=== PATIENT | male | born 1960 | race Caucasian/White ===

== ENCOUNTER 2017-01-22 22:00 | Inpatient (IN) ==
[2017-01-22] MEDS ORDERED: Piperacillin/Tazobactam 3.375 GM in D5% in Water (Mini-Bag+) 100 ML IVPB ONE (22:18)
[2017-01-22] MEDS ORDERED: Vancomycin 1,500 MG in D5% in Water 250 ML IVPB ONE (22:18)
[2017-01-22] MEDS ORDERED: Levofloxacin 750 MG/150 ML 750 MG/150 ML BAG IVPB ONE (22:18)
[2017-01-22] MEDS ORDERED: 0.9 % Sodium Chloride 1,000 ML IVC ONE (22:18)
[2017-01-22] MEDS ORDERED: methylPREDNISolone 125 MG/2 ML VIAL IVP ONE (22:21)
[2017-01-22] MEDS ORDERED: Ipratropium/Albuterol Neb 3 ML IH ONE (22:21)
[2017-01-22 22:45] LABS: Bilirubin,Urine Negative (Negative); Blood,Urine Negative (Negative); Clarity,Urine Clear (Clear); Color,Urine Yellow (Yellow); Glucose,Urine (UA) Normal (Normal); Ketones,Urine Negative (Negative); Leukocyte Esterase,Urine Negative (Negative); Nitrite,Urine Negative (Negative); PH,Urine 8.5 pH Units (5.0-8.0); Protein,Urine 30 mg/dL (Neg-Trace); Specific Gravity,Urine 1.016 (1.010-1.025); Urobilinogen,Urine Normal (Normal)
[2017-01-22 22:48] LABS: Bacteria,Urine None Seen per hpf (None-Few); Hyaline Casts,Urine None Seen per lpf (None-Few); RBC,Urine 0-3 per hpf (0-3); Squamous Epithelial Cell,Urine Few per lpf (None-Few); WBC,Urine 0-3 per hpf (0-3)
[2017-01-22 23:11] LABS: Basophils % 0.2 %; Eosinophils # 0.1 K/mcL (0.0-0.6); Eosinophils % 0.5 %; Hematocrit 37.7 % (37.5-50.1); Hemoglobin 11.4 g/dL (12.9-16.9); Immature Granulocytes % 0.6 % (0-4); Lymphocytes % 13.6 %; Mean Corpuscular HGB Conc 30.2 g/dL (31.6-35.5); Mean Corpuscular Hemoglobin 28.4 pg (28.0-33.3); Mean Corpuscular Volume 93.8 fL (83.0-100.0); Mean Platelet Volume 8.7 fL (9.4-12.4); Monocytes # 0.8 K/mcL (0.0-1.3); Monocytes % 5.7 %; Neutrophils # 11.5 K/mcL (1.6-8.9); Platelet Count 483 K/mcL (140-400); Red Blood Count 4.02 M/mcL (4.19-5.50); Red Cell Distribution Width 13.3 % (11.5-14.5); Segmented Neutrophils % 79.4 %
[2017-01-22 23:15] LABS: INR 1.1; Prothrombin Time 11.4 Seconds (9.4-12.1)
[2017-01-22 23:18] LABS: Activated Partial Thrombo Time 35.1 Seconds (26.0-36.0)
[2017-01-22 23:26] LABS: Alanine Aminotransferase 14 Units/L (0-55); Albumin 3.6 g/dL (3.5-5.0); Alkaline Phosphatase 48 Units/L (38-126); Aspartate Amino Transferase 12 Units/L (5-34); BUN/Creatinine Ratio 13 (6-26); Bilirubin,Direct 0.2 mg/dL (0.0-0.5); Bilirubin,Indirect 0.2 mg/dL (0.0-1.2); Bilirubin,Total 0.4 mg/dL (0.2-1.2); Blood Urea Nitrogen 11 mg/dL (8-26); Calcium 10.2 mg/dL (8.6-10.8); Chloride 93 mEq/L (98-109); Globulin 3.6 g/dL (2.4-3.5); Glucose 139 mg/dL (70-99); Magnesium 1.3 mg/dL (1.6-2.6); Osmolality,Calculated 296 (280-300); Phosphorous 1.8 mg/dL (2.3-4.7); Sodium 142 mEq/L (136-145); Total Protein 7.2 g/dL (6.0-8.3); eGFR For African Americans > 60 (> 60); eGFR For Non-African Americans > 60 (> 60)
[2017-01-22 23:28] LABS: Carbon Dioxide 41 mEq/L (19-29)
--- NOTE | 2017-01-22 23:29 | Emergency Department Note ---
Disposition Clinical Impression: COPD exacerbation, Community acquired pneumonia, Hypoxia Sepsis Qualifiers: Sepsis type: sepsis due to unspecified organism Qualified Code(s): A41.9 - Sepsis, unspecified organism Disposition: Admitted As Inpatient Condition: Fair Referrals: Unassigned,Provider [Primary Care Provider] - Forms: ED Satisfaction Letter Time of Disposition: 00:37 SOB HPI - General Chief Complaint: ED Shortness of Breath/Dyspnea Stated Complaint: KIAH Time Seen by Provider: 01/22/17 22:07 Source: EMS Mode of arrival: ambulatory Limitations: other Nursing Notes Reviewed: Yes Vital Signs Reviewed: Yes - History of Present Illness Patient presents emergency room by EMS for complaint of shortness of breath and cough. Patient is also felt ill. Patient has a tracheostomy tube in place. Denies any trauma or injuries. Has not traveled out of the country. Patient has had productive cough sputum and fever home. No recent antibiotics or change in medications at this time. Denies chest pain headache vision changes nausea vomiting or diarrhea. No chills at this time. Pt Subjective Complaint: shortness of breath, cough Onset (ago): day(s) Context: recent illness Severity: moderate Consistency/Duration: constant Improves with: upright position Worsens with: lying flat, exertion, movement, coughing Known history of: COPD, recurrent pneumonia Associated symptoms: Reports: fever, cough, wheezing, sputum production, orthopnea Treatment prior to arrival: oxygen, bronchodilator Cough Description: Voluntary, Hacking Sputum production: Yes Sputum Amount: Small Sputum Color: Cream - Related Data Home oxygen amount: 2 liters Home Medications Medication Instructions Recorded Confirmed Furosemide [Lasix] 20 mg PO BID 09/24/15 08/19/16 Omeprazole [PriLOSEC] 20 mg PO DAILY 09/24/15 10/22/16 OxyCODONE/APAP [Percocet 1 tab PO Q6HR PRN 09/24/15 10/22/16 10] Fenofibrate [Tricor] 145 mg PO DAILY 08/19/16 10/22/16 Insulin DETEMIR [Levemir] 15 unit SQ HS 08/19/16 08/19/16 Diazepam [Valium] 5 mg PO TID 10/22/16 10/22/16 Sitagliptin Phos/Metformin HCl 1 tab PO BID 10/22/16 10/22/16 [Janumet 50-1,000 mg Tablet] Previous Rx's Medication Instructions Recorded Albuterol Neb [Proventil Neb] 2.5 mg IH [id number] PRN #0 inhsol 07/21/15 Aspirin Enteric Coated [Aspirin EC] 81 mg PO DAILY tablet. 07/21/15 Atorvastatin [Lipitor] 40 mg PO HS tablet 07/21/15 Clopidogrel [Plavix] 75 mg PO DAILY tablet 07/21/15 Gabapentin [Neurontin] 300 mg PO TID capsule 07/21/15 Hydrochlorothiazide 12.5 mg PO DAILY tablet 07/21/15 Ipratropium/Albuterol Neb [Duoneb] 3 ml IH [id number] inhsol 07/21/15 Meloxicam [Mobic] 15 mg PO DAILY tablet 07/21/15 Metformin [Glucophage] 1,000 mg PO BIDWM tablet 07/21/15 Metoprolol [Lopressor] 25 mg PO BID tablet 07/21/15 Montelukast [Singulair] 10 mg PO HS tablet 07/21/15 SitaGLIPtin [Januvia] 50 mg PO BID tablet 07/21/15 Ondansetron ODT [Zofran ODT] 4 mg PO Q6HR PRN #7 tab 11/04/15 Levofloxacin [Levaquin] 500 mg PO DAILY #10 tablet 10/26/16 PredniSONE 60 mg PO DAILY 12 Days 10/26/16 Allergies Allergy/AdvReac Type Severity Reaction Status Date / Time No Known Allergies Allergy Verified 01/22/17 22:03 All systems ED: reviewed and negative except as stated. Constitutional: Reports: fever, chills Cardiovascular: Reports: dyspnea on exertion, orthopnea. Denies: palpitations Respiratory: Reports: dyspnea, wheezes, sputum production. Denies: stridor Gastrointestinal: Denies: nausea, vomiting, diarrhea Genitourinary: Denies: dysuria, frequency Musculoskeletal: Denies: back pain, neck pain Past Medical History - Past Medical History Attestation: Yes The following information was validated with the patient. Source: patient Medical history: Reports: COPD, CVA, diabetes, myocardial infarction Surgical history: Reports: tracheostomy Psychiatric history: Reports: no psych history - Social History Smoking Status: Current every day smoker Smokeless Tobacco Status: No Alcohol use: Reports: occasionally Drug use: Reports: none Physical Exam - General Limitations: other General appearance: alert - Neck Neck exam: Present: normal inspection, full ROM, trachea midline (Patient has tracheostomy tube in place with no acute signs of skin breakdown or bleeding) - Chest Chest inspection: Present: normal inspection, symmetric chest wall rise. Absent : tenderness - Respiratory Respiratory exam: Present: respiratory distress, wheezes, accessory muscle use. Absent: stridor - Cardiovascular Cardiovascular exam: Present: normal rhythm, tachycardia, normal heart sounds - Abdominal Exam Abdominal exam: Present: soft, Non-Tender. Absent: tenderness, distention, guarding, rebound, rigidity, Zhu's sign - Extremities Exam Extremities exam: Present: normal inspection, full ROM. Absent: tenderness, pedal edema - Back Exam Back exam: Present: normal inspection - Neurological Exam Neurological exam: Present: alert, oriented X3, CN II-XII intact, normal gait - Skin Skin exam: Present: warm, dry, intact, normal color Course Course Narrative: Patient presents emergency room for evaluation of increased work of breathing productive sputum and fever. He has felt ill over the last several days. Vital signs reviewed on presentation. See history of present illness. Patient is febrile and tachycardic on presentation. Tracheostomy tube immediately suctioned point of dark-colored sputum. Pulse ox was normal. Patient started on sepsis protocol initially as he presents emergency room. Fluid to be given in 1 L aliquots concerning for congestive heart failure we will not do the 30 mg /kg bolus of fluid at this time. Patient to get broad-spectrum antibiotics secondary to the tracheostomy site. Lungs are coarse with wheezing bilaterally. Solu-Medrol as well as breathing treatments ordered on presentation. Patient to have labs EKG chest x-ray urinalysis and antibiotic and fluid regimen started this time. Lactic acid also ordered for completion of course of care. Patient will most likely need admission to hospital. Otherwise mentating appropriately and feeling ill. Tylenol ordered for his fever. Continue to monitor as admission process will be completed once labs and imaging are resulted. - Reevaluation(s) Reevaluation #1: Patient found to have bilateral infiltrate on chest x-ray. Vital signs are stabilized with the fluids. Tylenol given. Breathing is less labored at this point after the steroids and breathing treatments. Patient will be brought in for what appears to be clean acquired pneumonia with possibility of healthcare acquired pneumonia secondary to the multiple evaluations for tracheostomy site. Hospitalist paged at this time for admission process. Discussed the presentation symptoms and medical intervention with Dr. Mckeon. We reviewed the patient's presentation and symptoms of this time. No other recommendations at this time. Patient will be admitted for further evaluation and management of what appears to be bilateral pneumonia with fever meeting sepsis criteria. Patient is stable fluid being provided in incremental aliquots for symptom control. Otherwise patient is in no acute distress at this time. Admission process to be completed. Patient will be observed in the emergency room until he was transitioned to the floor. Time: 00:35 Vital Signs Temperature 101.8 F H 01/22/17 22:05 Pulse Rate 149 01/22/17 22:05 Respiratory Rate 24 01/22/17 22:05 Blood Pressure 147/94 01/22/17 22:05 O2 Sat by Pulse Oximetry 90 L 01/22/17 22:05 Temperature 101.8 F H 01/22/17 22:05 Pulse Rate 137 01/22/17 23:10 Respiratory Rate 26 01/22/17 23:10 Blood Pressure 149/75 01/22/17 23:10 O2 Sat by Pulse Oximetry 98 01/22/17 22:30 Oxygen Delivery Oxygen Delivery Trach Mask Shortness of Breath/Dyspnea - MDM Narrative Medical decision making narrative: Bilateral pneumonia, fever, sepsis - Medical Records Medical records reviewed: Yes I reviewed the patient's medical records. - Lab Data Lab results reviewed: Yes I reviewed the patient's lab results. Result diagrams: 01/22/17 23:01 Lab Results 01/22/17 01/22/17 01/22/17 Range/Units 22:33 22:56 23:01 WBC 14.5 H (4.3-11.1) K/mcL RBC 4.02 L (4.19-5.50) M/mcL Hgb 11.4 L (12.9-16.9) g/dL Hct 37.7 (37.5-50.1) % MCV 93.8 (83.0-100.0) fL MCH 28.4 (28.0-33.3) pg MCHC 30.2 L (31.6-35.5) g/dL RDW 13.3 (11.5-14.5) % Plt Count 483 H (140-400) K/mcL MPV 8.7 L (9.4-12.4) fL Immature Gran % 0.6 (0-4) % Seg Neutrophils % 79.4 % Lymphocytes % 13.6 % Monocytes % 5.7 % Eosinophils % 0.5 % Basophils % 0.2 % Neutrophils # 11.5 H (1.6-8.9) K/mcL Lymphocytes # 2.0 (0.6-4.6) K/mcL Monocytes # 0.8 (0.0-1.3) K/mcL Eosinophils # 0.1 (0.0-0.6) K/mcL Basophils # 0.0 (0.0-0.2) K/mcL PT (9.4-12.1) Seconds INR APTT (26.0-36.0) Seconds POC Glucose 132 H (58-89) Lactic Acid (0.5-2.2) mmol/L Urine Color Yellow (Yellow) Urine Clarity Clear (Clear) Urine pH 8.5 H (5.0-8.0) pH Units Ur Specific [place] 1.016 (1.010-1.025) Urine Protein 30 H (Neg-Trace) mg/dL Urine Glucose (UA) Normal (Normal) mg/dL Urine Ketones Negative (Negative) mg/dL Urine Blood Negative (Negative) Urine Nitrite Negative (Negative) Urine Bilirubin Negative (Negative) Urine Urobilinogen Normal (Normal) mg/dL Ur Leukocyte Esterase Negative (Negative) Urine Microscopic RBC 0-3 (0-3) per hpf Urine Microscopic WBC 0-3 (0-3) per hpf Ur Squamous Epith Cells Few (None-Few) per lpf Urine Bacteria None Seen (None-Few) per hpf Hyaline Casts None Seen (None-Few) per lpf Ur Culture Indicated? NO (NO) 01/22/17 01/22/17 Range/Units 23:01 23:01 WBC (4.3-11.1) K/mcL RBC (4.19-5.50) M/mcL Hgb (12.9-16.9) g/dL Hct (37.5-50.1) % MCV (83.0-100.0) fL MCH (28.0-33.3) pg MCHC (31.6-35.5) g/dL RDW (11.5-14.5) % Plt Count (140-400) K/mcL MPV (9.4-12.4) fL Immature Gran % (0-4) % Seg Neutrophils % % Lymphocytes % % Monocytes % % Eosinophils % % Basophils % % Neutrophils # (1.6-8.9) K/mcL Lymphocytes # (0.6-4.6) K/mcL Monocytes # (0.0-1.3) K/mcL Eosinophils # (0.0-0.6) K/mcL Basophils # (0.0-0.2) K/mcL PT 11.4 (9.4-12.1) Seconds INR 1.1 APTT 35.1 (26.0-36.0) Seconds POC Glucose (58-89) Lactic Acid 1.4 (0.5-2.2) mmol/L Urine Color (Yellow) Urine Clarity (Clear) Urine pH (5.0-8.0) pH Units Ur Specific [place] (1.010-1.025) Urine Protein (Neg-Trace) mg/dL Urine Glucose (UA) (Normal) mg/dL Urine Ketones (Negative) mg/dL Urine Blood (Negative) Urine Nitrite (Negative) Urine Bilirubin (Negative) Urine Urobilinogen (Normal) mg/dL Ur Leukocyte Esterase (Negative) Urine Microscopic RBC (0-3) per hpf Urine Microscopic WBC (0-3) per hpf Ur Squamous Epith Cells (None-Few) per lpf Urine Bacteria (None-Few) per hpf Hyaline Casts (None-Few) per lpf Ur Culture Indicated? (NO) - Radiology Data Radiology results reviewed: Yes I reviewed the patient's radiology results. Chest x-ray confirmed bilateral pulmonary infiltrate - EKG Data EKG attestation: Yes I reviewed and interpreted this EKG. EKG shows normal: Reports: sinus rhythm, axis, intervals, QRS complexes, ST-T waves Rate: Reports: tachycardia Rhythm: Reports: NSR [place]/QRS: Reports: normal When compared to previous EKG there are: no significant changes Interpretation: Reports: no acute changes, unchanged when compared to prior tracing (date) (10/22/16) Critical Care Time Critical Care Time: Yes Total Critical Care Time: 45 Attestation: Independent of procedures and medical intervention
--- NOTE | 2017-01-23 02:50 | Internal Med History&Physical ---
Date of Encounter: 01/23/17 Time of Encounter: 02:47 Assessment and Plan (1) Sepsis Current visit: Yes Status: Acute Patient with leukocytosis, fever and pneumonia. Continue with broad-spectrum antibiotics. Follow cultures. Continue monitoring the patient closely. Lactic acid within normal limits. Continue with oxygen therapy. Pulmonary toilet. Nebulizer therapy. Qualifiers: Sepsis type: sepsis due to unspecified organism Qualified Code(s): A41.9 - Sepsis, unspecified organism (2) Acute and chronic respiratory failure with hypercapnia Current visit: No Status: Acute Patient with chronic respiratory failure, chronic CO2 retainer in the setting of COPD and status post tracheostomy. Continue with management as above for healthcare associated pneumonia. (3) Acute exacerbation of chronic obstructive pulmonary disease (COPD) Current visit: No Status: Acute (4) HCAP (healthcare-associated pneumonia) Current visit: No Status: Acute (5) Hypertension Current visit: No Status: Chronic Qualifiers: Hypertension type: essential hypertension Qualified Code(s): I10 - Essential (primary) hypertension (6) Tobacco abuse Current visit: No Status: Chronic (7) Tracheostomy dependent Current visit: No Status: Chronic Internal Medicine - H&P: HPI Chief complaint: SOB Admitted From: Emergency Dept Plans for Post Hospital Care: Home History of present illness: Mr. Mccloud is a 56 year old male with PMH of COPD s/p tracheostomy-on home oxygen (3L), hypertension, diabetes, CAD, status post tracheostomy, and an every day smoker. He presented to the emergency department via EMS due to shortness of breath and productive cough. The patient has been feeling weak for the last couple of days. Upon evaluation in the emergency department he was found to be febrile and tachycardic. Initial blood work revealed leukocytosis. The patient has received nebulizer therapy, IV fluids, a sepsis alert was activated and the patient received IV antibiotics in the emergency department with both vancomycin and Zosyn. Lactic acid was obtained, within normal limits in 2 locations. X-ray revealed bibasilar infiltrates He was admitted for further management and workup. Past Med Surg Social Fam HX - Past Medical History Medical history: COPD, CVA, diabetes, myocardial infarction Psychiatric history: no psych history - Past Surgical History Surgical History: tracheostomy - Social History Smoking Status: Current every day smoker Smokeless Tobacco Status: No Alcohol use: occasionally Drug use: none - Family History Mother Hx Family Respiratory Disorders: Yes (COPD) Hx Family Endocrine Disorder: Yes (DIABETES.) Internal Medicine - H&P: Meds Albuterol Neb [Proventil Neb] 2.5 mg IH [id number] PRN #0 inhsol 07/21/15 [Rx] Aspirin Enteric Coated [Aspirin EC] 81 mg PO DAILY tablet. 07/21/15 [Rx] Atorvastatin [Lipitor] 40 mg PO HS tablet 07/21/15 [Rx] Clopidogrel [Plavix] 75 mg PO DAILY tablet 07/21/15 [Rx] Gabapentin [Neurontin] 300 mg PO TID capsule 07/21/15 [Rx] Hydrochlorothiazide 12.5 mg PO DAILY tablet 07/21/15 [Rx] Ipratropium/Albuterol Neb [Duoneb] 3 ml IH [id number] inhsol 07/21/15 [Rx] Meloxicam [Mobic] 15 mg PO DAILY tablet 07/21/15 [Rx] Metformin [Glucophage] 1,000 mg PO BIDWM tablet 07/21/15 [Rx] Metoprolol [Lopressor] 25 mg PO BID tablet 07/21/15 [Rx] Montelukast [Singulair] 10 mg PO HS tablet 07/21/15 [Rx] SitaGLIPtin [Januvia] 50 mg PO BID tablet 07/21/15 [Rx] Furosemide [Lasix] 20 mg PO BID 09/24/15 [History] Omeprazole [PriLOSEC] 20 mg PO DAILY 09/24/15 [History] OxyCODONE/APAP 10/325 [Percocet 10/325] 1 tab PO Q6HR PRN 09/24/15 [History] Ondansetron ODT [Zofran ODT] 4 mg PO Q6HR PRN #7 tab 11/04/15 [Rx] Fenofibrate [Tricor] 145 mg PO DAILY 08/19/16 [History] Insulin DETEMIR [Levemir] 15 unit SQ HS 08/19/16 [History] Diazepam [Valium] 5 mg PO TID 10/22/16 [History] Sitagliptin Phos/Metformin HCl [Janumet 50-1,000 mg Tablet] 1 tab PO BID [History] Levofloxacin [Levaquin] 500 mg PO DAILY #10 tablet 10/26/16 [Rx] PredniSONE 60 mg PO DAILY 12 Days 10/26/16 [Rx] Allergies azithromycin Allergy (Verified 01/23/17 01:18) See Comments All Systems PM: A 10-system review of systems was performed and is negative for pertinent findings except as documented above in the HPI. - Constitutional Constitutional: as per HPI, chills, excessive sweating, fatigue, fever(s), malaise, no night sweats - EENT Eyes: as per HPI, no change in vision, no discharge, no pain, no photophobia Ears: as per HPI, no ear discharge, no ear pain, no tinnitus Nose, mouth and throat: as per HPI, no dysphagia, no nasal discharge, no neck pain, no sore throat - Breasts Breasts: as per HPI - Cardiovascular Cardiovascular ROS IM: as per HPI, dyspnea on exertion, no chest pain, no diaphoresis, no dyspnea, no lightheadedness, no palpitations, no syncope - Respiratory Respiratory: as per HPI, cough, dyspnea, dyspnea on exertion, wheezing, no excessive phlegm production - Gastrointestinal Gastrointestinal: as per HPI, no abdominal pain, no diarrhea, no hematemesis, no hematochezia, no melena, no nausea, no vomiting - Genitourinary Genitourinary ROS male: as per HPI - Musculoskeletal Musculoskeletal ROS IM: as per HPI, no numbness, no tingling - Integumentary Integumentary IM: as per HPI, no rash, no unusual bruising - Neurological Neurological ROS: as per HPI, no confusion, no convulsions, no focal weakness, no numbness, no tingling, no tremor(s) - Psychiatric Psychiatric: as per HPI - Endocrine Endocrine IM: as per HPI - Hematologic/Lymphatic Hematologic/Lymphatic: as per HPI, no easy bruising - Allergic/Immunologic Allergic/Immunologic: as per HPI - Constitutional Vitals: Temp Pulse Resp BP Pulse Ox 101.8 F H 117 20 123/55 100 01/22/17 22:05 01/23/17 01:37 01/23/17 02:09 01/23/17 02:09 01/23/17 01:37 General appearance: Present: disheveled, mild distress, A&O X 3 Exam: Tracheostomy tube placed. - Head Head exam: Present: atraumatic, normocephalic - Eye Eye exam: Present: PERRL, conjuntiva pink, sclera anicteric Pupils: Present: PERRL - Neck Neck exam general surgery: Present: supple, trachea midline. Absent: lymphadenopathy - Respiratory Respiratory exam: Present: decreased breath sounds, wheezes. Absent: accessory muscle use, rales, rhonchi - Cardiovascular Cardiovascular exam: Present: RRR, +S1, +S2, tachycardia. Absent: diastolic murmur, gallop, rubs, systolic murmur - GI/Abdominal GI/Abdominal exam: Present: normal bowel sounds, soft, no peritoneal signs. Absent: distended, tenderness - Extremities Exam Extremities exam: Present: warm, radial pulses palpable and symetrical. Absent : calf tenderness, cyanotic, pedal edema - Neurological Exam Neurological exam: Present: CN II-XII intact, oriented X3, no focal deficits. Absent: pronater drift, facial droop, speech deficit - Skin Skin exam: Present: dry, intact Internal Med - H&P Results - Labs CBC & Chem 7: 01/22/17 23:01 01/22/17 23:01
[2017-01-23] MEDS ORDERED: Ondansetron 4 MG/2 ML VIAL IVP PRN (03:06)
[2017-01-23] MEDS ORDERED: Albuterol 2.5 MG/3 ML NEBULIZER IH PRN (03:06)
[2017-01-23] MEDS ORDERED: Acetaminophen 325 MG TABLET PO PRN (03:06)
[2017-01-23] MEDS ORDERED: Naloxone 0.4 MG/ML INJ IVP PRN (03:06)
[2017-01-23] MEDS: 0.9 % Sodium Chloride 1,000 ML IVC SCH ×2 (03:53→15:19)
[2017-01-23] MEDS: *HR* Morphine 2 MG/ML SYRINGE IVP PRN (03:55)
[2017-01-23] MEDS ORDERED: Vancomycin (wt based) 1,000 MG VIAL IVPB SCH (04:00)
[2017-01-23] MEDS: *HR* Heparin 5,000 UNIT/ML VIAL SQ SCH ×2 (04:02→17:43)
[2017-01-23] MEDS: Ipratropium/Albuterol Neb 3 ML IH SCH ×4 (04:58→22:05)
[2017-01-23] MEDS: Famotidine 20 MG/2 ML VIAL IVP SCH ×2 (05:19→17:42)
[2017-01-23 06:30] LABS: Hematocrit 37.3 % (37.5-50.1); Hemoglobin 11.4 g/dL (12.9-16.9); Mean Corpuscular HGB Conc 30.6 g/dL (31.6-35.5); Mean Corpuscular Volume 94.9 fL (83.0-100.0); Mean Platelet Volume 9.2 fL (9.4-12.4); Platelet Count 455 K/mcL (140-400); Red Blood Count 3.93 M/mcL (4.19-5.50); Red Cell Distribution Width 13.2 % (11.5-14.5)
[2017-01-23 07:27] LABS: Platelet Estimate Increased (Normal)
[2017-01-23] MEDS: Piperacillin/Tazobactam 3.375 GM in D5% in Water (Mini-Bag+) 100 ML IVPB SCH ×2 (09:25→15:20)
[2017-01-23] MEDS: MethylPREDNISolone 40 MG/ML VIAL IVP SCH ×2 (09:27→17:42)
[2017-01-23] MEDS: Vancomycin 1,500 MG in D5% in Water 250 ML IVPB SCH ×2 (11:13→22:48)
--- NOTE | 2017-01-23 14:16 | Internal Med Progress Note ---
Date of Encounter: 01/23/17 Time of Encounter: 14:14 - Assessment and plan (1) Acute and chronic respiratory failure ([id number]) Current Visit: No Status: Chronic Assessment and plan: trach mask, supplemental O2, trach care,succtioning Qualifiers: Respiratory failure complication: hypoxia and hypercapnia Qualified Code(s) : J96.21 - Acute and chronic respiratory failure with hypoxia; J96.22 - Acute and chronic respiratory failure with hypercapnia (2) Acute exacerbation of chronic obstructive pulmonary disease (COPD) Current Visit: No Status: Acute Assessment and plan: Iv solumedrol, inhaled Duoneb (3) Tracheostomy status Current Visit: No Status: Chronic Assessment and plan: trach care (4) HCAP (healthcare-associated pneumonia) Current Visit: No Status: Acute Assessment and plan: Zosyn and Vancomycin. f/u sputum culture (5) DMII (diabetes mellitus, type 2) Current Visit: No Status: Chronic Assessment and plan: increase Levemir to 16units BID due to steroids, add humalog sliding scale, hold orals Qualifiers: Diabetes mellitus complication status: without complication Diabetes mellitus fdc insulin use: with fdc use Qualified Code(s): E11.9 - Type 2 diabetes mellitus without complications; Z79.4 - intermediate (current) use of insulin (6) HTN (hypertension) Current Visit: No Status: Chronic Assessment and plan: sc Metoprolol Qualifiers: Hypertension type: essential hypertension Qualified Code(s): I10 - Essential (primary) hypertension (7) DVT prophylaxis Current Visit: No Status: Acute Assessment and plan: heparin SubQ (8) Tobacco abuse Current Visit: No Status: Chronic - Subjective Interval history: Pt reports cough productive of sputum and SOB worse this am, no CP, no N/V - Constitutional Vitals: Temp Pulse Resp BP Pulse Ox 98.7 F 110 18 137/81 90 L 01/23/17 11:00 01/23/17 11:00 01/23/17 11:00 01/23/17 11:00 01/23/17 11:00 General appearance: Present: disheveled, mild distress, A&O X 3 - Head Head exam: Present: atraumatic, normocephalic - Eye Eye exam: Present: PERRL, conjuntiva pink, sclera anicteric Pupils: Present: PERRL - Respiratory Respiratory exam: Present: rales, rhonchi, wheezes. Absent: accessory muscle use - Cardiovascular Cardiovascular exam: Present: RRR, +S1, +S2. Absent: diastolic murmur, gallop, rubs, systolic murmur - GI/Abdominal GI/Abdominal exam: Present: normal bowel sounds, soft, no peritoneal signs. Absent: distended, tenderness - Extremities Exam Extremities exam: Present: warm, radial pulses palpable and symetrical. Absent : calf tenderness, cyanotic, pedal edema - Skin Skin exam: Present: dry, intact Internal Medicine: Result - Labs CBC & Chem 7: 01/23/17 05:51 01/22/17 23:01 Labs: Short CBC 01/23/17 Range/Units 05:51 WBC 15.9 H (4.3-11.1) K/mcL Hgb 11.4 L (12.9-16.9) g/dL Hct 37.3 L (37.5-50.1) % Plt Count 455 H (140-400) K/mcL Neutrophils # 15.0 H (1.6-8.9) K/mcL - ABG Interpretation ABG results: PT/INR, D-dimer PT 11.4 Seconds (9.4-12.1) 01/22/17 23:01 Consult Discharge Plan - Plan Referrals: Ad Garcia MD [Primary Care Provider] -
[2017-01-23] MEDS ORDERED: *HR* Dextrose 50 % in Water (Syg) 50 ML SYRINGE IVP PRN (14:19)
[2017-01-23] MEDS ORDERED: Dextrose Gel 15 GM PO PRN ×2 (14:19)
[2017-01-23] MEDS ORDERED: D5% in Water 1,000 ML IVC PRN (14:19)
[2017-01-23 15:00] LABS: Hemoglobin A1C 6.4 %
[2017-01-23] MEDS: Gabapentin 300 MG CAPSULE PO SCH ×2 (15:20→20:59)
[2017-01-23] MEDS: *HR* OxyCODONE/APAP 10/325 TABLET PO PRN ×2 (15:26→20:58)
[2017-01-23] MEDS: Furosemide 20 MG TABLET PO SCH (17:43)
[2017-01-23] MEDS: diazePAM 5 MG TABLET PO SCH ×2 (17:43→20:59)
[2017-01-23] MEDS: Insulin LISPRO 300 UNITS/3 ML VIAL SQ SCH ×2 (17:43→21:00)
[2017-01-23] MEDS: Insulin DETEMIR 100 UNIT/ML X5UNITS SQ SCH (20:59)
[2017-01-24] MEDS: MethylPREDNISolone 40 MG/ML VIAL IVP SCH ×3 (00:53→16:51)
[2017-01-24] MEDS: Piperacillin/Tazobactam 3.375 GM in D5% in Water (Mini-Bag+) 100 ML IVPB SCH ×3 (00:53→16:51)
[2017-01-24] MEDS: *HR* Morphine 2 MG/ML SYRINGE IVP PRN (00:54)
[2017-01-24] MEDS: Ipratropium/Albuterol Neb 3 ML IH SCH ×4 (04:13→22:37)
[2017-01-24] MEDS: *HR* OxyCODONE/APAP 10/325 TABLET PO PRN ×3 (05:33→23:04)
[2017-01-24] MEDS: *HR* Heparin 5,000 UNIT/ML VIAL SQ SCH ×2 (05:33→16:51)
[2017-01-24] MEDS: Famotidine 20 MG/2 ML VIAL IVP SCH ×2 (05:34→16:51)
[2017-01-24 07:29] LABS: BUN/Creatinine Ratio 15 (6-26); Blood Urea Nitrogen 13 mg/dL (8-26); Calcium 9.3 mg/dL (8.6-10.8); Carbon Dioxide 35 mEq/L (19-29); Chloride 95 mEq/L (98-109); Glucose 258 mg/dL (70-99); Osmolality,Calculated 295 (280-300); Potassium 4.4 mEq/L (3.5-4.5); Sodium 138 mEq/L (136-145); eGFR For African Americans > 60 (> 60); eGFR For Non-African Americans > 60 (> 60)
[2017-01-24 07:30] LABS: Hematocrit 33.3 % (37.5-50.1); Hemoglobin 10.4 g/dL (12.9-16.9); Immature Granulocytes % 0.4 % (0-4); Lymphocytes # 0.8 K/mcL (0.6-4.6); Lymphocytes % 8.2 %; Mean Corpuscular HGB Conc 31.2 g/dL (31.6-35.5); Mean Corpuscular Hemoglobin 29.2 pg (28.0-33.3); Mean Corpuscular Volume 93.5 fL (83.0-100.0); Mean Platelet Volume 9.3 fL (9.4-12.4); Monocytes # 0.4 K/mcL (0.0-1.3); Monocytes % 3.6 %; Neutrophils # 8.9 K/mcL (1.6-8.9); Platelet Count 481 K/mcL (140-400); Red Blood Count 3.56 M/mcL (4.19-5.50); Segmented Neutrophils % 87.8 %
[2017-01-24] MEDS: Insulin LISPRO 300 UNITS/3 ML VIAL SQ SCH ×4 (08:01→22:32)
[2017-01-24] MEDS: Insulin DETEMIR 100 UNIT/ML X5UNITS SQ SCH ×2 (08:01→23:00)
[2017-01-24] MEDS: diazePAM 5 MG TABLET PO SCH ×4 (08:02→23:00)
[2017-01-24] MEDS: Aspirin Enteric Coated 81 MG Tablet PO SCH (08:02)
[2017-01-24] MEDS: Gabapentin 300 MG CAPSULE PO SCH ×3 (08:02→23:00)
[2017-01-24] MEDS: Furosemide 20 MG TABLET PO SCH ×2 (08:02→16:51)
[2017-01-24 09:04] LABS: Magnesium 1.7 mg/dL (1.6-2.6)
[2017-01-24] MEDS: Vancomycin 1,750 MG in D5% in Water 500 ML IVPB SCH ×2 (12:04→23:01)
--- NOTE | 2017-01-24 20:08 | Internal Med Progress Note ---
Date of Encounter: 01/24/17 Time of Encounter: 12:00 - Assessment and plan (1) Acute and chronic respiratory failure ([id number]) Current Visit: No Status: Chronic Assessment and plan: trach mask, supplemental O2, trach care,succtioning Qualifiers: Respiratory failure complication: hypoxia and hypercapnia Qualified Code(s) : J96.21 - Acute and chronic respiratory failure with hypoxia; J96.22 - Acute and chronic respiratory failure with hypercapnia (2) Acute exacerbation of chronic obstructive pulmonary disease (COPD) Current Visit: No Status: Acute Assessment and plan: Iv solumedrol 40 mg every 8, inhaled Duoneb (3) Tracheostomy status Current Visit: No Status: Chronic Assessment and plan: trach care (4) HCAP (healthcare-associated pneumonia) Current Visit: No Status: Acute Assessment and plan: Continue with Zosyn and Vancomycin. f/u sputum culture. Follow-up blood culture. (5) DMII (diabetes mellitus, type 2) Current Visit: No Status: Chronic Qualifiers: Diabetes mellitus complication status: without complication Diabetes mellitus terminal clerk insulin use: with terminal clerk use Qualified Code(s): E11.9 - Type 2 diabetes mellitus without complications; Z79.4 - correction (current) use of insulin (6) HTN (hypertension) Current Visit: No Status: Chronic Qualifiers: Hypertension type: essential hypertension Qualified Code(s): I10 - Essential (primary) hypertension (7) DVT prophylaxis Current Visit: No Status: Acute (8) Tobacco abuse Current Visit: No Status: Chronic - Subjective Interval history: Patient says his shortness of breath has improved tremendously since yesterday. He continues to have associated cough with sputum production which had decreased in amount over the last 24 hours. Denies associated chest pain. - Constitutional Vitals: Temp Pulse Resp BP Pulse Ox 98.2 F 85 20 135/83 92 L 01/24/17 16:58 01/24/17 19:53 01/24/17 19:53 01/24/17 19:53 01/24/17 19:53 General appearance: Present: disheveled, mild distress, A&O X 3 - Eye Eye exam: Present: PERRL, conjuntiva pink, sclera anicteric Pupils: Present: PERRL - Respiratory Respiratory exam: Present: wheezes. Absent: accessory muscle use, rales, rhonchi Additional comments: Tracheostomy is in place - Cardiovascular Cardiovascular exam: Present: RRR, +S1, +S2. Absent: diastolic murmur, gallop, rubs, systolic murmur - GI/Abdominal GI/Abdominal exam: Present: normal bowel sounds, soft, no peritoneal signs. Absent: distended, tenderness - Extremities Exam Extremities exam: Present: warm, radial pulses palpable and symetrical. Absent : calf tenderness, cyanotic, pedal edema - Skin Skin exam: Present: dry, intact Internal Medicine: Result - Labs CBC & Chem 7: 01/24/17 06:06 01/24/17 06:06 Labs: Short CBC 01/24/17 Range/Units 06:06 WBC 10.1 (4.3-11.1) K/mcL Hgb 10.4 L (12.9-16.9) g/dL Hct 33.3 L (37.5-50.1) % Plt Count 481 H (140-400) K/mcL Neutrophils # 8.9 (1.6-8.9) K/mcL BMP 01/24/17 06:06 Sodium 138 Potassium 4.4 Chloride 95 L Carbon Dioxide 35 H BUN 13 Creatinine 0.84 Glucose 258 H Calcium 9.3 - ABG Interpretation ABG results: PT/INR, D-dimer PT 11.4 Seconds (9.4-12.1) 01/22/17 23:01 Consult Discharge Plan - Plan Referrals: Ad Garcia MD [Primary Care Provider] -
--- NOTE | 2017-01-24 21:42 | Electrocardiograph Report ---
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
[2017-01-25] MEDS: Piperacillin/Tazobactam 3.375 GM in D5% in Water (Mini-Bag+) 100 ML IVPB SCH ×3 (00:56→16:39)
[2017-01-25] MEDS: MethylPREDNISolone 40 MG/ML VIAL IVP SCH ×3 (01:01→16:39)
[2017-01-25] MEDS: Ipratropium/Albuterol Neb 3 ML IH SCH ×4 (04:40→22:02)
[2017-01-25 05:01] LABS: Basophils % 0.1 %; Hematocrit 34.4 % (37.5-50.1); Hemoglobin 10.6 g/dL (12.9-16.9); Immature Granulocytes % 0.6 % (0-4); Lymphocytes % 10.2 %; Mean Corpuscular HGB Conc 30.8 g/dL (31.6-35.5); Mean Corpuscular Hemoglobin 28.3 pg (28.0-33.3); Mean Corpuscular Volume 91.7 fL (83.0-100.0); Mean Platelet Volume 8.9 fL (9.4-12.4); Monocytes # 0.4 K/mcL (0.0-1.3); Monocytes % 4.6 %; Platelet Count 504 K/mcL (140-400); Red Blood Count 3.75 M/mcL (4.19-5.50); Red Cell Distribution Width 13.1 % (11.5-14.5); Segmented Neutrophils % 84.5 %
[2017-01-25 05:16] LABS: BUN/Creatinine Ratio 14 (6-26); Blood Urea Nitrogen 13 mg/dL (8-26); Calcium 9.5 mg/dL (8.6-10.8); Carbon Dioxide 36 mEq/L (19-29); Chloride 97 mEq/L (98-109); Glucose 242 mg/dL (70-99); Osmolality,Calculated 300 (280-300); Potassium 4.3 mEq/L (3.5-4.5); Sodium 141 mEq/L (136-145); eGFR For African Americans > 60 (> 60); eGFR For Non-African Americans > 60 (> 60)
[2017-01-25] MEDS: *HR* OxyCODONE/APAP 10/325 TABLET PO PRN ×3 (05:18→20:42)
[2017-01-25] MEDS: *HR* Heparin 5,000 UNIT/ML VIAL SQ SCH ×2 (05:19→16:39)
[2017-01-25] MEDS: Famotidine 20 MG/2 ML VIAL IVP SCH (05:19)
[2017-01-25] MEDS: Furosemide 20 MG TABLET PO SCH ×2 (08:37→16:39)
[2017-01-25] MEDS: diazePAM 5 MG TABLET PO SCH ×4 (08:37→20:39)
[2017-01-25] MEDS: Gabapentin 300 MG CAPSULE PO SCH ×3 (08:37→20:40)
[2017-01-25] MEDS: Aspirin Enteric Coated 81 MG Tablet PO SCH (08:37)
[2017-01-25] MEDS: Insulin LISPRO 300 UNITS/3 ML VIAL SQ SCH ×3 (08:38→16:39)
[2017-01-25] MEDS: Insulin DETEMIR 100 UNIT/ML X5UNITS SQ SCH ×2 (08:40→20:40)
[2017-01-25] MEDS: Vancomycin 1,750 MG in D5% in Water 500 ML IVPB SCH ×2 (12:32→23:13)
[2017-01-25] MEDS ORDERED: Insulin LISPRO 300 UNITS/3 ML VIAL SQ SCH (15:47)
[2017-01-25] MEDS ORDERED: Famotidine 20 MG TABLET PO SCH (21:00)
--- NOTE | 2017-01-25 22:27 | Internal Med Progress Note ---
Date of Encounter: 01/25/17 Time of Encounter: 14:00 - Assessment and plan (1) Acute and chronic respiratory failure ([id number]) Current Visit: No Status: Chronic Assessment and plan: trach mask, supplemental O2, trach care,succtioning Qualifiers: Respiratory failure complication: hypoxia and hypercapnia Qualified Code(s) : J96.21 - Acute and chronic respiratory failure with hypoxia; J96.22 - Acute and chronic respiratory failure with hypercapnia (2) Acute exacerbation of chronic obstructive pulmonary disease (COPD) Current Visit: No Status: Acute Assessment and plan: We will start tapering down Iv solumedrol 40 mg every 12 hours, continue inhaled Duoneb every 4 hours and inhaled albuterol as needed. (3) Tracheostomy status Current Visit: No Status: Chronic Assessment and plan: trach care (4) HCAP (healthcare-associated pneumonia) Current Visit: No Status: Acute Assessment and plan: Continue with Zosyn and Vancomycin. f/u sputum culture. Follow-up blood culture - negative. Could be transitioned to oral antibiotics in 1-2 days if he continues to improve. (5) DMII (diabetes mellitus, type 2) Current Visit: No Status: Chronic Assessment and plan: increase Levemir to 16units BID due to steroids, add humalog sliding scale, hold orals Qualifiers: Diabetes mellitus complication status: without complication Diabetes mellitus longterm insulin use: with longterm use Qualified Code(s): E11.9 - Type 2 diabetes mellitus without complications; Z79.4 - skilled nursing (current) use of insulin (6) HTN (hypertension) Current Visit: No Status: Chronic Assessment and plan: sc Metoprolol Qualifiers: Hypertension type: essential hypertension Qualified Code(s): I10 - Essential (primary) hypertension (7) DVT prophylaxis Current Visit: No Status: Acute Assessment and plan: heparin SubQ (8) Tobacco abuse Current Visit: No Status: Chronic Assessment and plan: I have provided smoking cessation counseling. He does not intend to quit smoking just now but he is willing to cut down. - Subjective Interval history: Patient says his shortness of breath has improved since yesterday. He continues to have cough with sputum production which had decreased in amount over the last 24 hours. Denies associated chest pain. - Constitutional Vitals: Temp Pulse Resp BP Pulse Ox 99.6 F 74 16 141/85 91 L 03/27/17 15:17 01/25/17 15:17 01/25/17 22:02 01/25/17 15:17 01/25/17 22:02 General appearance: Present: disheveled, mild distress, A&O X 3 - Eye Eye exam: Present: PERRL, conjuntiva pink, sclera anicteric Pupils: Present: PERRL - Respiratory Respiratory exam: Present: wheezes (Tracheostomy tube was in place). Absent: accessory muscle use, rales, rhonchi - Cardiovascular Cardiovascular exam: Present: RRR, +S1, +S2. Absent: diastolic murmur, gallop, rubs, systolic murmur - GI/Abdominal GI/Abdominal exam: Present: normal bowel sounds, soft, no peritoneal signs. Absent: distended, tenderness - Extremities Exam Extremities exam: Present: warm, radial pulses palpable and symetrical. Absent : calf tenderness, cyanotic, pedal edema Internal Medicine: Result - Labs CBC & Chem 7: 01/25/17 04:37 01/25/17 04:37 Labs: Short CBC 01/25/17 Range/Units 04:37 WBC 9.4 (4.3-11.1) K/mcL Hgb 10.6 L (12.9-16.9) g/dL Hct 34.4 L (37.5-50.1) % Plt Count 504 H (140-400) K/mcL Neutrophils # 8.0 (1.6-8.9) K/mcL BMP 01/25/17 04:37 Sodium 141 Potassium 4.3 Chloride 97 L Carbon Dioxide 36 H BUN 13 Creatinine 0.91 Glucose 242 H Calcium 9.5 - ABG Interpretation ABG results: PT/INR, D-dimer PT 11.4 Seconds (9.4-12.1) 01/22/17 23:01 Consult Discharge Plan - Plan Referrals: Ad Garcia MD [Primary Care Provider] - Tori Leigh DO [Partnered Physician] - 02/08/17 9:05 am
[2017-01-26] MEDS: Piperacillin/Tazobactam 3.375 GM in D5% in Water (Mini-Bag+) 100 ML IVPB SCH ×2 (00:37→09:57)
[2017-01-26] MEDS: *HR* OxyCODONE/APAP 10/325 TABLET PO PRN ×2 (03:10→09:57)
[2017-01-26] MEDS: Ipratropium/Albuterol Neb 3 ML IH SCH ×2 (05:05→10:21)
[2017-01-26] MEDS: *HR* Heparin 5,000 UNIT/ML VIAL SQ SCH (05:16)
[2017-01-26] MEDS: MethylPREDNISolone 40 MG/ML VIAL IVP SCH (05:16)
[2017-01-26 06:52] LABS: Basophils % 0.1 %; Eosinophils % 0.1 %; Hematocrit 34.7 % (37.5-50.1); Lymphocytes # 2.9 K/mcL (0.6-4.6); Lymphocytes % 32.7 %; Mean Corpuscular HGB Conc 31.7 g/dL (31.6-35.5); Mean Corpuscular Hemoglobin 29.1 pg (28.0-33.3); Mean Corpuscular Volume 91.8 fL (83.0-100.0); Mean Platelet Volume 9.1 fL (9.4-12.4); Monocytes # 0.6 K/mcL (0.0-1.3); Monocytes % 7.1 %; Neutrophils # 5.3 K/mcL (1.6-8.9); Platelet Count 529 K/mcL (140-400); Red Blood Count 3.78 M/mcL (4.19-5.50); Red Cell Distribution Width 13.2 % (11.5-14.5)
[2017-01-26 07:09] LABS: BUN/Creatinine Ratio 18 (6-26); Blood Urea Nitrogen 15 mg/dL (8-26); Calcium 9.6 mg/dL (8.6-10.8); Carbon Dioxide 37 mEq/L (19-29); Chloride 97 mEq/L (98-109); Glucose 149 mg/dL (70-99); Osmolality,Calculated 298 (280-300); Potassium 3.7 mEq/L (3.5-4.5); Sodium 142 mEq/L (136-145); eGFR For African Americans > 60 (> 60); eGFR For Non-African Americans > 60 (> 60)
[2017-01-26] MEDS: Insulin LISPRO 300 UNITS/3 ML VIAL SQ SCH ×2 (08:25→12:22)
[2017-01-26] MEDS: diazePAM 5 MG TABLET PO SCH ×2 (09:56→14:23)
[2017-01-26] MEDS: Gabapentin 300 MG CAPSULE PO SCH ×2 (09:56→14:23)
[2017-01-26] MEDS: Aspirin Enteric Coated 81 MG Tablet PO SCH (09:57)
[2017-01-26] MEDS: Furosemide 20 MG TABLET PO SCH (09:57)
[2017-01-26] MEDS: Insulin DETEMIR 100 UNIT/ML X5UNITS SQ SCH (09:58)
[2017-01-26 11:14] VITALS: BP 142/78
--- NOTE | 2017-01-26 13:27 | Discharge Summary ---
Date of Encounter: 01/26/17 Time of Encounter: 13:12 - Discharge Diagnosis (1) Acute exacerbation of chronic obstructive pulmonary disease (COPD) Priority: Primary Status: Acute (2) Tracheostomy status Priority: Secondary Status: Chronic (3) DMII (diabetes mellitus, type 2) Priority: Secondary Status: Chronic Qualifiers: Diabetes mellitus complication status: without complication Diabetes mellitus superintendent marine oil terminal insulin use: with penitentiary use Qualified Code(s): E11.9 - Type 2 diabetes mellitus without complications; Z79.4 - shelter (current) use of insulin (4) COPD (chronic obstructive pulmonary disease) Priority: Secondary Status: Chronic Qualifiers: COPD type: chronic bronchitis Chronic bronchitis type: simple Qualified Code(s): J41.0 - Simple chronic bronchitis (5) HTN (hypertension) Priority: Secondary Status: Chronic Qualifiers: Hypertension type: essential hypertension Qualified Code(s): I10 - Essential (primary) hypertension (6) Tobacco abuse Priority: Secondary Status: Chronic - Discharge Medications Home Medications: Aspirin Enteric Coated [Aspirin EC] 81 mg PO DAILY tablet. 07/21/15 [Rx] Atorvastatin [Lipitor] 40 mg PO HS tablet 07/21/15 [Rx] Clopidogrel [Plavix] 75 mg PO DAILY tablet 07/21/15 [Rx] Gabapentin [Neurontin] 300 mg PO TID capsule 07/21/15 [Rx] Ipratropium/Albuterol Neb [Duoneb] 3 ml IH [id number] inhsol 07/21/15 [Rx] Meloxicam [Mobic] 15 mg PO DAILY tablet 07/21/15 [Rx] Metoprolol [Lopressor] 25 mg PO BID tablet 07/21/15 [Rx] Montelukast [Singulair] 10 mg PO HS tablet 07/21/15 [Rx] Furosemide [Lasix] 20 mg PO BID 09/24/15 [History] Omeprazole [PriLOSEC] 20 mg PO DAILY 09/24/15 [History] OxyCODONE/APAP 10/325 [Percocet 10/325] 1 tab PO Q6HR PRN 09/24/15 [History] Fenofibrate [Tricor] 145 mg PO DAILY 08/19/16 [History] Insulin DETEMIR [Levemir] 15 unit SQ HS 08/19/16 [History] Diazepam [Valium] 5 mg PO QID 10/22/16 [History] Sitagliptin Phos/Metformin HCl [Janumet 50-1,000 mg Tablet] 1 tab PO BID [History] PredniSONE 10 mg PO BID 01/23/17 [History] Allergies/Adverse Reactions: Allergies azithromycin Allergy (Verified 01/23/17 01:18) See Comments Date of admission: 01/23/17 03:06 Primary care physician: Ad Garcia MD Discharging clinician: Ike Richardson - Patient Status Disposition: Home, Self-Care Condition: Fair Functional capacity at discharge: uses cane/walker Overall status at discharge: patient is progressing back to baseline - Discharge Instructions Follow Up With: Ad Garcia MD [Primary Care Provider] - Tori Leigh DO [Partnered Physician] - 02/08/17 9:05 am - Diet and Activity Activity: increase activity as tolerated Diet: diabetic diet Interval History: Mr. Mccloud is a 56 year old male with PMH of COPD s/p tracheostomy-on home oxygen (3L), hypertension, diabetes, CAD, status post tracheostomy, and an every day smoker. He presented to the emergency department via EMS due to shortness of breath and productive cough. The patient has been feeling weak for the last couple of days. Upon evaluation in the emergency department he was found to be febrile and tachycardic. Initial blood work revealed leukocytosis. The patient has received nebulizer therapy, IV fluids, a sepsis alert was activated and the patient received IV antibiotics in the emergency department with both vancomycin and Zosyn. Lactic acid was obtained, within normal limits in 2 locations. X-ray revealed bibasilar infiltrates He was admitted for further management and workup. [facility] Patient started on broad-spectrum antibiotics. The reason for broad-spectrum antibiotics is recent hospitalization. Patient responded well to intravenous antibiotics, intravenous steroids and bronchodilators. The entire admission episode is treated as an exacerbation of COPD.patient has improved on day 4. patient has follow up appointment with disability benefits specialist. plan: Home today on third generation cephalosporin. ( Omnicef 300 mg BID for 5 days to complete course.patient has previously psudomonas in his sputum in Oct 2016) continue steroids home dose continue BDAs follow up with PCP follow up with Furniture Technician all questions answered. - Time Spent with Patient Total time spent providing and/or coordinating discharge services: - Constitutional Vitals: Temp Pulse Resp BP Pulse Ox 98.7 F 70 18 142/78 97 01/26/17 11:04 01/26/17 11:04 01/26/17 11:04 01/26/17 11:04 01/26/17 11:04 General appearance: Present: disheveled, mild distress, A&O X 3 - Head Head exam: Present: atraumatic, normocephalic - Eye Eye exam: Present: PERRL, conjuntiva pink, sclera anicteric Pupils: Present: PERRL - Neck Neck exam general surgery: Present: supple, trachea midline. Absent: lymphadenopathy - Respiratory Respiratory exam: Present: CTAB. Absent: accessory muscle use, rales, rhonchi, wheezes - Cardiovascular Cardiovascular exam: Present: RRR, +S1, +S2. Absent: diastolic murmur, gallop, rubs, systolic murmur - GI/Abdominal GI/Abdominal exam: Present: normal bowel sounds, soft, no peritoneal signs. Absent: distended, tenderness - Extremities Exam Extremities exam: Present: warm, radial pulses palpable and symetrical. Absent : calf tenderness, cyanotic, pedal edema - Neurological Exam Neurological exam: Present: CN II-XII intact, oriented X3, no focal deficits. Absent: pronater drift, facial droop, speech deficit - Skin Skin exam: Present: dry, intact
--- NOTE | 2017-01-26 13:43 | Physician Discharge Referral ---
Home Health/Hosp Referral Info Transfer to: Home Health - Diagnosis (1) Acute exacerbation of chronic obstructive pulmonary disease (COPD) Priority: Primary Status: Acute (2) Tracheostomy status Priority: Primary Status: Chronic (3) DMII (diabetes mellitus, type 2) Priority: Secondary Status: Chronic (4) COPD (chronic obstructive pulmonary disease) Priority: Secondary Status: Chronic (5) HTN (hypertension) Status: Chronic (6) Tobacco abuse Priority: Secondary Status: Chronic - Respiratory Orders Smoking Cessation: Smoking cessation has been advised. For more information, call the [place] Tobacco Quit Line at 8-090-DHXENOW. - Services Needed Following services are medically necessary services: Home Health Aide, Physical Therapy, Med Social Work - Transfer Medications Home Medications: Aspirin Enteric Coated [Aspirin EC] 81 mg PO DAILY tablet. 07/21/15 [Rx] Atorvastatin [Lipitor] 40 mg PO HS tablet 07/21/15 [Rx] Clopidogrel [Plavix] 75 mg PO DAILY tablet 07/21/15 [Rx] Gabapentin [Neurontin] 300 mg PO TID capsule 07/21/15 [Rx] Ipratropium/Albuterol Neb [Duoneb] 3 ml IH [id number] inhsol 07/21/15 [Rx] Meloxicam [Mobic] 15 mg PO DAILY tablet 07/21/15 [Rx] Metoprolol [Lopressor] 25 mg PO BID tablet 07/21/15 [Rx] Montelukast [Singulair] 10 mg PO HS tablet 07/21/15 [Rx] Furosemide [Lasix] 20 mg PO BID 09/24/15 [History] Omeprazole [PriLOSEC] 20 mg PO DAILY 09/24/15 [History] OxyCODONE/APAP 10/325 [Percocet 10/325] 1 tab PO Q6HR PRN 09/24/15 [History] Fenofibrate [Tricor] 145 mg PO DAILY 08/19/16 [History] Insulin DETEMIR [Levemir] 15 unit SQ HS 08/19/16 [History] Diazepam [Valium] 5 mg PO QID 10/22/16 [History] Sitagliptin Phos/Metformin HCl [Janumet 50-1,000 mg Tablet] 1 tab PO BID [History] PredniSONE 10 mg PO BID 01/23/17 [History] Allergies/Adverse Reactions: Allergies azithromycin Allergy (Verified 01/23/17 01:18) See Comments Certification: Further, I certify that my clinical findings support that this patient is homebound (i.e. absences from home require considerable and taxing effort and are for medical reasons or anabaptist services or infrequently or short duration when for other reasons) because: Homebound Reason: Patient requires assistance of a person or device to safely leave home Attestation: My signature below is to certify that this patient is under my care and that I, or nurse practitioner, or a physician's medicine assistant working with me, has a face-to -face encounter with this patient.
[2017-01-26] MEDS ORDERED: Aminoglycoside Consult 1 EACH MC ONE (14:49)
== END 2017-01-26 14:50 | disposition home or self-care (01) | DRG 871 ==
LOC: EMEROO 22:00 → 2NENU 22:00 → SUATTDRO 01-23 03:06
PROVIDERS: ADMIT Internal Medicine; ATTEND Internal Medicine

== ENCOUNTER 2017-09-16 15:59 | Inpatient (IN) ==
[2017-09-16] MEDS ORDERED: Levofloxacin 750 MG/150 ML 750 MG/150 ML BAG IVPB ONE (16:03)
[2017-09-16] MEDS ORDERED: cefTRIAXone 2,000 MG in Water for inj. (sterile) 10 ML IVP ONE (16:03)
[2017-09-16] MEDS ORDERED: methylPREDNISolone 125 MG/2 ML VIAL IVP ONE (16:03)
--- NOTE | 2017-09-16 16:06 | Emergency Department Note ---
Disposition Clinical Impression: COPD exacerbation, Acute respiratory distress, Pneumonia of right lower lobe due to infectious organism Anemia Qualifiers: Anemia type: unspecified type Qualified Code(s): D64.9 - Anemia, unspecified Disposition: Admitted As Inpatient Condition: Fair SOB HPI - General Chief Complaint: ED Shortness of Breath/Dyspnea Stated Complaint: SOB Time Seen by Provider: 09/16/17 16:02 Nursing Notes Reviewed: Yes Vital Signs Reviewed: Yes - History of Present Illness Patient does have a history of a trach and he presents per EMS with shortness of breath and I did see the patient immediately upon arrival the patient does have shortness of breath was worse with exertion. Does have a cough productive of green sputum but no hemoptysis. No chest pain or tightness or discomfort or pressure. States has been having some fevers. Positive blurred vision. Does have rhinorrhea, cough and sneezing. No blood in the urine or stool. No pain or swelling of the extremities. No numbness of the extremities. No skin rash or bruising of the skin. Social history: Positive smoker According to paramedics the oxygen saturation was 90% on room air at home however the patient does use oxygen at home - Related Data Home Medications Medication Instructions Recorded Confirmed Omeprazole [PriLOSEC] 20 mg PO DAILY 09/24/15 09/16/17 OxyCODONE/APAP [Percocet 1 tab PO Q4-6H PRN 09/24/15 09/16/17 10325] Insulin DETEMIR [Levemir] 10 unit SQ BID 08/19/16 09/16/17 Sitagliptin Phos/Metformin HCl 1 tab PO BID 10/22/16 09/16/17 [Janumet 50-1,000 mg Tablet] diazePAM [Valium] 5 mg PO Q6H 10/22/16 09/16/17 Albuterol Neb [Proventil Neb] 2.5 mg IH QID 09/16/17 09/16/17 Albuterol Sulfate [Ventolin Hfa] 2 puff IH Q4H PRN 09/16/17 09/16/17 Fenofibrate Nanocrystallized 145 mg PO DAILY 09/16/17 09/16/17 [Tricor] Previous Rx's Medication Instructions Recorded Aspirin Enteric Coated [Aspirin EC] 81 mg PO DAILY tablet. 07/21/15 Atorvastatin [Lipitor] 40 mg PO HS tablet 07/21/15 Clopidogrel [Plavix] 75 mg PO DAILY tablet 07/21/15 Gabapentin [Neurontin] 300 mg PO TID capsule 07/21/15 Metoprolol [Lopressor] 25 mg PO BID tablet 07/21/15 Montelukast [Singulair] 10 mg PO HS tablet 07/21/15 Allergies Allergy/AdvReac Type Severity Reaction Status Date / Time azithromycin Allergy See Verified 01/23/17 01:18 Comments Review of Systems: As Per HPI Past Medical History - Past Medical History Medical history: Reports: COPD, CVA, diabetes, myocardial infarction Surgical history: Reports: tracheostomy Psychiatric history: Reports: no psych history - Social History Smoking Status: Current every day smoker Smokeless Tobacco Status: No Alcohol use: Reports: occasionally Drug use: Reports: none Physical Exam CONSTITUTIONAL: Alert and oriented X3, well-nourished, well appearing, in no apparent distress HEAD: Normocephalic; atraumatic. EYES: PERRL, no scleral icterus. NOSE: The nose is normal in appearance without rhinorrhea RESP: Normal chest excursion with respiration; breath sounds with bilateral wheezing which is symmetric CARD: Regular rhythm, without murmurs, rub or gallop ABD: Non-distended; non-tender, soft,without rigidity, rebound or guarding SKIN: Normal for age and race; warm and dry; no apparent lesions Extremities: Does have bilateral lower extremity peripheral edema which is 2+ and symmetric but no calf muscle pain Course Vital Signs Temperature 98.4 F 09/16/17 16:10 Pulse Rate 102 09/16/17 16:10 Respiratory Rate 22 09/16/17 16:10 Blood Pressure 137/80 09/16/17 16:10 O2 Sat by Pulse Oximetry 91 09/16/17 16:10 Temperature 98.4 F 09/16/17 16:10 Pulse Rate 103 09/16/17 18:32 Respiratory Rate 20 09/16/17 18:32 Blood Pressure 142/77 09/16/17 18:32 O2 Sat by Pulse Oximetry 95 09/16/17 18:32 Oxygen Delivery Oxygen Delivery Trach Mask Shortness of Breath/Dyspnea - MDM Narrative Medical decision making narrative: Chest x-ray, labs included troponin, IV Solu-Medrol, Rocephin, Levaquin as the patient is allergic to Zithromax. DuoNeb will be given. Suctioning will be done per respiratory. Patient will be admitted as does have even significant dyspnea with transferring from the pan washer cart to the ED bed. 1614 Patient does have a history of COPD, diabetes, [place]. He has had a CVA in the past. Does have a trach 1616 And without acute ischemic change or evidence of arrhythmia. Respiratory is currently seeing the patient now, DuoNeb treatment will be administered. He is going to be suctioned. Oxygen saturation 98% 1631 I did speak with the hospitalist who accepts the patient for admission for COPD exacerbation 1705 Patient has not recently been admitted to a health care facility 1739 patient did fall asleep and did not desaturate to a saturation of 84% and when he wakes up he is at 91% on oxygen. Did receive a another DuoNeb as well as suctioning and respiratory is evaluating the patient at this time. 1814 - Medical Records Medical records reviewed: Yes I reviewed the patient's medical records. - Lab Data Lab results reviewed: Yes I reviewed the patient's lab results. Result diagrams: 09/16/17 16:27 09/16/17 16:27 Lab Results 09/16/17 09/16/17 09/16/17 Range/Units 16:27 16:27 16:27 WBC 7.0 (4.3-11.1) K/mcL RBC 3.62 L (4.19-5.50) M/mcL Hgb 10.0 L (12.9-16.9) g/dL Hct 33.6 L (37.5-50.1) % MCV 92.8 (83.0-100.0) fL MCH 27.6 L (28.0-33.3) pg MCHC 29.8 L (31.6-35.5) g/dL RDW 12.7 (11.5-14.5) % Plt Count 415 H (140-400) K/mcL MPV 8.8 L (9.4-12.4) fL Immature Gran % 0.3 (0-4) % Seg Neutrophils % 75.1 % Lymphocytes % 17.0 % Monocytes % 7.2 % Eosinophils % 0.3 % Basophils % 0.1 % Neutrophils # 5.2 (1.6-8.9) K/mcL Lymphocytes # 1.2 (0.6-4.6) K/mcL Monocytes # 0.5 (0.0-1.3) K/mcL Eosinophils # 0.0 (0.0-0.6) K/mcL Basophils # 0.0 (0.0-0.2) K/mcL Sodium 141 (136-145) mEq/L Potassium 4.9 H (3.5-4.5) mEq/L Chloride 90 L (98-109) mEq/L Carbon Dioxide 46 H* (19-29) mEq/L BUN 9 (8-26) mg/dL Creatinine 0.68 L (0.72-1.25) mg/dL Est GFR ( Amer) > 60 (> 60) Est GFR (Non-Af Amer) > 60 (> 60) BUN/Creatinine Ratio 13 (6-26) Glucose 123 H (70-99) mg/dL Calculated Osmolality 292 (280-300) Calcium 9.7 (8.6-10.8) mg/dL Troponin I 0.00 (0-0.03) ng/mL Critical Care Time Critical Care Time: Yes Total Critical Care Time: 30 Attestation: 30 minutes of critical care time was constipation with significant COPD exacerbation, acute respiratory distress, significant hypoxemia desaturation, multiple breathing treatments, IV steroids, IV antibiotics
[2017-09-16] MEDS ORDERED: Ipratropium/Albuterol Neb 3 ML IH ONE ×2 (16:26→17:58)
[2017-09-16 16:38] LABS: Basophils % 0.1 %; Eosinophils % 0.3 %; Hematocrit 33.6 % (37.5-50.1); Immature Granulocytes % 0.3 % (0-4); Lymphocytes # 1.2 K/mcL (0.6-4.6); Mean Corpuscular HGB Conc 29.8 g/dL (31.6-35.5); Mean Corpuscular Hemoglobin 27.6 pg (28.0-33.3); Mean Corpuscular Volume 92.8 fL (83.0-100.0); Mean Platelet Volume 8.8 fL (9.4-12.4); Monocytes # 0.5 K/mcL (0.0-1.3); Monocytes % 7.2 %; Neutrophils # 5.2 K/mcL (1.6-8.9); Platelet Count 415 K/mcL (140-400); Red Blood Count 3.62 M/mcL (4.19-5.50); Red Cell Distribution Width 12.7 % (11.5-14.5); Segmented Neutrophils % 75.1 %
[2017-09-16 16:50] LABS: BUN/Creatinine Ratio 13 (6-26); Blood Urea Nitrogen 9 mg/dL (8-26); Calcium 9.7 mg/dL (8.6-10.8); Chloride 90 mEq/L (98-109); Glucose 123 mg/dL (70-99); Osmolality,Calculated 292 (280-300); Potassium 4.9 mEq/L (3.5-4.5); Sodium 141 mEq/L (136-145); eGFR For African Americans > 60 (> 60); eGFR For Non-African Americans > 60 (> 60)
[2017-09-16 16:57] LABS: Carbon Dioxide 46 mEq/L (19-29)
[2017-09-16] MEDS ORDERED: Ondansetron 4 MG/2 ML VIAL IVP PRN (20:52)
[2017-09-16] MEDS ORDERED: Naloxone 0.4 MG/ML INJ IVP PRN (20:52)
[2017-09-16] MEDS ORDERED: Acetaminophen 325 MG TABLET PO PRN (20:52)
[2017-09-16] MEDS ORDERED: D5% in Water 1,000 ML IVC PRN (20:58)
[2017-09-16] MEDS ORDERED: Dextrose Gel 15 GM PO PRN ×2 (20:58)
[2017-09-16] MEDS ORDERED: *HR* Dextrose 50 % in Water (Syg) 50 ML SYRINGE IVP PRN (20:58)
[2017-09-16] MEDS ORDERED: Ipratropium/Albuterol Neb 3 ML IH PRN (21:00)
--- NOTE | 2017-09-16 21:06 | Internal Med History&Physical ---
Date of Encounter: 09/16/17 Time of Encounter: 20:00 Assessment and Plan (1) Pneumonia Current visit: Yes Status: Acute Chest x-ray shows a right lower lobe pneumonia. Continue Levaquin. Continue oxygen supportive treatment. Qualifiers: Pneumonia type: due to Pneumococcus Laterality: right Lung location: lower lobe of lung Qualified Code(s): J13 - Pneumonia due to Streptococcus pneumoniae (2) Acute and chronic respiratory failure ([id number]) Current visit: No Status: Chronic Continue supportive treatment. Continue tracheostomy tube care with intermittent suction. Closely monitor patient. Treat underlying pneumonia and COPD exacerbation. Qualifiers: Respiratory failure complication: hypoxia and hypercapnia Qualified Code(s) : J96.21 - Acute and chronic respiratory failure with hypoxia; J96.22 - Acute and chronic respiratory failure with hypercapnia (3) Acute exacerbation of chronic obstructive pulmonary disease (COPD) Current visit: No Status: Acute Continue antibiotic, steroid, and bronchodilator. Continue supportive treatment. (4) Tracheostomy status Current visit: No Status: Chronic Patient has tracheostomy since 2 years ago. He said he does not know for what reason. Continue tracheostomy care. Continue intermittent suction (5) DMII (diabetes mellitus, type 2) Current visit: No Status: Chronic Continue baseline and sliding scale insulin coverage. Qualifiers: Diabetes mellitus complication status: without complication Diabetes mellitus usp insulin use: with usp use Qualified Code(s): E11.9 - Type 2 diabetes mellitus without complications; Z79.4 - USP (current) use of insulin (6) HTN (hypertension) Current visit: No Status: Chronic Continue home medications Qualifiers: Hypertension type: essential hypertension Qualified Code(s): I10 - Essential (primary) hypertension (7) DVT prophylaxis Current visit: No Status: Acute Heparin subcutaneously (8) Tobacco abuse Current visit: No Status: Chronic Smoking cessation education. Nicotine patch. Internal Medicine - H&P: HPI Chief complaint: Shortness of breath Admitted From: Home Plans for Post Hospital Care: Home History of present illness: Mr. Mccloud is a 56 year old male with history of diabetes, COPD, chronic tracheostomy, hypertension, tobacco abuse, presented to ER for increased shortness of breath since last night. Patient also complains cough with increased mucosal secretion from tracheostomy tube. He should have denies a fever. He has mild nausea but no vomiting. Patient denies chest pain. In emergency room, he was treated with antibiotic, steroid, and bronchodilator. Patient was admitted for further management. Past Med Surg Social Fam HX - Past Medical History Medical history: COPD, CVA, diabetes, myocardial infarction Psychiatric history: no psych history - Past Surgical History Surgical History: tracheostomy - Social History Smoking Status: Current every day smoker Packs per day: 2 Smokeless Tobacco Status: No Alcohol use: occasionally Drug use: none - Family History Mother Living Status: Age at : 56 Hx Family Cardiac Disorders: Yes Hx Family Respiratory Disorders: Yes Hx Family Cancer: No Hx Family Endocrine Disorder: No Hx Family Medical Disorders: Yes Internal Medicine - H&P: Meds Aspirin Enteric Coated [Aspirin EC] 81 mg PO DAILY tablet. 07/21/15 [Rx] Atorvastatin [Lipitor] 40 mg PO HS tablet 07/21/15 [Rx] Clopidogrel [Plavix] 75 mg PO DAILY tablet 07/21/15 [Rx] Gabapentin [Neurontin] 300 mg PO TID capsule 07/21/15 [Rx] Metoprolol [Lopressor] 25 mg PO BID tablet 07/21/15 [Rx] Montelukast [Singulair] 10 mg PO HS tablet 07/21/15 [Rx] Omeprazole [PriLOSEC] 20 mg PO DAILY 09/24/15 [History] OxyCODONE/APAP 10/325 [Percocet 10/325] 1 tab PO Q4-6H PRN 09/24/15 [History] Insulin DETEMIR [Levemir] 10 unit SQ BID 08/19/16 [History] Sitagliptin Phos/Metformin HCl [Janumet 50-1,000 mg Tablet] 1 tab PO BID [History] diazePAM [Valium] 5 mg PO Q6H 10/22/16 [History] Albuterol Neb [Proventil Neb] 2.5 mg IH QID 09/16/17 [History] Albuterol Sulfate [Ventolin Hfa] 2 puff IH Q4H PRN 09/16/17 [History] Fenofibrate Nanocrystallized [Tricor] 145 mg PO DAILY 09/16/17 [History] 3 Allergy/AdvReac Type Severity Reaction Status Date / Time azithromycin Allergy See Verified 01/23/17 01:18 Comments All Systems PM: A 10-system review of systems was performed and is negative for pertinent findings except as documented above in the HPI. - Constitutional Vitals: Temp Pulse Resp BP Pulse Ox 98.4 F 103 20 142/77 95 09/16/17 16:10 09/16/17 18:32 09/16/17 18:32 09/16/17 18:32 09/16/17 18:32 General appearance: Present: mild distress, A&O X 3, answers questions appropriately - Head Head exam: Present: atraumatic, normocephalic - Eye Eye exam: Present: PERRL, conjuntiva pink, sclera anicteric Pupils: Present: PERRL - Neck Neck exam general surgery: Present: supple, trachea midline. Absent: lymphadenopathy Additional comments: Tracheostomy tube in place - Respiratory Respiratory exam: Present: CTAB, rhonchi (Scattered rhonchi bilaterally). Absent: accessory muscle use, rales, wheezes - Cardiovascular Cardiovascular exam: Present: RRR, +S1, +S2. Absent: diastolic murmur, gallop, rubs, systolic murmur - GI/Abdominal GI/Abdominal exam: Present: normal bowel sounds, soft, no peritoneal signs. Absent: distended, tenderness - Extremities Exam Extremities exam: Present: warm, radial pulses palpable and symmetrical. Absent : calf tenderness, cyanotic, pedal edema - Neurological Exam Neurological exam: Present: CN II-XII intact, oriented X3, no focal deficits. Absent: pronater drift, facial droop, speech deficit - Skin Skin exam: Present: dry, intact Internal Med - H&P Results - Labs CBC & Chem 7: 09/16/17 16:27 09/16/17 16:27 - EKG Data -: EKG Interpreted by Myself EKG shows normal: sinus rhythm
[2017-09-16] MEDS: *HR* OxyCODONE/APAP 10/325 TABLET PO PRN (22:36)
[2017-09-16] MEDS: Ipratropium/Albuterol Neb 3 ML IH SCH (22:43)
[2017-09-16] MEDS: Insulin LISPRO 300 UNITS/3 ML VIAL SQ SCH (22:45)
[2017-09-16] MEDS: Insulin DETEMIR 100 UNIT/ML X5UNITS SQ SCH (22:45)
[2017-09-17] MEDS: Ipratropium/Albuterol Neb 3 ML IH SCH ×4 (04:07→22:27)
[2017-09-17 05:39] LABS: Basophils % 0.2 %; Hematocrit 32.7 % (37.5-50.1); Hemoglobin 9.9 g/dL (12.9-16.9); Immature Granulocytes % 0.8 % (0-4); Lymphocytes # 0.8 K/mcL (0.6-4.6); Mean Corpuscular HGB Conc 30.3 g/dL (31.6-35.5); Mean Corpuscular Hemoglobin 27.5 pg (28.0-33.3); Mean Corpuscular Volume 90.8 fL (83.0-100.0); Mean Platelet Volume 9.2 fL (9.4-12.4); Monocytes # 0.3 K/mcL (0.0-1.3); Monocytes % 5.9 %; Neutrophils # 4.1 K/mcL (1.6-8.9); Platelet Count 479 K/mcL (140-400); Red Cell Distribution Width 12.6 % (11.5-14.5); Segmented Neutrophils % 77.1 %
[2017-09-17 05:54] LABS: BUN/Creatinine Ratio 18 (6-26); Blood Urea Nitrogen 13 mg/dL (8-26); Calcium 9.5 mg/dL (8.6-10.8); Chloride 91 mEq/L (98-109); Glucose 167 mg/dL (70-99); Magnesium 1.6 mg/dL (1.6-2.6); Osmolality,Calculated 296 (280-300); Potassium 4.6 mEq/L (3.5-4.5); Sodium 141 mEq/L (136-145); eGFR For African Americans > 60 (> 60); eGFR For Non-African Americans > 60 (> 60)
[2017-09-17 05:59] LABS: Carbon Dioxide 43 mEq/L (19-29)
[2017-09-17] MEDS: *HR* Heparin 5,000 UNIT/ML VIAL SQ SCH ×2 (06:26→17:40)
[2017-09-17] MEDS: Insulin LISPRO 300 UNITS/3 ML VIAL SQ SCH ×4 (10:59→21:04)
[2017-09-17] MEDS: Levofloxacin 750 MG/150 ML 750 MG/150 ML BAG IVPB SCH (11:04)
[2017-09-17] MEDS: Nicotine 21 MG PATCH.TD24 TD SCH (11:05)
[2017-09-17] MEDS: Aspirin Enteric Coated 81 MG Tablet PO SCH (11:05)
[2017-09-17] MEDS: predniSONE 20 MG TABLET PO SCH (11:05)
[2017-09-17] MEDS: Gabapentin 300 MG CAPSULE PO SCH ×3 (11:05→21:03)
[2017-09-17] MEDS: *HR* OxyCODONE/APAP 10/325 TABLET PO PRN ×2 (11:11→17:40)
--- NOTE | 2017-09-17 12:03 | Internal Med Progress Note ---
Date of Encounter: 09/17/17 Time of Encounter: 12:01 - Assessment and plan (1) Pneumonia Status: Acute Assessment and plan: Patient presents with shortness of breath and hypoxia. Chest x-ray shows right lower lobe infiltrate. Patient has been started on IV antibiotics-Levaquin. Continue supportive care and supplemental oxygen. Clinically improving currently. Qualifiers: Pneumonia type: due to unspecified organism Laterality: right Lung location: lower lobe of lung Qualified Code(s): J18.1 - Lobar pneumonia, unspecified organism (2) Acute and chronic respiratory failure (qzjzq-yf-chccsoa) Status: Acute Assessment and plan: Improving. Qualifiers: Respiratory failure complication: hypoxia and hypercapnia Qualified Code(s) : J96.21 - Acute and chronic respiratory failure with hypoxia; J96.22 - Acute and chronic respiratory failure with hypercapnia; J96.22 - Acute and chronic respiratory failure with hypercapnia; J96.22 - Acute and chronic respiratory failure with hypercapnia (3) Acute exacerbation of chronic obstructive pulmonary disease (COPD) Status: Acute Assessment and plan: Improving. Continue scheduled bronchodilators along with enteral steroids and supplemental oxygen. Patient is noted to be on home oxygen. (4) CAD (coronary artery disease) Status: Chronic Assessment and plan: Continue home medications. Qualifiers: Coronary Disease-Associated Artery/Lesion type: [place] artery [place] vs. transplanted heart: [place] heart Associated angina: without angina Qualified Code(s): I25.10 - Atherosclerotic heart disease of [place] coronary artery without angina pectoris (5) Tracheostomy status Status: Chronic Assessment and plan: Continue tracheostomy care. (6) DMII (diabetes mellitus, type 2) Status: Chronic Assessment and plan: Continue Accu-Chek blood glucose monitoring with basal bolus insulin regimen. Blood sugars noted to be elevated. Likely steroid-induced hyperglycemia. Qualifiers: Diabetes mellitus complication status: without complication Diabetes mellitus intermediate teacher insulin use: with jail use Qualified Code(s): E11.9 - Type 2 diabetes mellitus without complications; Z79.4 - nursing home (current) use of insulin; Z79.4 - assistant terminal manager (current) use of insulin; Z79.4 - assistant terminal manager ( current) use of insulin; Z79.4 - nursing home (current) use of insulin (7) HTN (hypertension) Status: Chronic Qualifiers: Hypertension type: essential hypertension Qualified Code(s): I10 - Essential (primary) hypertension (8) Tobacco abuse Status: Chronic Assessment and plan: Continue nicotine transdermal patch. - Subjective Interval history: Feels better; improving shortness of breath; no chest pain, fever/chills; - Constitutional Vitals: Temp Pulse Resp BP Pulse Ox 97.8 F 95 18 120/68 96 09/17/17 11:49 09/17/17 11:49 09/17/17 11:49 09/17/17 11:49 09/17/17 11:49 General appearance: Present: A&O X 3, answers questions appropriately - Respiratory Respiratory exam: Present: CTAB (coarse breath sounds B/L). Absent: accessory muscle use, rales, rhonchi, wheezes - Cardiovascular Cardiovascular exam: Present: RRR, +S1, +S2. Absent: diastolic murmur, gallop, rubs, systolic murmur - GI/Abdominal GI/Abdominal exam: Present: normal bowel sounds, soft, no peritoneal signs. Absent: distended, tenderness - Extremities Exam Extremities exam: Present: full ROM, pedal edema (trace dependent), warm, radial pulses palpable and symmetrical. Absent: calf tenderness, cyanotic - Neurological Exam Neurological exam: Present: CN II-XII intact, oriented X3, no focal deficits. Absent: pronater drift, facial droop, speech deficit Internal Medicine: Result - Labs CBC & Chem 7: 09/18/17 06:22 09/18/17 06:22 Labs: Short CBC 09/17/17 Range/Units 04:59 WBC 5.3 (4.3-11.1) K/mcL Hgb 9.9 L (12.9-16.9) g/dL Hct 32.7 L (37.5-50.1) % Plt Count 479 H (140-400) K/mcL Neutrophils # 4.1 (1.6-8.9) K/mcL BMP 09/17/17 04:59 Sodium 141 Potassium 4.6 H Chloride 91 L Carbon Dioxide 43 H* BUN 13 Creatinine 0.72 Glucose 167 H Calcium 9.5 Consult Discharge Plan - Plan Instructions: Prednisone (By mouth), Levofloxacin (By mouth), COPD, Office Specialist (GEN) Additional Instructions: F/up with PCP in 1-2 weeks Referrals: Ad Garcia MD [Primary Care Provider] - (Appointment requested) Prescriptions: levoFLOXacin [Levaquin] 750 mg PO DAILY 5 Days tablet predniSONE [PredniSONE] 40 mg PO DAILY #10 tablet
--- NOTE | 2017-09-17 18:12 | Electrocardiograph Report ---
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
[2017-09-17] MEDS: Insulin DETEMIR 100 UNIT/ML X5UNITS SQ SCH (21:03)
[2017-09-18] MEDS: Ipratropium/Albuterol Neb 3 ML IH SCH ×2 (04:59→09:51)
[2017-09-18] MEDS: *HR* Heparin 5,000 UNIT/ML VIAL SQ SCH (05:38)
[2017-09-18] MEDS: *HR* OxyCODONE/APAP 10/325 TABLET PO PRN (05:44)
[2017-09-18 06:58] LABS: Basophils % 0.3 %; Eosinophils % 0.3 %; Hematocrit 34.4 % (37.5-50.1); Hemoglobin 10.4 g/dL (12.9-16.9); Immature Granulocytes % 0.4 % (0-4); Lymphocytes # 2.8 K/mcL (0.6-4.6); Lymphocytes % 38.5 %; Mean Corpuscular HGB Conc 30.2 g/dL (31.6-35.5); Mean Corpuscular Hemoglobin 27.7 pg (28.0-33.3); Mean Corpuscular Volume 91.5 fL (83.0-100.0); Mean Platelet Volume 8.9 fL (9.4-12.4); Monocytes # 0.5 K/mcL (0.0-1.3); Monocytes % 7.3 %; Neutrophils # 3.9 K/mcL (1.6-8.9); Platelet Count 528 K/mcL (140-400); Red Blood Count 3.76 M/mcL (4.19-5.50); Red Cell Distribution Width 12.9 % (11.5-14.5); Segmented Neutrophils % 53.2 %
[2017-09-18 07:16] LABS: BUN/Creatinine Ratio 18 (6-26); Blood Urea Nitrogen 13 mg/dL (8-26); Calcium 9.5 mg/dL (8.6-10.8); Chloride 92 mEq/L (98-109); Glucose 82 mg/dL (70-99); Osmolality,Calculated 295 (280-300); Sodium 143 mEq/L (136-145); eGFR For African Americans > 60 (> 60); eGFR For Non-African Americans > 60 (> 60)
[2017-09-18 07:29] LABS: Carbon Dioxide 46 mEq/L (19-29)
[2017-09-18] MEDS: Nicotine 21 MG PATCH.TD24 TD SCH (09:14)
[2017-09-18] MEDS: Insulin LISPRO 300 UNITS/3 ML VIAL SQ SCH ×2 (09:15→12:29)
[2017-09-18] MEDS: predniSONE 20 MG TABLET PO SCH (09:18)
[2017-09-18] MEDS: Levofloxacin 750 MG/150 ML 750 MG/150 ML BAG IVPB SCH (09:19)
[2017-09-18] MEDS: Aspirin Enteric Coated 81 MG Tablet PO SCH (09:19)
[2017-09-18] MEDS: Gabapentin 300 MG CAPSULE PO SCH (09:19)
[2017-09-18 09:25] LABS: ABG Base Excess 18 mEq/L (-2 to 3); ABG HCO3 47 mEq/L (21-27); ABG Oxygen Saturation 88 % (95-98); ABG PCO2 84 mmHg (35-45); ABG PH 7.36 pH Units (7.32-7.45); ABG PO2 61 mmHg (85-104); ABG TCO2 50 mEq/L (20-26)
[2017-09-18 11:45] VITALS: BP 123/75
--- NOTE | 2017-09-18 12:40 | Discharge Summary ---
Date of Encounter: 09/18/17 Time of Encounter: 12:34 - Discharge Diagnosis (1) Pneumonia Priority: Primary Status: Acute Qualifiers: Pneumonia type: due to unspecified organism Laterality: right Lung location: lower lobe of lung Qualified Code(s): J18.1 - Lobar pneumonia, unspecified organism (2) Acute exacerbation of chronic obstructive pulmonary disease (COPD) Priority: Primary Status: Acute (3) Acute and chronic respiratory failure (wukat-ze-gockuvd) Priority: Primary Status: Acute Qualifiers: Respiratory failure complication: hypoxia and hypercapnia Qualified Code(s) : J96.21 - Acute and chronic respiratory failure with hypoxia; J96.22 - Acute and chronic respiratory failure with hypercapnia; J96.22 - Acute and chronic respiratory failure with hypercapnia; J96.22 - Acute and chronic respiratory failure with hypercapnia (4) CAD (coronary artery disease) Priority: Secondary Status: Chronic Qualifiers: Coronary Disease-Associated Artery/Lesion type: [place] artery [place] vs. transplanted heart: [place] heart Associated angina: without angina Qualified Code(s): I25.10 - Atherosclerotic heart disease of [place] coronary artery without angina pectoris (5) Tracheostomy status Priority: Secondary Status: Chronic (6) DMII (diabetes mellitus, type 2) Priority: Secondary Status: Chronic Qualifiers: Diabetes mellitus complication status: without complication Diabetes mellitus retirement insulin use: with retirement use Qualified Code(s): E11.9 - Type 2 diabetes mellitus without complications; Z79.4 - senior care (current) use of insulin; Z79.4 - roasterman (current) use of insulin; Z79.4 - senior care ( current) use of insulin; Z79.4 - roasterman (current) use of insulin (7) HTN (hypertension) Priority: Secondary Status: Chronic Qualifiers: Hypertension type: essential hypertension Qualified Code(s): I10 - Essential (primary) hypertension (8) Tobacco abuse Priority: Secondary Status: Chronic - Discharge Medications Prescriptions: levoFLOXacin [Levaquin] 750 mg PO DAILY 5 Days tablet predniSONE [PredniSONE] 40 mg PO DAILY #10 tablet Home Medications: Aspirin Enteric Coated [Aspirin EC] 81 mg PO DAILY tablet. 07/21/15 [Rx] Atorvastatin [Lipitor] 40 mg PO HS tablet 07/21/15 [Rx] Clopidogrel [Plavix] 75 mg PO DAILY tablet 07/21/15 [Rx] Gabapentin [Neurontin] 300 mg PO TID capsule 07/21/15 [Rx] Metoprolol [Lopressor] 25 mg PO BID tablet 07/21/15 [Rx] Montelukast [Singulair] 10 mg PO HS tablet 07/21/15 [Rx] Omeprazole [PriLOSEC] 20 mg PO DAILY 09/24/15 [History] OxyCODONE/APAP [Percocet ] 1 tab PO Q4-6H PRN 09/24/15 [History] Insulin DETEMIR [Levemir] 10 unit SQ BID 08/19/16 [History] Sitagliptin Phos/Metformin HCl [Janumet 50-1,000 mg Tablet] 1 tab PO BID [History] diazePAM [Valium] 5 mg PO Q6H 10/22/16 [History] Albuterol Neb [Proventil Neb] 2.5 mg IH QID 09/16/17 [History] Albuterol Sulfate [Ventolin Hfa] 2 puff IH Q4H PRN 09/16/17 [History] Fenofibrate Nanocrystallized [Tricor] 145 mg PO DAILY 09/16/17 [History] levoFLOXacin [Levaquin] 750 mg PO DAILY 5 Days tablet 09/18/17 [Rx] predniSONE [PredniSONE] 40 mg PO DAILY #10 tablet 09/18/17 [Rx] Allergies/Adverse Reactions: 3 Allergy/AdvReac Type Severity Reaction Status Date / Time azithromycin Allergy See Verified 01/23/17 01:18 Comments Date of admission: 09/17/17 12:21 Primary care physician: Ad Garcia MD Discharging clinician: Becki Delgadillo Anticipated date of discharge: 09/18/17 - Patient Status Disposition: Home Health Service Condition: Fair Functional capacity at discharge: independent ambulation Overall status at discharge: patient is progressing back to baseline - Discharge Instructions Instructions: Prednisone (By mouth), Levofloxacin (By mouth), COPD, International Student Counselor (GEN) Follow Up With: Ad Garcia MD [Primary Care Provider] - (Appointment requested) Additional Instructions: F/up with PCP in 1-2 weeks - Diet and Activity Activity: wear oxygen at all times, other (trach care) Diet: diabetic diet, low fat, low cholesterol, low salt diet Hospital course: Mr. Mccloud is a 56 year old male with chronic tracheostomy, was admitted with worsening shortness of breath and cough. Chest x-ray showed right lower lobe infiltrates and patient was started on IV antibiotics-Levaquin. He was also noted to be in acute exacerbation of COPD and was started on enteral steroids along with bronchodilators and supplemental oxygen. Blood and sputum cultures were not sent in the emergency room. Patient gradually improved and is currently back to baseline oxygen requirements , tolerates oral diet and remained hemodynamically stable. He is noted to have chronic metabolic alkalosis; ABG revealed elevated PCO2 of 84 with compensated pH. Patient likely has baseline carbon dioxide retention upon review of his previous ABG results. He is medically stable for discharge with outpatient follow-up. He was also noted to have elevated blood sugars during this admission, which are currently better controlled. - Time Spent with Patient Total time spent providing and/or coordinating discharge services: Greater than 30 minutes (45 min) - Constitutional Vitals: Temp Pulse Resp BP Pulse Ox 98.5 F 77 16 123/75 93 09/18/17 11:44 09/18/17 11:44 09/18/17 11:44 09/18/17 11:44 09/18/17 11:44 General appearance: Present: A&O X 3, answers questions appropriately - Respiratory Respiratory exam: Present: CTAB (coarse breath sounds B/L). Absent: accessory muscle use, rales, rhonchi, wheezes
== END 2017-09-18 14:41 | disposition home health service (06) | DRG 190 ==
LOC: EMEROO 15:59 → 2NENU 15:59 → SUATTDRO 17:13 → 2NENU 18:13
PROVIDERS: ADMIT Internal Medicine; ATTEND Internal Medicine

== ENCOUNTER 2017-11-09 09:00 | Inpatient (IN) ==
[2017-11-09] MEDS ORDERED: Ipratropium/Albuterol Neb 3 ML IH ONE (09:09)
--- NOTE | 2017-11-09 09:11 | Emergency Department Note ---
Disposition Clinical Impression: Hypoxia, Acute exacerbation of chronic obstructive airways disease Pneumonia Qualifiers: Pneumonia type: due to unspecified organism Laterality: right Lung location: lower lobe of lung Qualified Code(s): J18.1 - Lobar pneumonia, unspecified organism Altered mental status Qualifiers: Altered mental status type: unspecified Qualified Code(s): R41.82 - Altered mental status, unspecified Disposition: Admitted As Inpatient Condition: Critical Referrals: Ad Garcia MD [Primary Care Provider] - Forms: ED Satisfaction Letter Time of Disposition: 11:43 General Adult HPI - General Chief complaint: ED Shortness of Breath/Dyspnea Stated complaint: KIAH/AMS Time Seen by Provider: 11/09/17 09:07 Source: EMS Mode of arrival: EMS Limitations: altered mental status Nursing Notes Reviewed: Yes Vital Signs Reviewed: Yes - History of Present Illness HPI Narrative: 69-year-old male who family or friends stopped in to see him and found him on the floor unresponsive with his trach mask off. Unclear on how long history of meth was off he was unresponsive. Squad arrived said he was pale and diaphoretic and unresponsive they started to bag him and he has improved he does wake up now on his vitals were reported as stable by the squad. 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 - Related Data Allergies Allergy/AdvReac Type Severity Reaction Status Date / Time azithromycin Allergy Hives Verified 11/09/17 10:46 Limitations: ROS unobtainable due to patients medical condition Physical Exam - General Limitations: altered mental status - Head Head exam: atraumatic, normocephalic, normal inspection - Eye Eye exam: Present: normal appearance, PERRL, EOMI - ENT ENT exam: normal exam, normal oropharynx, mucous membranes moist - Neck Neck exam: Present: other (Trach in place) - Chest Chest inspection: Present: normal inspection - Respiratory Respiratory exam: Present: wheezes, prolonged expiratory phase - Abdominal Exam Abdominal exam: Present: soft, Non-Tender. Absent: tenderness, distention, guarding, rebound, rigidity - Extremities Exam Extremities exam: Present: normal inspection, full ROM. Absent: tenderness, pedal edema - Expanded Lower Extremity Exam Neurovascular/Tendon exam: Absent: pulse deficit, motor deficit, sensory deficit , tendon deficit Gait: not tested/not observed - Back Exam Back exam: Present: normal inspection - Neurological Exam Neurological exam: Present: other (Awake,) - Psychiatric Psychiatric exam: Present: agitated - Skin Skin exam: Present: warm Course - Reevaluation(s) Reevaluation #1: The patient's unable to tell us his name although he does wake up and his vitals are relatively stable. We're going to give him a breathing treatment and steroids as he does have a history of COPD and asthma. He does have a large pneumonia will give Zosyn and vancomycin covering for hospital associated pneumonia to determine his allergies we will monitor him closely. The squad reported that the persons who called for them did not know his name and was not able to give any information other than he had COPD and asthma. Time: 09:50 Reevaluation #2: The squad return to call after they went back to the house and were able to determine the patient's name, we looked him up he is allergic to azithromycin and he has had MRSA in his sputum in the past. Time: 09:59 Reevaluation #3: Patient was stable with pulse ox in the mid 90s and then suddenly his pulse ox dropped to 55 with a good waveform. Patient mouth that he could not breathe. The patient was lavaged and suctioned and after about 7 minutes we were able to get his pulse ox did come up. Pulmonology was paged and they came down immediately and saw the patient their plan is to bronch him. Time: 11:28 - Consultations Consultation #1: , pulmonology is here evaluated the patient will admit to the ICU. Time: 11:41 Vital Signs Temperature 101.6 F H 11/09/17 09:08 Pulse Rate 151 11/09/17 09:08 Respiratory Rate 22 11/09/17 09:08 Blood Pressure 131/69 11/09/17 09:08 O2 Sat by Pulse Oximetry 78 11/09/17 09:08 Temperature 102.9 F H 11/09/17 10:31 Pulse Rate 125 11/09/17 10:31 Respiratory Rate 16 11/09/17 10:31 Blood Pressure 105/59 11/09/17 10:31 O2 Sat by Pulse Oximetry 100 11/09/17 10:31 Oxygen Delivery Oxygen Delivery Trach Mask Medical Decision Making - Lab Data Result diagrams: 11/09/17 09:28 11/09/17 09:28 Lab Results 11/09/17 11/09/17 11/09/17 Range/Units 09:28 09:28 09:28 WBC 17.8 H (4.3-11.1) K/mcL RBC 3.49 L (4.19-5.50) M/mcL Hgb 9.6 L (12.9-16.9) g/dL Hct 32.4 L (37.5-50.1) % MCV 92.8 (83.0-100.0) fL MCH 27.5 L (28.0-33.3) pg MCHC 29.6 L (31.6-35.5) g/dL RDW 13.2 (11.5-14.5) % Plt Count 458 H (140-400) K/mcL MPV 9.1 L (9.4-12.4) fL Immature Gran % 0.6 (0-4) % Seg Neutrophils % 88.0 % Lymphocytes % 3.6 % Monocytes % 7.7 % Eosinophils % 0.0 % Basophils % 0.1 % Neutrophils # 15.7 H (1.6-8.9) K/mcL Lymphocytes # 0.7 (0.6-4.6) K/mcL Monocytes # 1.4 H (0.0-1.3) K/mcL Eosinophils # 0.0 (0.0-0.6) K/mcL Basophils # 0.0 (0.0-0.2) K/mcL ABG pH (7.32-7.45) pH Units ABG pCO2 (35-45) mmHg ABG pO2 (85-104) mmHg ABG HCO3 (21-27) mEq/L ABG Total CO2 (20-26) mEq/L ABG O2 Saturation (95-98) % ABG Base Excess (-2 to 3) mEq/L Sodium 140 (136-145) mEq/L Potassium 4.1 (3.5-5.1) mEq/L Chloride 90 L (98-107) mEq/L Carbon Dioxide 45 H* (23-29) mEq/L BUN 12 (6-20) mg/dL Creatinine 0.86 (0.70-1.30) mg/dL Est GFR ( Amer) > 60 (> 60) Est GFR (Non-Af Amer) > 60 (> 60) BUN/Creatinine Ratio 14 (6-26) Glucose 155 H (70-105) mg/dL Calculated Osmolality 293 (280-300) Lactic Acid (0.5-2.2) mmol/L Calcium 9.0 (8.6-10.3) mg/dL Troponin I (< 0.04) ng/mL B-Natriuretic Peptide (Less than 100) pg/mL Urine Color Dark Yellow (Yellow) Urine Clarity Cloudy A (Clear) Urine pH 5.5 (5.0-8.0) pH Units Ur Specific [place] 1.013 (1.010-1.025) Urine Protein 100 H (Neg-Trace) mg/dL Urine Glucose (UA) 100 H (Normal) mg/dL Urine Ketones Negative (Negative) mg/dL Urine Blood Negative (Negative) Urine Nitrite Negative (Negative) Urine Bilirubin Small H (Negative) Urine Urobilinogen 2.0 H (Normal) mg/dL Ur Leukocyte Esterase Negative (Negative) Urine Microscopic RBC 0-3 (0-3) per hpf Urine Microscopic WBC 5-15 H (0-3) per hpf Ur Squamous Epith Cells Many H (None-Few) per lpf Urine Bacteria Few (None-Few) per hpf Hyaline Casts Few (None-Few) per lpf Granular Casts Few H (None Seen) per lpf Ur Culture Indicated? NO (NO) Person Notif of Crit 11/09/17 11/09/17 11/09/17 Range/Units 09:28 09:28 09:28 WBC (4.3-11.1) K/mcL RBC (4.19-5.50) M/mcL Hgb (12.9-16.9) g/dL Hct (37.5-50.1) % MCV (83.0-100.0) fL MCH (28.0-33.3) pg MCHC (31.6-35.5) g/dL RDW (11.5-14.5) % Plt Count (140-400) K/mcL MPV (9.4-12.4) fL Immature Gran % (0-4) % Seg Neutrophils % % Lymphocytes % % Monocytes % % Eosinophils % % Basophils % % Neutrophils # (1.6-8.9) K/mcL Lymphocytes # (0.6-4.6) K/mcL Monocytes # (0.0-1.3) K/mcL Eosinophils # (0.0-0.6) K/mcL Basophils # (0.0-0.2) K/mcL ABG pH (7.32-7.45) pH Units ABG pCO2 (35-45) mmHg ABG pO2 (85-104) mmHg ABG HCO3 (21-27) mEq/L ABG Total CO2 (20-26) mEq/L ABG O2 Saturation (95-98) % ABG Base Excess (-2 to 3) mEq/L Sodium (136-145) mEq/L Potassium (3.5-5.1) mEq/L Chloride (98-107) mEq/L Carbon Dioxide (23-29) mEq/L BUN (6-20) mg/dL Creatinine (0.70-1.30) mg/dL Est GFR ( Amer) (> 60) Est GFR (Non-Af Amer) (> 60) BUN/Creatinine Ratio (6-26) Glucose (70-105) mg/dL Calculated Osmolality (280-300) Lactic Acid 1.8 (0.5-2.2) mmol/L Calcium (8.6-10.3) mg/dL Troponin I 0.03 (< 0.04) ng/mL B-Natriuretic Peptide 78 (Less than 100) pg/mL Urine Color (Yellow) Urine Clarity (Clear) Urine pH (5.0-8.0) pH Units Ur Specific [place] (1.010-1.025) Urine Protein (Neg-Trace) mg/dL Urine Glucose (UA) (Normal) mg/dL Urine Ketones (Negative) mg/dL Urine Blood (Negative) Urine Nitrite (Negative) Urine Bilirubin (Negative) Urine Urobilinogen (Normal) mg/dL Ur Leukocyte Esterase (Negative) Urine Microscopic RBC (0-3) per hpf Urine Microscopic WBC (0-3) per hpf Ur Squamous Epith Cells (None-Few) per lpf Urine Bacteria (None-Few) per hpf Hyaline Casts (None-Few) per lpf Granular Casts (None Seen) per lpf Ur Culture Indicated? (NO) Person Notif of Crit 11/09/17 Range/Units 10:08 WBC (4.3-11.1) K/mcL RBC (4.19-5.50) M/mcL Hgb (12.9-16.9) g/dL Hct (37.5-50.1) % MCV (83.0-100.0) fL MCH (28.0-33.3) pg MCHC (31.6-35.5) g/dL RDW (11.5-14.5) % Plt Count (140-400) K/mcL MPV (9.4-12.4) fL Immature Gran % (0-4) % Seg Neutrophils % % Lymphocytes % % Monocytes % % Eosinophils % % Basophils % % Neutrophils # (1.6-8.9) K/mcL Lymphocytes # (0.6-4.6) K/mcL Monocytes # (0.0-1.3) K/mcL Eosinophils # (0.0-0.6) K/mcL Basophils # (0.0-0.2) K/mcL ABG pH 7.29 L (7.32-7.45) pH Units ABG pCO2 108 H* (35-45) mmHg ABG pO2 74 L (85-104) mmHg ABG HCO3 52 H (21-27) mEq/L ABG Total CO2 55 H (20-26) mEq/L ABG O2 Saturation 91 L (95-98) % ABG Base Excess 21 H (-2 to 3) mEq/L Sodium (136-145) mEq/L Potassium (3.5-5.1) mEq/L Chloride (98-107) mEq/L Carbon Dioxide (23-29) mEq/L BUN (6-20) mg/dL Creatinine (0.70-1.30) mg/dL Est GFR ( Amer) (> 60) Est GFR (Non-Af Amer) (> 60) BUN/Creatinine Ratio (6-26) Glucose (70-105) mg/dL Calculated Osmolality (280-300) Lactic Acid (0.5-2.2) mmol/L Calcium (8.6-10.3) mg/dL Troponin I (< 0.04) ng/mL B-Natriuretic Peptide (Less than 100) pg/mL Urine Color (Yellow) Urine Clarity (Clear) Urine pH (5.0-8.0) pH Units Ur Specific [place] (1.010-1.025) Urine Protein (Neg-Trace) mg/dL Urine Glucose (UA) (Normal) mg/dL Urine Ketones (Negative) mg/dL Urine Blood (Negative) Urine Nitrite (Negative) Urine Bilirubin (Negative) Urine Urobilinogen (Normal) mg/dL Ur Leukocyte Esterase (Negative) Urine Microscopic RBC (0-3) per hpf Urine Microscopic WBC (0-3) per hpf Ur Squamous Epith Cells (None-Few) per lpf Urine Bacteria (None-Few) per hpf Hyaline Casts (None-Few) per lpf Granular Casts (None Seen) per lpf Ur Culture Indicated? (NO) Person Notif of [place] GUERRERO - Radiology Data Radiology results reviewed: Yes I reviewed the patient's radiology results. - EKG Data EKG #1 EKG attestation: Yes I reviewed and interpreted this EKG. EKG shows normal: sinus rhythm Rate: tachycardia Rhythm: NSR Interpretation: no acute changes Critical Care Time Critical Care Time: Yes Total Critical Care Time: 120 Attestation: The high probability of a clinically significant, sudden or life threatening deterioration of the [respiratory, neurological] system(s) required my full and direct attention, intervention and personal management. The aggregate critical care time was [120] minutes. This time is in addition to time spent performing reported procedures but includes the following: [x] Data Review and interpretation [x] Patient assessment and monitoring of vital signs [x] Documentation [x] Medication orders and management
[2017-11-09] MEDS ORDERED: 0.9 % Sodium Chloride 1,000 ML IVC ONE ×2 (09:29→11:14)
[2017-11-09 09:41] LABS: Bilirubin,Urine Small (Negative); Blood,Urine Negative (Negative); Clarity,Urine Cloudy (Clear); Color,Urine Dark Yellow (Yellow); Glucose,Urine (UA) 100 mg/dL (Normal); Ketones,Urine Negative (Negative); Leukocyte Esterase,Urine Negative (Negative); Nitrite,Urine Negative (Negative); PH,Urine 5.5 pH Units (5.0-8.0); Protein,Urine 100 mg/dL (Neg-Trace); Specific Gravity,Urine 1.013 (1.010-1.025)
[2017-11-09 09:42] LABS: Basophils % 0.1 %; Hematocrit 32.4 % (37.5-50.1); Hemoglobin 9.6 g/dL (12.9-16.9); Immature Granulocytes % 0.6 % (0-4); Lymphocytes # 0.7 K/mcL (0.6-4.6); Lymphocytes % 3.6 %; Mean Corpuscular HGB Conc 29.6 g/dL (31.6-35.5); Mean Corpuscular Hemoglobin 27.5 pg (28.0-33.3); Mean Corpuscular Volume 92.8 fL (83.0-100.0); Mean Platelet Volume 9.1 fL (9.4-12.4); Monocytes # 1.4 K/mcL (0.0-1.3); Monocytes % 7.7 %; Neutrophils # 15.7 K/mcL (1.6-8.9); Platelet Count 458 K/mcL (140-400); Red Blood Count 3.49 M/mcL (4.19-5.50); Red Cell Distribution Width 13.2 % (11.5-14.5)
[2017-11-09 09:44] LABS: RBC,Urine 0-3 per hpf (0-3); Squamous Epithelial Cell,Urine Many per lpf (None-Few)
[2017-11-09] MEDS ORDERED: Piperacillin/Tazobactam 3.375 GM in Water for inj. (sterile) 20 ML IVP ONE (09:47)
[2017-11-09] MEDS ORDERED: methylPREDNISolone 125 MG/2 ML VIAL IVP ONE (09:47)
[2017-11-09] MEDS ORDERED: Vancomycin 1,000 MG in D5% in Water 250 ML IVPB ONE (09:48)
[2017-11-09 10:05] LABS: Hyaline Casts,Urine Few per lpf (None-Few)
[2017-11-09 10:06] LABS: Bacteria,Urine Few per hpf (None-Few); Granular Casts,Urine Few per lpf (None Seen)
[2017-11-09 10:12] LABS: ABG Base Excess 21 mEq/L (-2 to 3); ABG HCO3 52 mEq/L (21-27); ABG Oxygen Saturation 91 % (95-98); ABG PCO2 108 mmHg (35-45); ABG PH 7.29 pH Units (7.32-7.45); ABG PO2 74 mmHg (85-104); ABG TCO2 55 mEq/L (20-26)
[2017-11-09] MEDS ORDERED: Acetaminophen 650 MG RECTAL SUPP RC ONE (10:36)
[2017-11-09 10:42] LABS: BUN/Creatinine Ratio 14 (6-26); Blood Urea Nitrogen 12 mg/dL (6-20); Carbon Dioxide 45 mEq/L (23-29); Chloride 90 mEq/L (98-107); Glucose 155 mg/dL (70-105); Osmolality,Calculated 293 (280-300); Potassium 4.1 mEq/L (3.5-5.1); Sodium 140 mEq/L (136-145); eGFR For African Americans > 60 (> 60); eGFR For Non-African Americans > 60 (> 60)
[2017-11-09] MEDS ORDERED: *HR* LORazepam 2 MG/ML VIAL IVP ONE (11:15)
[2017-11-09 11:57] LABS: ABG Base Excess 18 mEq/L (-2 to 3); ABG HCO3 49 mEq/L (21-27); ABG Oxygen Saturation 96 % (95-98); ABG PCO2 99 mmHg (35-45); ABG PO2 100 mmHg (85-104); ABG TCO2 52 mEq/L (20-26)
--- NOTE | 2017-11-09 13:15 | Pulmonology History & Physical ---
<Jose Dugan - Last Filed: 11/09/17 17:53> Date of Encounter: 11/09/17 Time of Encounter: 11:00 Assessment and Plan (1) Sepsis Current visit: Yes Status: Acute Patient met sepsis criteria with right lower lobe pneumonia, tachycardia, tachypnea, hypoxia, WBC 17. - At risk patient with chronic trach care, history of MRSA pneumonia - Cultures collected include blood cultures, urine cultures, sputum culture - Initial lactic acid 1.8 - Patient received 2 L IV normal saline, hemodynamically stable. Plan: - Continue IV vancomycin and Zosyn and Levaquin - Wean mechanical ventilation requirements as tolerated - Continue ICU care Qualifiers: Qualified Code(s): A41.9 - Sepsis, unspecified organism (2) Pneumonia Current visit: Yes Status: Acute Right lower lobe pneumonia, history of MRSA pneumonia. At risk patient with chronic trach - Plan as listed above. Qualifiers: Pneumonia type: due to unspecified organism Laterality: right Lung location: lower lobe of lung Qualified Code(s): J18.1 - Lobar pneumonia, unspecified organism (3) Acute exacerbation of chronic obstructive airways disease Current visit: Yes Status: Acute Acute on chronic respiratory failure. Initial blood gas 7.29, PCO2 108, PO2 74 , bicarbonate 52, oxygen saturation 91% - Secondary to right lower lobe pneumonia - Plan as listed above. (4) Altered mental status Current visit: Yes Status: Acute Metabolic encephalopathy secondary to hypercarbia and hypoxia. - We will continue to monitor mental status as we wean oxygen requirements, treat underlining pneumonia and reduce sedation requirements. Qualifiers: Altered mental status type: unspecified Qualified Code(s): R41.82 - Altered mental status, unspecified (5) COPD (chronic obstructive pulmonary disease) Current visit: Yes Status: Acute Known history of COPD - Continue bronchodilators including duo nebs - IV Solu-Medrol Qualifiers: Qualified Code(s): J44.9 - Chronic obstructive pulmonary disease, unspecified (6) DVT prophylaxis Current visit: Yes Status: Acute Subcutaneous heparin 5000 units every 8 hours History of Present Illness Chief complaint: AMS HPI: Mr. Mccloud is a 56 year old male with chronic trach and history of MRSA pneumonia , COPD and asthma was found down at home with hypoxemia. Emergency department he received breathing treatments and oxygen saturations dropped to 55% with a good waveform. The difficulty breathing she required immediate irrigation and suction with improvement in his oxygen saturations. Chest x-ray demonstrates right lower lobe consolidation which correlates with clinical picture of pneumonia. He was tachycardic, fever of 102.9, tachypnea And hypoxic with WBC count of 17.8. He was started on broad-spectrum antibiotics, blood cultures were obtained and lactic acid was obtained, urine cultures were obtained. Pulmonology was called to the emergency department stat due to hypoxemia and difficulty with oxygenation. Patient was transferred to the ICU for continued care and underwent bronchoscopy with BAL. The patient was placed on mechanical ventilation and sedation. Past Med Surg Social Fam HX - Past Medical History Medical history: asthma, COPD, diabetes, TIA, other Psychiatric history: anxiety, depression - Social History Smoking Status: Current every day smoker Smokeless Tobacco Status: No Alcohol use: none Drug use: none Medications and Allergies Albuterol Neb [Proventil Neb] 2.5 mg IH Q4H PRN 11/09/17 [History] Albuterol Sulfate [Ventolin Hfa] 2 puff IH Q4H PRN 11/09/17 [History] Atorvastatin [Lipitor] 40 mg PO HS 11/09/17 [History] Clopidogrel [Plavix] 75 mg PO DAILY 11/09/17 [History] Fenofibrate Nanocrystallized [Tricor] 145 mg PO DAILY 11/09/17 [History] Furosemide [Lasix] 20 mg PO BID PRN 11/09/17 [History] Gabapentin [Neurontin] 300 mg PO TID 11/09/17 [History] Insulin Glargine,Hum.rec.anlog [Lantus Solostar] 15 unit SQ HS 11/09/17 [History ] Metoprolol [Lopressor] 25 mg PO BID 11/09/17 [History] Montelukast [Singulair] 10 mg PO HS 11/09/17 [History] Omeprazole [PriLOSEC] 20 mg PO DAILY 11/09/17 [History] Oxycodone HCl/Acetaminophen [Percocet 10-325 mg Tablet] 1 tab PO Q4-6H PRN 11/09 [History] Sitagliptin Phos/Metformin HCl [Janumet Xr 50-1,000 mg Tablet] 1 tab PO BID 07/19 [History] diazePAM [Valium] 5 mg PO BID PRN 11/09/17 [History] diazePAM [Valium] 10 mg PO HS PRN 11/09/17 [History] predniSONE [PredniSONE] 10 mg PO BIDWM 11/09/17 [History] 3 Allergy/AdvReac Type Severity Reaction Status Date / Time azithromycin Allergy Hives Verified 11/09/17 12:00 ROS unobtainable: due to endotracheal tube, due to mental status All Systems: A 10-system review of systems was performed and is negative for pertinent findings except as documented above in the HPI. Physical Examination Vital Signs: Vital Signs, Last 4 Hours Pulse Resp BP Pulse Ox 11/09/17 12:42 96 16 111/69 94 General appearance: agitated, appears uncomfortable Eyes: nonicteric ENT: oropharynx moist Neck: supple, other (Tracheostomy in place) Effort: very labored Inspection: normal Auscultation: bilateral: wheezes, rhonchi (Right lower lobe greater than left) Cardiovascular: regular rate and rhythm (Tachycardia) Gastrointestinal: normoactive bowel sounds Integumentary: normal Extremities: no clubbing, pink and warm Results - Laboratory Findings CBC and BMP: 11/09/17 09:28 11/09/17 09:28 ABG ABG pH 7.30 pH Units (7.32-7.45) L 11/09/17 11:51 ABG pCO2 99 mmHg (35-45) H* 11/09/17 11:51 ABG pO2 100 mmHg (85-104) 11/09/17 11:51 ABG O2 Saturation 96 % (95-98) 11/09/17 11:51 Abnormal lab findings: Abnormal lab results WBC 17.8 K/mcL (4.3-11.1) H 11/09/17 09:28 RBC 3.49 M/mcL (4.19-5.50) L 11/09/17 09:28 Hgb 9.6 g/dL (12.9-16.9) L 11/09/17 09:28 Hct 32.4 % (37.5-50.1) L 11/09/17 09:28 MCH 27.5 pg (28.0-33.3) L 11/09/17 09:28 MCHC 29.6 g/dL (31.6-35.5) L 11/09/17 09:28 Plt Count 458 K/mcL (140-400) H 11/09/17 09:28 MPV 9.1 fL (9.4-12.4) L 11/09/17 09:28 Neutrophils # 15.7 K/mcL (1.6-8.9) H 11/09/17 09:28 Monocytes # 1.4 K/mcL (0.0-1.3) H 11/09/17 09:28 ABG pH 7.30 pH Units (7.32-7.45) L 11/09/17 11:51 ABG pCO2 99 mmHg (35-45) H* 11/09/17 11:51 ABG HCO3 49 mEq/L (21-27) H 11/09/17 11:51 ABG Total CO2 52 mEq/L (20-26) H 11/09/17 11:51 ABG Base Excess 18 mEq/L (-2 to 3) H 11/09/17 11:51 Chloride 90 mEq/L (98-107) L 11/09/17 09:28 Carbon Dioxide 45 mEq/L (23-29) H* 11/09/17 09:28 Glucose 155 mg/dL (70-105) H 11/09/17 09:28 Urine Clarity Cloudy (Clear) A 11/09/17 09:28 Urine Protein 100 mg/dL (Neg-Trace) H 11/09/17 09:28 Urine Glucose (UA) 100 mg/dL (Normal) H 11/09/17 09:28 Urine Bilirubin Small (Negative) H 11/09/17 09:28 Urine Urobilinogen 2.0 mg/dL (Normal) H 11/09/17 09:28 Urine Microscopic WBC 5-15 per hpf (0-3) H 11/09/17 09:28 Ur Squamous Epith Cells Many per lpf (None-Few) H 11/09/17 09:28 Granular Casts Few per lpf (None Seen) H 11/09/17 09:28 <Arjun Cutler S - Last Filed: 11/09/17 21:27> Date of Encounter: 11/09/17 History of Present Illness HPI: Mr. Mccloud is a 56 year old male All Systems: A 10-system review of systems was performed and is negative for pertinent findings except as documented above in the HPI. Physical Examination Vital Signs: Vital Signs, Last 4 Hours Pulse Pulse Pulse Pulse Pulse Pulse Pulse 11/09/17 18:37 11/09/17 18:00 66 11/09/17 17:02 82 79 94 87 11/09/17 17:00 75 82 82 96 11/09/17 16:00 93 11/09/17 15:00 75 Pulse Pulse Pulse Pulse Pulse Resp Resp 11/09/17 18:37 16 11/09/17 18:00 16 11/09/17 17:02 93 90 84 101 104 11/09/17 17:00 16 12 11/09/17 16:00 17 11/09/17 15:00 16 Resp Resp Resp Resp Resp Resp Resp 11/09/17 18:37 11/09/17 18:00 11/09/17 17:02 11 19 20 17 24 11/09/17 17:00 20 19 11/09/17 16:00 11/09/17 15:00 Resp Resp Resp BP BP BP BP 11/09/17 18:37 11/09/17 18:00 111/65 11/09/17 17:02 14 12 16 122/98 11/09/17 17:00 121/68 122/98 135/68 135/105 11/09/17 16:00 117/75 11/09/17 15:00 121/71 BP BP BP BP BP BP BP 11/09/17 18:37 11/09/17 18:00 11/09/17 17:02 139/67 102/78 130/84 117/75 124/69 113/67 114/77 11/09/17 17:00 11/09/17 16:00 11/09/17 15:00 BP Pulse Ox 11/09/17 18:37 98 11/09/17 18:00 100 11/09/17 17:02 140/70 11/09/17 17:00 100 11/09/17 16:00 85 11/09/17 15:00 100 Results - Laboratory Findings CBC and BMP: 11/09/17 09:28 11/09/17 09:28 ABG ABG pH 7.30 pH Units (7.32-7.45) L 11/09/17 11:51 ABG pCO2 99 mmHg (35-45) H* 11/09/17 11:51 ABG pO2 100 mmHg (85-104) 11/09/17 11:51 ABG O2 Saturation 96 % (95-98) 11/09/17 11:51 Abnormal lab findings: Abnormal lab results WBC 17.8 K/mcL (4.3-11.1) H 11/09/17 09:28 RBC 3.49 M/mcL (4.19-5.50) L 11/09/17 09:28 Hgb 9.6 g/dL (12.9-16.9) L 11/09/17 09:28 Hct 32.4 % (37.5-50.1) L 11/09/17 09:28 MCH 27.5 pg (28.0-33.3) L 11/09/17 09: MCHC 29.6 g/dL (31.6-35.5) L 11/09/17 09:28 Plt Count 458 K/mcL (140-400) H 11/09/17 09:28 MPV 9.1 fL (9.4-12.4) L 11/09/17 09:28 Neutrophils # 15.7 K/mcL (1.6-8.9) H 11/09/17 09:28 Monocytes # 1.4 K/mcL (0.0-1.3) H 11/09/17 09:28 ABG pH 7.30 pH Units (7.32-7.45) L 11/09/17 11:51 ABG pCO2 99 mmHg (35-45) H* 11/09/17 11:51 ABG HCO3 49 mEq/L (21-27) H 11/09/17 11:51 ABG Total CO2 52 mEq/L (20-26) H 11/09/17 11:51 ABG Base Excess 18 mEq/L (-2 to 3) H 11/09/17 11:51 Chloride 90 mEq/L (98-107) L 11/09/17 09:28 Carbon Dioxide 45 mEq/L (23-29) H* 11/09/17 09:28 Glucose 155 mg/dL (70-105) H 11/09/17 09:28 Urine Clarity Cloudy (Clear) A 11/09/17 09:28 Urine Protein 100 mg/dL (Neg-Trace) H 11/09/17 09:28 Urine Glucose (UA) 100 mg/dL (Normal) H 11/09/17 09:28 Urine Bilirubin Small (Negative) H 11/09/17 09:28 Urine Urobilinogen 2.0 mg/dL (Normal) H 11/09/17 09:28 Urine Microscopic WBC 5-15 per hpf (0-3) H 11/09/17 09:28 Ur Squamous Epith Cells Many per lpf (None-Few) H 11/09/17 09:28 Granular Casts Few per lpf (None Seen) H 11/09/17 09:28 - Attending Attestation I saw the patient with the resident agree with History and Physical exam findings. Labs and Radiology were reviewed Ventilator data were reviewed low tidal volume strategy SHIFT BOSS: Patient is on ventilator will sedate lightly with fentanyl if needed will add propofol drip , patient was given propofol and midazolam during bronchsoscopy altered mental status due to metabolic encephalopathy secondary CO2 narcosis NECK : No JVD appreciated Pulmonary : Patient is hypoxic and hypercarbic on ventilator secondary COPD exacerbation patient also has probably PADMINI and OHS will treat as COPD exacerbation with steroids will need Vent support in the night when he sleeps because of the chronic hypercapnic respiratory failure . COPD exacerbation most likely due to right lower lobe pneumonia patient has history of MRSA pneumonia , had a acute desaturation in the ER most likely due to mucous plug went with flexible bronchoscopy had lot of secretions BAL was done from Right lower lobe , there was no evidence of lobar airway obstruction due to mucous plugging. Low tidal volume strategy . To wean FIO2 as tolerated Cardiac : Hemodynamically stable will diurese as tolerated Nutrition/GI: Patient is NPO , PPI prophylaxis Renal : labs reviewed Heme onc : labs reviewed ID : Sepsis due to pneumonia will do gonzalez culture and broad spectrum antibiotics patient had MRSA pneumonia in the past contact precautions Musculo skeletal / skin issues : No Acute issues Disposition : Critically ill Code status: Full Code Family/POA: Tried contacting sister for bronchoscopy not able to do . Spent 50 minutes of Critical Care time in medical decision making for maintaining vital organ function and preventing further decline .
[2017-11-09] MEDS ORDERED: Lidocaine Viscous Oral Soln 15 ML SOLUTION ONE (14:58)
[2017-11-09] MEDS ORDERED: Ondansetron 4 MG/2 ML VIAL IVP PRN (15:03)
[2017-11-09] MEDS ORDERED: Acetaminophen 650 MG RECTAL SUPP RC PRN (15:03)
[2017-11-09] MEDS ORDERED: Naloxone 0.4 MG/ML INJ IVP PRN (15:03)
[2017-11-09] MEDS ORDERED: Albuterol 2.5 MG/3 ML NEBULIZER IH PRN (15:11)
[2017-11-09] MEDS ORDERED: diazePAM 5 MG TABLET PO PRN (15:11)
[2017-11-09] MEDS ORDERED: D5% in Water 1,000 ML IVC PRN (15:15)
[2017-11-09] MEDS ORDERED: Dextrose Gel 15 GM/37.5 ML TUBE PO PRN ×2 (15:15)
[2017-11-09] MEDS ORDERED: *HR* Dextrose 50 % in Water (Syg) 50 ML SYRINGE IVP PRN (15:15)
[2017-11-09] MEDS ORDERED: *HR* Midazolam HCl 5 MG/5 ML VIAL IVP ONE ×2 (15:18→17:47)
[2017-11-09] MEDS ORDERED: predniSONE 10 MG TABLET PO SCH (17:00)
[2017-11-09 17:31] LABS: Source of Body Fluid RLL BAL
[2017-11-09] MEDS: Levofloxacin 750 MG/150 ML 750 MG/150 ML BAG IVPB SCH (17:53)
[2017-11-09] MEDS: methylPREDNISolone 125 MG/2 ML VIAL IVP SCH (17:53)
[2017-11-09] MEDS: Insulin LISPRO 300 UNITS/3 ML VIAL SQ SCH ×2 (17:57→23:34)
[2017-11-09] MEDS ORDERED: Vancomycin 1,500 MG in D5% in Water 250 ML IVPB SCH (18:00)
[2017-11-09] MEDS ORDERED: Piperacillin/Tazobactam 3.375 GM in D5% in Water (Mini-Bag+) 100 ML IVPB SCH (18:00)
[2017-11-09] MEDS ORDERED: Ipratropium/Albuterol Neb 3 ML IH PRN (18:05)
[2017-11-09] MEDS: Vancomycin 1,500 MG in D5% in Water 250 ML IVPB ONE (18:13)
[2017-11-09] MEDS: Piperacillin/Tazobactam 3.375 GM/200 ML BAG IVPB SCH (19:57)
[2017-11-09] MEDS: Sennosides 8.6 MG TABLET PO SCH (21:19)
[2017-11-09] MEDS: *HR* Heparin 5,000 UNIT/ML VIAL SQ SCH (21:20)
[2017-11-09 21:26] LABS: ABG Base Excess 18 mEq/L (-2 to 3); ABG HCO3 45 mEq/L (21-27); ABG Oxygen Saturation 93 % (95-98); ABG PCO2 71 mmHg (35-45); ABG PH 7.41 pH Units (7.32-7.45); ABG PO2 69 mmHg (85-104); ABG TCO2 47 mEq/L (20-26); Blood Gas Modality ASSIST CONTROL; Blood Gas PEEP 8 cm H2O; Blood Gas Respiration Rate 16; Blood Gas VT 550 cc
[2017-11-09] MEDS: *HR* Morphine 2 MG/ML SYRINGE IVP PRN (21:32)
[2017-11-10 01:28] LABS: Appearance of Body Fluid Cloudy (Clear); Volume of Body Fluid 17 mL
[2017-11-10] MEDS: Piperacillin/Tazobactam 3.375 GM/200 ML BAG IVPB SCH ×3 (04:41→20:05)
[2017-11-10] MEDS: *HR* Heparin 5,000 UNIT/ML VIAL SQ SCH ×3 (04:41→23:07)
[2017-11-10] MEDS: methylPREDNISolone 125 MG/2 ML VIAL IVP SCH ×3 (04:42→23:07)
[2017-11-10] MEDS: *HR* Morphine 2 MG/ML SYRINGE IVP PRN ×4 (04:42→23:17)
[2017-11-10] MEDS: Insulin LISPRO 300 UNITS/3 ML VIAL SQ SCH ×4 (04:42→23:17)
[2017-11-10 04:45] LABS: ABG Base Excess 15 mEq/L (-2 to 3); ABG HCO3 43 mEq/L (21-27); ABG Oxygen Saturation 96 % (95-98); ABG PCO2 77 mmHg (35-45); ABG PH 7.35 pH Units (7.32-7.45); ABG PO2 94 mmHg (85-104); ABG TCO2 45 mEq/L (20-26); Blood Gas Modality VC
[2017-11-10 05:25] LABS: Basophils % 0.1 %; Hematocrit 27.7 % (37.5-50.1); Hemoglobin 8.3 g/dL (12.9-16.9); Immature Granulocytes % 0.6 % (0-4); Lymphocytes # 1.2 K/mcL (0.6-4.6); Lymphocytes % 8.9 %; Mean Corpuscular Volume 90.2 fL (83.0-100.0); Mean Platelet Volume 9.4 fL (9.4-12.4); Monocytes # 0.9 K/mcL (0.0-1.3); Monocytes % 6.6 %; Neutrophils # 11.5 K/mcL (1.6-8.9); Platelet Count 454 K/mcL (140-400); Red Blood Count 3.07 M/mcL (4.19-5.50); Red Cell Distribution Width 13.2 % (11.5-14.5); Segmented Neutrophils % 83.8 %
[2017-11-10] MEDS: Vancomycin 1,500 MG in D5% in Water 250 ML IVPB ONE (07:50)
[2017-11-10] MEDS: Vancomycin 1,250 MG in D5% in Water 250 ML IVPB SCH ×2 (07:50→17:06)
[2017-11-10 08:07] LABS: BUN/Creatinine Ratio 29 (6-26); Blood Urea Nitrogen 25 mg/dL (6-20); Calcium 8.5 mg/dL (8.6-10.3); Carbon Dioxide 40 mEq/L (23-29); Chloride 96 mEq/L (98-107); Potassium 4.3 mEq/L (3.5-5.1); Sodium 138 mEq/L (136-145); eGFR For African Americans > 60 (> 60); eGFR For Non-African Americans > 60 (> 60)
[2017-11-10 08:42] LABS: Glucose 119 mg/dL (70-105); Osmolality,Calculated 292 (280-300)
--- NOTE | 2017-11-10 08:53 | Pulmonology Progress Note ---
<Kaushik Baig - Last Filed: 11/10/17 11:09> Date of Encounter: 11/10/17 Time of Encounter: 08:53 Assessment and Plan (1) Sepsis Current Visit: Yes Status: Acute Patient met criteria for sepsis based on elevated WBC 17, Tachycardia, tachypnea , hypoxia, and RLL PNA on CXR Cultures pending (BLood, sputum, bronch, urine) Initial LA 1.8 Patient received 2 L NS IV Patient on mechanical ventilation Plan: continue vent continue to monitor Continue abx Qualifiers: Qualified Code(s): A41.9 - Sepsis, unspecified organism (2) Pneumonia Current Visit: Yes Status: Acute Pt c Hx of MRSA PNA pt at risk for reoccurrence due to chronic trache CXR: "Round 6 cm area of consolidation in the right lung base could represent pneumonia." Patient started on Vanc, zosyn, and levaquin Plan: Continue abx continue to monitor Qualifiers: Pneumonia type: due to unspecified organism Laterality: right Lung location: lower lobe of lung Qualified Code(s): J18.1 - Lobar pneumonia, unspecified organism (3) Acute exacerbation of chronic obstructive airways disease Current Visit: Yes Status: Acute Pt with hx of COPD in an acute exacerbation likely 2/2 to PNA Started on bronchodilaters and steroids Initial blood gas 7.29, PCO2 108, PO2 74, bicarbonate 52, oxygen saturation 91% base excess 21 Latest AB.35/77/94/43/96/15 Plan: Continue duonebs continue steroids continue abx (4) Altered mental status Current Visit: Yes Status: Acute Improved Likely 2/2 to metabolic encephalopathy secondary to hypercarbia and hypoxia. Plan: Continue to treat PNA continue to treat supplemental Oxygen via vent as needed. Qualifiers: Altered mental status type: unspecified Qualified Code(s): R41.82 - Altered mental status, unspecified (5) COPD (chronic obstructive pulmonary disease) Current Visit: Yes Status: Acute Pt with PMHx of COPD Patient started on albuterol prn, duonebs casi, IV solumedorl 125mg Q12H Plan: Continue duonebs, albuterol Changed IV solumedrol to 60mg Q8H Qualifiers: Qualified Code(s): J44.9 - Chronic obstructive pulmonary disease, unspecified (6) Tracheostomy dependent Current Visit: No Status: Chronic Pt with hx of chronic trache Patient managing trache at home alone. Home health has not seen patient for a while. Plan: consult to mental health social worker placed to hook patient back up with home health upon discharge. Will consult speech once patient is able to do PO and placed on trache colar. (7) DVT prophylaxis Current Visit: Yes Status: Acute Patient is on SubQ heparin 5,000 units Q8H Plan: continue Heparin Subjective Principal diagnosis: Acute on chronic respiratory failure with hypoxia Interval history: 56 yo M c PMHx of chronic trache, MRSA PNA, COPD, DM, TIA, anxiety/depression admitted after being found down at home with hypoxia. Patient placed on ventilator and underwent bronch. Patient is off sedation and follows commands. Plan is to ween off vent as able. Objective PUL Vital signs: Last Vital Signs Temp 98.8 F 11/10/17 08:21 Pulse 64 11/10/17 06:00 Resp 16 11/10/17 06:24 BP 97/58 11/10/17 06:00 Pulse Ox 92 11/10/17 06:24 General appearance: no acute distress, other (sedated on vent) Eyes: nonicteric ENT: oropharynx moist Neck: supple Auscultation: bilateral: diminished breath sounds, other (upper airway noise) Cardiovascular: regular rate and rhythm Gastrointestinal: normoactive bowel sounds, soft, non-tender, non-distended Integumentary: normal Extremities: no cyanosis, no edema Musculoskeletal: no deformities unable to assess due to mental status Ventilator Settings Ventilator Settings: Ventilator Settings, Last 8 Hours Ventilator Mode VC+ Ventilator Mode VC+ Ventilator Mode VC+ Ventilator Mode VC+ Ventilator Mode VC+ Ventilator Mode VC+ Ventilator Mode VC+ Ventilator Mode VC+ Ventilator Mode VC+ Ventilator Tidal Volume 550 Setting Ventilator Tidal Volume 550 Setting Ventilator Tidal Volume 550 Setting Ventilator Tidal Volume 550 Setting Ventilator Tidal Volume 550 Setting Ventilator Tidal Volume 550 Setting Ventilator Tidal Volume 550 Setting Ventilator Tidal Volume 550 Setting Ventilator Tidal Volume 550 Setting Ventilator Respiratory Rate 16 Setting Ventilator Respiratory Rate 16 Setting Ventilator Respiratory Rate 16 Setting Ventilator Respiratory Rate 16 Setting Ventilator Respiratory Rate 16 Setting Ventilator Respiratory Rate 16 Setting Ventilator Respiratory Rate 16 Setting Ventilator Respiratory Rate 16 Setting Ventilator Respiratory Rate 16 Setting Actual Respiratory Rate 16 Actual Respiratory Rate 16 Actual Respiratory Rate 16 Actual Respiratory Rate 16 Actual Respiratory Rate 16 Actual Respiratory Rate 16 Actual Respiratory Rate 17 Actual Respiratory Rate 16 Positive End Expiratory 8 Pressure Positive End Expiratory 8 Pressure Positive End Expiratory 8 Pressure Positive End Expiratory 8 Pressure Positive End Expiratory 8 Pressure Positive End Expiratory 8 Pressure Positive End Expiratory 8 Pressure Positive End Expiratory 8 Pressure Positive End Expiratory 8 Pressure Peak Inspiratory Airway 35 Pressure Peak Inspiratory Airway 36 Pressure Peak Inspiratory Airway 32 Pressure Peak Inspiratory Airway 35 Pressure Peak Inspiratory Airway 40 Pressure Peak Inspiratory Airway 42 Pressure Peak Inspiratory Airway 43 Pressure Peak Inspiratory Airway 32 Pressure Results - Laboratory Findings CBC and BMP: 11/10/17 04:57 11/10/17 07:22 ABG ABG pH 7.35 pH Units (7.32-7.45) 11/10/17 04:38 ABG pCO2 77 mmHg (35-45) H* 11/10/17 04:38 ABG pO2 94 mmHg (85-104) 11/10/17 04:38 ABG O2 Saturation 96 % (95-98) 11/10/17 04:38 Abnormal lab findings: Abnormal lab results WBC 13.8 K/mcL (4.3-11.1) H 11/10/17 04:57 RBC 3.07 M/mcL (4.19-5.50) L 11/10/17 04:57 Hgb 8.3 g/dL (12.9-16.9) L 11/10/17 04:57 Hct 27.7 % (37.5-50.1) L 11/10/17 04:57 MCH 27.0 pg (28.0-33.3) L 11/10/17 04:57 MCHC 30.0 g/dL (31.6-35.5) L 11/10/17 04:57 Plt Count 454 K/mcL (140-400) H 11/10/17 04:57 Neutrophils # 11.5 K/mcL (1.6-8.9) H 11/10/17 04:57 ABG pCO2 77 mmHg (35-45) H* 11/10/17 04:38 ABG HCO3 43 mEq/L (21-27) H 11/10/17 04:38 ABG Total CO2 45 mEq/L (20-26) H 11/10/17 04:38 ABG Base Excess 15 mEq/L (-2 to 3) H 11/10/17 04:38 Chloride 96 mEq/L (98-107) L 11/10/17 07:22 Carbon Dioxide 40 mEq/L (23-29) H* 11/10/17 07:22 BUN 25 mg/dL (6-20) H 11/10/17 07:22 BUN/Creatinine Ratio 29 (6-26) H 11/10/17 07:22 Glucose 119 mg/dL (70-105) H 11/10/17 07:22 POC Glucose 199 (58-89) H 11/09/17 22:50 Calcium 8.5 mg/dL (8.6-10.3) L 11/10/17 07:22 Urine Clarity Cloudy (Clear) A 11/09/17 09:28 Urine Protein 100 mg/dL (Neg-Trace) H 11/09/17 09:28 Urine Glucose (UA) 100 mg/dL (Normal) H 11/09/17 09:28 Urine Bilirubin Small (Negative) H 11/09/17 09:28 Urine Urobilinogen 2.0 mg/dL (Normal) H 11/09/17 09:28 Urine Microscopic WBC 5-15 per hpf (0-3) H 11/09/17 09:28 Ur Squamous Epith Cells Many per lpf (None-Few) H 11/09/17 09:28 Granular Casts Few per lpf (None Seen) H 11/09/17 09:28 Fluid Appearance Cloudy (Clear) A 11/09/17 17:29 - Clinical Findings Intake & Output: Intake & Output 11/09/17 11/10/17 11/10/17 23:59 07:59 15:59 Intake Total 650 / 650 Output Total 325 / 325 150 / 150 150 / 150 Balance 325 / 325 -150 / -150 -150 / -150 Weight 99.41 kg Consult Discharge Plan - Plan Referrals: Ad Garcia MD [Primary Care Provider] - <Arjun Cutler - Last Filed: 11/10/17 22:53> Date of Encounter: 11/10/17 Objective PUL Vital signs: Last Vital Signs Temp 97.7 F 11/10/17 20:33 Pulse 67 11/10/17 22:00 Resp 22 11/10/17 22:00 BP 115/71 11/10/17 22:00 Pulse Ox 94 11/10/17 22:00 Ventilator Settings Ventilator Settings: Ventilator Settings, Last 8 Hours Ventilator Mode CPAP Ventilator Mode CPAP Ventilator Mode CPAP Ventilator Mode CPAP Ventilator Mode CPAP Ventilator Mode CPAP Ventilator Mode CPAP Ventilator Mode CPAP Ventilator Mode VC+ Ventilator Mode VC+ Ventilator Tidal Volume 550 Setting Ventilator Tidal Volume 550 Setting Ventilator Respiratory Rate 16 Setting Ventilator Respiratory Rate 16 Setting Actual Respiratory Rate 22 Actual Respiratory Rate 22 Actual Respiratory Rate 24 Actual Respiratory Rate 20 Actual Respiratory Rate 20 Actual Respiratory Rate 20 Actual Respiratory Rate 20 Actual Respiratory Rate 20 Actual Respiratory Rate 20 Actual Respiratory Rate 17 Positive End Expiratory 10 Pressure Positive End Expiratory 10 Pressure Positive End Expiratory 5 Pressure Positive End Expiratory 5 Pressure Positive End Expiratory 5 Pressure Positive End Expiratory 5 Pressure Positive End Expiratory 5 Pressure Positive End Expiratory 5 Pressure Positive End Expiratory 5 Pressure Positive End Expiratory 5 Pressure Peak Inspiratory Airway 20 Pressure Peak Inspiratory Airway 19 Pressure Peak Inspiratory Airway 14 Pressure Peak Inspiratory Airway 15 Pressure Peak Inspiratory Airway 14 Pressure Peak Inspiratory Airway 14 Pressure Peak Inspiratory Airway 21 Pressure Peak Inspiratory Airway 21 Pressure Peak Inspiratory Airway 21 Pressure Peak Inspiratory Airway 32 Pressure Results - Laboratory Findings CBC and BMP: 11/10/17 04:57 11/10/17 07:22 ABG ABG pH 7.35 pH Units (7.32-7.45) 11/10/17 04:38 ABG pCO2 77 mmHg (35-45) H* 11/10/17 04:38 ABG pO2 94 mmHg (85-104) 11/10/17 04:38 ABG O2 Saturation 96 % (95-98) 11/10/17 04:38 Abnormal lab findings: Abnormal lab results WBC 13.8 K/mcL (4.3-11.1) H 11/10/17 04:57 RBC 3.07 M/mcL (4.19-5.50) L 11/10/17 04:57 Hgb 8.3 g/dL (12.9-16.9) L 11/10/17 04:57 Hct 27.7 % (37.5-50.1) L 11/10/17 04:57 MCH 27.0 pg (28.0-33.3) L 11/10/17 04:57 MCHC 30.0 g/dL (31.6-35.5) L 11/10/17 04:57 Plt Count 454 K/mcL (140-400) H 11/10/17 04:57 Neutrophils # 11.5 K/mcL (1.6-8.9) H 11/10/17 04:57 ABG pCO2 77 mmHg (35-45) H* 11/10/17 04:38 ABG HCO3 43 mEq/L (21-27) H 11/10/17 04:38 ABG Total CO2 45 mEq/L (20-26) H 11/10/17 04:38 ABG Base Excess 15 mEq/L (-2 to 3) H 11/10/17 04:38 Chloride 96 mEq/L (98-107) L 11/10/17 07:22 Carbon Dioxide 40 mEq/L (23-29) H* 11/10/17 07:22 BUN 25 mg/dL (6-20) H 11/10/17 07:22 BUN/Creatinine Ratio 29 (6-26) H 11/10/17 07:22 Glucose 119 mg/dL (70-105) H 11/10/17 07:22 POC Glucose 199 (58-89) H 11/09/17 22:50 Calcium 8.5 mg/dL (8.6-10.3) L 11/10/17 07:22 Urine Clarity Cloudy (Clear) A 11/09/17 09:28 Urine Protein 100 mg/dL (Neg-Trace) H 11/09/17 09:28 Urine Glucose (UA) 100 mg/dL (Normal) H 11/09/17 09:28 Urine Bilirubin Small (Negative) H 11/09/17 09:28 Urine Urobilinogen 2.0 mg/dL (Normal) H 11/09/17 09:28 Urine Microscopic WBC 5-15 per hpf (0-3) H 11/09/17 09:28 Ur Squamous Epith Cells Many per lpf (None-Few) H 11/09/17 09:28 Granular Casts Few per lpf (None Seen) H 11/09/17 09:28 Fluid Appearance Cloudy (Clear) A 11/09/17 17:29 - Clinical Findings Intake & Output: Intake & Output 11/10/17 11/10/17 11/10/17 07:59 15:59 23:59 Intake Total 650 / 650 Output Total 150 / 150 325 / 325 375 / 375 Balance -150 / -150 325 / 325 -375 / -375 Weight 99.41 kg - Attending Attestation I saw the patient with the resident agree with History and Physical exam findings. Labs and Radiology were reviewed Ventilator data were reviewed low tidal volume strategy TROUSSEAU CONSULTANT: Patient is today conscious oriented following commands able to have some conversations NECK : No JVD appreciated Pulmonary : Patient is hypoxic and hypercarbic on ventilator secondary COPD exacerbation patient also has probably PADMINI and OHS will treat as COPD exacerbation with steroids will need Vent support in the night when he sleeps because of the chronic hypercapnic respiratory failure . COPD exacerbation most likely due to right lower lobe pneumonia patient has history of MRSA pneumonia , had a acute desaturation in the ER most likely due to mucous plug went with flexible bronchoscopy had lot of secretions BAL was done from Right lower lobe , there was no evidence of lobar airway obstruction due to mucous plugging. Low tidal volume strategy . To wean FIO2 as tolerated . Will do spontaneous breathing trial on CPAP and PS of 8 Cardiac : Hemodynamically stable will diurese as tolerated Nutrition/GI: Patient is NPO will need swallow eval after liberation from ventilator . PPI prophylaxis Renal : labs reviewed Heme onc : labs reviewed ID : Sepsis due to pneumonia will do gonzalez culture and broad spectrum antibiotics patient had MRSA pneumonia in the past contact precautions , waiting BAL culture Musculo skeletal / skin issues : No Acute issues Disposition : Critically ill Code status: Full Code Family/POA: Sister . Spent 35 minutes of Critical care time .
[2017-11-10] MEDS: Albuterol 2.5 MG/3 ML NEBULIZER IH SCH ×5 (08:57→23:28)
[2017-11-10] MEDS: Pantoprazole 40 MG VIAL IVP SCH (09:06)
--- NOTE | 2017-11-10 09:38 | Electrocardiograph Report ---
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
[2017-11-10] MEDS ORDERED: Lacri-Lube 3.5 GM TUBE BOTH EYES PRN (10:51)
[2017-11-10] MEDS: Lacri-Lube 3.5 GM TUBE BOTH EYES SCH ×4 (11:11→23:07)
[2017-11-10] MEDS: Levofloxacin 750 MG/150 ML 750 MG/150 ML BAG IVPB SCH (17:05)
[2017-11-10] MEDS: Chlorhexidine Rinse 15 ML MOUTHWASH MM SCH (20:05)
[2017-11-10] MEDS: Sennosides 8.6 MG TABLET PO SCH (20:05)
[2017-11-11] MEDS: Albuterol 2.5 MG/3 ML NEBULIZER IH SCH ×6 (03:19→23:30)
[2017-11-11] MEDS: Lacri-Lube 3.5 GM TUBE BOTH EYES SCH ×5 (04:16→19:26)
[2017-11-11] MEDS: Piperacillin/Tazobactam 3.375 GM/200 ML BAG IVPB SCH ×3 (04:43→20:22)
[2017-11-11] MEDS: *HR* Heparin 5,000 UNIT/ML VIAL SQ SCH ×3 (05:06→21:36)
[2017-11-11] MEDS: Vancomycin 1,250 MG in D5% in Water 250 ML IVPB SCH ×2 (05:07→17:16)
[2017-11-11] MEDS: Insulin LISPRO 300 UNITS/3 ML VIAL SQ SCH ×3 (05:10→18:54)
[2017-11-11 05:26] LABS: Hemoglobin 8.6 g/dL (12.9-16.9); Immature Granulocytes % 0.7 % (0-4); Lymphocytes # 0.6 K/mcL (0.6-4.6); Lymphocytes % 6.2 %; Mean Corpuscular HGB Conc 30.7 g/dL (31.6-35.5); Mean Corpuscular Hemoglobin 27.3 pg (28.0-33.3); Mean Corpuscular Volume 88.9 fL (83.0-100.0); Mean Platelet Volume 9.1 fL (9.4-12.4); Monocytes # 0.6 K/mcL (0.0-1.3); Monocytes % 5.5 %; Neutrophils # 8.9 K/mcL (1.6-8.9); Platelet Count 532 K/mcL (140-400); Red Blood Count 3.15 M/mcL (4.19-5.50); Red Cell Distribution Width 13.2 % (11.5-14.5); Segmented Neutrophils % 87.6 %
[2017-11-11 05:40] LABS: BUN/Creatinine Ratio 29 (6-26); Blood Urea Nitrogen 22 mg/dL (6-20); Calcium 8.7 mg/dL (8.6-10.3); Carbon Dioxide 40 mEq/L (23-29); Chloride 94 mEq/L (98-107); Glucose 165 mg/dL (70-105); Osmolality,Calculated 291 (280-300); Potassium 4.1 mEq/L (3.5-5.1); Sodium 137 mEq/L (136-145); eGFR For African Americans > 60 (> 60); eGFR For Non-African Americans > 60 (> 60)
[2017-11-11] MEDS ORDERED: Aminoglycoside Consult 1 EACH MC ONE (08:22)
[2017-11-11] MEDS: Chlorhexidine Rinse 15 ML MOUTHWASH MM SCH ×2 (08:29→20:22)
[2017-11-11] MEDS: methylPREDNISolone 125 MG/2 ML VIAL IVP SCH ×2 (08:29→17:13)
[2017-11-11] MEDS: Pantoprazole 40 MG VIAL IVP SCH (08:30)
--- NOTE | 2017-11-11 09:51 | Pulmonology Progress Note ---
<Kaushik Baig - Last Filed: 11/11/17 09:49> Date of Encounter: 11/11/17 Time of Encounter: 09:49 Assessment and Plan (1) Sepsis Current Visit: Yes Status: Acute Patient met criteria for sepsis based on elevated WBC 17, Tachycardia, tachypnea , hypoxia, and RLL PNA on CXR Cultures pending (BLood, sputum, bronch, urine) Initial LA 1.8 Patient received 2 L NS IV Patient on chronic trache currently CPAP Deep bronch cx grown gram negative sanjay preliminary report Plan: trache mask during day, vent at night. continue to monitor Continue abx for now with plans to de-escalate Qualifiers: Sepsis type: sepsis due to unspecified organism Qualified Code(s): A41.9 - Sepsis, unspecified organism (2) Pneumonia Current Visit: Yes Status: Acute Pt c Hx of MRSA PNA pt at risk for reoccurrence due to chronic trache CXR: "Round 6 cm area of consolidation in the right lung base could represent pneumonia." Patient started on Vanc, zosyn, and levaquin prelim bronch giorgi growing gram negaitve rods Plan: Continue abx for now with plans to de-escalate continue to monitor Qualifiers: Pneumonia type: due to other aerobic Gram-negative bacteria Laterality: right Lung location: lower lobe of lung Qualified Code(s): J15.6 - Pneumonia due to other Gram-negative bacteria (3) Acute exacerbation of chronic obstructive airways disease Current Visit: Yes Status: Acute Pt with hx of COPD in an acute exacerbation likely 2/2 to PNA Started on bronchodilaters and steroids Initial blood gas 7.29, PCO2 108, PO2 74, bicarbonate 52, oxygen saturation 91% base excess 21 Latest AB.35/77/94/43/96/15 Plan: Continue duonebs continue steroids continue abx (4) Altered mental status Current Visit: Yes Status: Resolved resolved Likely 2/2 to metabolic encephalopathy secondary to hypercarbia and hypoxia. Plan: Continue to treat PNA continue to treat supplemental Oxygen via vent as needed. Qualifiers: Altered mental status type: unspecified Qualified Code(s): R41.82 - Altered mental status, unspecified (5) COPD (chronic obstructive pulmonary disease) Current Visit: Yes Status: Acute Pt with PMHx of COPD Patient started on albuterol prn, duonebs casi, IV solumedorl 125mg Q12H Changed IV solumedrol to 60mg Q8H Plan: Continue duonebs, albuterol, steroids Qualifiers: Qualified Code(s): J44.9 - Chronic obstructive pulmonary disease, unspecified (6) Tracheostomy dependent Current Visit: No Status: Chronic Pt with hx of chronic trache Patient managing trache at home alone. Home health has not seen patient for a while. Plan: consult to social media director placed to hook patient back up with home health upon discharge. Will consult speech once patient is able to do PO and placed on trache colar. (7) DVT prophylaxis Current Visit: Yes Status: Acute Patient is on SubQ heparin 5,000 units Q8H Plan: continue Heparin Subjective Principal diagnosis: Acute on chronic respiratory failure with hypoxia Interval history: 56 yo M c PMHx of chronic trache, MRSA PNA, COPD, DM, TIA, anxiety/depression admitted after being found down at home with hypoxia. Patient placed on ventilator and underwent bronch. Patient is off sedation and follows commands. Plan is to ween off vent as able. Patient currently on CPAP settings. Patient reports no complaints at this time. Objective PUL Vital signs: Last Vital Signs Temp 98.1 F 11/11/17 07:31 Pulse 69 11/11/17 08:00 Resp 24 11/11/17 08:00 BP 129/74 11/11/17 08:00 Pulse Ox 93 11/11/17 08:00 General appearance: no acute distress Eyes: nonicteric ENT: oropharynx moist Neck: supple Effort: normal Auscultation: bilateral: rhonchi Cardiovascular: regular rate and rhythm Gastrointestinal: normoactive bowel sounds, soft, non-tender, non-distended Integumentary: normal Extremities: no cyanosis, no edema Musculoskeletal: no deformities normal mental status, non-focal exam Ventilator Settings Ventilator Settings: Ventilator Settings, Last 8 Hours Ventilator Mode CPAP Ventilator Mode VC+ Ventilator Mode VC+ Ventilator Mode VC+ Ventilator Mode VC+ Ventilator Mode VC+ Ventilator Mode VC+ Ventilator Mode VC+ Ventilator Mode VC+ Ventilator Mode VC+ Ventilator Tidal Volume 500 Setting Ventilator Tidal Volume 500 Setting Ventilator Tidal Volume 500 Setting Ventilator Tidal Volume 500 Setting Ventilator Tidal Volume 500 Setting Ventilator Tidal Volume 500 Setting Ventilator Tidal Volume 500 Setting Ventilator Tidal Volume 500 Setting Ventilator Tidal Volume 500 Setting Ventilator Respiratory Rate 16 Setting Ventilator Respiratory Rate 16 Setting Ventilator Respiratory Rate 16 Setting Ventilator Respiratory Rate 16 Setting Ventilator Respiratory Rate 16 Setting Ventilator Respiratory Rate 16 Setting Ventilator Respiratory Rate 16 Setting Ventilator Respiratory Rate 16 Setting Ventilator Respiratory Rate 16 Setting Actual Respiratory Rate 24 Actual Respiratory Rate 23 Actual Respiratory Rate 24 Actual Respiratory Rate 22 Actual Respiratory Rate 22 Actual Respiratory Rate 22 Actual Respiratory Rate 21 Actual Respiratory Rate 24 Actual Respiratory Rate 22 Positive End Expiratory 10 Pressure Positive End Expiratory 5 Pressure Positive End Expiratory 5 Pressure Positive End Expiratory 5 Pressure Positive End Expiratory 5 Pressure Positive End Expiratory 5 Pressure Positive End Expiratory 5 Pressure Positive End Expiratory 5 Pressure Positive End Expiratory 5 Pressure Positive End Expiratory 10 Pressure Peak Inspiratory Airway 19 Pressure Peak Inspiratory Airway 13 Pressure Peak Inspiratory Airway 16 Pressure Peak Inspiratory Airway 12 Pressure Peak Inspiratory Airway 15 Pressure Peak Inspiratory Airway 18 Pressure Peak Inspiratory Airway 16 Pressure Peak Inspiratory Airway 19 Pressure Peak Inspiratory Airway 14 Pressure Results - Laboratory Findings CBC and BMP: 11/11/17 04:48 11/11/17 04:48 ABG ABG pH 7.35 pH Units (7.32-7.45) 11/10/17 04:38 ABG pCO2 77 mmHg (35-45) H* 11/10/17 04:38 ABG pO2 94 mmHg (85-104) 11/10/17 04:38 ABG O2 Saturation 96 % (95-98) 11/10/17 04:38 Abnormal lab findings: Abnormal lab results RBC 3.15 M/mcL (4.19-5.50) L 11/11/17 04:48 Hgb 8.6 g/dL (12.9-16.9) L 11/11/17 04:48 Hct 28.0 % (37.5-50.1) L 11/11/17 04:48 MCH 27.3 pg (28.0-33.3) L 11/11/17 04:48 MCHC 30.7 g/dL (31.6-35.5) L 11/11/17 04:48 Plt Count 532 K/mcL (140-400) H 11/11/17 04:48 MPV 9.1 fL (9.4-12.4) L 11/11/17 04:48 ABG pCO2 77 mmHg (35-45) H* 11/10/17 04:38 ABG HCO3 43 mEq/L (21-27) H 11/10/17 04:38 ABG Total CO2 45 mEq/L (20-26) H 11/10/17 04:38 ABG Base Excess 15 mEq/L (-2 to 3) H 11/10/17 04:38 Chloride 94 mEq/L (98-107) L 11/11/17 04:48 Carbon Dioxide 40 mEq/L (23-29) H* 11/11/17 04:48 BUN 22 mg/dL (6-20) H 11/11/17 04:48 BUN/Creatinine Ratio 29 (6-26) H 11/11/17 04:48 Glucose 165 mg/dL (70-105) H 11/11/17 04:48 POC Glucose 199 (58-89) H 11/09/17 22:50 Urine Clarity Cloudy (Clear) A 11/09/17 09:28 Urine Protein 100 mg/dL (Neg-Trace) H 11/09/17 09:28 Urine Glucose (UA) 100 mg/dL (Normal) H 11/09/17 09:28 Urine Bilirubin Small (Negative) H 11/09/17 09:28 Urine Urobilinogen 2.0 mg/dL (Normal) H 11/09/17 09:28 Urine Microscopic WBC 5-15 per hpf (0-3) H 11/09/17 09:28 Ur Squamous Epith Cells Many per lpf (None-Few) H 11/09/17 09:28 Granular Casts Few per lpf (None Seen) H 11/09/17 09:28 Fluid Appearance Cloudy (Clear) A 11/09/17 17:29 - Microbiology Findings Microbiology Findings: Microbiology, Last 48 Hours 11/09/17 17:29 Respiratory Culture - Preliminary Right Lower Lobe Lung Gram Negative Sanjay - Clinical Findings Intake & Output: Intake & Output 11/10/17 11/11/17 11/11/17 23:59 07:59 15:59 Intake Total 490 / 490 200 / 200 Output Total 525 / 525 450 / 450 Balance -35 / -35 -250 / -250 Weight 97.1 kg Consult Discharge Plan - Plan Referrals: Ad Garcia MD [Primary Care Provider] - <Arjun Cutler - Last Filed: 11/11/17 22:00> Date of Encounter: 11/11/17 Objective PUL Vital signs: Last Vital Signs Temp 98.5 F 11/11/17 19:47 Pulse 64 11/11/17 21:00 Resp 23 11/11/17 21:19 BP 146/82 11/11/17 21:19 Pulse Ox 96 11/11/17 21:19 Ventilator Settings Ventilator Settings: Ventilator Settings, Last 8 Hours Ventilator Mode CPAP Ventilator Tidal Volume 500 Setting Ventilator Respiratory Rate 16 Setting Actual Respiratory Rate 24 Positive End Expiratory 5 Pressure Peak Inspiratory Airway 15 Pressure Results - Laboratory Findings CBC and BMP: 11/11/17 04:48 11/11/17 04:48 ABG ABG pH 7.41 pH Units (7.32-7.45) 11/11/17 05:21 ABG pCO2 67 mmHg (35-45) H 11/11/17 05:21 ABG pO2 64 mmHg (85-104) L 11/11/17 05:21 ABG O2 Saturation 91 % (95-98) L 11/11/17 05:21 Abnormal lab findings: Abnormal lab results RBC 3.15 M/mcL (4.19-5.50) L 11/11/17 04:48 Hgb 8.6 g/dL (12.9-16.9) L 11/11/17 04:48 Hct 28.0 % (37.5-50.1) L 11/11/17 04:48 MCH 27.3 pg (28.0-33.3) L 11/11/17 04:48 MCHC 30.7 g/dL (31.6-35.5) L 11/11/17 04:48 Plt Count 532 K/mcL (140-400) H 11/11/17 04:48 MPV 9.1 fL (9.4-12.4) L 11/11/17 04:48 ABG pCO2 67 mmHg (35-45) H 11/11/17 05:21 ABG pO2 64 mmHg (85-104) L 11/11/17 05:21 ABG HCO3 42 mEq/L (21-27) H 11/11/17 05:21 ABG Total CO2 44 mEq/L (20-26) H 11/11/17 05:21 ABG O2 Saturation 91 % (95-98) L 11/11/17 05:21 ABG Base Excess 15 mEq/L (-2 to 3) H 11/11/17 05:21 Chloride 94 mEq/L (98-107) L 11/11/17 04:48 Carbon Dioxide 40 mEq/L (23-29) H* 11/11/17 04:48 BUN 22 mg/dL (6-20) H 11/11/17 04:48 BUN/Creatinine Ratio 29 (6-26) H 11/11/17 04:48 Glucose 165 mg/dL (70-105) H 11/11/17 04:48 POC Glucose 169 (58-89) H 11/11/17 05:10 Urine Clarity Cloudy (Clear) A 11/09/17 09:28 Urine Protein 100 mg/dL (Neg-Trace) H 11/09/17 09:28 Urine Glucose (UA) 100 mg/dL (Normal) H 11/09/17 09:28 Urine Bilirubin Small (Negative) H 11/09/17 09:28 Urine Urobilinogen 2.0 mg/dL (Normal) H 11/09/17 09:28 Urine Microscopic WBC 5-15 per hpf (0-3) H 11/09/17 09:28 Ur Squamous Epith Cells Many per lpf (None-Few) H 11/09/17 09:28 Granular Casts Few per lpf (None Seen) H 11/09/17 09:28 Fluid Appearance Cloudy (Clear) A 11/09/17 17:29 - Microbiology Findings Microbiology Findings: Microbiology, Last 48 Hours 11/09/17 17:29 Acid Fast Stain - Final Right Lower Lobe Lung 11/09/17 17:29 Respiratory Culture - Preliminary Right Lower Lobe Lung Gram Negative Sanjay - Clinical Findings Intake & Output: Intake & Output 11/11/17 11/11/17 11/11/17 07:59 15:59 23:59 Intake Total 450 / 450 200 / 200 450 / 450 Output Total 450 / 450 250 / 250 450 / 450 Balance 0 / 0 -50 / -50 0 / 0 - Attending Attestation I saw the patient with the resident agree with History and Physical exam findings. Labs and Radiology were reviewed Ventilator data were reviewed low tidal volume strategy HOME HEALTH ADMINISTRATOR: Patient is today conscious oriented following commands NECK : No JVD appreciated Pulmonary : Patient is hypoxic and hypercarbic on ventilator secondary COPD exacerbation patient also has probably PADMINI and OHS will treat as COPD exacerbation with steroids will need Vent support in the night when he sleeps because of the chronic hypercapnic respiratory failure . COPD exacerbation most likely due to right lower lobe pneumonia patient has history of MRSA pneumonia , had a acute desaturation in the ER most likely due to mucous plug went with flexible bronchoscopy had lot of secretions BAL was done from Right lower lobe , there was no evidence of lobar airway obstruction due to mucous plugging. Low tidal volume strategy . To wean FIO2 as tolerated . Will do spontaneous breathing trial on CPAP and PS of 8 if he tolerates will put him on Trach collar then put him on ventilator with CPAP and PS at night Cardiac : Hemodynamically stable will diurese as tolerated Nutrition/GI: Patient is NPO will need swallow eval after liberation from ventilator . PPI prophylaxis Renal : labs reviewed Heme onc : labs reviewed ID : Sepsis due to pneumonia BAL growing gram negative rods will descalate the antibiotics from tomorrow Musculo skeletal / skin issues : No Acute issues Disposition : Critically ill Code status: Full Code Family/POA: Sister . Spent 32 minutes of critical care time in maintaining vital organ function and preventing further decline .
[2017-11-11 10:17] LABS: ABG Base Excess 16 mEq/L (-2 to 3); ABG HCO3 43 mEq/L (21-27); ABG Oxygen Saturation 91 % (95-98); ABG PCO2 74 mmHg (35-45); ABG PH 7.37 pH Units (7.32-7.45); ABG PO2 67 mmHg (85-104); ABG TCO2 46 mEq/L (20-26); Blood Gas Modality CPAP/PS; Blood Gas PEEP 5 cm H2O; Blood Gas Pressure Support 8 cm H2O
[2017-11-11 10:18] LABS: ABG Base Excess 15 mEq/L (-2 to 3); ABG HCO3 42 mEq/L (21-27); ABG Oxygen Saturation 91 % (95-98); ABG PCO2 67 mmHg (35-45); ABG PH 7.41 pH Units (7.32-7.45); ABG PO2 64 mmHg (85-104); ABG TCO2 44 mEq/L (20-26); Blood Gas Modality PRVC; Blood Gas PEEP 5 cm H2O; Blood Gas Respiration Rate 16; Blood Gas VT 500 cc
[2017-11-11] MEDS: Levofloxacin 750 MG/150 ML 750 MG/150 ML BAG IVPB SCH (17:13)
[2017-11-11] MEDS: Sennosides 8.6 MG TABLET PO SCH (20:22)
[2017-11-11] MEDS: *HR* OxyCODONE/APAP 10/325 TABLET PO PRN (21:36)
[2017-11-12] MEDS: Lacri-Lube 3.5 GM TUBE BOTH EYES SCH ×6 (00:10→19:06)
[2017-11-12] MEDS: Insulin LISPRO 300 UNITS/3 ML VIAL SQ SCH ×4 (00:28→17:02)
[2017-11-12] MEDS: methylPREDNISolone 125 MG/2 ML VIAL IVP SCH ×2 (00:28→10:03)
[2017-11-12] MEDS: Albuterol 2.5 MG/3 ML NEBULIZER IH SCH ×5 (03:13→20:51)
[2017-11-12] MEDS: Piperacillin/Tazobactam 3.375 GM/200 ML BAG IVPB SCH ×3 (03:20→20:06)
[2017-11-12] MEDS: *HR* OxyCODONE/APAP 10/325 TABLET PO PRN ×2 (03:20→20:07)
[2017-11-12 04:18] LABS: Hematocrit 29.9 % (37.5-50.1); Hemoglobin 9.1 g/dL (12.9-16.9); Immature Granulocytes % 0.4 % (0-4); Lymphocytes # 0.5 K/mcL (0.6-4.6); Lymphocytes % 6.8 %; Mean Corpuscular HGB Conc 30.4 g/dL (31.6-35.5); Mean Corpuscular Hemoglobin 26.8 pg (28.0-33.3); Mean Corpuscular Volume 87.9 fL (83.0-100.0); Mean Platelet Volume 9.2 fL (9.4-12.4); Monocytes # 0.3 K/mcL (0.0-1.3); Monocytes % 4.2 %; Platelet Count 590 K/mcL (140-400); Red Cell Distribution Width 13.7 % (11.5-14.5); Segmented Neutrophils % 88.6 %
[2017-11-12 04:34] LABS: BUN/Creatinine Ratio 30 (6-26); Blood Urea Nitrogen 26 mg/dL (6-20); Calcium 8.5 mg/dL (8.6-10.3); Carbon Dioxide 38 mEq/L (23-29); Chloride 94 mEq/L (98-107); Glucose 223 mg/dL (70-105); Osmolality,Calculated 296 (280-300); Potassium 4.4 mEq/L (3.5-5.1); Sodium 137 mEq/L (136-145); eGFR For African Americans > 60 (> 60); eGFR For Non-African Americans > 60 (> 60)
[2017-11-12] MEDS: Vancomycin 1,250 MG in D5% in Water 250 ML IVPB SCH (05:34)
[2017-11-12] MEDS: *HR* Heparin 5,000 UNIT/ML VIAL SQ SCH ×3 (05:34→20:07)
--- NOTE | 2017-11-12 07:26 | Pulmonology Progress Note ---
<Kaushik Baig - Last Filed: 11/12/17 13:14> Date of Encounter: 11/12/17 Time of Encounter: 07:26 Assessment and Plan (1) Sepsis Current Visit: Yes Status: Acute Patient met criteria for sepsis based on elevated WBC 17, Tachycardia, tachypnea , hypoxia, and RLL PNA on CXR Cultures pending (BLood, sputum, bronch, urine) Initial LA 1.8 Patient received 2 L NS IV Patient on chronic trache currently CPAP paitnet started on Vanc, Levoquin, and zosyn Deep bronch cx growing Pseudomonas Plan: trache mask during day, vent at night. continue to monitor Stopped vancomycin continue levequin and zosyn Qualifiers: Sepsis type: sepsis due to unspecified organism Qualified Code(s): A41.9 - Sepsis, unspecified organism (2) Pneumonia Current Visit: Yes Status: Acute Pt c Hx of MRSA PNA and Pseudomonas PNA pt at risk for reoccurrence due to chronic trache CXR: "Round 6 cm area of consolidation in the right lung base could represent pneumonia." Patient started on Vanc, zosyn, and levaquin bronch cx growing pseudomonas Plan: stopped vanc, contnue levaquina nd zosyn continue to monitor Qualifiers: Pneumonia type: due to other aerobic Gram-negative bacteria Laterality: right Lung location: lower lobe of lung Qualified Code(s): J15.6 - Pneumonia due to other Gram-negative bacteria (3) Acute exacerbation of chronic obstructive airways disease Current Visit: Yes Status: Acute Pt with hx of COPD in an acute exacerbation likely 2/2 to PNA Started on bronchodilaters and steroids Initial blood gas 7.29, PCO2 108, PO2 74, bicarbonate 52, oxygen saturation 91% base excess 21 Latest AB.41/67/64/42/91/15 Plan: Continue duonebs continue steroids, but reduced to 40 q 12 continue abx (4) Altered mental status Current Visit: Yes Status: Resolved resolved Likely 2/2 to metabolic encephalopathy secondary to hypercarbia and hypoxia. Plan: Continue to treat PNA continue to treat supplemental Oxygen via vent as needed. Qualifiers: Altered mental status type: unspecified Qualified Code(s): R41.82 - Altered mental status, unspecified (5) COPD (chronic obstructive pulmonary disease) Current Visit: Yes Status: Acute Pt with PMHx of COPD Patient [facility], IV solumedorl 125mg Q12H Changed IV solumedrol to 60 Q8H and now to 40mg Q12H Plan: Continue duonebs, albuterol, steroids Qualifiers: COPD type: COPD with acute lower respiratory infection Qualified Code(s): J44.0 - Chronic obstructive pulmonary disease with acute lower respiratory infection (6) Tracheostomy dependent Current Visit: No Status: Chronic Pt with hx of chronic trache Patient managing trache at home alone. Home health has not seen patient for a while. Plan: consult to social secretary placed to hook patient back up with home health upon discharge. (7) DVT prophylaxis Current Visit: Yes Status: Acute Patient is on SubQ heparin 5,000 units Q8H Plan: continue Heparin Subjective Principal diagnosis: Acute on chronic respiratory failure with hypoxia Interval history: 56 yo M c PMHx of chronic trache, MRSA PNA, COPD, DM, TIA, anxiety/depression admitted after being found down at home with hypoxia. Patient placed on ventilator and underwent bronch. Patient is off sedation and follows commands. Plan is to ween off vent as able. Patient currently on Ctrache colar during day and vent at night. Patient has no complaints at this time and is eager to go home. Objective PUL Vital signs: Last Vital Signs Temp 98.4 F 11/12/17 04:00 Pulse 89 11/12/17 06:00 Resp 18 11/12/17 06:00 BP 108/52 11/12/17 06:00 Pulse Ox 93 11/12/17 06:00 General appearance: no acute distress Eyes: nonicteric ENT: oropharynx moist Neck: supple Effort: normal Auscultation: bilateral: rhonchi Cardiovascular: regular rate and rhythm Gastrointestinal: normoactive bowel sounds, soft, non-tender, non-distended Integumentary: normal Extremities: no cyanosis normal mental status, non-focal exam Ventilator Settings Ventilator Settings: Ventilator Settings, Last 8 Hours Ventilator Mode A/C Ventilator Mode A/C Ventilator Mode A/C Ventilator Mode A/C Ventilator Mode A/C Ventilator Mode A/C Ventilator Mode A/C Ventilator Mode A/C Ventilator Mode A/C Ventilator Mode A/C Ventilator Mode A/C Ventilator Tidal Volume 500 Setting Ventilator Tidal Volume 500 Setting Ventilator Tidal Volume 500 Setting Ventilator Tidal Volume 500 Setting Ventilator Tidal Volume 500 Setting Ventilator Tidal Volume 500 Setting Ventilator Tidal Volume 500 Setting Ventilator Tidal Volume 500 Setting Ventilator Tidal Volume 500 Setting Ventilator Tidal Volume 500 Setting Ventilator Tidal Volume 500 Setting Ventilator Respiratory Rate 16 Setting Ventilator Respiratory Rate 16 Setting Ventilator Respiratory Rate 16 Setting Ventilator Respiratory Rate 16 Setting Ventilator Respiratory Rate 16 Setting Ventilator Respiratory Rate 16 Setting Ventilator Respiratory Rate 16 Setting Ventilator Respiratory Rate 16 Setting Ventilator Respiratory Rate 16 Setting Ventilator Respiratory Rate 16 Setting Ventilator Respiratory Rate 16 Setting Actual Respiratory Rate 18 Actual Respiratory Rate 25 Actual Respiratory Rate 20 Actual Respiratory Rate 24 Actual Respiratory Rate 22 Actual Respiratory Rate 20 Actual Respiratory Rate 20 Actual Respiratory Rate 26 Actual Respiratory Rate 22 Actual Respiratory Rate 24 Actual Respiratory Rate 17 Positive End Expiratory 5 Pressure Positive End Expiratory 5 Pressure Positive End Expiratory 5 Pressure Positive End Expiratory 5 Pressure Positive End Expiratory 5 Pressure Positive End Expiratory 5 Pressure Positive End Expiratory 5 Pressure Positive End Expiratory 5 Pressure Positive End Expiratory 5 Pressure Positive End Expiratory 5 Pressure Positive End Expiratory 5 Pressure Peak Inspiratory Airway 18 Pressure Peak Inspiratory Airway 11 Pressure Peak Inspiratory Airway 24 Pressure Peak Inspiratory Airway 23 Pressure Peak Inspiratory Airway 28 Pressure Peak Inspiratory Airway 23 Pressure Peak Inspiratory Airway 18 Pressure Peak Inspiratory Airway 18 Pressure Peak Inspiratory Airway 18 Pressure Peak Inspiratory Airway 31 Pressure Peak Inspiratory Airway 25 Pressure Results - Laboratory Findings CBC and BMP: 11/12/17 03:36 11/12/17 03:36 ABG ABG pH 7.41 pH Units (7.32-7.45) 11/11/17 05:21 ABG pCO2 67 mmHg (35-45) H 11/11/17 05:21 ABG pO2 64 mmHg (85-104) L 11/11/17 05:21 ABG O2 Saturation 91 % (95-98) L 11/11/17 05:21 Abnormal lab findings: Abnormal lab results RBC 3.40 M/mcL (4.19-5.50) L 11/12/17 03:36 Hgb 9.1 g/dL (12.9-16.9) L 11/12/17 03:36 Hct 29.9 % (37.5-50.1) L 11/12/17 03:36 MCH 26.8 pg (28.0-33.3) L 11/12/17 03:36 MCHC 30.4 g/dL (31.6-35.5) L 11/12/17 03:36 Plt Count 590 K/mcL (140-400) H 11/12/17 03:36 MPV 9.2 fL (9.4-12.4) L 11/12/17 03:36 Lymphocytes # 0.5 K/mcL (0.6-4.6) L 11/12/17 03:36 ABG pCO2 67 mmHg (35-45) H 11/11/17 05:21 ABG pO2 64 mmHg (85-104) L 11/11/17 05:21 ABG HCO3 42 mEq/L (21-27) H 11/11/17 05:21 ABG Total CO2 44 mEq/L (20-26) H 11/11/17 05:21 ABG O2 Saturation 91 % (95-98) L 11/11/17 05:21 ABG Base Excess 15 mEq/L (-2 to 3) H 11/11/17 05:21 Chloride 94 mEq/L (98-107) L 11/12/17 03:36 Carbon Dioxide 38 mEq/L (23-29) H 11/12/17 03:36 BUN 26 mg/dL (6-20) H 11/12/17 03:36 BUN/Creatinine Ratio 30 (6-26) H 11/12/17 03:36 Glucose 223 mg/dL (70-105) H 11/12/17 03:36 POC Glucose 186 (58-89) H 11/11/17 23:40 Calcium 8.5 mg/dL (8.6-10.3) L 11/12/17 03:36 Urine Clarity Cloudy (Clear) A 11/09/17 09:28 Urine Protein 100 mg/dL (Neg-Trace) H 11/09/17 09:28 Urine Glucose (UA) 100 mg/dL (Normal) H 11/09/17 09:28 Urine Bilirubin Small (Negative) H 11/09/17 09:28 Urine Urobilinogen 2.0 mg/dL (Normal) H 11/09/17 09:28 Urine Microscopic WBC 5-15 per hpf (0-3) H 11/09/17 09:28 Ur Squamous Epith Cells Many per lpf (None-Few) H 11/09/17 09:28 Granular Casts Few per lpf (None Seen) H 11/09/17 09:28 Fluid Appearance Cloudy (Clear) A 11/09/17 17:29 - Microbiology Findings Microbiology Findings: Microbiology, Last 48 Hours 11/09/17 17:29 Respiratory Culture - Preliminary Right Lower Lobe Lung Pseudomonas aeruginosa Yeast Species 11/09/17 17:29 Acid Fast Stain - Final Right Lower Lobe Lung - Clinical Findings Intake & Output: Intake & Output 11/11/17 11/11/17 11/12/17 15:59 23:59 07:59 Intake Total 200 / 200 600 / 600 250 / 250 Output Total 250 / 250 450 / 450 400 / 400 Balance -50 / -50 150 / 150 -150 / -150 Weight 96.9 kg Consult Discharge Plan - Plan Referrals: Ad Garcia MD [Primary Care Provider] - <Arjun Cutler - Last Filed: 11/12/17 15:09> Date of Encounter: 11/12/17 Objective PUL Vital signs: Last Vital Signs Temp 98.0 F 11/12/17 12:01 Pulse 68 11/12/17 13:00 Resp 22 11/12/17 13:00 BP 125/69 11/12/17 13:00 Pulse Ox 91 11/12/17 13:00 Ventilator Settings Ventilator Settings: Ventilator Settings, Last 8 Hours Ventilator Mode CPAP Actual Respiratory Rate 18 Positive End Expiratory 5 Pressure Peak Inspiratory Airway 11 Pressure Results - Laboratory Findings CBC and BMP: 11/12/17 03:36 11/12/17 03:36 ABG ABG pH 7.41 pH Units (7.32-7.45) 11/11/17 05:21 ABG pCO2 67 mmHg (35-45) H 11/11/17 05:21 ABG pO2 64 mmHg (85-104) L 11/11/17 05:21 ABG O2 Saturation 91 % (95-98) L 11/11/17 05:21 Abnormal lab findings: Abnormal lab results RBC 3.40 M/mcL (4.19-5.50) L 11/12/17 03:36 Hgb 9.1 g/dL (12.9-16.9) L 11/12/17 03:36 Hct 29.9 % (37.5-50.1) L 11/12/17 03:36 MCH 26.8 pg (28.0-33.3) L 11/12/17 03:36 MCHC 30.4 g/dL (31.6-35.5) L 11/12/17 03:36 Plt Count 590 K/mcL (140-400) H 11/12/17 03:36 MPV 9.2 fL (9.4-12.4) L 11/12/17 03:36 Lymphocytes # 0.5 K/mcL (0.6-4.6) L 11/12/17 03:36 ABG pCO2 67 mmHg (35-45) H 11/11/17 05:21 ABG pO2 64 mmHg (85-104) L 11/11/17 05:21 ABG HCO3 42 mEq/L (21-27) H 11/11/17 05:21 ABG Total CO2 44 mEq/L (20-26) H 11/11/17 05:21 ABG O2 Saturation 91 % (95-98) L 11/11/17 05:21 ABG Base Excess 15 mEq/L (-2 to 3) H 11/11/17 05:21 Chloride 94 mEq/L (98-107) L 11/12/17 03:36 Carbon Dioxide 38 mEq/L (23-29) H 11/12/17 03:36 BUN 26 mg/dL (6-20) H 11/12/17 03:36 BUN/Creatinine Ratio 30 (6-26) H 11/12/17 03:36 Glucose 223 mg/dL (70-105) H 11/12/17 03:36 POC Glucose 186 (58-89) H 11/11/17 23:40 Calcium 8.5 mg/dL (8.6-10.3) L 11/12/17 03:36 Urine Clarity Cloudy (Clear) A 11/09/17 09:28 Urine Protein 100 mg/dL (Neg-Trace) H 11/09/17 09:28 Urine Glucose (UA) 100 mg/dL (Normal) H 11/09/17 09:28 Urine Bilirubin Small (Negative) H 11/09/17 09:28 Urine Urobilinogen 2.0 mg/dL (Normal) H 11/09/17 09:28 Urine Microscopic WBC 5-15 per hpf (0-3) H 11/09/17 09:28 Ur Squamous Epith Cells Many per lpf (None-Few) H 11/09/17 09:28 Granular Casts Few per lpf (None Seen) H 11/09/17 09:28 Fluid Appearance Cloudy (Clear) A 11/09/17 17:29 - Microbiology Findings Microbiology Findings: Microbiology, Last 48 Hours 11/09/17 17:29 Respiratory Culture - Preliminary Right Lower Lobe Lung Pseudomonas aeruginosa Yeast Species 11/09/17 17:29 Acid Fast Stain - Final Right Lower Lobe Lung - Clinical Findings Intake & Output: Intake & Output 11/11/17 11/12/17 11/12/17 23:59 07:59 15:59 Intake Total 600 / 600 450 / 450 Output Total 450 / 450 600 / 600 300 / 300 Balance 150 / 150 -150 / -150 -300 / -300 Weight 96.9 kg - Attending Attestation I saw the patient with the resident agree with History and Physical exam findings. 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 COPD exacerbation most likely due to right lower lobe pneumonia patient has history of MRSA pneumonia , had a acute desaturation in the ER most likely due to mucous plug went with flexible bronchoscopy had lot of secretions BAL was done from Right lower lobe , there was no evidence of lobar airway obstruction due to mucous plugging. Low tidal volume strategy . To wean FIO2 as tolerated . Will do spontaneous breathing trial on CPAP and PS of 8 if he tolerates will put him on Trach collar then put him on ventilator with CPAP and PS at night Cardiac : Hemodynamically stable will diurese as tolerated Nutrition/GI: Patient is NPO will need swallow eval after liberation from ventilator . PPI prophylaxis Renal : labs reviewed Heme onc : labs reviewed ID : Sepsis due to pneumonia BAL growing gram negative rods will descalate the antibiotics from tomorrow Musculo skeletal / skin issues : No Acute issues Disposition : Critically ill Code status: Full Code Family/POA: Sister .
[2017-11-12] MEDS: Chlorhexidine Rinse 15 ML MOUTHWASH MM SCH ×2 (10:03→20:06)
[2017-11-12] MEDS: Pantoprazole 40 MG VIAL IVP SCH (10:03)
[2017-11-12 16:28] LABS: Influenza A PCR Body Fluid NOT DETECTED; Influenza B PCR Body Fluid NOT DETECTED; RVP Body Fluid Source BAL
[2017-11-12] MEDS: MethylPREDNISolone 40 MG/ML VIAL IVP SCH (18:00)
[2017-11-12] MEDS: Levofloxacin 750 MG/150 ML 750 MG/150 ML BAG IVPB SCH (18:01)
[2017-11-12] MEDS: Sennosides 8.6 MG TABLET PO SCH (20:06)
[2017-11-12] MEDS ORDERED: Insulin LISPRO 300 UNITS/3 ML VIAL SQ SCH (21:00)
[2017-11-13] MEDS: Albuterol 2.5 MG/3 ML NEBULIZER IH SCH ×6 (00:20→20:31)
[2017-11-13] MEDS: Lacri-Lube 3.5 GM TUBE BOTH EYES SCH ×3 (00:49→07:47)
[2017-11-13] MEDS: *HR* OxyCODONE/APAP 10/325 TABLET PO PRN ×4 (02:10→21:25)
[2017-11-13] MEDS: Piperacillin/Tazobactam 3.375 GM/200 ML BAG IVPB SCH ×3 (04:55→21:24)
[2017-11-13 05:01] LABS: ABG Base Excess 12 mEq/L (-2 to 3); ABG HCO3 40 mEq/L (21-27); ABG Oxygen Saturation 94 % (95-98); ABG PCO2 65 mmHg (35-45); ABG PO2 73 mmHg (85-104); ABG TCO2 42 mEq/L (20-26); Blood Gas Modality PRVC; Blood Gas PEEP 5 cm H2O; Blood Gas Respiration Rate 16; Blood Gas VT 500 cc
[2017-11-13 06:05] LABS: Basophils % 0.1 %; Hematocrit 31.8 % (37.5-50.1); Hemoglobin 9.7 g/dL (12.9-16.9); Immature Granulocytes % 1.5 % (0-4); Immature Platelets 1.9 % (1.1-6.1); Lymphocytes # 1.4 K/mcL (0.6-4.6); Lymphocytes % 16.9 %; Mean Corpuscular HGB Conc 30.5 g/dL (31.6-35.5); Mean Corpuscular Hemoglobin 26.9 pg (28.0-33.3); Mean Corpuscular Volume 88.1 fL (83.0-100.0); Mean Platelet Volume 8.9 fL (9.4-12.4); Monocytes # 0.5 K/mcL (0.0-1.3); Monocytes % 6.6 %; Neutrophils # 6.1 K/mcL (1.6-8.9); Platelet Count 731 K/mcL (140-400); Red Blood Count 3.61 M/mcL (4.19-5.50); Red Cell Distribution Width 13.5 % (11.5-14.5); Segmented Neutrophils % 74.9 %
[2017-11-13 06:17] LABS: BUN/Creatinine Ratio 22 (6-26); Blood Urea Nitrogen 18 mg/dL (6-20); Calcium 8.5 mg/dL (8.6-10.3); Carbon Dioxide 38 mEq/L (23-29); Chloride 94 mEq/L (98-107); Glucose 182 mg/dL (70-105); Osmolality,Calculated 287 (280-300); Potassium 4.6 mEq/L (3.5-5.1); Sodium 135 mEq/L (136-145); eGFR For African Americans > 60 (> 60); eGFR For Non-African Americans > 60 (> 60)
[2017-11-13] MEDS: *HR* Heparin 5,000 UNIT/ML VIAL SQ SCH ×3 (06:20→21:25)
[2017-11-13] MEDS: MethylPREDNISolone 40 MG/ML VIAL IVP SCH ×2 (06:20→17:57)
[2017-11-13] MEDS: Chlorhexidine Rinse 15 ML MOUTHWASH MM SCH ×2 (07:34→21:26)
[2017-11-13] MEDS: Insulin LISPRO 300 UNITS/3 ML VIAL SQ SCH ×4 (07:41→20:05)
--- NOTE | 2017-11-13 08:32 | Pulmonology Progress Note ---
<BishopdevangKaushik - Last Filed: 11/13/17 08:52> Date of Encounter: 11/13/17 Time of Encounter: 08:30 Assessment and Plan (1) Sepsis Current Visit: Yes Status: Acute Patient met criteria for sepsis based on elevated WBC 17, Tachycardia, tachypnea , hypoxia, and RLL PNA on CXR Cultures pending (BLood, sputum, bronch, urine) Initial LA 1.8 Patient received 2 L NS IV Patient on chronic trache currently CPAP paitnet started on Vanc, Levoquin, and zosyn Deep bronch cx growing Pseudomonas Stopped vancomycin Plan: trache mask during day, vent at night. continue to monitor continue levequin and zosyn Stable for transfer to Qualifiers: Sepsis type: sepsis due to unspecified organism Qualified Code(s): A41.9 - Sepsis, unspecified organism (2) Pneumonia Current Visit: Yes Status: Acute Pt c Hx of MRSA PNA and Pseudomonas PNA pt at risk for reoccurrence due to chronic trache CXR: "Round 6 cm area of consolidation in the right lung base could represent pneumonia." Patient started on Vanc, zosyn, and levaquin bronch cx growing pseudomonas stopped vanc, Plan: contnue levaquina nd zosyn continue to monitor Qualifiers: Pneumonia type: due to other aerobic Gram-negative bacteria Laterality: right Lung location: lower lobe of lung Qualified Code(s): J15.6 - Pneumonia due to other Gram-negative bacteria (3) Acute exacerbation of chronic obstructive airways disease Current Visit: Yes Status: Acute Pt with hx of COPD in an acute exacerbation likely 2/2 to PNA Started on bronchodilaters and steroids Initial blood gas 7.29, PCO2 108, PO2 74, bicarbonate 52, oxygen saturation 91% base excess 21 Latest AB.40/65/73/40/94/12 reducedsteroids to 40 q 12 Plan: Continue duonebs continue steroids continue abx (4) Altered mental status Current Visit: Yes Status: Resolved resolved Likely 2/2 to metabolic encephalopathy secondary to hypercarbia and hypoxia. Plan: Continue to treat PNA continue to treat supplemental Oxygen via vent as needed. Qualifiers: Altered mental status type: unspecified Qualified Code(s): R41.82 - Altered mental status, unspecified (5) COPD (chronic obstructive pulmonary disease) Current Visit: Yes Status: Acute Pt with PMHx of COPD Patient started on albuterol prn, duonebs acsi, IV solumedorl 125mg Q12H Changed IV solumedrol to 60 Q8H and now to 40mg Q12H Plan: Continue duonebs, albuterol, steroids Qualifiers: COPD type: COPD with acute lower respiratory infection Qualified Code(s): J44.0 - Chronic obstructive pulmonary disease with acute lower respiratory infection (6) Tracheostomy dependent Current Visit: No Status: Chronic Pt with hx of chronic trache Patient managing trache at home alone. Home health has not seen patient for a while. Plan: consult to mental health social worker placed to help patient manage trache at home upon discharge. (7) DVT prophylaxis Current Visit: Yes Status: Acute Patient is on SubQ heparin 5,000 units Q8H Plan: continue Heparin Subjective Principal diagnosis: Acute on chronic respiratory failure with hypoxia Interval history: 56 yo M c PMHx of chronic trache, MRSA PNA, Pseudomonas PNA, COPD, DM, TIA, anxiety/depression admitted after being found down at home with hypoxia. Patient placed on ventilator and underwent bronch. Patient is off sedation and follows commands. Plan is to ween off vent as able. Patient currently on trache colar during day and vent at night. Patient has no complaints at this time and is eager to go home. Patient's cultures positive for pseudomonas. Patient stable to be transferred to . Objective PUL Vital signs: Last Vital Signs Temp 98.5 F 11/13/17 08:09 Pulse 65 11/13/17 08:00 Resp 16 11/13/17 08:00 BP 130/70 11/13/17 08:00 Pulse Ox 100 11/13/17 08:00 General appearance: no acute distress Eyes: nonicteric ENT: oropharynx moist Neck: supple Effort: normal Auscultation: bilateral: rhonchi Cardiovascular: regular rate and rhythm Gastrointestinal: normoactive bowel sounds, soft, non-tender, non-distended Integumentary: normal Extremities: no cyanosis, no edema Musculoskeletal: no deformities normal mental status, non-focal exam mood appropriate Ventilator Settings Ventilator Settings: Ventilator Settings, Last 8 Hours Ventilator Mode A/C Ventilator Mode VC+ Ventilator Mode VC+ Ventilator Mode A/C Ventilator Mode A/C Ventilator Mode A/C Ventilator Mode A/C Ventilator Tidal Volume 500 Setting Ventilator Tidal Volume 500 Setting Ventilator Tidal Volume 500 Setting Ventilator Tidal Volume 500 Setting Ventilator Tidal Volume 500 Setting Ventilator Tidal Volume 500 Setting Ventilator Tidal Volume 500 Setting Ventilator Respiratory Rate 16 Setting Ventilator Respiratory Rate 16 Setting Ventilator Respiratory Rate 16 Setting Ventilator Respiratory Rate 16 Setting Ventilator Respiratory Rate 16 Setting Ventilator Respiratory Rate 16 Setting Ventilator Respiratory Rate 16 Setting Actual Respiratory Rate 18 Actual Respiratory Rate 21 Actual Respiratory Rate 18 Actual Respiratory Rate 18 Actual Respiratory Rate 18 Actual Respiratory Rate 18 Positive End Expiratory 5 Pressure Positive End Expiratory 5 Pressure Positive End Expiratory 5 Pressure Positive End Expiratory 5 Pressure Positive End Expiratory 5 Pressure Positive End Expiratory 5 Pressure Positive End Expiratory 5 Pressure Peak Inspiratory Airway 34 Pressure Peak Inspiratory Airway 11 Pressure Peak Inspiratory Airway 34 Pressure Peak Inspiratory Airway 27 Pressure Peak Inspiratory Airway 18 Pressure Peak Inspiratory Airway 31 Pressure Results - Laboratory Findings CBC and BMP: 11/13/17 05:40 11/13/17 05:40 ABG ABG pH 7.40 pH Units (7.32-7.45) 11/13/17 04:57 ABG pCO2 65 mmHg (35-45) H 11/13/17 04:57 ABG pO2 73 mmHg (85-104) L 11/13/17 04:57 ABG O2 Saturation 94 % (95-98) L 11/13/17 04:57 Abnormal lab findings: Abnormal lab results RBC 3.61 M/mcL (4.19-5.50) L 11/13/17 05:40 Hgb 9.7 g/dL (12.9-16.9) L 11/13/17 05:40 Hct 31.8 % (37.5-50.1) L 11/13/17 05:40 MCH 26.9 pg (28.0-33.3) L 11/13/17 05:40 MCHC 30.5 g/dL (31.6-35.5) L 11/13/17 05:40 Plt Count 731 K/mcL (140-400) H 11/13/17 05:40 MPV 8.9 fL (9.4-12.4) L 11/13/17 05:40 ABG pCO2 65 mmHg (35-45) H 11/13/17 04:57 ABG pO2 73 mmHg (85-104) L 11/13/17 04:57 ABG HCO3 40 mEq/L (21-27) H 11/13/17 04:57 ABG Total CO2 42 mEq/L (20-26) H 11/13/17 04:57 ABG O2 Saturation 94 % (95-98) L 11/13/17 04:57 ABG Base Excess 12 mEq/L (-2 to 3) H 11/13/17 04:57 Sodium 135 mEq/L (136-145) L 11/13/17 05:40 Chloride 94 mEq/L (98-107) L 11/13/17 05:40 Carbon Dioxide 38 mEq/L (23-29) H 11/13/17 05:40 Glucose 182 mg/dL (70-105) H 11/13/17 05:40 POC Glucose 280 (58-89) H 11/12/17 18:56 Calcium 8.5 mg/dL (8.6-10.3) L 11/13/17 05:40 Urine Clarity Cloudy (Clear) A 11/09/17 09:28 Urine Protein 100 mg/dL (Neg-Trace) H 11/09/17 09:28 Urine Glucose (UA) 100 mg/dL (Normal) H 11/09/17 09:28 Urine Bilirubin Small (Negative) H 11/09/17 09:28 Urine Urobilinogen 2.0 mg/dL (Normal) H 11/09/17 09:28 Urine Microscopic WBC 5-15 per hpf (0-3) H 11/09/17 09:28 Ur Squamous Epith Cells Many per lpf (None-Few) H 11/09/17 09:28 Granular Casts Few per lpf (None Seen) H 11/09/17 09:28 Fluid Appearance Cloudy (Clear) A 11/09/17 17:29 - Microbiology Findings Microbiology Findings: Microbiology, Last 48 Hours 11/09/17 17:29 Acid Fast Stain - Final Right Lower Lobe Lung 11/09/17 17:29 Respiratory Culture - Final Right Lower Lobe Lung Pseudomonas aeruginosa Kenzie albicans - Clinical Findings Intake & Output: Intake & Output 11/12/17 11/13/17 11/13/17 23:59 07:59 15:59 Intake Total 150 / 150 200 / 200 Output Total 650 / 650 1300 / 1300 Balance -500 / -500 -1100 / -1100 Weight 97.2 kg Consult Discharge Plan - Plan Referrals: Ad Garcia MD [Primary Care Provider] - <Arjun Cutler - Last Filed: 11/13/17 21:40> Date of Encounter: 11/13/17 Objective PUL Vital signs: Last Vital Signs Temp 98.2 F 11/13/17 19:41 Pulse 80 11/13/17 19:41 Resp 18 11/13/17 20:32 BP 124/75 11/13/17 19:41 Pulse Ox 94 11/13/17 20:32 Results - Laboratory Findings CBC and BMP: 11/13/17 05:40 11/13/17 05:40 ABG ABG pH 7.40 pH Units (7.32-7.45) 11/13/17 04:57 ABG pCO2 65 mmHg (35-45) H 11/13/17 04:57 ABG pO2 73 mmHg (85-104) L 11/13/17 04:57 ABG O2 Saturation 94 % (95-98) L 11/13/17 04:57 Abnormal lab findings: Abnormal lab results RBC 3.61 M/mcL (4.19-5.50) L 11/13/17 05:40 Hgb 9.7 g/dL (12.9-16.9) L 11/13/17 05:40 Hct 31.8 % (37.5-50.1) L 11/13/17 05:40 MCH 26.9 pg (28.0-33.3) L 11/13/17 05:40 MCHC 30.5 g/dL (31.6-35.5) L 11/13/17 05:40 Plt Count 731 K/mcL (140-400) H 11/13/17 05:40 MPV 8.9 fL (9.4-12.4) L 11/13/17 05:40 ABG pCO2 65 mmHg (35-45) H 11/13/17 04:57 ABG pO2 73 mmHg (85-104) L 11/13/17 04:57 ABG HCO3 40 mEq/L (21-27) H 11/13/17 04:57 ABG Total CO2 42 mEq/L (20-26) H 11/13/17 04:57 ABG O2 Saturation 94 % (95-98) L 11/13/17 04:57 ABG Base Excess 12 mEq/L (-2 to 3) H 11/13/17 04:57 Sodium 135 mEq/L (136-145) L 11/13/17 05:40 Chloride 94 mEq/L (98-107) L 11/13/17 05:40 Carbon Dioxide 38 mEq/L (23-29) H 11/13/17 05:40 Glucose 182 mg/dL (70-105) H 11/13/17 05:40 Calcium 8.5 mg/dL (8.6-10.3) L 11/13/17 05:40 Urine Clarity Cloudy (Clear) A 11/09/17 09:28 Urine Protein 100 mg/dL (Neg-Trace) H 11/09/17 09:28 Urine Glucose (UA) 100 mg/dL (Normal) H 11/09/17 09:28 Urine Bilirubin Small (Negative) H 11/09/17 09:28 Urine Urobilinogen 2.0 mg/dL (Normal) H 11/09/17 09:28 Urine Microscopic WBC 5-15 per hpf (0-3) H 11/09/17 09:28 Ur Squamous Epith Cells Many per lpf (None-Few) H 11/09/17 09:28 Granular Casts Few per lpf (None Seen) H 11/09/17 09:28 Fluid Appearance Cloudy (Clear) A 11/09/17 17:29 - Microbiology Findings Microbiology Findings: Microbiology, Last 48 Hours 11/09/17 17:29 Acid Fast Stain - Final Right Lower Lobe Lung 11/09/17 17:29 Respiratory Culture - Final Right Lower Lobe Lung Pseudomonas aeruginosa Kenzie albicans - Clinical Findings Intake & Output: Intake & Output 11/13/17 11/13/17 11/13/17 07:59 15:59 23:59 Intake Total 200 / 200 1450 / 1450 410 / 410 Output Total 1300 / 1300 825 / 825 500 / 500 Balance -1100 / -1100 625 / 625 -90 / -90 Weight 97.2 kg - Attending Attestation I saw the patient with the resident agree with History and Physical exam findings. 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 Will need ABG in the morning as see the degree of hypercarbia . Will need Q 2hr suctioning . Cardiac : Hemodynamically stable will diurese as tolerated Nutrition/GI: Patient is started to eat did well will advance diet as tolerated Renal : labs reviewed Heme onc : labs reviewed ID : Sepsis due to pneumonia BAL growing gram negative rods pseudomonas will need total 7 days of antibiotics Musculo skeletal / skin issues : No Acute issues Disposition : Transfer to step down . Will need social work to coordinate home health to coordinate tracheostomy care Code status: Full Code Family/POA: Sister .
[2017-11-13] MEDS ORDERED: Naloxone 0.4 MG/ML INJ IVP PRN (09:23)
[2017-11-13] MEDS ORDERED: Ondansetron 4 MG/2 ML VIAL IVP PRN (09:23)
[2017-11-13] MEDS ORDERED: Dextrose Gel 15 GM/37.5 ML TUBE PO PRN ×2 (09:23)
[2017-11-13] MEDS ORDERED: Acetaminophen 650 MG RECTAL SUPP RC PRN (09:23)
[2017-11-13] MEDS ORDERED: D5% in Water 1,000 ML IVC PRN (09:23)
[2017-11-13] MEDS ORDERED: diazePAM 5 MG TABLET PO PRN (09:23)
[2017-11-13] MEDS ORDERED: Ipratropium/Albuterol Neb 3 ML IH PRN (09:23)
[2017-11-13] MEDS ORDERED: *HR* Dextrose 50 % in Water (Syg) 50 ML SYRINGE IVP PRN (09:23)
[2017-11-13 15:13] LABS: RSV PCR Body Fluid NOT DETECTED
[2017-11-13] MEDS ORDERED: Levofloxacin 750 MG/150 ML 750 MG/150 ML BAG IVPB SCH (18:00)
[2017-11-13] MEDS: Sennosides 8.6 MG TABLET PO SCH (20:01)
[2017-11-14] MEDS: Albuterol 2.5 MG/3 ML NEBULIZER IH SCH ×6 (00:54→20:26)
[2017-11-14] MEDS: MethylPREDNISolone 40 MG/ML VIAL IVP SCH (05:47)
[2017-11-14] MEDS: Piperacillin/Tazobactam 3.375 GM/200 ML BAG IVPB SCH (05:48)
[2017-11-14] MEDS: *HR* Heparin 5,000 UNIT/ML VIAL SQ SCH ×3 (05:48→20:40)
[2017-11-14 06:14] LABS: ABG Base Excess 13 mEq/L (-2 to 3); ABG HCO3 41 mEq/L (21-27); ABG Oxygen Saturation 95 % (95-98); ABG PCO2 66 mmHg (35-45); ABG PO2 79 mmHg (85-104); ABG TCO2 43 mEq/L (20-26); Blood Gas Modality PRVC; Blood Gas PEEP 5 cm H2O; Blood Gas Respiration Rate 16; Blood Gas VT 500 cc
[2017-11-14 07:59] LABS: Basophils % 0.2 %; Eosinophils % 0.1 %; Hematocrit 31.8 % (37.5-50.1); Hemoglobin 9.8 g/dL (12.9-16.9); Lymphocytes # 2.3 K/mcL (0.6-4.6); Lymphocytes % 19.8 %; Mean Corpuscular HGB Conc 30.8 g/dL (31.6-35.5); Mean Corpuscular Hemoglobin 27.1 pg (28.0-33.3); Mean Corpuscular Volume 88.1 fL (83.0-100.0); Mean Platelet Volume 9.1 fL (9.4-12.4); Monocytes # 0.6 K/mcL (0.0-1.3); Monocytes % 4.9 %; Neutrophils # 8.4 K/mcL (1.6-8.9); Platelet Count 645 K/mcL (140-400); Red Blood Count 3.61 M/mcL (4.19-5.50); Red Cell Distribution Width 13.8 % (11.5-14.5)
[2017-11-14 08:31] LABS: BUN/Creatinine Ratio 20 (6-26); Blood Urea Nitrogen 17 mg/dL (6-20); Calcium 8.8 mg/dL (8.6-10.3); Carbon Dioxide 34 mEq/L (23-29); Chloride 95 mEq/L (98-107); Glucose 211 mg/dL (70-105); Osmolality,Calculated 290 (280-300); Potassium 4.7 mEq/L (3.5-5.1); Sodium 136 mEq/L (136-145); eGFR For African Americans > 60 (> 60); eGFR For Non-African Americans > 60 (> 60)
[2017-11-14] MEDS: Chlorhexidine Rinse 15 ML MOUTHWASH MM SCH ×2 (08:56→20:40)
[2017-11-14] MEDS: Insulin LISPRO 300 UNITS/3 ML VIAL SQ SCH ×4 (09:03→20:39)
--- NOTE | 2017-11-14 12:11 | Internal Med Progress Note ---
<Fidencio Chin - Last Filed: 11/14/17 12:09> Date of Encounter: 11/14/17 Time of Encounter: 10:15 - Assessment and plan (1) Sepsis Current Visit: Yes Status: Acute Assessment and plan: Patient stable WBC 11.5, most likely due to steroids No tachycardia or hypotension, afebrile Pseudomonas is gonzalez sensitive, so we have de-escalated to levaquin only Day 5/7 of therapy today Can be discharged home tomorrow if continues to feel well and if he is set up with home health for trach management Qualifiers: Sepsis type: sepsis due to unspecified organism Qualified Code(s): A41.9 - Sepsis, unspecified organism (2) Pneumonia Current Visit: Yes Status: Acute Assessment and plan: See plan of care above Qualifiers: Pneumonia type: due to Pseudomonas Laterality: right Lung location: lower lobe of lung Qualified Code(s): J15.1 - Pneumonia due to Pseudomonas (3) COPD exacerbation Current Visit: No Status: Acute Assessment and plan: Resolving No wheezes noted on exam Transitioning from Solu-medrol IV to oral prednisone 40 mg daily (4) DMII (diabetes mellitus, type 2) Current Visit: Yes Status: Chronic Assessment and plan: Elevated, but currently on steroids Continue current management Qualifiers: Diabetes mellitus complication status: without complication Diabetes mellitus senior living insulin use: with senior living use Qualified Code(s): E11.9 - Type 2 diabetes mellitus without complications; 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 (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) use of insulin; Z79.4 - [facility] (current) use of insulin; 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 ( current) use of insulin; Z79.4 - [facility] (current) use of insulin (5) HTN (hypertension) Current Visit: No Status: Chronic Assessment and plan: Controlled Continue current management Qualifiers: Hypertension type: essential hypertension Qualified Code(s): I10 - Essential (primary) hypertension (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 Denies SOB, CP, palpitations, fever, and chills. No complaints at this time. Patient expresses a strong desire to go home. Patient is a 56 yo male with chronic trach that was found down at home with hypoxia. He was found to have sepsis w/ tachycardia, fever, and elevated WBCs. Source was likely RLL PNA. Resp Cx grew gonzalez sensitive pseudomonas. He required mechanical ventilation in the ICU, but was able to be weaned to trach collar. - Constitutional Vitals: Temp Pulse Resp BP Pulse Ox 97.8 F 69 18 127/65 97 11/14/17 11:59 11/14/17 11:59 11/14/17 11:59 11/14/17 11:59 11/14/17 11:59 General appearance: Present: cooperative, A&O X 3, pleasant, obese, answers questions appropriately - Head Head exam: Present: atraumatic, normal inspection, normocephalic - ENT ENT exam: Present: mucous membranes moist - Neck Neck exam general surgery: Present: trachea midline Additional comments: trach in place - Respiratory Respiratory exam: Absent: accessory muscle use, respiratory distress Additional comments: coarse breath sounds from trach - Cardiovascular Cardiovascular exam: Present: RRR, +S1, +S2 - Extremities Exam Extremities exam: Absent: pedal edema - Psychiatric Psychiatric exam: Present: normal affect, normal mood. Absent: agitated, anxious - Skin Skin exam: Present: dry, warm Internal Medicine: Result - Labs CBC & Chem 7: 11/14/17 06:50 11/14/17 06:50 Labs: Short CBC 11/14/17 Range/Units 06:50 WBC 11.5 H (4.3-11.1) K/mcL Hgb 9.8 L (12.9-16.9) g/dL Hct 31.8 L (37.5-50.1) % Plt Count 645 H (140-400) K/mcL Neutrophils # 8.4 (1.6-8.9) K/mcL BMP 11/14/17 06:50 Sodium 136 Potassium 4.7 Chloride 95 L Carbon Dioxide 34 H BUN 17 Creatinine 0.84 Glucose 211 H Calcium 8.8 - ABG Interpretation ABG results: ABG ABG pH 7.40 pH Units (7.32-7.45) 11/14/17 06:11 ABG pCO2 66 mmHg (35-45) H 11/14/17 06:11 ABG pO2 79 mmHg (85-104) L 11/14/17 06:11 ABG O2 Saturation 95 % (95-98) 11/14/17 06:11 - VTE Documentation of Mechanical Device: Intermittent pneumatic compression device Consult Discharge Plan - Plan Referrals: Ad Garcia MD [Primary Care Provider] - <Sayda Barrosoaju T - Last Filed: 11/14/17 14:19> Date of Encounter: 11/14/17 - Constitutional Vitals: Temp Pulse Resp BP Pulse Ox 97.8 F 69 18 127/65 97 11/14/17 11:59 11/14/17 11:59 11/14/17 11:59 11/14/17 11:59 11/14/17 11:59 Internal Medicine: Result - Labs CBC & Chem 7: 11/14/17 06:50 11/14/17 06:50 Labs: Short CBC 11/14/17 Range/Units 06:50 WBC 11.5 H (4.3-11.1) K/mcL Hgb 9.8 L (12.9-16.9) g/dL Hct 31.8 L (37.5-50.1) % Plt Count 645 H (140-400) K/mcL Neutrophils # 8.4 (1.6-8.9) K/mcL BMP 11/14/17 06:50 Sodium 136 Potassium 4.7 Chloride 95 L Carbon Dioxide 34 H BUN 17 Creatinine 0.84 Glucose 211 H Calcium 8.8 - ABG Interpretation ABG results: ABG ABG pH 7.40 pH Units (7.32-7.45) 11/14/17 06:11 ABG pCO2 66 mmHg (35-45) H 11/14/17 06:11 ABG pO2 79 mmHg (85-104) L 11/14/17 06:11 ABG O2 Saturation 95 % (95-98) 11/14/17 06:11 - Attending Attestation I examined this patient and my medical decision-making was reviewed with the Resident Physician on 11/14/17. I agree with the documented findings, disposition and treatment plan as described except to the extent set forth below. 56 M s/p trach, vent dependent at night, COPD, PADMINI, [facility] admitted for acute encephalopathy secondary to acute on chronic hypoxic respiratory failure secondary to pansensitive pseudomonas pneumonia. He was transferred from the medical ICU to the regular floors. He is asking to be discharged home, he has no new complains Physical exam: Morbidly obese, not in distress. Neck with trach, no secretions at this time, speech deficit due to trach, moves all extremities, chest with transmitted sounds bilaterally. HS S1, S2, no m/g/r. Abdomen is obese and soft, not tender. NO pedal edema Labs and imaging reviewed A: Sepsis-resolved Pneumonia-due to pseudomonas. Day 5 IV zosyn and levoflox. sensitivity noted- pansensitive. d/c zosyn, continue levoflox. COPDE: Continue steroids, transition to po with plan for prolonged taper D/C urinary catheter advance diet SW eval for home care Rest as in resident physician's documentation
[2017-11-14] MEDS: *HR* OxyCODONE/APAP 10/325 TABLET PO PRN ×3 (12:32→23:40)
[2017-11-14] MEDS: Sennosides 8.6 MG TABLET PO SCH (20:40)
[2017-11-15] MEDS: Albuterol 2.5 MG/3 ML NEBULIZER IH SCH ×4 (00:37→10:55)
[2017-11-15 04:41] LABS: Basophils % 0.2 %; Eosinophils # 0.1 K/mcL (0.0-0.6); Eosinophils % 0.8 %; Hematocrit 30.4 % (37.5-50.1); Hemoglobin 9.5 g/dL (12.9-16.9); Immature Granulocytes % 2.2 % (0-4); Lymphocytes # 3.3 K/mcL (0.6-4.6); Lymphocytes % 28.2 %; Mean Corpuscular HGB Conc 31.3 g/dL (31.6-35.5); Mean Corpuscular Hemoglobin 27.5 pg (28.0-33.3); Mean Corpuscular Volume 88.1 fL (83.0-100.0); Mean Platelet Volume 8.6 fL (9.4-12.4); Monocytes # 0.6 K/mcL (0.0-1.3); Neutrophils # 7.5 K/mcL (1.6-8.9); Platelet Count 687 K/mcL (140-400); Red Blood Count 3.45 M/mcL (4.19-5.50); Red Cell Distribution Width 13.9 % (11.5-14.5); Segmented Neutrophils % 63.6 %
[2017-11-15 05:07] LABS: BUN/Creatinine Ratio 25 (6-26); Blood Urea Nitrogen 19 mg/dL (6-20); Calcium 8.5 mg/dL (8.6-10.3); Carbon Dioxide 39 mEq/L (23-29); Chloride 97 mEq/L (98-107); Glucose 152 mg/dL (70-105); Osmolality,Calculated 295 (280-300); Potassium 4.2 mEq/L (3.5-5.1); Sodium 140 mEq/L (136-145); eGFR For African Americans > 60 (> 60); eGFR For Non-African Americans > 60 (> 60)
[2017-11-15] MEDS: *HR* Heparin 5,000 UNIT/ML VIAL SQ SCH (05:26)
[2017-11-15] MEDS: *HR* OxyCODONE/APAP 10/325 TABLET PO PRN (05:27)
[2017-11-15 07:28] VITALS: BP 121/70
[2017-11-15] MEDS: Insulin LISPRO 300 UNITS/3 ML VIAL SQ SCH (08:16)
[2017-11-15] MEDS: Chlorhexidine Rinse 15 ML MOUTHWASH MM SCH (08:33)
[2017-11-15] MEDS ORDERED: predniSONE 20 MG TABLET PO SCH (09:00)
[2017-11-15] MEDS ORDERED: levoFLOXacin 750 MG TABLET PO SCH (09:00)
--- NOTE | 2017-11-15 11:02 | Discharge Summary ---
<LidaLiban - Last Filed: 11/15/17 11:46> Date of Encounter: 11/15/17 Time of Encounter: 11:00 - Discharge Diagnosis (1) Sepsis Priority: Primary Status: Acute Qualifiers: Sepsis type: sepsis due to unspecified organism Qualified Code(s): A41.9 - Sepsis, unspecified organism (2) DMII (diabetes mellitus, type 2) Priority: Secondary Status: Chronic Qualifiers: Diabetes mellitus complication status: without complication Diabetes mellitus terminal superintendent insulin use: with terminal superintendent use Qualified Code(s): E11.9 - Type 2 diabetes mellitus without complications; Z79.4 - care home (current) use of insulin; Z79.4 - care home (current) use of insulin; Z79.4 - care home ( current) use of insulin; 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 07/21/15 [Rx] Atorvastatin [Lipitor] 40 mg PO HS tablet 07/21/15 [Rx] Clopidogrel [Plavix] 75 mg PO DAILY tablet 07/21/15 [Rx] Gabapentin [Neurontin] 300 mg PO TID capsule 07/21/15 [Rx] Metoprolol [Lopressor] 25 mg PO BID tablet 07/21/15 [Rx] Montelukast [Singulair] 10 mg PO HS tablet 07/21/15 [Rx] Omeprazole [PriLOSEC] 20 mg PO DAILY 09/24/15 [History] OxyCODONE/APAP 10/325 [Percocet 10/325] 1 tab PO Q4-6H PRN 09/24/15 [History] Insulin DETEMIR [Levemir] 10 unit SQ BID 08/19/16 [History] Sitagliptin Phos/Metformin HCl [Janumet 50-1,000 mg Tablet] 1 tab PO BID [History] diazePAM [Valium] 5 mg PO Q6H 10/22/16 [History] Albuterol Neb [Proventil Neb] 2.5 mg IH QID 09/16/17 [History] Albuterol Sulfate [Ventolin Hfa] 2 puff IH Q4H PRN 09/16/17 [History] Fenofibrate Nanocrystallized [Tricor] 145 mg PO DAILY 09/16/17 [History] predniSONE [PredniSONE] 40 mg PO DAILY #10 tablet 09/18/17 [Rx] Albuterol Neb [Proventil Neb] 2.5 mg IH Q4H PRN 11/09/17 [History] Albuterol Sulfate [Ventolin Hfa] 2 puff IH Q4H PRN 11/09/17 [History] Atorvastatin [Lipitor] 40 mg PO HS 11/09/17 [History] Clopidogrel [Plavix] 75 mg PO DAILY 11/09/17 [History] Fenofibrate Nanocrystallized [Tricor] 145 mg PO DAILY 11/09/17 [History] Furosemide [Lasix] 20 mg PO BID PRN 11/09/17 [History] Gabapentin [Neurontin] 300 mg PO TID 11/09/17 [History] Insulin Glargine,Hum.rec.anlog [Lantus Solostar] 15 unit SQ HS 11/09/17 [History ] Metoprolol [Lopressor] 25 mg PO BID 11/09/17 [History] Montelukast [Singulair] 10 mg PO HS 11/09/17 [History] Omeprazole [PriLOSEC] 20 mg PO DAILY 11/09/17 [History] Oxycodone HCl/Acetaminophen [Percocet 10-325 mg Tablet] 1 tab PO Q4-6H PRN 11/09 [History] Sitagliptin Phos/Metformin HCl [Janumet Xr 50-1,000 mg Tablet] 1 tab PO BID 07/19 [History] diazePAM [Valium] 5 mg PO BID PRN 11/09/17 [History] diazePAM [Valium] 10 mg PO HS PRN 11/09/17 [History] predniSONE [PredniSONE] 10 mg PO BIDWM 11/09/17 [History] levoFLOXacin [Levaquin] 750 mg PO DAILY 7 Days #7 tablet 11/15/17 [Rx] predniSONE [PredniSONE] 40 mg PO DAILY #8 tablet 11/15/17 [Rx] Allergies/Adverse Reactions: 3 Allergy/AdvReac Type Severity Reaction Status Date / Time azithromycin Allergy See Verified 01/23/17 01:18 Comments Date of admission: 11/09/17 12:39 Primary care physician: Ad Garcia MD Consults: 11/10/17 10:09 Consult to Touch Up Painter [CONS] Routine Reason for SW Consult: eval for home health Discharging clinician: Liban Hilton Anticipated date of discharge: 11/15/17 - Patient Status Disposition: Home Health Service Condition: Fair Functional capacity at discharge: independent ambulation Overall status at discharge: patient is back to baseline - Discharge Instructions Instructions: Prednisone (By mouth), Levofloxacin (By mouth), Chronic Obstructive Pulmonary Disease (DC), Pneumonia (DC) Follow Up With: Ad Garcia MD [Primary Care Provider] - Grazyna Fajardo CNP [Advanced Practice Nurse] - 11/22/17 1:45 pm Hospital course: Mr. Mccloud is a 56 year old male - Time Spent with Patient Total time spent providing and/or coordinating discharge services: - Constitutional Vitals: Temp Pulse Resp BP Pulse Ox 98.5 F 65 18 121/70 95 11/15/17 08:35 11/15/17 08:35 11/15/17 10:55 11/15/17 08:35 11/15/17 10:55 General appearance: Present: cooperative, A&O X 3, pleasant, obese, answers questions appropriately - VTE Documentation of Mechanical Device: Intermittent pneumatic compression device <Chadwick Barroso - Last Filed: 11/15/17 14:15> Date of Encounter: 11/15/17 Date of admission: 11/09/17 12:39 Primary care physician: Ad Garcia MD Consults: 11/10/17 10:09 Consult to Touch Up Painter [CONS] Routine Reason for SW Consult: eval for home health Hospital course: Mr. Mccloud is a 56 year old male - Time Spent with Patient Total time spent providing and/or coordinating discharge services: - Constitutional Vitals: Temp Pulse Resp BP Pulse Ox 98.5 F 65 18 121/70 95 11/15/17 08:35 11/15/17 08:35 11/15/17 10:55 11/15/17 08:35 11/15/17 10:55 - Attending Attestation I examined this patient and my medical decision-making was reviewed with the Resident Physician on 11/15/17. I agree with the documented findings, disposition and treatment plan as described except to the extent set forth below. 56 M s/p trach, vent dependent at night, COPD, PADMINI, [facility] admitted for acute encephalopathy secondary to acute on chronic hypoxic respiratory failure secondary to gonzalez sensitive pseudomonas ventilator-associated pneumonia. He has been medically stable on current therapy Physical exam: Morbidly obese, not in distress. Neck with trach, no secretions at this time, speech deficit due to trach, moves all extremities, chest with transmitted sounds bilaterally. HS S1, S2, no m/g/r. Abdomen is obese and soft, not tender. No pedal edema Labs and imaging reviewed Stable to be discharged home on antibiotics with home health nursing for trach care. Rest as in resident physician's documentation
--- NOTE | 2017-11-15 11:45 | Physician Discharge Referral ---
<LidaLiban - Last Filed: 11/15/17 11:43> Home Health/Hosp Referral Info Transfer to: Home Health Attending Provider: Chadwick Barroso Provider in Charge Post Discharge: PCP - Diagnosis (1) Sepsis Priority: Primary Status: Acute (2) DMII (diabetes mellitus, type 2) Priority: Secondary Status: Chronic (3) COPD exacerbation Priority: Secondary Status: Acute (4) Tracheostomy dependent Priority: Secondary Status: Chronic - Respiratory Orders Oxygen / L per min Smoking Cessation: Smoking cessation has been advised. For more information, call the [place] Tobacco Quit Line at 0-963-NPOP-NOW. - Diet/Nutrition Diet/Nutrition Orders: Regular - Activity Activity Orders: Ambulate - Services Needed Following services are medically necessary services: Home Health Aide - Transfer Medications Prescriptions: levoFLOXacin [Levaquin] 750 mg PO DAILY 7 Days #7 tablet predniSONE [PredniSONE] 40 mg PO DAILY #8 tablet Home Medications: Aspirin Enteric Coated [Aspirin EC] 81 mg PO DAILY tablet. 07/21/15 [Rx] Atorvastatin [Lipitor] 40 mg PO HS tablet 07/21/15 [Rx] Clopidogrel [Plavix] 75 mg PO DAILY tablet 07/21/15 [Rx] Gabapentin [Neurontin] 300 mg PO TID capsule 07/21/15 [Rx] Metoprolol [Lopressor] 25 mg PO BID tablet 07/21/15 [Rx] Montelukast [Singulair] 10 mg PO HS tablet 07/21/15 [Rx] Omeprazole [PriLOSEC] 20 mg PO DAILY 09/24/15 [History] OxyCODONE/APAP 10/325 [Percocet 10/325] 1 tab PO Q4-6H PRN 09/24/15 [History] Insulin DETEMIR [Levemir] 10 unit SQ BID 08/19/16 [History] Sitagliptin Phos/Metformin HCl [Janumet 50-1,000 mg Tablet] 1 tab PO BID [History] diazePAM [Valium] 5 mg PO Q6H 10/22/16 [History] Albuterol Neb [Proventil Neb] 2.5 mg IH QID 09/16/17 [History] Albuterol Sulfate [Ventolin Hfa] 2 puff IH Q4H PRN 09/16/17 [History] Fenofibrate Nanocrystallized [Tricor] 145 mg PO DAILY 09/16/17 [History] predniSONE [PredniSONE] 40 mg PO DAILY #10 tablet 09/18/17 [Rx] Albuterol Neb [Proventil Neb] 2.5 mg IH Q4H PRN 11/09/17 [History] Albuterol Sulfate [Ventolin Hfa] 2 puff IH Q4H PRN 11/09/17 [History] Atorvastatin [Lipitor] 40 mg PO HS 11/09/17 [History] Clopidogrel [Plavix] 75 mg PO DAILY 11/09/17 [History] Fenofibrate Nanocrystallized [Tricor] 145 mg PO DAILY 11/09/17 [History] Furosemide [Lasix] 20 mg PO BID PRN 11/09/17 [History] Gabapentin [Neurontin] 300 mg PO TID 11/09/17 [History] Insulin Glargine,Hum.rec.anlog [Lantus Solostar] 15 unit SQ HS 11/09/17 [History ] Metoprolol [Lopressor] 25 mg PO BID 11/09/17 [History] Montelukast [Singulair] 10 mg PO HS 11/09/17 [History] Omeprazole [PriLOSEC] 20 mg PO DAILY 11/09/17 [History] Oxycodone HCl/Acetaminophen [Percocet 10-325 mg Tablet] 1 tab PO Q4-6H PRN 11/09 [History] Sitagliptin Phos/Metformin HCl [Janumet Xr 50-1,000 mg Tablet] 1 tab PO BID 07/19 [History] diazePAM [Valium] 5 mg PO BID PRN 11/09/17 [History] diazePAM [Valium] 10 mg PO HS PRN 11/09/17 [History] predniSONE [PredniSONE] 10 mg PO BIDWM 11/09/17 [History] levoFLOXacin [Levaquin] 750 mg PO DAILY 7 Days #7 tablet 11/15/17 [Rx] predniSONE [PredniSONE] 40 mg PO DAILY #8 tablet 11/15/17 [Rx] Allergies/Adverse Reactions: 3 Allergy/AdvReac Type Severity Reaction Status Date / Time azithromycin Allergy See Verified 01/23/17 01:18 Comments Certification: Further, I certify that my clinical findings support that this patient is homebound (i.e. absences from home require considerable and taxing effort and are for medical reasons or oriental orthodox services or infrequently or short duration when for other reasons) because: Homebound Reason: Patient requires assistance of a person or device to safely leave home (ventilator at home ) Attestation: My signature below is to certify that this patient is under my care and that I, or nurse practitioner, or a physician's campus administrative assistant working with me, has a face-to -face encounter with this patient. <Chadwick Barroso T - Last Filed: 11/15/17 13:17> - Respiratory Orders Smoking Cessation: Smoking cessation has been advised. For more information, call the [place] Tobacco Quit Line at 9-442-JBNFNOW. - Services Needed Following services are medically necessary services: Nursing (Patient needs nursing at home) Certification: Further, I certify that my clinical findings support that this patient is homebound (i.e. absences from home require considerable and taxing effort and are for medical reasons or oriental orthodox services or infrequently or short duration when for other reasons) because: Attestation: My signature below is to certify that this patient is under my care and that I, or nurse practitioner, or a physician's campus administrative assistant working with me, has a face-to -face encounter with this patient.
--- NOTE | 2017-11-15 12:03 | Physician Discharge Referral ---
- Diagnosis (1) Sepsis Status: Acute (2) DMII (diabetes mellitus, type 2) Status: Chronic (3) COPD exacerbation Status: Acute (4) Tracheostomy dependent Status: Chronic - Respiratory Orders Smoking Cessation: Smoking cessation has been advised. For more information, call the [place] Tobacco Quit Line at 1-843-QJUV-NOW. - Transfer Medications Prescriptions: levoFLOXacin [Levaquin] 750 mg PO DAILY 7 Days #7 tablet predniSONE [PredniSONE] 40 mg PO DAILY #8 tablet Home Medications: Aspirin Enteric Coated [Aspirin EC] 81 mg PO DAILY tablet. 07/21/15 [Rx] Atorvastatin [Lipitor] 40 mg PO HS tablet 07/21/15 [Rx] Clopidogrel [Plavix] 75 mg PO DAILY tablet 07/21/15 [Rx] Gabapentin [Neurontin] 300 mg PO TID capsule 07/21/15 [Rx] Metoprolol [Lopressor] 25 mg PO BID tablet 07/21/15 [Rx] Montelukast [Singulair] 10 mg PO HS tablet 07/21/15 [Rx] Omeprazole [PriLOSEC] 20 mg PO DAILY 09/24/15 [History] OxyCODONE/APAP 10/325 [Percocet 10/325] 1 tab PO Q4-6H PRN 09/24/15 [History] Insulin DETEMIR [Levemir] 10 unit SQ BID 08/19/16 [History] Sitagliptin Phos/Metformin HCl [Janumet 50-1,000 mg Tablet] 1 tab PO BID [History] diazePAM [Valium] 5 mg PO Q6H 10/22/16 [History] Albuterol Neb [Proventil Neb] 2.5 mg IH QID 09/16/17 [History] Albuterol Sulfate [Ventolin Hfa] 2 puff IH Q4H PRN 09/16/17 [History] Fenofibrate Nanocrystallized [Tricor] 145 mg PO DAILY 09/16/17 [History] predniSONE [PredniSONE] 40 mg PO DAILY #10 tablet 09/18/17 [Rx] Albuterol Neb [Proventil Neb] 2.5 mg IH Q4H PRN 11/09/17 [History] Albuterol Sulfate [Ventolin Hfa] 2 puff IH Q4H PRN 11/09/17 [History] Atorvastatin [Lipitor] 40 mg PO HS 11/09/17 [History] Clopidogrel [Plavix] 75 mg PO DAILY 11/09/17 [History] Fenofibrate Nanocrystallized [Tricor] 145 mg PO DAILY 11/09/17 [History] Furosemide [Lasix] 20 mg PO BID PRN 11/09/17 [History] Gabapentin [Neurontin] 300 mg PO TID 11/09/17 [History] Insulin Glargine,Hum.rec.anlog [Lantus Solostar] 15 unit SQ HS 11/09/17 [History ] Metoprolol [Lopressor] 25 mg PO BID 11/09/17 [History] Montelukast [Singulair] 10 mg PO HS 11/09/17 [History] Omeprazole [PriLOSEC] 20 mg PO DAILY 11/09/17 [History] Oxycodone HCl/Acetaminophen [Percocet 10-325 mg Tablet] 1 tab PO Q4-6H PRN 11/09 [History] Sitagliptin Phos/Metformin HCl [Janumet Xr 50-1,000 mg Tablet] 1 tab PO BID 07/19 [History] diazePAM [Valium] 5 mg PO BID PRN 11/09/17 [History] diazePAM [Valium] 10 mg PO HS PRN 11/09/17 [History] predniSONE [PredniSONE] 10 mg PO BIDWM 11/09/17 [History] levoFLOXacin [Levaquin] 750 mg PO DAILY 7 Days #7 tablet 11/15/17 [Rx] predniSONE [PredniSONE] 40 mg PO DAILY #8 tablet 11/15/17 [Rx] Allergies/Adverse Reactions: 3 Allergy/AdvReac Type Severity Reaction Status Date / Time azithromycin Allergy See Verified 01/23/17 01:18 Comments Certification: Further, I certify that my clinical findings support that this patient is homebound (i.e. absences from home require considerable and taxing effort and are for medical reasons or holiness services or infrequently or short duration when for other reasons) because: Attestation: My signature below is to certify that this patient is under my care and that I, or nurse practitioner, or a physician's web assistant working with me, has a face-to -face encounter with this patient.
--- NOTE | 2017-11-15 12:35 | Physician Discharge Referral ---
ExtendedCare Referral Info Transfer To: Nursing Provider in Charge: Chadwick Barroso Provider in Charge after Transfer: PCP Institutional Level of Care: Intermediate - Diagnosis (1) Sepsis Priority: Primary Status: Acute (2) DMII (diabetes mellitus, type 2) Priority: Secondary Status: Chronic (3) COPD exacerbation Priority: Secondary Status: Acute (4) Tracheostomy dependent Priority: Secondary Status: Chronic Prognosis: Fair Aware of Diagnosis: Patient Aware of Prognosis: Patient - Transfer Medications Prescriptions: levoFLOXacin [Levaquin] 750 mg PO DAILY 7 Days #7 tablet predniSONE [PredniSONE] 40 mg PO DAILY #8 tablet Home Medications: Aspirin Enteric Coated [Aspirin EC] 81 mg PO DAILY tablet. 07/21/15 [Rx] Atorvastatin [Lipitor] 40 mg PO HS tablet 07/21/15 [Rx] Clopidogrel [Plavix] 75 mg PO DAILY tablet 07/21/15 [Rx] Gabapentin [Neurontin] 300 mg PO TID capsule 07/21/15 [Rx] Metoprolol [Lopressor] 25 mg PO BID tablet 07/21/15 [Rx] Montelukast [Singulair] 10 mg PO HS tablet 07/21/15 [Rx] Omeprazole [PriLOSEC] 20 mg PO DAILY 09/24/15 [History] OxyCODONE/APAP 10/325 [Percocet 10/325] 1 tab PO Q4-6H PRN 09/24/15 [History] Insulin DETEMIR [Levemir] 10 unit SQ BID 08/19/16 [History] Sitagliptin Phos/Metformin HCl [Janumet 50-1,000 mg Tablet] 1 tab PO BID [History] diazePAM [Valium] 5 mg PO Q6H 10/22/16 [History] Albuterol Neb [Proventil Neb] 2.5 mg IH QID 09/16/17 [History] Albuterol Sulfate [Ventolin Hfa] 2 puff IH Q4H PRN 09/16/17 [History] Fenofibrate Nanocrystallized [Tricor] 145 mg PO DAILY 09/16/17 [History] predniSONE [PredniSONE] 40 mg PO DAILY #10 tablet 09/18/17 [Rx] Albuterol Neb [Proventil Neb] 2.5 mg IH Q4H PRN 11/09/17 [History] Albuterol Sulfate [Ventolin Hfa] 2 puff IH Q4H PRN 11/09/17 [History] Atorvastatin [Lipitor] 40 mg PO HS 11/09/17 [History] Clopidogrel [Plavix] 75 mg PO DAILY 11/09/17 [History] Fenofibrate Nanocrystallized [Tricor] 145 mg PO DAILY 11/09/17 [History] Furosemide [Lasix] 20 mg PO BID PRN 11/09/17 [History] Gabapentin [Neurontin] 300 mg PO TID 11/09/17 [History] Insulin Glargine,Hum.rec.anlog [Lantus Solostar] 15 unit SQ HS 11/09/17 [History ] Metoprolol [Lopressor] 25 mg PO BID 11/09/17 [History] Montelukast [Singulair] 10 mg PO HS 11/09/17 [History] Omeprazole [PriLOSEC] 20 mg PO DAILY 11/09/17 [History] Oxycodone HCl/Acetaminophen [Percocet 10-325 mg Tablet] 1 tab PO Q4-6H PRN 11/09 [History] Sitagliptin Phos/Metformin HCl [Janumet Xr 50-1,000 mg Tablet] 1 tab PO BID 07/19 [History] diazePAM [Valium] 5 mg PO BID PRN 11/09/17 [History] diazePAM [Valium] 10 mg PO HS PRN 11/09/17 [History] predniSONE [PredniSONE] 10 mg PO BIDWM 11/09/17 [History] levoFLOXacin [Levaquin] 750 mg PO DAILY 7 Days #7 tablet 11/15/17 [Rx] predniSONE [PredniSONE] 40 mg PO DAILY #8 tablet 11/15/17 [Rx] Allergies/Adverse Reactions: 3 Allergy/AdvReac Type Severity Reaction Status Date / Time azithromycin Allergy See Verified 01/23/17 01:18 Comments - Respiratory Orders Oxygen / L per min Smoking Cessation: Smoking cessation has been advised. For more information, call the [employer] Tobacco Quit Line at 0-163-BTGT-NOW. - Advance Directives Code Status: Full Code - Mobility Orders Ambulate - Rehabiliation Orders Rehab Potential: Fair - Diet Orders Regular CERTIFICATION: I certify that the transfer of the above named patient to an Extended Care Facility is necessary for the continuing treatment of the diagnosis listed. The above information is true and accurate reflection of patient's current condition. Confidential - Redisclosure prohibited without a patient's written consent.
== END 2017-11-15 12:27 | disposition home health service (06) | DRG 853 ==
LOC: EMEROO 09:00 → MERGE 12:39 → SUATTDRO 12:39 → ICNU 12:39 → 2NNU 11-13 14:54
PROVIDERS: ADMIT Internal Medicine Pulmonary Disease; ATTEND Internal Medicine

== ENCOUNTER 2018-03-17 17:26 | Inpatient (IN) ==
[2018-03-17] MEDS ORDERED: 0.9 % Sodium Chloride 1,000 ML IVC ONE (17:29)
[2018-03-17] MEDS ORDERED: Ipratropium/Albuterol Neb 3 ML IH ONE (17:29)
[2018-03-17] MEDS ORDERED: methylPREDNISolone 125 MG/2 ML VIAL IVP ONE (17:29)
[2018-03-17] MEDS ORDERED: Levofloxacin 750 MG/150 ML 750 MG/150 ML BAG IVPB ONE (17:34)
[2018-03-17] MEDS ORDERED: Piperacillin/Tazobactam 3.375 GM in 0.9 % Sodium Chloride Mini Bag 100 ML IVPB ONE (17:34)
--- NOTE | 2018-03-17 17:34 | Emergency Department Note ---
Disposition Clinical Impression: Respiratory distress Disposition: Admitted As Inpatient General Adult HPI - General Chief complaint: ED Shortness of Breath/Dyspnea Stated complaint: resp distress Time Seen by Provider: 03/17/18 17:29 - Related Data Home Medications Medication Instructions Recorded Confirmed Omeprazole [PriLOSEC] 20 mg PO DAILY 09/24/15 09/16/17 OxyCODONE/APAP 10325 [Percocet 1 tab PO Q4-6H PRN 09/24/15 09/16/17 10325] Insulin DETEMIR [Levemir] 10 unit SQ BID 08/19/16 09/16/17 Sitagliptin Phos/Metformin HCl 1 tab PO BID 10/22/16 09/16/17 [Janumet 50-1,000 mg Tablet] diazePAM [Valium] 5 mg PO Q6H 10/22/16 09/16/17 Albuterol Neb [Proventil Neb] 2.5 mg IH QID 09/16/17 09/16/17 Albuterol Sulfate [Ventolin Hfa] 2 puff IH Q4H PRN 09/16/17 09/16/17 Fenofibrate Nanocrystallized 145 mg PO DAILY 09/16/17 09/16/17 [Tricor] Albuterol Neb [Proventil Neb] 2.5 mg IH Q4H PRN 11/09/17 11/09/17 Albuterol Sulfate [Ventolin Hfa] 2 puff IH Q4H PRN 11/09/17 11/09/17 Atorvastatin [Lipitor] 40 mg PO HS 11/09/17 11/09/17 Clopidogrel [Plavix] 75 mg PO DAILY 11/09/17 11/09/17 Fenofibrate Nanocrystallized 145 mg PO DAILY 11/09/17 11/09/17 [Tricor] Furosemide [Lasix] 20 mg PO BID PRN 11/09/17 11/09/17 Gabapentin [Neurontin] 300 mg PO TID 11/09/17 11/09/17 Insulin Glargine,Hum.rec.anlog 15 unit SQ HS 11/09/17 11/09/17 [Lantus Solostar] Metoprolol [Lopressor] 25 mg PO BID 11/09/17 11/09/17 Montelukast [Singulair] 10 mg PO HS 11/09/17 11/09/17 Omeprazole [PriLOSEC] 20 mg PO DAILY 11/09/17 11/09/17 Oxycodone HCl/Acetaminophen 1 tab PO Q4-6H PRN 11/09/17 11/09/17 [Percocet 10-325 mg Tablet] Sitagliptin Phos/Metformin HCl 1 tab PO BID 11/09/17 11/09/17 [Janumet Xr 50-1,000 mg Tablet] diazePAM [Valium] 5 mg PO BID PRN 11/09/17 11/09/17 diazePAM [Valium] 10 mg PO HS PRN 11/09/17 11/09/17 predniSONE [PredniSONE] 10 mg PO BIDWM 11/09/17 11/09/17 Previous Rx's Medication Instructions Recorded Aspirin Enteric Coated [Aspirin EC] 81 mg PO DAILY tablet. 07/21/15 Atorvastatin [Lipitor] 40 mg PO HS tablet 07/21/15 Clopidogrel [Plavix] 75 mg PO DAILY tablet 07/21/15 Gabapentin [Neurontin] 300 mg PO TID capsule 07/21/15 Metoprolol [Lopressor] 25 mg PO BID tablet 07/21/15 Montelukast [Singulair] 10 mg PO HS tablet 07/21/15 predniSONE [PredniSONE] 40 mg PO DAILY #10 tablet 09/18/17 levoFLOXacin [Levaquin] 750 mg PO DAILY 7 Days #7 tablet 11/15/17 predniSONE [PredniSONE] 40 mg PO DAILY #8 tablet 11/15/17 Allergies Allergy/AdvReac Type Severity Reaction Status Date / Time azithromycin Allergy See Verified 01/23/17 01:18 Comments Past Medical History - Past Medical History Medical history: Reports: diabetes, myocardial infarction, asthma, other, CVA, TIA, COPD Surgical history: Reports: tracheostomy Psychiatric history: Reports: no psych history, anxiety, depression - Social History Smoking Status: Current every day smoker Smokeless Tobacco Status: No Alcohol use: Reports: none, occasionally Drug use: Reports: none Attestation Statement - Attestation Attestation: I examined this patient and my medical decision-making was reviewed with the Resident Physician. I agree with the documented findings, disposition and treatment plan as described except to the extent set forth below. 57 year old male presents to the ED with a history of MRSA pneumonia and has a trach. Has been ill for the past few days per family and became unresponsive today and hypoxic to 79%, most recently lost his home health care. Upon EMS arrival he was put on 15L and increased to86% after aggressive suctioning. [facility]. WE wll continue to suction and then followup with an ED sepsis protocol orders and admit to medicine.
--- NOTE | 2018-03-17 17:35 | Emergency Department Note ---
Disposition Clinical Impression: Respiratory distress, COPD exacerbation, Tracheostomy dependent Acute and chronic respiratory failure ([id number]) Qualifiers: Respiratory failure complication: hypoxia and hypercapnia Qualified Code(s): J96.21 - Acute and chronic respiratory failure with hypoxia Disposition: Admitted As Inpatient Condition: Critical Time of Disposition: 20:26 SOB HPI - General Chief Complaint: ED Shortness of Breath/Dyspnea Stated Complaint: resp distress Time Seen by Provider: 03/17/18 17:29 Source: EMS Mode of arrival: EMS Limitations: physical limitation Nursing Notes Reviewed: Yes Vital Signs Reviewed: Yes - History of Present Illness Patient is a 57-year-old male with a history of COPD who presents to [facility] ED via EMS for concern for difficulty breathing. Per EMS, when they arrived, he was saturating in the 70s and they placed him on 15 L nonrebreather mask. Date his oxygen saturation came up to 86. States he is normally on a oxygenator going on 6 L. States they suctioned out a lot of thick sputum from the trach as well as gave him a DuoNeb treatment. Patient currently awake and does try to answer some questions though he is so dyspneic he is unable to fully answer. Family is on the way. Pt Subjective Complaint: shortness of breath Context: recent illness Severity: moderate Consistency/Duration: gradually worsening Improves with: nothing Worsens with: nothing Known history of: COPD Associated symptoms: Reports: cough, sputum production Treatment prior to arrival: oxygen, bronchodilator - Related Data Home oxygen amount: other (6L oxygenator) Home Medications Medication Instructions Recorded Confirmed Albuterol Sulfate [Ventolin Hfa] 2 puff IH Q4H PRN 03/17/18 03/17/18 Atorvastatin [Lipitor] 40 mg PO HS 03/17/18 03/17/18 Clopidogrel [Plavix] 75 mg PO DAILY 03/17/18 03/17/18 Fenofibrate Nanocrystallized 145 mg PO DAILY 03/17/18 03/17/18 [Tricor] Fluticasone Propionate Nasal 1 spr NS DAILY 03/17/18 03/17/18 [Flonase] Gabapentin [Neurontin] 300 mg PO TID 03/17/18 03/17/18 Insulin Glargine,Hum.rec.anlog 25 unit SQ 03/17/18 03/17/18 [Lantus Solostar] Montelukast [Singulair] 10 mg PO DAILY 03/17/18 03/17/18 Omeprazole [PriLOSEC] 20 mg PO DAILY 03/17/18 03/17/18 Oxycodone HCl/Acetaminophen 1 tab PO Q4-6H PRN 03/17/18 03/17/18 [Percocet 10-325 mg Tablet] Sitagliptin Phos/Metformin HCl 1 tab PO BID 03/17/18 03/17/18 [Janumet 50-1,000 mg Tablet] diazePAM [Valium] 5 mg PO BID 03/17/18 03/17/18 diazePAM [Valium] 10 mg PO HS 03/17/18 03/17/18 Allergies Allergy/AdvReac Type Severity Reaction Status Date / Time azithromycin Allergy See Verified 01/23/17 01:18 Comments All systems ED: reviewed and negative except as stated. Past Medical History - Past Medical History Attestation: Yes The following information was validated with the patient. Source: patient Medical history: Reports: diabetes, myocardial infarction, asthma, other, CVA, TIA, COPD Surgical history: Reports: tracheostomy Psychiatric history: Reports: no psych history, anxiety, depression - Social History Smoking Status: Current every day smoker Smokeless Tobacco Status: No Alcohol use: Reports: none, occasionally Drug use: Reports: none Physical Exam - General Limitations: altered mental status General appearance: obtunded, in distress - Head Head exam: atraumatic, normocephalic, normal inspection - Eye Eye exam: Present: normal appearance, PERRL - ENT ENT exam: normal exam, normal oropharynx, mucous membranes moist - Neck Neck exam: Present: normal inspection, full ROM, trachea midline - Chest Chest inspection: Present: normal inspection, symmetric chest wall rise - Respiratory Respiratory exam: Present: wheezes (b/l diffuse) - Cardiovascular Cardiovascular exam: Present: normal rhythm, tachycardia, normal heart sounds - Abdominal Exam Abdominal exam: Present: soft, Non-Tender. Absent: tenderness, distention, guarding, rebound, rigidity - Extremities Exam Extremities exam: Present: normal inspection, full ROM. Absent: tenderness, pedal edema - Neurological Exam Neurological exam: Present: other (obtunded) - Skin Skin exam: Present: warm, dry, intact, normal color Course Course Narrative: Patient seen and examined. Arrives in respiratory distress. Patient is tachypneic and hypoxemic with an oxygen saturation of 86%. Respiratory therapy was called to the bedside prior to the patient's arrival. He is hooked up to oxygen and we will give her 3 DuoNeb treatments as well as suctioning of the trach. Cardiopulmonary workup initiated. We will evaluate for sepsis. Patient 's temperature here is 95 degrees. we will draw blood cultures and start prophylactic antibiotics for possible pneumonia. Vancomycin, Zosyn, Levaquin ordered. - Reevaluation(s) Reevaluation #1: Patient's ABG showed CO2 retention and pH of 7.25. He has respiratory acidosis. We requested respiratory therapy to place the patient on CPAP with his trach. He was placed on CPAP but was not tolerating this very well. Decision was made to place patient on propofol and place him over onto the event since he was not adequately ventilating on CPAP. Bolus of propofol and a propofol drip was started. Since patient had poor IV access, a left femoral vein central line was placed. Patient tolerated this well. We will also get a CTA of the chest to rule out any signs of pulmonary embolus. With his diffuse wheezing, suspect this was worsened from a COPD exacerbation and possible sepsis from pneumonia. Lactic acid is normal. I discussed with the hospitalist who has accepted patient to the ICU. Repeat ABG has been ordered. Time: 20:21 Vital Signs Temperature 98.5 F 03/17/18 17:28 Pulse Rate 115 03/17/18 17:28 Respiratory Rate 41 03/17/18 17:28 Blood Pressure 168/85 03/17/18 17:28 O2 Sat by Pulse Oximetry 87 03/17/18 17:28 Temperature 97.4 F L 03/17/18 19:48 Pulse Rate 111 03/17/18 17:37 Respiratory Rate 15 03/17/18 19:48 Blood Pressure 153/77 03/17/18 19:48 O2 Sat by Pulse Oximetry 100 03/17/18 19:48 Oxygen Delivery Oxygen Delivery Ventilator Shortness of Breath/Dyspnea - Medical Records Medical records reviewed: Yes I reviewed the patient's medical records. - Lab Data Lab results reviewed: Yes I reviewed the patient's lab results. Result diagrams: 03/17/18 17:46 03/17/18 17:46 Lab Results 03/17/18 03/17/18 03/17/18 Range/Units 17:46 17:46 17:46 WBC 14.0 H (4.3-11.1) K/mcL RBC 3.62 L (4.19-5.50) M/mcL Hgb 10.3 L (12.9-16.9) g/dL Hct 33.9 L (37.5-50.1) % MCV 93.6 (83.0-100.0) fL MCH 28.5 (28.0-33.3) pg MCHC 30.4 L (31.6-35.5) g/dL RDW 13.3 (11.5-14.5) % Plt Count 370 (140-400) K/mcL MPV 8.6 L (9.4-12.4) fL Immature Gran % 0.9 (0-4) % Seg Neutrophils % 79.4 % Lymphocytes % 9.9 % Monocytes % 9.6 % Eosinophils % 0.1 % Basophils % 0.1 % Neutrophils # 11.1 H (1.6-8.9) K/mcL Lymphocytes # 1.4 (0.6-4.6) K/mcL Monocytes # 1.3 (0.0-1.3) K/mcL Eosinophils # 0.0 (0.0-0.6) K/mcL Basophils # 0.0 (0.0-0.2) K/mcL PT 12.7 H (9.4-12.1) Seconds INR 1.2 APTT 34.1 (26.0-36.0) Seconds ABG pH (7.32-7.45) pH Units ABG pCO2 (35-45) mmHg ABG pO2 (85-104) mmHg ABG HCO3 (21-27) mEq/L ABG Total CO2 (20-26) mEq/L ABG O2 Saturation (95-98) % ABG Base Excess (-2 to 3) mEq/L Farnki Test O2 Delivery Device Inspired O2 (1-15=lpm [id number]=%) Sodium 144 (136-145) mEq/L Potassium 4.5 (3.5-5.1) mEq/L Chloride 95 L (98-107) mEq/L Carbon Dioxide 44 H* (23-29) mEq/L BUN 11 (6-20) mg/dL Creatinine 0.61 L (0.70-1.30) mg/dL Est GFR ( Amer) > 60 (> 60) Est GFR (Non-Af Amer) > 60 (> 60) BUN/Creatinine Ratio 18 (6-26) Glucose 168 H (70-105) mg/dL Calculated Osmolality 301 H (280-300) Lactic Acid (0.5-2.2) mmol/L Calcium 9.5 (8.6-10.3) mg/dL Phosphorus 3.7 (2.7-4.5) mg/dL Magnesium 1.7 (1.6-2.6) mg/dL Total Bilirubin 0.3 (0.3-1.0) mg/dL Direct Bilirubin 0.1 (0.0-0.2) mg/dL Indirect Bilirubin 0.2 (0.0-1.2) mg/dL AST 12 L (13-39) Units/L ALT 15 (7-52) Units/L Alkaline Phosphatase 70 (34-104) Units/L Troponin I 0.03 (< 0.04) ng/mL B-Natriuretic Peptide (Less than 100) pg/mL Serum Total Protein 6.8 (6.4-8.9) g/dL Albumin 4.0 (3.5-5.7) g/dL Globulin 2.8 (2.4-3.5) g/dL Albumin/Globulin Ratio 1.4 (1.1-2.2) Urine Color (Yellow) Urine Clarity (Clear) Urine pH (5.0-8.0) pH Units Ur Specific Randolph (1.010-1.025) Urine Protein (Neg-Trace) mg/dL Urine Glucose (UA) (Normal) mg/dL Urine Ketones (Negative) mg/dL Urine Blood (Negative) Urine Nitrite (Negative) Urine Bilirubin (Negative) Urine Urobilinogen (Normal) mg/dL Ur Leukocyte Esterase (Negative) Urine Microscopic RBC (0-3) per hpf Urine Microscopic WBC (0-3) per hpf Ur Squamous Epith Cells (None-Few) per lpf Urine Bacteria (None-Few) per hpf Hyaline Casts (None-Few) per lpf Ur Culture Indicated? (NO) 03/17/18 03/17/18 03/17/18 Range/Units 17:46 17:46 17:51 WBC (4.3-11.1) K/mcL RBC (4.19-5.50) M/mcL Hgb (12.9-16.9) g/dL Hct (37.5-50.1) % MCV (83.0-100.0) fL MCH (28.0-33.3) pg MCHC (31.6-35.5) g/dL RDW (11.5-14.5) % Plt Count (140-400) K/mcL MPV (9.4-12.4) fL Immature Gran % (0-4) % Seg Neutrophils % % Lymphocytes % % Monocytes % % Eosinophils % % Basophils % % Neutrophils # (1.6-8.9) K/mcL Lymphocytes # (0.6-4.6) K/mcL Monocytes # (0.0-1.3) K/mcL Eosinophils # (0.0-0.6) K/mcL Basophils # (0.0-0.2) K/mcL PT (9.4-12.1) Seconds INR APTT (26.0-36.0) Seconds ABG pH (7.32-7.45) pH Units ABG pCO2 (35-45) mmHg ABG pO2 (85-104) mmHg ABG HCO3 (21-27) mEq/L ABG Total CO2 (20-26) mEq/L ABG O2 Saturation (95-98) % ABG Base Excess (-2 to 3) mEq/L Franki Test O2 Delivery Device Inspired O2 (1-15=lpm [id number]=%) Sodium (136-145) mEq/L Potassium (3.5-5.1) mEq/L Chloride (98-107) mEq/L Carbon Dioxide (23-29) mEq/L BUN (6-20) mg/dL Creatinine (0.70-1.30) mg/dL Est GFR ( Amer) (> 60) Est GFR (Non-Af Amer) (> 60) BUN/Creatinine Ratio (6-26) Glucose (70-105) mg/dL Calculated Osmolality (280-300) Lactic Acid 1.3 (0.5-2.2) mmol/L Calcium (8.6-10.3) mg/dL Phosphorus (2.7-4.5) mg/dL Magnesium (1.6-2.6) mg/dL Total Bilirubin (0.3-1.0) mg/dL Direct Bilirubin (0.0-0.2) mg/dL Indirect Bilirubin (0.0-1.2) mg/dL AST (13-39) Units/L ALT (7-52) Units/L Alkaline Phosphatase (34-104) Units/L Troponin I (< 0.04) ng/mL B-Natriuretic Peptide 114 H (Less than 100) pg/mL Serum Total Protein (6.4-8.9) g/dL Albumin (3.5-5.7) g/dL Globulin (2.4-3.5) g/dL Albumin/Globulin Ratio (1.1-2.2) Urine Color Yellow (Yellow) Urine Clarity Clear (Clear) Urine pH 5.0 (5.0-8.0) pH Units Ur Specific Randolph 1.022 (1.010-1.025) Urine Protein 30 H (Neg-Trace) mg/dL Urine Glucose (UA) 500 H (Normal) mg/dL Urine Ketones Negative (Negative) mg/dL Urine Blood Negative (Negative) Urine Nitrite Negative (Negative) Urine Bilirubin Negative (Negative) Urine Urobilinogen Normal (Normal) mg/dL Ur Leukocyte Esterase Negative (Negative) Urine Microscopic RBC 0-3 (0-3) per hpf Urine Microscopic WBC 0-3 (0-3) per hpf Ur Squamous Epith Cells Many H (None-Few) per lpf Urine Bacteria None Seen (None-Few) per hpf Hyaline Casts None Seen (None-Few) per lpf Ur Culture Indicated? NO (NO) 03/17/18 Range/Units 18:07 WBC (4.3-11.1) K/mcL RBC (4.19-5.50) M/mcL Hgb (12.9-16.9) g/dL Hct (37.5-50.1) % MCV (83.0-100.0) fL MCH (28.0-33.3) pg MCHC (31.6-35.5) g/dL RDW (11.5-14.5) % Plt Count (140-400) K/mcL MPV (9.4-12.4) fL Immature Gran % (0-4) % Seg Neutrophils % % Lymphocytes % % Monocytes % % Eosinophils % % Basophils % % Neutrophils # (1.6-8.9) K/mcL Lymphocytes # (0.6-4.6) K/mcL Monocytes # (0.0-1.3) K/mcL Eosinophils # (0.0-0.6) K/mcL Basophils # (0.0-0.2) K/mcL PT (9.4-12.1) Seconds INR APTT (26.0-36.0) Seconds ABG pH 7.25 L (7.32-7.45) pH Units ABG pCO2 113 H* (35-45) mmHg ABG pO2 65 L (85-104) mmHg ABG HCO3 50 H (21-27) mEq/L ABG Total CO2 53 H (20-26) mEq/L ABG O2 Saturation 86 L (95-98) % ABG Base Excess 18 H (-2 to 3) mEq/L Franki Test N/A O2 Delivery Device Venti Mask Inspired O2 98.0 (1-15=lpm [id number]=%) Sodium (136-145) mEq/L Potassium (3.5-5.1) mEq/L Chloride (98-107) mEq/L Carbon Dioxide (23-29) mEq/L BUN (6-20) mg/dL Creatinine (0.70-1.30) mg/dL Est GFR ( Amer) (> 60) Est GFR (Non-Af Amer) (> 60) BUN/Creatinine Ratio (6-26) Glucose (70-105) mg/dL Calculated Osmolality (280-300) Lactic Acid (0.5-2.2) mmol/L Calcium (8.6-10.3) mg/dL Phosphorus (2.7-4.5) mg/dL Magnesium (1.6-2.6) mg/dL Total Bilirubin (0.3-1.0) mg/dL Direct Bilirubin (0.0-0.2) mg/dL Indirect Bilirubin (0.0-1.2) mg/dL AST (13-39) Units/L ALT (7-52) Units/L Alkaline Phosphatase (34-104) Units/L Troponin I (< 0.04) ng/mL B-Natriuretic Peptide (Less than 100) pg/mL Serum Total Protein (6.4-8.9) g/dL Albumin (3.5-5.7) g/dL Globulin (2.4-3.5) g/dL Albumin/Globulin Ratio (1.1-2.2) Urine Color (Yellow) Urine Clarity (Clear) Urine pH (5.0-8.0) pH Units Ur Specific Randolph (1.010-1.025) Urine Protein (Neg-Trace) mg/dL Urine Glucose (UA) (Normal) mg/dL Urine Ketones (Negative) mg/dL Urine Blood (Negative) Urine Nitrite (Negative) Urine Bilirubin (Negative) Urine Urobilinogen (Normal) mg/dL Ur Leukocyte Esterase (Negative) Urine Microscopic RBC (0-3) per hpf Urine Microscopic WBC (0-3) per hpf Ur Squamous Epith Cells (None-Few) per lpf Urine Bacteria (None-Few) per hpf Hyaline Casts (None-Few) per lpf Ur Culture Indicated? (NO) - Radiology Data Radiology results reviewed: Yes I reviewed the patient's radiology results. Chest X-Ray 03/17/18 17:30 IMPRESSION: Cardiomegaly and mild vascular congestion with bibasilar opacities, likely edema or atelectasis. D/ / Bree Hercules MD / Bree Hercules MD Interpreting Provider: Bree Hercules MD - EKG Data EKG attestation: Yes I reviewed and interpreted this EKG. EKG results narrative: EKG done at 1728 shows sinus tachycardia with a rate of [address] elevation or depression noted. Normal axis. Low voltage throughout.
[2018-03-17 18:04] LABS: Basophils % 0.1 %; Eosinophils % 0.1 %; Hematocrit 33.9 % (37.5-50.1); Hemoglobin 10.3 g/dL (12.9-16.9); Immature Granulocytes % 0.9 % (0-4); Lymphocytes # 1.4 K/mcL (0.6-4.6); Lymphocytes % 9.9 %; Mean Corpuscular HGB Conc 30.4 g/dL (31.6-35.5); Mean Corpuscular Hemoglobin 28.5 pg (28.0-33.3); Mean Corpuscular Volume 93.6 fL (83.0-100.0); Mean Platelet Volume 8.6 fL (9.4-12.4); Monocytes # 1.3 K/mcL (0.0-1.3); Monocytes % 9.6 %; Neutrophils # 11.1 K/mcL (1.6-8.9); Platelet Count 370 K/mcL (140-400); Red Blood Count 3.62 M/mcL (4.19-5.50); Red Cell Distribution Width 13.3 % (11.5-14.5); Segmented Neutrophils % 79.4 %
[2018-03-17 18:07] LABS: Bilirubin,Urine Negative (Negative); Blood,Urine Negative (Negative); Clarity,Urine Clear (Clear); Color,Urine Yellow (Yellow); Glucose,Urine (UA) 500 mg/dL (Normal); Ketones,Urine Negative (Negative); Leukocyte Esterase,Urine Negative (Negative); Nitrite,Urine Negative (Negative); Protein,Urine 30 mg/dL (Neg-Trace); Specific Gravity,Urine 1.022 (1.010-1.025); Urobilinogen,Urine Normal (Normal)
[2018-03-17 18:09] LABS: Bacteria,Urine None Seen per hpf (None-Few); Hyaline Casts,Urine None Seen per lpf (None-Few); RBC,Urine 0-3 per hpf (0-3); Squamous Epithelial Cell,Urine Many per lpf (None-Few); WBC,Urine 0-3 per hpf (0-3)
[2018-03-17 18:09] LABS: INR 1.2; Prothrombin Time 12.7 Seconds (9.4-12.1)
[2018-03-17 18:12] LABS: Activated Partial Thrombo Time 34.1 Seconds (26.0-36.0)
[2018-03-17 18:18] LABS: ABG Base Excess 18 mEq/L (-2 to 3); ABG HCO3 50 mEq/L (21-27); ABG Oxygen Saturation 86 % (95-98); ABG PCO2 113 mmHg (35-45); ABG PH 7.25 pH Units (7.32-7.45); ABG PO2 65 mmHg (85-104); ABG TCO2 53 mEq/L (20-26)
[2018-03-17 18:22] LABS: Troponin I 0.03 ng/mL (< 0.04)
[2018-03-17 18:26] LABS: Alanine Aminotransferase 15 Units/L (7-52); Albumin/Globulin Ratio 1.4 (1.1-2.2); Alkaline Phosphatase 70 Units/L (34-104); Aspartate Amino Transferase 12 Units/L (13-39); BUN/Creatinine Ratio 18 (6-26); Bilirubin,Direct 0.1 mg/dL (0.0-0.2); Bilirubin,Indirect 0.2 mg/dL (0.0-1.2); Bilirubin,Total 0.3 mg/dL (0.3-1.0); Blood Urea Nitrogen 11 mg/dL (6-20); Calcium 9.5 mg/dL (8.6-10.3); Carbon Dioxide 44 mEq/L (23-29); Chloride 95 mEq/L (98-107); Globulin 2.8 g/dL (2.4-3.5); Glucose 168 mg/dL (70-105); Magnesium 1.7 mg/dL (1.6-2.6); Osmolality,Calculated 301 (280-300); Phosphorous 3.7 mg/dL (2.7-4.5); Potassium 4.5 mEq/L (3.5-5.1); Sodium 144 mEq/L (136-145); Total Protein 6.8 g/dL (6.4-8.9); eGFR For African Americans > 60 (> 60); eGFR For Non-African Americans > 60 (> 60)
[2018-03-17] MEDS ORDERED: *HR* FentaNYL (PF) 100 MCG/2 ML VIAL IVP ONE (18:51)
[2018-03-17] MEDS: Propofol 500 MG/50 ML INFUS..BTL IVC SCH ×2 (19:05→22:05)
--- NOTE | 2018-03-17 19:52 | Emergency Department Note ---
Disposition Clinical Impression: Respiratory distress Disposition: Admitted As Inpatient Forms: ED Satisfaction Letter General Adult HPI - General Chief complaint: ED Shortness of Breath/Dyspnea Stated complaint: resp distress Time Seen by Provider: 03/17/18 17:29 Source: EMS Mode of arrival: EMS Limitations: no limitations - History of Present Illness Pain Scale: 0 - Related Data Home Medications Medication Instructions Recorded Confirmed Albuterol Sulfate [Ventolin Hfa] 2 puff IH Q4H PRN 03/17/18 03/17/18 Atorvastatin [Lipitor] 40 mg PO HS 03/17/18 03/17/18 Clopidogrel [Plavix] 75 mg PO DAILY 03/17/18 03/17/18 Fenofibrate Nanocrystallized 145 mg PO DAILY 03/17/18 03/17/18 [Tricor] Fluticasone Propionate Nasal 1 spr NS DAILY 03/17/18 03/17/18 [Flonase] Gabapentin [Neurontin] 300 mg PO TID 03/17/18 03/17/18 Insulin Glargine,Hum.rec.anlog 25 unit SQ 03/17/18 03/17/18 [Lantus Solostar] Montelukast [Singulair] 10 mg PO DAILY 03/17/18 03/17/18 Omeprazole [PriLOSEC] 20 mg PO DAILY 03/17/18 03/17/18 Oxycodone HCl/Acetaminophen 1 tab PO Q4-6H PRN 03/17/18 03/17/18 [Percocet 10-325 mg Tablet] Sitagliptin Phos/Metformin HCl 1 tab PO BID 03/17/18 03/17/18 [Janumet 50-1,000 mg Tablet] diazePAM [Valium] 5 mg PO BID 03/17/18 03/17/18 diazePAM [Valium] 10 mg PO HS 03/17/18 03/17/18 Allergies Allergy/AdvReac Type Severity Reaction Status Date / Time azithromycin Allergy See Verified 01/23/17 01:18 Comments Past Medical History - Past Medical History Medical history: Reports: diabetes, myocardial infarction, asthma, other, CVA, TIA, COPD Surgical history: Reports: tracheostomy Psychiatric history: Reports: no psych history, anxiety, depression - Social History Smoking Status: Current every day smoker Smokeless Tobacco Status: No Alcohol use: Reports: none, occasionally Drug use: Reports: none Physical Exam - General Limitations: no limitations General appearance: alert, in no apparent distress Course Vital Signs Temperature 98.5 F 03/17/18 17:28 Pulse Rate 115 03/17/18 17:28 Respiratory Rate 41 03/17/18 17:28 Blood Pressure 168/85 03/17/18 17:28 O2 Sat by Pulse Oximetry 87 03/17/18 17:28 Temperature 97.4 F L 03/17/18 19:48 Pulse Rate 111 03/17/18 17:37 Respiratory Rate 15 03/17/18 19:48 Blood Pressure 153/77 03/17/18 19:48 O2 Sat by Pulse Oximetry 100 03/17/18 19:48 Oxygen Delivery Oxygen Delivery Ventilator Procedures - Central Line Placement Left Femoral Central Line Inserted*: Yes Central Line Catheter Replacement*: No Central Line Insertion: emergent Patient Placed on Monitor/Pulse Ox: Yes During the Procedure: clinician is wearing sterile gloves, cap, mask,& gown during insertion, sterile field and sterile technique are maintained, patient's face is covered with drape or mask and wearing a cap, everyone in room is wearing a mask Central Line Prep: Chlorhexidine scrub Prep the Procedure Site: apply chloraprep to the skin using a back and forth scrubbing motion, apply chloraprep for 30 seconds (upper body), 1-2 min ( femoral sites), allow prep to dry, drape the patient with a full body drape Local Anesthetic: lidocaine 1% Amount of anesthesia used (mL): 2 Ultrasound Used for Placement: Yes Central Line Lumen Inserted: triple Post Procedure: sutured in place, good blood return, all ports aspirated, flushed, capped, sterile dressing applied, guide wire removed and visualized, dressing is dated Patient Tolerated Procedure: well, no complications Complications: none Name of Clinician Inserting Central Line: Dr Nolasco Clinician Assisting/Completing Checklist: Dr Reza and Cristian Medical Decision Making - Lab Data Result diagrams: 03/17/18 17:46 03/17/18 17:46 Lab Results 03/17/18 03/17/18 03/17/18 Range/Units 17:46 17:46 17:46 WBC 14.0 H (4.3-11.1) K/mcL RBC 3.62 L (4.19-5.50) M/mcL Hgb 10.3 L (12.9-16.9) g/dL Hct 33.9 L (37.5-50.1) % MCV 93.6 (83.0-100.0) fL MCH 28.5 (28.0-33.3) pg MCHC 30.4 L (31.6-35.5) g/dL RDW 13.3 (11.5-14.5) % Plt Count 370 (140-400) K/mcL MPV 8.6 L (9.4-12.4) fL Immature Gran % 0.9 (0-4) % Seg Neutrophils % 79.4 % Lymphocytes % 9.9 % Monocytes % 9.6 % Eosinophils % 0.1 % Basophils % 0.1 % Neutrophils # 11.1 H (1.6-8.9) K/mcL Lymphocytes # 1.4 (0.6-4.6) K/mcL Monocytes # 1.3 (0.0-1.3) K/mcL Eosinophils # 0.0 (0.0-0.6) K/mcL Basophils # 0.0 (0.0-0.2) K/mcL PT 12.7 H (9.4-12.1) Seconds INR 1.2 APTT 34.1 (26.0-36.0) Seconds ABG pH (7.32-7.45) pH Units ABG pCO2 (35-45) mmHg ABG pO2 (85-104) mmHg ABG HCO3 (21-27) mEq/L ABG Total CO2 (20-26) mEq/L ABG O2 Saturation (95-98) % ABG Base Excess (-2 to 3) mEq/L Franki Test O2 Delivery Device Inspired O2 (1-15=lpm [id number]=%) Sodium 144 (136-145) mEq/L Potassium 4.5 (3.5-5.1) mEq/L Chloride 95 L (98-107) mEq/L Carbon Dioxide 44 H* (23-29) mEq/L BUN 11 (6-20) mg/dL Creatinine 0.61 L (0.70-1.30) mg/dL Est GFR ( Amer) > 60 (> 60) Est GFR (Non-Af Amer) > 60 (> 60) BUN/Creatinine Ratio 18 (6-26) Glucose 168 H (70-105) mg/dL Calculated Osmolality 301 H (280-300) Lactic Acid (0.5-2.2) mmol/L Calcium 9.5 (8.6-10.3) mg/dL Phosphorus 3.7 (2.7-4.5) mg/dL Magnesium 1.7 (1.6-2.6) mg/dL Total Bilirubin 0.3 (0.3-1.0) mg/dL Direct Bilirubin 0.1 (0.0-0.2) mg/dL Indirect Bilirubin 0.2 (0.0-1.2) mg/dL AST 12 L (13-39) Units/L ALT 15 (7-52) Units/L Alkaline Phosphatase 70 (34-104) Units/L Troponin I 0.03 (< 0.04) ng/mL B-Natriuretic Peptide (Less than 100) pg/mL Serum Total Protein 6.8 (6.4-8.9) g/dL Albumin 4.0 (3.5-5.7) g/dL Globulin 2.8 (2.4-3.5) g/dL Albumin/Globulin Ratio 1.4 (1.1-2.2) Urine Color (Yellow) Urine Clarity (Clear) Urine pH (5.0-8.0) pH Units Ur Specific [place] (1.010-1.025) Urine Protein (Neg-Trace) mg/dL Urine Glucose (UA) (Normal) mg/dL Urine Ketones (Negative) mg/dL Urine Blood (Negative) Urine Nitrite (Negative) Urine Bilirubin (Negative) Urine Urobilinogen (Normal) mg/dL Ur Leukocyte Esterase (Negative) Urine Microscopic RBC (0-3) per hpf Urine Microscopic WBC (0-3) per hpf Ur Squamous Epith Cells (None-Few) per lpf Urine Bacteria (None-Few) per hpf Hyaline Casts (None-Few) per lpf Ur Culture Indicated? (NO) 03/17/18 03/17/18 03/17/18 Range/Units 17:46 17:46 17:51 WBC (4.3-11.1) K/mcL RBC (4.19-5.50) M/mcL Hgb (12.9-16.9) g/dL Hct (37.5-50.1) % MCV (83.0-100.0) fL MCH (28.0-33.3) pg MCHC (31.6-35.5) g/dL RDW (11.5-14.5) % Plt Count (140-400) K/mcL MPV (9.4-12.4) fL Immature Gran % (0-4) % Seg Neutrophils % % Lymphocytes % % Monocytes % % Eosinophils % % Basophils % % Neutrophils # (1.6-8.9) K/mcL Lymphocytes # (0.6-4.6) K/mcL Monocytes # (0.0-1.3) K/mcL Eosinophils # (0.0-0.6) K/mcL Basophils # (0.0-0.2) K/mcL PT (9.4-12.1) Seconds INR APTT (26.0-36.0) Seconds ABG pH (7.32-7.45) pH Units ABG pCO2 (35-45) mmHg ABG pO2 (85-104) mmHg ABG HCO3 (21-27) mEq/L ABG Total CO2 (20-26) mEq/L ABG O2 Saturation (95-98) % ABG Base Excess (-2 to 3) mEq/L Franki Test O2 Delivery Device Inspired O2 (1-15=lpm [id number]=%) Sodium (136-145) mEq/L Potassium (3.5-5.1) mEq/L Chloride (98-107) mEq/L Carbon Dioxide (23-29) mEq/L BUN (6-20) mg/dL Creatinine (0.70-1.30) mg/dL Est GFR ( Amer) (> 60) Est GFR (Non-Af Amer) (> 60) BUN/Creatinine Ratio (6-26) Glucose (70-105) mg/dL Calculated Osmolality (280-300) Lactic Acid 1.3 (0.5-2.2) mmol/L Calcium (8.6-10.3) mg/dL Phosphorus (2.7-4.5) mg/dL Magnesium (1.6-2.6) mg/dL Total Bilirubin (0.3-1.0) mg/dL Direct Bilirubin (0.0-0.2) mg/dL Indirect Bilirubin (0.0-1.2) mg/dL AST (13-39) Units/L ALT (7-52) Units/L Alkaline Phosphatase (34-104) Units/L Troponin I (< 0.04) ng/mL B-Natriuretic Peptide 114 H (Less than 100) pg/mL Serum Total Protein (6.4-8.9) g/dL Albumin (3.5-5.7) g/dL Globulin (2.4-3.5) g/dL Albumin/Globulin Ratio (1.1-2.2) Urine Color Yellow (Yellow) Urine Clarity Clear (Clear) Urine pH 5.0 (5.0-8.0) pH Units Ur Specific [place] 1.022 (1.010-1.025) Urine Protein 30 H (Neg-Trace) mg/dL Urine Glucose (UA) 500 H (Normal) mg/dL Urine Ketones Negative (Negative) mg/dL Urine Blood Negative (Negative) Urine Nitrite Negative (Negative) Urine Bilirubin Negative (Negative) Urine Urobilinogen Normal (Normal) mg/dL Ur Leukocyte Esterase Negative (Negative) Urine Microscopic RBC 0-3 (0-3) per hpf Urine Microscopic WBC 0-3 (0-3) per hpf Ur Squamous Epith Cells Many H (None-Few) per lpf Urine Bacteria None Seen (None-Few) per hpf Hyaline Casts None Seen (None-Few) per lpf Ur Culture Indicated? NO (NO) 03/17/18 Range/Units 18:07 WBC (4.3-11.1) K/mcL RBC (4.19-5.50) M/mcL Hgb (12.9-16.9) g/dL Hct (37.5-50.1) % MCV (83.0-100.0) fL MCH (28.0-33.3) pg MCHC (31.6-35.5) g/dL RDW (11.5-14.5) % Plt Count (140-400) K/mcL MPV (9.4-12.4) fL Immature Gran % (0-4) % Seg Neutrophils % % Lymphocytes % % Monocytes % % Eosinophils % % Basophils % % Neutrophils # (1.6-8.9) K/mcL Lymphocytes # (0.6-4.6) K/mcL Monocytes # (0.0-1.3) K/mcL Eosinophils # (0.0-0.6) K/mcL Basophils # (0.0-0.2) K/mcL PT (9.4-12.1) Seconds INR APTT (26.0-36.0) Seconds ABG pH 7.25 L (7.32-7.45) pH Units ABG pCO2 113 H* (35-45) mmHg ABG pO2 65 L (85-104) mmHg ABG HCO3 50 H (21-27) mEq/L ABG Total CO2 53 H (20-26) mEq/L ABG O2 Saturation 86 L (95-98) % ABG Base Excess 18 H (-2 to 3) mEq/L Franki Test N/A O2 Delivery Device Venti Mask Inspired O2 98.0 (1-15=lpm [id number]=%) Sodium (136-145) mEq/L Potassium (3.5-5.1) mEq/L Chloride (98-107) mEq/L Carbon Dioxide (23-29) mEq/L BUN (6-20) mg/dL Creatinine (0.70-1.30) mg/dL Est GFR ( Amer) (> 60) Est GFR (Non-Af Amer) (> 60) BUN/Creatinine Ratio (6-26) Glucose (70-105) mg/dL Calculated Osmolality (280-300) Lactic Acid (0.5-2.2) mmol/L Calcium (8.6-10.3) mg/dL Phosphorus (2.7-4.5) mg/dL Magnesium (1.6-2.6) mg/dL Total Bilirubin (0.3-1.0) mg/dL Direct Bilirubin (0.0-0.2) mg/dL Indirect Bilirubin (0.0-1.2) mg/dL AST (13-39) Units/L ALT (7-52) Units/L Alkaline Phosphatase (34-104) Units/L Troponin I (< 0.04) ng/mL B-Natriuretic Peptide (Less than 100) pg/mL Serum Total Protein (6.4-8.9) g/dL Albumin (3.5-5.7) g/dL Globulin (2.4-3.5) g/dL Albumin/Globulin Ratio (1.1-2.2) Urine Color (Yellow) Urine Clarity (Clear) Urine pH (5.0-8.0) pH Units Ur Specific [place] (1.010-1.025) Urine Protein (Neg-Trace) mg/dL Urine Glucose (UA) (Normal) mg/dL Urine Ketones (Negative) mg/dL Urine Blood (Negative) Urine Nitrite (Negative) Urine Bilirubin (Negative) Urine Urobilinogen (Normal) mg/dL Ur Leukocyte Esterase (Negative) Urine Microscopic RBC (0-3) per hpf Urine Microscopic WBC (0-3) per hpf Ur Squamous Epith Cells (None-Few) per lpf Urine Bacteria (None-Few) per hpf Hyaline Casts (None-Few) per lpf Ur Culture Indicated? (NO)
[2018-03-17] MEDS ORDERED: 0.9 % Sodium Chloride 1,000 ML ONE (19:55)
[2018-03-17] MEDS ORDERED: Isovue-370 500 ML INFUS..BTL IV ONE (19:57)
[2018-03-17 21:14] LABS: ABG Base Excess 15 mEq/L (-2 to 3); ABG HCO3 47 mEq/L (21-27); ABG Oxygen Saturation 98 % (95-98); ABG PCO2 112 mmHg (35-45); ABG PH 7.23 pH Units (7.32-7.45); ABG PO2 145 mmHg (85-104); ABG TCO2 50 mEq/L (20-26); Blood Gas Modality VC; Blood Gas PEEP 5 cm H2O; Blood Gas Respiration Rate 16; Blood Gas VT 500 cc
[2018-03-17] MEDS ORDERED: Naloxone 0.4 MG/ML INJ IVP PRN (22:14)
[2018-03-17] MEDS ORDERED: D5% in Water 1,000 ML IVC PRN (22:16)
[2018-03-17] MEDS ORDERED: *HR* Dextrose 50 % in Water (Syg) 50 ML SYRINGE IVP PRN (22:16)
[2018-03-17] MEDS ORDERED: Dextrose Gel 15 GM/37.5 ML TUBE PO PRN ×2 (22:16)
--- NOTE | 2018-03-17 22:24 | Internal Med History&Physical ---
Date of Encounter: 03/17/18 Time of Encounter: 21:55 Internal Medicine - H&P: HPI Chief complaint: shortness of breath Admitted From: Home Plans for Post Hospital Care: Home History of present illness: Mr. Mccloud is a 57 year old male with PMH of COPD, s/p trach, vent dependent at night, PADMINI, OHS, DM who was brought to the ER by EMS for worsening respiratory distress. During my evaluation, pt was vent dependent and on sedation due to which history was obtained from the records. As per med records and nursing reports, pt's home O2 malfunctioned overnight which caused his respiratory distress and prompted his visit to the ER. Upon arrival to the ER, pt was hypoxic and was placed on 15L nonrebreather mask. Pt's hypoxia persisted due to which, pt was placed on ventilator support and started to propofol for sedation. Central IV access was placed by the ER physician. Further work up showed diffuse PNA. Past Med Surg Social Fam HX - Past Medical History Medical history: diabetes, myocardial infarction, asthma, other, CVA, TIA, COPD Psychiatric history: no psych history, anxiety, depression - Past Surgical History Surgical History: tracheostomy - Social History Smoking Status: Current every day smoker Smokeless Tobacco Status: No Alcohol use: none, occasionally Drug use: none - Family History Mother Living Status: Hx Family Cardiac Disorders: Yes Hx Family Respiratory Disorders: Yes Hx Family Cancer: No Hx Family Endocrine Disorder: No Internal Medicine - H&P: Meds Albuterol Sulfate [Ventolin Hfa] 2 puff IH Q4H PRN 03/17/18 [History] Atorvastatin [Lipitor] 40 mg PO HS 03/17/18 [History] Clopidogrel [Plavix] 75 mg PO DAILY 03/17/18 [History] Fenofibrate Nanocrystallized [Tricor] 145 mg PO DAILY 03/17/18 [History] Gabapentin [Neurontin] 300 mg PO TID 03/17/18 [History] Insulin Glargine,Hum.rec.anlog [Lantus Solostar] 25 unit SQ HS 03/17/18 [History ] Montelukast [Singulair] 10 mg PO DAILY 03/17/18 [History] Omeprazole [PriLOSEC] 20 mg PO DAILY 03/17/18 [History] Oxycodone HCl/Acetaminophen [Percocet 10-325 mg Tablet] 1 tab PO Q4-6H PRN 03/17 [History] RX: Fluticasone Propionate Nasal [Flonase] 1 spr NS DAILY 03/17/18 [History] Sitagliptin Phos/Metformin HCl [Janumet 50-1,000 mg Tablet] 1 tab PO BID [History] diazePAM [Valium] 5 mg PO BID 03/17/18 [History] diazePAM [Valium] 10 mg PO HS 03/17/18 [History] 3 Allergy/AdvReac Type Severity Reaction Status Date / Time azithromycin Allergy See Verified 01/23/17 01:18 Comments All Systems PM: A 10-system review of systems was performed and is negative for pertinent findings except as documented above in the HPI. - Constitutional Constitutional: as per HPI - Constitutional Vitals: Temp Pulse Resp BP Pulse Ox 98.3 F 110 16 153/85 95 03/17/18 21:17 03/17/18 21:17 03/17/18 21:17 03/17/18 21:17 03/17/18 21:17 General appearance: Present: A&O X 0 (sedated and ventilated ), no acute distress, obese - Head Head exam: Present: atraumatic, normocephalic - Neck Additional comments: s/p tracheostomy - Respiratory Respiratory exam: Absent: respiratory distress, wheezes (decreased breath sounds ) - Cardiovascular Cardiovascular exam: Present: +S1, +S2, tachycardia - GI/Abdominal GI/Abdominal exam: Present: normal bowel sounds, soft, no peritoneal signs. Absent: distended, tenderness - Extremities Exam Extremities exam: Present: warm, radial pulses palpable and symmetrical. Absent : calf tenderness, pedal edema, tenderness Internal Med - H&P Results - Labs CBC & Chem 7: 03/17/18 17:46 03/17/18 17:46 - ABG Interpretation ABG results: 03/17/18 21:04 ABG pH 7.23 L ABG pCO2 112 H* ABG pO2 145 H D ABG HCO3 47 H ABG Total CO2 50 H ABG O2 Saturation 98 ABG Base Excess 15 H - Assessment and plan (1) Acute on chronic respiratory failure with hypoxia and hypercapnia Current Visit: Yes Status: Acute Assessment and plan: Secondary to Diffuse PNA and COPD exacerbation continue vent support, IV sedation ICU care continue systemic steroids, bronchodilator support IV abx (vanc and Zosyn, pt has history of pseudomonas pna treated earlier this year) f/u blood and sputum cultures serial ABG, vent settings adjusted as per the previous ABG findings will continue to closely monitor respiratory status Repeat CT chest in three months for the new nodular findings on RLL. (2) COPD exacerbation Current Visit: No Status: Acute Assessment and plan: as listed above (3) Pneumonia Current Visit: No Status: Acute Assessment and plan: as listed above Qualifiers: Pneumonia type: due to unspecified organism Laterality: unspecified laterality Lung location: unspecified part of lung Qualified Code(s): J18.9 - Pneumonia, unspecified organism (4) Sepsis Current Visit: No Status: Acute Assessment and plan: secondary to PNA plan as listed above Qualifiers: Sepsis type: sepsis due to unspecified organism Qualified Code(s): A41.9 - Sepsis, unspecified organism (5) DMII (diabetes mellitus, type 2) Current Visit: No Status: Chronic Assessment and plan: Sliding scale insulin algorithm monitor FS and BG accuchecks q4h while NPO Qualifiers: Diabetes mellitus chcf insulin use: with cylinder filler use Diabetes mellitus complication status: without complication Qualified Code(s): E11.9 - Type 2 diabetes mellitus without complications; Z79.4 - machine taper (current) use of insulin; Z79.4 - machine taper (current) use of insulin; Z79.4 - machine taper ( current) use of insulin; Z79.4 - machine taper (current) use of insulin (6) Hypertension Current Visit: No Status: Chronic Assessment and plan: Reported history of hypertension, however pt noted to be not on any antihypertensive agents at home will closely monitor BP Hydralazine 10mg IV q6h prn SBP>160 Qualifiers: Hypertension type: essential hypertension Qualified Code(s): I10 - Essential (primary) hypertension (7) Tracheostomy status Current Visit: No Status: Chronic (8) Obesity (BMI 30-39.9) Current Visit: Yes Status: Chronic (9) DVT prophylaxis Current Visit: No Status: Acute Assessment and plan: heparin SQ - Time Spent With Patient Total time spent is greater than 50% in coordination of care (as documented) at patient's floor/unit and/or counseling patient: Greater than 35 minutes
[2018-03-17] MEDS: 0.9 % Sodium Chloride 1,000 ML IVC SCH (22:51)
[2018-03-17] MEDS: Ipratropium/Albuterol Neb 3 ML IH SCH (23:20)
[2018-03-18] MEDS: Insulin LISPRO 300 UNITS/3 ML VIAL SQ SCH ×7 (00:28→23:43)
[2018-03-18 01:26] LABS: ABG Base Excess 16 mEq/L (-2 to 3); ABG HCO3 41 mEq/L (21-27); ABG Oxygen Saturation 96 % (95-98); ABG PCO2 53 mmHg (35-45); ABG PO2 80 mmHg (85-104); ABG TCO2 42 mEq/L (20-26); Blood Gas Modality PRVC; Blood Gas PEEP 5 cm H2O; Blood Gas Respiration Rate 20; Blood Gas VT 550 cc
[2018-03-18] MEDS: Ipratropium/Albuterol Neb 3 ML IH SCH ×6 (03:16→23:04)
[2018-03-18 03:44] LABS: Basophils % 0.1 %; Hematocrit 27.1 % (37.5-50.1); Immature Granulocytes % 1.2 % (0-4); Lymphocytes # 0.8 K/mcL (0.6-4.6); Lymphocytes % 9.1 %; Mean Corpuscular HGB Conc 31.4 g/dL (31.6-35.5); Mean Corpuscular Hemoglobin 28.9 pg (28.0-33.3); Mean Corpuscular Volume 92.2 fL (83.0-100.0); Mean Platelet Volume 8.8 fL (9.4-12.4); Monocytes # 0.4 K/mcL (0.0-1.3); Monocytes % 4.8 %; Neutrophils # 7.3 K/mcL (1.6-8.9); Nucleated Red Blood Cells 0.2 /100 WBC (0); Platelet Count 321 K/mcL (140-400); Red Blood Count 2.94 M/mcL (4.19-5.50); Red Cell Distribution Width 13.3 % (11.5-14.5); Segmented Neutrophils % 84.8 %
[2018-03-18 03:55] LABS: Hemoglobin 8.5 g/dL (12.9-16.9)
[2018-03-18 04:10] LABS: BUN/Creatinine Ratio 24 (6-26); Blood Urea Nitrogen 16 mg/dL (6-20); Carbon Dioxide 40 mEq/L (23-29); Chloride 98 mEq/L (98-107); Glucose 159 mg/dL (70-105); Magnesium 1.6 mg/dL (1.6-2.6); Osmolality,Calculated 299 (280-300); Potassium 4.2 mEq/L (3.5-5.1); Sodium 142 mEq/L (136-145); eGFR For African Americans > 60 (> 60); eGFR For Non-African Americans > 60 (> 60)
[2018-03-18] MEDS: Piperacillin/Tazobactam 3.375 GM in 0.9 % Sodium Chloride Mini Bag 100 ML IVPB SCH ×3 (04:56→19:43)
[2018-03-18] MEDS: MethylPREDNISolone 40 MG/ML VIAL IVP SCH ×3 (04:57→21:34)
[2018-03-18] MEDS: *HR* Heparin 5,000 UNIT/ML VIAL SQ SCH ×3 (04:57→21:36)
--- NOTE | 2018-03-18 07:08 | Pulmonology Consult Note ---
<Jian Medina W - Last Filed: 03/18/18 10:47> Date of Encounter: 03/18/18 Medications and Allergies Albuterol Sulfate [Ventolin Hfa] 2 puff IH Q4H PRN 03/17/18 [History] Atorvastatin [Lipitor] 40 mg PO HS 03/17/18 [History] Clopidogrel [Plavix] 75 mg PO DAILY 03/17/18 [History] Fenofibrate Nanocrystallized [Tricor] 145 mg PO DAILY 03/17/18 [History] Fluticasone Propionate Nasal [Flonase] 1 spr NS DAILY 03/17/18 [History] Gabapentin [Neurontin] 300 mg PO TID 03/17/18 [History] Insulin Glargine,Hum.rec.anlog [Lantus Solostar] 25 unit SQ HS 03/17/18 [History ] Montelukast [Singulair] 10 mg PO DAILY 03/17/18 [History] Omeprazole [PriLOSEC] 20 mg PO DAILY 03/17/18 [History] Oxycodone HCl/Acetaminophen [Percocet 10-325 mg Tablet] 1 tab PO Q4-6H PRN 03/17 [History] Sitagliptin Phos/Metformin HCl [Janumet 50-1,000 mg Tablet] 1 tab PO BID [History] diazePAM [Valium] 5 mg PO BID 03/17/18 [History] diazePAM [Valium] 10 mg PO HS 03/17/18 [History] 3 Allergy/AdvReac Type Severity Reaction Status Date / Time azithromycin Allergy See Verified 01/23/17 01:18 Comments All Systems: The remainder of the systems were reviewed and are negative Physical Examination Vital Signs: Vital Signs, Last 4 Hours Temp Pulse Resp BP Pulse Ox 03/18/18 06:00 87 16 127/69 91 03/18/18 05:58 16 125/69 91 03/18/18 05:00 96 16 117/67 91 03/18/18 04:00 99.5 F 101 16 108/91 93 Ventilator Settings Ventilator Settings: Ventilator Settings, Last 8 Hours Ventilator Mode VC+ Ventilator Mode VC+ Ventilator Mode VC+ Ventilator Mode VC+ Ventilator Mode VC+ Ventilator Mode VC+ Ventilator Mode VC+ Ventilator Mode VC+ Ventilator Tidal Volume 500 Setting Ventilator Tidal Volume 500 Setting Ventilator Tidal Volume 500 Setting Ventilator Tidal Volume 500 Setting Ventilator Tidal Volume 550 Setting Ventilator Tidal Volume 500 Setting Ventilator Tidal Volume 500 Setting Ventilator Tidal Volume 550 Setting Ventilator Tidal Volume 550 Setting Ventilator Tidal Volume 500 Setting Ventilator Tidal Volume 500 Setting Ventilator Tidal Volume 550 Setting Ventilator Respiratory Rate 16 Setting Ventilator Respiratory Rate 16 Setting Ventilator Respiratory Rate 16 Setting Ventilator Respiratory Rate 16 Setting Ventilator Respiratory Rate 16 Setting Ventilator Respiratory Rate 16 Setting Ventilator Respiratory Rate 16 Setting Ventilator Respiratory Rate 16 Setting Ventilator Respiratory Rate 20 Setting Ventilator Respiratory Rate 20 Setting Ventilator Respiratory Rate 20 Setting Ventilator Respiratory Rate 20 Setting Actual Respiratory Rate 16 Actual Respiratory Rate 16 Actual Respiratory Rate 16 Actual Respiratory Rate 16 Actual Respiratory Rate 16 Actual Respiratory Rate 16 Actual Respiratory Rate 16 Actual Respiratory Rate 16 Actual Respiratory Rate 20 Actual Respiratory Rate 20 Actual Respiratory Rate 20 Positive End Expiratory 5 Pressure Positive End Expiratory 5 Pressure Positive End Expiratory 5 Pressure Positive End Expiratory 5 Pressure Positive End Expiratory 5 Pressure Positive End Expiratory 5 Pressure Positive End Expiratory 5 Pressure Positive End Expiratory 5 Pressure Positive End Expiratory 5 Pressure Positive End Expiratory 5 Pressure Positive End Expiratory 5 Pressure Positive End Expiratory 5 Pressure Peak Inspiratory Airway 43 Pressure Peak Inspiratory Airway 43 Pressure Peak Inspiratory Airway 42 Pressure Peak Inspiratory Airway 43 Pressure Peak Inspiratory Airway 41 Pressure Peak Inspiratory Airway 41 Pressure Peak Inspiratory Airway 43 Pressure Peak Inspiratory Airway 37 Pressure Peak Inspiratory Airway 41 Pressure Peak Inspiratory Airway 43 Pressure Peak Inspiratory Airway 45 Pressure Results - Laboratory Findings CBC and BMP: 03/18/18 03:30 03/18/18 03:30 ABG ABG pH 7.50 pH Units (7.32-7.45) H D 03/18/18 01:22 ABG pCO2 53 mmHg (35-45) H D 03/18/18 01:22 ABG pO2 80 mmHg (85-104) L D 03/18/18 01:22 ABG O2 Saturation 96 % (95-98) 03/18/18 01:22 PT/INR, D-dimer PT 12.7 Seconds (9.4-12.1) H 03/17/18 17:46 Abnormal lab findings: Abnormal lab results RBC 2.94 M/mcL (4.19-5.50) L 03/18/18 03:30 Hgb 8.5 g/dL (12.9-16.9) L D 03/18/18 03:30 Hct 27.1 % (37.5-50.1) L 03/18/18 03:30 MCHC 31.4 g/dL (31.6-35.5) L 03/18/18 03:30 MPV 8.8 fL (9.4-12.4) L 03/18/18 03:30 Nucleated RBCs/100 WBC 0.2 /100 WBC (0) H 03/18/18 03:30 PT 12.7 Seconds (9.4-12.1) H 03/17/18 17:46 ABG pH 7.50 pH Units (7.32-7.45) H D 03/18/18 01:22 ABG pCO2 53 mmHg (35-45) H D 03/18/18 01:22 ABG pO2 80 mmHg (85-104) L D 03/18/18 01:22 ABG HCO3 41 mEq/L (21-27) H 03/18/18 01:22 ABG Total CO2 42 mEq/L (20-26) H 03/18/18 01:22 ABG Base Excess 16 mEq/L (-2 to 3) H 03/18/18 01:22 Carbon Dioxide 40 mEq/L (23-29) H* 03/18/18 03:30 Creatinine 0.67 mg/dL (0.70-1.30) L 03/18/18 03:30 Glucose 159 mg/dL (70-105) H 03/18/18 03:30 POC Glucose 170 mg/dL (70-99) H 03/18/18 00:06 Phosphorus 1.0 mg/dL (2.7-4.5) L* 03/18/18 03:30 AST 12 Units/L (13-39) L 03/17/18 17:46 B-Natriuretic Peptide 114 pg/mL (Less than 100) H 03/17/18 17:46 Urine Protein 30 mg/dL (Neg-Trace) H 03/17/18 17:51 Urine Glucose (UA) 500 mg/dL (Normal) H 03/17/18 17:51 Ur Squamous Epith Cells Many per lpf (None-Few) H 03/17/18 17:51 - Clinical Findings Intake & Output: Intake & Output 03/17/18 03/17/18 03/18/18 15:59 23:59 07:59 Intake Total 50 / 1150 100 / 100 Output Total 700 / 700 500 / 500 Balance -650 / 450 -400 / -400 Weight 92 kg Consult Discharge Plan - Plan Referrals: Garcia,Duong, MD [Primary Care Provider] - - Attending Attestation I examined this patient and my medical decision-making was reviewed with the Resident Physician. I agree with the documented findings, disposition and treatment plan as described except to the extent set forth below. We independently had [id number] contact with the patient Patient seen and examined at bedside Labs, radiology, chart personally reviewed. Management was reviewed during multidisciplinary critical care rounds. RD SCIENTIST: Off sedation patient able to follow all commands without neurological deficit. He is sedated now for vent comfort will transition from propofol to Precedex for goal Anderson 2-3 Pulm: Patient has a history of chronic trach but is not vent dependent he presents with Acute hypoxic hypercapnic respiratory failure acceptable oxygenation and ventilation (infact overventilation after vent adjustments overnight) I have readjusted vent to decrease minute ventilation. Likely can be transitioned to trach collar later in the day. Appears to have acute pneumonia with a history of COPD and is on steroids and bronchodilators along with antibiotics for the. He has tree-in-bud opacities bilaterally which likely represent acute infectious process however cannot rule out more atypical infections such as NTM if no resolution radiographically after treatment of antibiotics within 4-6 weeks could consider bronchoscopy. Cards: Hemodynamically stable FEN-GI: Nothing by mouth for now GI prophylaxis given Renal: Urine output monitored continue to monitor serum creatinine and electrolytes ID: Sepsis secondary to pneumonia he is on broad-spectrum antibiotics with planned to de-escalate Heme/Onc: DVT prophylaxis given Endo: Glucose Monitored Integ/MSK: Skin Care per routine ICU Nursing Protocol to prevent ulcers. Lines: All lines examined without evidence of infection : Dispo: Remain in ICU for vent management CODE: Full <Marj Valles - Last Filed: 03/18/18 16:41> Date of Encounter: 03/18/18 Time of Encounter: 07:08 Assessment and Plan (1) Sepsis Current Visit: No Status: Acute Septic at admission, SIRS 2: tachycardic, WBC 14. Secondary to pneumonia per imaging Chest CT and chest x-ray demonstrating pneumonia. Chest CTA also showing new 11 mm nodule and right lower lobe afebrile, WBC 8.6, lactic acid 1.3 sputum culture- GPR legionella and strep pneumonia- negative course breath sounds bilaterally Plan -continue vancomycin day 2 -continue Zosyn day 2 -start Levaquin day 2 -continue Solu-Medrol day 2 -blood cultures pending -central line removed due to he is hemodynamically stable and pressors stopped -plan to de-escalate antibiotics upon results of blood culture and clinical course Qualifiers: Sepsis type: sepsis due to unspecified organism Qualified Code(s): A41.9 - Sepsis, unspecified organism (2) Acute on chronic respiratory failure with hypoxia and hypercapnia Current Visit: No Status: Resolved Patient presented with acute on chronic respiratory failure with hypoxia and hypercapnia. He presented to ED due to malfunctioning of his home oxygen machine. He also reports increased shortness of breath and cough recently. Required mechanical ventilation connected to his trach initial ABG pH 7.23, CO2 112, HCO3 47 -demonstrated acute on chronic respiratory acidosis with metabolic compensation repeat ABG pH 7.5, CO2 53, HCO3 41 -improved -weaned off vent to trach collar (3) Pneumonia Current Visit: No Status: Acute Chest CT and chest x-ray demonstrating pneumonia. 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 History of trach requiring oxygen at home at bedtime (6) DMII (diabetes mellitus, type 2) Current Visit: No Status: Chronic history of diabetes taking insulin at home glucose controlled -continue low dose sliding scale insulin -accu checks Qualifiers: Diabetes mellitus care home insulin use: with medical terminologist use Diabetes mellitus complication status: without complication Qualified Code(s): E11.9 - Type 2 diabetes mellitus without complications; Z79.4 - skilled nursing (current) use of insulin (7) CAD (coronary artery disease) Current Visit: No Status: Chronic History of known CAD taking Plavix, TriCor, Lipitor -continue home medications Qualifiers: Coronary Disease-Associated Artery/Lesion type: [place] artery [place] vs. transplanted heart: [place] heart Associated angina: without angina Qualified Code(s): I25.10 - Atherosclerotic heart disease of [place] coronary artery without angina pectoris (8) DVT prophylaxis Current Visit: No Status: Acute heparin sq History of Present Illness Consult date: 03/18/18 Requesting physician: Jane Gordon Reason for consult: other (Acute on chronic respiratory failure) Chief complaint: Shortness of breath History of present illness: 57-year-old male with past medical history of COPD, s/p trach, diabetes, [place], CVA presented to by EMS [facility] complaining of respiratory distress. At the time of my examination the patient was the ventilator and unable to speak well so majority of history was taken per medical records. Reportedly the patient had been brought in to the ED by EMS due to his home oxygen malfunctioning which he uses at nighttime. Upon his arrival to the ED he was hypoxic and placed on high flow oxygen mask which he still desaturated and required ventilator support. A right femoral central line was placed in the ED and further imaging demonstrated pneumonia. He was then transferred to the ICU and started on IV Zosyn and vancomycin. He was also given one dose of Levaquin in ED. In the ICU he was placed on propofol. Blood culture, sputum culture were collected. Initial ABG demonstrated acute on chronic respiratory acidosis with metabolic compensation. Past Med Surg Social Fam HX - Past Medical History Medical history: diabetes, myocardial infarction, asthma, other, CVA, TIA, COPD Psychiatric history: no psych history, anxiety, depression - Past Surgical History Surgical History: tracheostomy - Social History Smoking Status: Current every day smoker Smokeless Tobacco Status: No Alcohol use: none, occasionally Drug use: none - Family History Mother Living Status: Hx Family Cardiac Disorders: Yes Hx Family Respiratory Disorders: Yes Hx Family Cancer: No Hx Family Endocrine Disorder: No All Systems: The remainder of the systems were reviewed and are negative - Constitutional Constitutional: no chills, no fever(s) - EENT Nose, mouth and throat: no headache(s) - Cardiovascular Cardiovascular: no chest pain - Respiratory Respiratory: cough, dyspnea - Gastrointestinal Gastrointestinal: no abdominal pain, no diarrhea, no nausea, no vomiting - Neurological Neurological: no frequent falls Physical Examination Vital Signs: Vital Signs, Last 4 Hours Temp Pulse Resp BP Pulse Ox 03/18/18 06:00 87 16 127/69 91 03/18/18 05:58 16 125/69 91 03/18/18 05:00 96 16 117/67 91 03/18/18 04:00 99.5 F 101 16 108/91 93 03/18/18 03:16 16 117/68 94 General appearance: no acute distress Eyes: nonicteric ENT: oropharynx moist Neck: supple Effort: normal Inspection: normal Auscultation: bilateral: wheezes, rales Cardiovascular: regular rate and rhythm Gastrointestinal: normoactive bowel sounds, soft, non-tender Integumentary: normal Extremities: no cyanosis, no edema Musculoskeletal: no deformities normal mental status, non-focal exam mood appropriate, affect normal Ventilator Settings Ventilator Settings: Ventilator Settings, Last 8 Hours Ventilator Mode VC+ Ventilator Mode VC+ Ventilator Mode VC+ Ventilator Mode VC+ Ventilator Mode VC+ Ventilator Mode VC+ Ventilator Mode VC+ Ventilator Mode VC+ Ventilator Tidal Volume 500 Setting Ventilator Tidal Volume 500 Setting Ventilator Tidal Volume 500 Setting Ventilator Tidal Volume 500 Setting Ventilator Tidal Volume 550 Setting Ventilator Tidal Volume 500 Setting Ventilator Tidal Volume 500 Setting Ventilator Tidal Volume 550 Setting Ventilator Tidal Volume 550 Setting Ventilator Tidal Volume 500 Setting Ventilator Tidal Volume 500 Setting Ventilator Tidal Volume 550 Setting Ventilator Respiratory Rate 16 Setting Ventilator Respiratory Rate 16 Setting Ventilator Respiratory Rate 16 Setting Ventilator Respiratory Rate 16 Setting Ventilator Respiratory Rate 16 Setting Ventilator Respiratory Rate 16 Setting Ventilator Respiratory Rate 16 Setting Ventilator Respiratory Rate 16 Setting Ventilator Respiratory Rate 20 Setting Ventilator Respiratory Rate 20 Setting Ventilator Respiratory Rate 20 Setting Ventilator Respiratory Rate 20 Setting Actual Respiratory Rate 16 Actual Respiratory Rate 16 Actual Respiratory Rate 16 Actual Respiratory Rate 16 Actual Respiratory Rate 16 Actual Respiratory Rate 16 Actual Respiratory Rate 16 Actual Respiratory Rate 16 Actual Respiratory Rate 20 Actual Respiratory Rate 20 Actual Respiratory Rate 20 Positive End Expiratory 5 Pressure Positive End Expiratory 5 Pressure Positive End Expiratory 5 Pressure Positive End Expiratory 5 Pressure Positive End Expiratory 5 Pressure Positive End Expiratory 5 Pressure Positive End Expiratory 5 Pressure Positive End Expiratory 5 Pressure Positive End Expiratory 5 Pressure Positive End Expiratory 5 Pressure Positive End Expiratory 5 Pressure Positive End Expiratory 5 Pressure Peak Inspiratory Airway 43 Pressure Peak Inspiratory Airway 43 Pressure Peak Inspiratory Airway 42 Pressure Peak Inspiratory Airway 43 Pressure Peak Inspiratory Airway 41 Pressure Peak Inspiratory Airway 41 Pressure Peak Inspiratory Airway 43 Pressure Peak Inspiratory Airway 37 Pressure Peak Inspiratory Airway 41 Pressure Peak Inspiratory Airway 43 Pressure Peak Inspiratory Airway 45 Pressure Results - Laboratory Findings CBC and BMP: 03/18/18 03:30 03/18/18 03:30 ABG ABG pH 7.50 pH Units (7.32-7.45) H D 03/18/18 01:22 ABG pCO2 53 mmHg (35-45) H D 03/18/18 01:22 ABG pO2 80 mmHg (85-104) L D 03/18/18 01:22 ABG O2 Saturation 96 % (95-98) 03/18/18 01:22 PT/INR, D-dimer PT 12.7 Seconds (9.4-12.1) H 03/17/18 17:46 Abnormal lab findings: Abnormal lab results RBC 2.94 M/mcL (4.19-5.50) L 03/18/18 03:30 Hgb 8.5 g/dL (12.9-16.9) L D 03/18/18 03:30 Hct 27.1 % (37.5-50.1) L 03/18/18 03:30 MCHC 31.4 g/dL (31.6-35.5) L 03/18/18 03:30 MPV 8.8 fL (9.4-12.4) L 03/18/18 03:30 Nucleated RBCs/100 WBC 0.2 /100 WBC (0) H 03/18/18 03:30 PT 12.7 Seconds (9.4-12.1) H 03/17/18 17:46 ABG pH 7.50 pH Units (7.32-7.45) H D 03/18/18 01:22 ABG pCO2 53 mmHg (35-45) H D 03/18/18 01:22 ABG pO2 80 mmHg (85-104) L D 03/18/18 01:22 ABG HCO3 41 mEq/L (21-27) H 03/18/18 01:22 ABG Total CO2 42 mEq/L (20-26) H 03/18/18 01:22 ABG Base Excess 16 mEq/L (-2 to 3) H 03/18/18 01:22 Carbon Dioxide 40 mEq/L (23-29) H* 03/18/18 03:30 Creatinine 0.67 mg/dL (0.70-1.30) L 03/18/18 03:30 Glucose 159 mg/dL (70-105) H 03/18/18 03:30 POC Glucose 170 mg/dL (70-99) H 03/18/18 00:06 Phosphorus 1.0 mg/dL (2.7-4.5) L* 03/18/18 03:30 AST 12 Units/L (13-39) L 03/17/18 17:46 B-Natriuretic Peptide 114 pg/mL (Less than 100) H 03/17/18 17:46 Urine Protein 30 mg/dL (Neg-Trace) H 03/17/18 17:51 Urine Glucose (UA) 500 mg/dL (Normal) H 03/17/18 17:51 Ur Squamous Epith Cells Many per lpf (None-Few) H 03/17/18 17:51 - Clinical Findings Intake & Output: Intake & Output 03/17/18 03/17/18 03/18/18 15:59 23:59 07:59 Intake Total 50 / 1150 100 / 100 Output Total 700 / 700 500 / 500 Balance -650 / 450 -400 / -400 Weight 92 kg
[2018-03-18] MEDS ORDERED: Lacri-Lube 3.5 GM TUBE BOTH EYES PRN (10:57)
[2018-03-18] MEDS ORDERED: Pantoprazole 40 MG VIAL IVP SCH (11:00)
[2018-03-18] MEDS ORDERED: Levofloxacin 750 MG/150 ML 750 MG/150 ML BAG IVPB SCH (11:00)
[2018-03-18] MEDS: 0.9 % Sodium Chloride 1,000 ML IVC SCH (11:51)
[2018-03-18] MEDS ORDERED: Lacri-Lube 3.5 GM TUBE BOTH EYES SCH (12:00)
--- NOTE | 2018-03-18 14:27 | Event Note ---
Date of Encounter: 03/18/18 Time of Encounter: 14:27 Patient clinically has improved markedly since admission. He has been weaned off the vent to trach collar tolerating well hemodynamically stable no further ICU need we will transfer to stepdown unit for ongoing care report called to the admitting hospitalist Dr. Moy
[2018-03-18] MEDS ORDERED: D5% in Water 1,000 ML IVC PRN (14:35)
[2018-03-18] MEDS ORDERED: Dextrose Gel 15 GM/37.5 ML TUBE PO PRN ×2 (14:35)
[2018-03-18] MEDS ORDERED: 0.9 % Sodium Chloride 1,000 ML IVC SCH (14:35)
[2018-03-18] MEDS ORDERED: *HR* Dextrose 50 % in Water (Syg) 50 ML SYRINGE IVP PRN (14:35)
[2018-03-18] MEDS ORDERED: Naloxone 0.4 MG/ML INJ IVP PRN (14:35)
[2018-03-18] MEDS ORDERED: Chlorhexidine Rinse 15 ML MOUTHWASH MM SCH (21:00)
[2018-03-18 21:12] LABS: Magnesium 2.2 mg/dL (1.6-2.6); Phosphorous 3.4 mg/dL (2.7-4.5)
--- NOTE | 2018-03-18 23:25 | Electrocardiograph Report ---
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
--- NOTE | 2018-03-18 23:26 | Electrocardiograph Report ---
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
[2018-03-19] MEDS: Ipratropium/Albuterol Neb 3 ML IH SCH ×6 (03:30→23:34)
[2018-03-19] MEDS: Piperacillin/Tazobactam 3.375 GM in 0.9 % Sodium Chloride Mini Bag 100 ML IVPB SCH ×3 (04:25→20:25)
[2018-03-19] MEDS: Insulin LISPRO 300 UNITS/3 ML VIAL SQ SCH ×5 (04:30→20:24)
[2018-03-19 05:00] LABS: Basophils % 0.1 %; Hematocrit 28.9 % (37.5-50.1); Hemoglobin 8.7 g/dL (12.9-16.9); Immature Granulocytes % 0.9 % (0-4); Lymphocytes # 0.8 K/mcL (0.6-4.6); Lymphocytes % 8.8 %; Mean Corpuscular HGB Conc 30.1 g/dL (31.6-35.5); Mean Corpuscular Hemoglobin 27.3 pg (28.0-33.3); Mean Corpuscular Volume 90.6 fL (83.0-100.0); Mean Platelet Volume 8.7 fL (9.4-12.4); Monocytes # 0.4 K/mcL (0.0-1.3); Neutrophils # 7.6 K/mcL (1.6-8.9); Platelet Count 424 K/mcL (140-400); Red Blood Count 3.19 M/mcL (4.19-5.50); Red Cell Distribution Width 13.3 % (11.5-14.5); Segmented Neutrophils % 85.2 %
[2018-03-19 05:22] LABS: Magnesium 2.2 mg/dL (1.6-2.6); Phosphorous 3.3 mg/dL (2.7-4.5)
[2018-03-19 05:30] LABS: BUN/Creatinine Ratio 30 (6-26); Blood Urea Nitrogen 18 mg/dL (6-20); Calcium 8.6 mg/dL (8.6-10.3); Carbon Dioxide 40 mEq/L (23-29); Chloride 100 mEq/L (98-107); Glucose 182 mg/dL (70-105); Osmolality,Calculated 303 (280-300); Potassium 4.4 mEq/L (3.5-5.1); Sodium 143 mEq/L (136-145); eGFR For African Americans > 60 (> 60); eGFR For Non-African Americans > 60 (> 60)
[2018-03-19] MEDS: MethylPREDNISolone 40 MG/ML VIAL IVP SCH ×3 (05:58→20:25)
[2018-03-19] MEDS: *HR* Heparin 5,000 UNIT/ML VIAL SQ SCH ×3 (05:58→20:25)
[2018-03-19] MEDS: Levofloxacin 750 MG/150 ML 750 MG/150 ML BAG IVPB SCH (08:09)
[2018-03-19] MEDS: Pantoprazole 40 MG VIAL IVP SCH (08:28)
--- NOTE | 2018-03-19 11:36 | Internal Med Progress Note ---
Date of Encounter: 03/19/18 Time of Encounter: 10:45 - Assessment and plan (1) Pneumonia Current Visit: No Status: Acute Assessment and plan: Growing gram negative rods in preliminary cs. CT chest shows multilobar patchy nodules/ infiltrates and tree in bud opacities. WBC improving. Plan: Continue Vancomycin/ Zosyn. Deescalate based on ID of resp cs. Follow up imaging in 6 weeks. Qualifiers: Pneumonia type: due to unspecified organism Laterality: unspecified laterality Lung location: unspecified part of lung Qualified Code(s): J18.9 - Pneumonia, unspecified organism (2) Acute on chronic respiratory failure with hypoxia and hypercapnia Current Visit: Yes Status: Acute Assessment and plan: Weaned from ventilator to TC. Stable for floor transfer. (3) COPD exacerbation Current Visit: No Status: Acute Assessment and plan: Maintain steroids and bronchodilators. (4) Sepsis Current Visit: No Status: Acute Qualifiers: Sepsis type: sepsis due to unspecified organism Qualified Code(s): A41.9 - Sepsis, unspecified organism (5) Tracheostomy status Current Visit: No Status: Chronic (6) DMII (diabetes mellitus, type 2) Current Visit: No Status: Chronic Assessment and plan: Sliding scale insulin algorithm monitor FS and BG accuchecks q4h while NPO Qualifiers: Diabetes mellitus filler leaf cutter long insulin use: with correction use Diabetes mellitus complication status: without complication Qualified Code(s): E11.9 - Type 2 diabetes mellitus without complications; Z79.4 - alf (current) use of insulin (7) Hypertension Current Visit: No Status: Chronic Assessment and plan: Reported history of hypertension, however pt noted to be not on any antihypertensive agents at home will closely monitor BP Hydralazine 10mg IV q6h prn SBP>160 Qualifiers: Hypertension type: essential hypertension Qualified Code(s): I10 - Essential (primary) hypertension (8) Obesity (BMI 30-39.9) Current Visit: Yes Status: Chronic (9) DVT prophylaxis Current Visit: No Status: Acute - Time Spent With Patient Total time spent is greater than 50% in coordination of care (as documented) at patient's floor/unit and/or counseling patient: 25 - 35 minutes - Subjective Interval history: Patient reports back pain. Expressing desire to eat. - Constitutional Vitals: Temp Pulse Resp BP Pulse Ox 98.3 F 75 20 153/112 95 03/19/18 11:23 03/19/18 10:00 03/19/18 11:09 03/19/18 10:00 03/19/18 11:09 General appearance: Present: no acute distress, obese - Head Head exam: Present: atraumatic - ENT ENT exam: Present: mucous membranes moist - Neck Neck exam general surgery: Present: full ROM - Respiratory Respiratory exam: Present: prolonged expiratory phase, rhonchi - Cardiovascular Additional comments: Normal S1 S2. No m/r/g. - GI/Abdominal GI/Abdominal exam: Present: normal bowel sounds, soft, no peritoneal signs - Additional comments: Her + - Neurological Exam Neurological exam: Present: alert, oriented X3 Internal Medicine: Result - Labs CBC & Chem 7: 03/19/18 04:42 03/19/18 04:42 Labs: Short CBC 03/19/18 Range/Units 04:42 WBC 8.9 (4.3-11.1) K/mcL Hgb 8.7 L (12.9-16.9) g/dL Hct 28.9 L (37.5-50.1) % Plt Count 424 H (140-400) K/mcL Neutrophils # 7.6 (1.6-8.9) K/mcL BMP 03/19/18 04:42 Sodium 143 Potassium 4.4 Chloride 100 Carbon Dioxide 40 H* BUN 18 Creatinine 0.60 L Glucose 182 H Calcium 8.6 - ABG Interpretation ABG results: ABG ABG pH 7.50 pH Units (7.32-7.45) H D 03/18/18 01:22 ABG pCO2 53 mmHg (35-45) H D 03/18/18 01:22 ABG pO2 80 mmHg (85-104) L D 03/18/18 01:22 ABG O2 Saturation 96 % (95-98) 03/18/18 01:22 PT/INR, D-dimer PT 12.7 Seconds (9.4-12.1) H 03/17/18 17:46 Consult Discharge Plan - Plan Referrals: Ad Garcia MD [Primary Care Provider] -
[2018-03-19] MEDS: *HR* OxyCODONE/APAP 10/325 TABLET PO PRN (21:13)
[2018-03-20] MEDS: Insulin LISPRO 300 UNITS/3 ML VIAL SQ SCH ×7 (00:22→23:57)
[2018-03-20] MEDS: Ipratropium/Albuterol Neb 3 ML IH SCH ×5 (04:19→19:42)
[2018-03-20] MEDS: *HR* Heparin 5,000 UNIT/ML VIAL SQ SCH ×3 (05:21→22:18)
[2018-03-20] MEDS: Piperacillin/Tazobactam 3.375 GM in 0.9 % Sodium Chloride Mini Bag 100 ML IVPB SCH ×3 (05:21→20:00)
[2018-03-20] MEDS: MethylPREDNISolone 40 MG/ML VIAL IVP SCH ×3 (05:21→22:18)
[2018-03-20 06:41] LABS: VBG Ionized Calcium 1.16 mmol/L (1.15-1.35)
[2018-03-20 06:58] LABS: BUN/Creatinine Ratio 24 (6-26); Blood Urea Nitrogen 20 mg/dL (6-20); Calcium 8.9 mg/dL (8.6-10.3); Carbon Dioxide 39 mEq/L (23-29); Chloride 99 mEq/L (98-107); Glucose 238 mg/dL (70-105); Magnesium 2.1 mg/dL (1.6-2.6); Osmolality,Calculated 300 (280-300); Potassium 4.4 mEq/L (3.5-5.1); Sodium 140 mEq/L (136-145); eGFR For African Americans > 60 (> 60); eGFR For Non-African Americans > 60 (> 60)
[2018-03-20] MEDS: Pantoprazole 40 MG VIAL IVP SCH (08:24)
[2018-03-20] MEDS: Levofloxacin 750 MG/150 ML 750 MG/150 ML BAG IVPB SCH (08:24)
[2018-03-20] MEDS: *HR* OxyCODONE/APAP 10/325 TABLET PO PRN ×3 (08:27→22:18)
--- NOTE | 2018-03-20 10:50 | Internal Med Progress Note ---
Date of Encounter: 03/20/18 Time of Encounter: 10:45 - Assessment and plan (1) Pneumonia Current Visit: No Status: Acute Assessment and plan: Growing gram negative rods in preliminary cs. CT chest shows multilobar patchy nodules/ infiltrates and tree in bud opacities. WBC improving. Plan: Stop Vancomycin/ Levaquin. Continue Zosyn. Deescalate based on ID of resp cs. Follow up imaging in 6 weeks. Qualifiers: Pneumonia type: due to unspecified organism Laterality: unspecified laterality Lung location: unspecified part of lung Qualified Code(s): J18.9 - Pneumonia, unspecified organism (2) Acute on chronic respiratory failure with hypoxia and hypercapnia Current Visit: Yes Status: Acute Assessment and plan: Weaned from ventilator to TC. Stable for floor transfer. (3) COPD exacerbation Current Visit: No Status: Acute Assessment and plan: Maintain steroids and bronchodilators. 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 use Diabetes mellitus complication status: without complication Qualified Code(s): E11.9 - Type 2 diabetes mellitus without complications; 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 (7) Hypertension Current Visit: No Status: Chronic Assessment and plan: Reported history of hypertension, however pt noted to be not on any antihypertensive agents at home will closely monitor BP Hydralazine 10mg IV q6h prn SBP>160 Qualifiers: Hypertension type: essential hypertension Qualified Code(s): I10 - Essential (primary) hypertension (8) Obesity (BMI 30-39.9) Current Visit: Yes Status: Chronic (9) DVT prophylaxis Current Visit: No Status: Acute Assessment and plan: heparin SQ - Time Spent With Patient Total time spent is greater than 50% in coordination of care (as documented) at patient's floor/unit and/or counseling patient: 25 - 35 minutes - Subjective Interval history: Patient reports back pain. Expressing desire to eat. - Constitutional Vitals: Temp Pulse Resp BP Pulse Ox 98.2 F 66 18 127/72 91 03/20/18 07:00 03/20/18 10:23 03/20/18 10:23 03/20/18 07:00 03/20/18 08:46 General appearance: Present: no acute distress, obese Exam: Physical exam Gen: Comfortable, laying in bed, in no visible distress HEENT: Normocephalic, atraumatic. No conjunctival icterus. Moist oral mucosa. Neck: Supple. Tracheostomy. Lungs: Bibasilar crackles Heart: Normal S1-S2, no murmurs rubs or gallops Abdomen: Normoactive bowel sounds, no guarding rigidity or tenderness Extremities: No edema clubbing or cyanosis Neuro: Alert oriented 3, no focal deficits Skin: No skin lesions Internal Medicine: Result - Labs CBC & Chem 7: 03/19/18 04:42 03/20/18 06:28 Labs: BMP 03/20/18 06:28 Sodium 140 Potassium 4.4 Chloride 99 Carbon Dioxide 39 H BUN 20 Creatinine 0.82 Glucose 238 H Calcium 8.9 - ABG Interpretation ABG results: ABG ABG pH 7.50 pH Units (7.32-7.45) H D 03/18/18 01:22 ABG pCO2 53 mmHg (35-45) H D 03/18/18 01:22 ABG pO2 80 mmHg (85-104) L D 03/18/18 01:22 ABG O2 Saturation 96 % (95-98) 03/18/18 01:22 PT/INR, D-dimer PT 12.7 Seconds (9.4-12.1) H 03/17/18 17:46 Consult Discharge Plan - Plan Referrals: Ad Garcia MD [Primary Care Provider] -
[2018-03-20] MEDS: Gabapentin 300 MG CAPSULE PO SCH ×2 (13:26→20:00)
[2018-03-20] MEDS ORDERED: Aminoglycoside Consult 1 EACH MC ONE (14:16)
[2018-03-20] MEDS ORDERED: Insulin DETEMIR 100 UNIT/ML X5UNITS SQ SCH (21:00)
[2018-03-21] MEDS: Ipratropium/Albuterol Neb 3 ML IH SCH ×6 (03:22→20:53)
[2018-03-21 04:43] LABS: VBG Ionized Calcium 1.08 mmol/L (1.15-1.35)
[2018-03-21 04:53] LABS: Basophils % 0.3 %; Hematocrit 31.1 % (37.5-50.1); Hemoglobin 10.1 g/dL (12.9-16.9); Immature Granulocytes % 4.7 % (0-4); Lymphocytes # 1.4 K/mcL (0.6-4.6); Lymphocytes % 12.7 %; Mean Corpuscular HGB Conc 32.5 g/dL (31.6-35.5); Mean Corpuscular Hemoglobin 28.7 pg (28.0-33.3); Mean Corpuscular Volume 88.4 fL (83.0-100.0); Mean Platelet Volume 8.9 fL (9.4-12.4); Monocytes # 0.5 K/mcL (0.0-1.3); Monocytes % 4.4 %; Neutrophils # 8.6 K/mcL (1.6-8.9); Nucleated Red Blood Cells 0.2 /100 WBC (0); Platelet Count 506 K/mcL (140-400); Red Blood Count 3.52 M/mcL (4.19-5.50); Red Cell Distribution Width 13.3 % (11.5-14.5); Segmented Neutrophils % 77.9 %
[2018-03-21 05:00] LABS: Magnesium 1.9 mg/dL (1.6-2.6); Phosphorous 2.9 mg/dL (2.7-4.5)
[2018-03-21 05:01] LABS: BUN/Creatinine Ratio 21 (6-26); Blood Urea Nitrogen 18 mg/dL (6-20); Calcium 9.4 mg/dL (8.6-10.3); Carbon Dioxide 34 mEq/L (23-29); Chloride 97 mEq/L (98-107); Glucose 256 mg/dL (70-105); Osmolality,Calculated 295 (280-300); Potassium 4.9 mEq/L (3.5-5.1); Sodium 137 mEq/L (136-145); eGFR For African Americans > 60 (> 60); eGFR For Non-African Americans > 60 (> 60)
[2018-03-21] MEDS: Insulin LISPRO 300 UNITS/3 ML VIAL SQ SCH ×5 (06:17→21:19)
[2018-03-21] MEDS: MethylPREDNISolone 40 MG/ML VIAL IVP SCH ×2 (06:17→16:47)
[2018-03-21] MEDS: Piperacillin/Tazobactam 3.375 GM in 0.9 % Sodium Chloride Mini Bag 100 ML IVPB SCH ×3 (06:18→21:16)
[2018-03-21] MEDS: *HR* Heparin 5,000 UNIT/ML VIAL SQ SCH ×3 (06:19→21:17)
[2018-03-21] MEDS: *HR* OxyCODONE/APAP 10/325 TABLET PO PRN ×3 (06:30→21:20)
[2018-03-21] MEDS: Fenofibrate 54 MG TABLET PO SCH (07:49)
[2018-03-21] MEDS: Pantoprazole 40 MG VIAL IVP SCH (07:49)
[2018-03-21] MEDS: Gabapentin 300 MG CAPSULE PO SCH ×3 (07:49→21:17)
[2018-03-21] MEDS: Fluticasone Propionate Nasal 50 MCG/SPRAY BOTTLE NS SCH (09:16)
[2018-03-21] MEDS: amLODIPine 5 MG TABLET PO SCH (09:16)
[2018-03-21] MEDS: Levofloxacin 750 MG/150 ML 750 MG/150 ML BAG IVPB SCH (12:19)
--- NOTE | 2018-03-21 14:49 | Internal Med Progress Note ---
Date of Encounter: 03/21/18 Time of Encounter: 08:45 - Assessment and plan (1) Sepsis Current Visit: Yes Status: Acute Assessment and plan: sepsis due to Pneumonia; presented with leukocytosis, tachycardia and respiratory failure; lactic acid was normal; currently resolved; continue IV antibiotics as below and f/up cultures; Qualifiers: Sepsis type: sepsis due to unspecified organism Qualified Code(s): A41.9 - Sepsis, unspecified organism (2) Pneumonia Current Visit: Yes Status: Acute Assessment and plan: CTA chest shows left-sided Pneumonia; has been on IV Vancomycin, Zosyn and Levaquin since admission; blood cultures remain negative; sputum from 03/17 grows Pseudomonas, Alcaligenes, Providencia; sputum culture from 03/18 grows Corynebacterium, which may be contaminant due to chronic tracheostomy; will hold Levaquin and Vancomyin and continue IV Zosyn to complete a 14-day course; continue supplemental O2 and supportive care; currently at baseline O2 requirements, uses ventilator at night at home; Qualifiers: Pneumonia type: due to unspecified organism Laterality: bilateral Lung location: unspecified part of lung Qualified Code(s): J18.9 - Pneumonia, unspecified organism (3) Tracheostomy status Current Visit: Yes Status: Chronic (4) DMII (diabetes mellitus, type 2) Current Visit: Yes Status: Chronic Assessment and plan: noted to have steroid-induced hyperglycemia; will increase basal insulin; continue Accucheck blood glucose monitoring and basal bolus insulin regimen; diabetic diet; Qualifiers: 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 Diabetes mellitus complication status: with hyperglycemia Qualified Code(s): E11.65 - Type 2 diabetes mellitus with hyperglycemia; Z79.4 - group home (current) use of insulin (5) COPD exacerbation Current Visit: Yes Status: Acute Assessment and plan: improving; taper down IV steroids as tolerated; IV antibiotics as above; continue breathing treatments and supplemental O2; (6) Hypertension Current Visit: Yes Status: Chronic Qualifiers: Hypertension type: essential hypertension Qualified Code(s): I10 - Essential (primary) hypertension (7) DVT prophylaxis Current Visit: Yes Status: Acute (8) Acute on chronic respiratory failure with hypoxia and hypercapnia Current Visit: Yes Status: Acute Assessment and plan: due to COPD and chronic tracheostomy; patient was sedated and vent-dependent in ICU, improved now; (9) Obesity (BMI 30-39.9) Current Visit: Yes Status: Chronic - Time Spent With Patient Total time spent is greater than 50% in coordination of care (as documented) at patient's floor/unit and/or counseling patient: - Subjective Interval history: Reports feeling well; improved cough and shortness of breath; no fever/chills, chest pain, palpitations, no increased respiratory secretions; - Constitutional Vitals: Temp Pulse Resp BP Pulse Ox 98.4 F 63 20 142/90 93 03/21/18 11:44 03/21/18 11:44 03/21/18 11:44 03/21/18 11:44 03/21/18 11:44 General appearance: Present: A&O X 3, obese, answers questions appropriately - Neck Neck exam general surgery: Present: supple, trachea midline. Absent: lymphadenopathy Additional comments: chronic tracheostomy+, able to speak with closure of stoma - Respiratory Respiratory exam: Present: CTAB (coarse breath sounds B/L). Absent: accessory muscle use, rales, rhonchi, wheezes - Cardiovascular Cardiovascular exam: Present: RRR, +S1, +S2. Absent: diastolic murmur, gallop, rubs, systolic murmur - GI/Abdominal GI/Abdominal exam: Present: normal bowel sounds, soft, no peritoneal signs. Absent: distended, tenderness - Extremities Exam Extremities exam: Present: full ROM, warm, radial pulses palpable and symmetrical. Absent: calf tenderness, cyanotic, pedal edema - Neurological Exam Neurological exam: Present: CN II-XII intact, oriented X3, no focal deficits. Absent: pronater drift, facial droop, speech deficit Internal Medicine: Result - Labs CBC & Chem 7: 03/21/18 04:12 03/21/18 04:12 Labs: Short CBC 03/21/18 Range/Units 04:12 WBC 11.0 (4.3-11.1) K/mcL Hgb 10.1 L (12.9-16.9) g/dL Hct 31.1 L (37.5-50.1) % Plt Count 506 H (140-400) K/mcL Neutrophils # 8.6 (1.6-8.9) K/mcL BMP 03/21/18 04:12 Sodium 137 Potassium 4.9 Chloride 97 L Carbon Dioxide 34 H BUN 18 Creatinine 0.86 Glucose 256 H Calcium 9.4 - ABG Interpretation ABG results: ABG ABG pH 7.50 pH Units (7.32-7.45) H D 03/18/18 01:22 ABG pCO2 53 mmHg (35-45) H D 03/18/18 01:22 ABG pO2 80 mmHg (85-104) L D 03/18/18 01:22 ABG O2 Saturation 96 % (95-98) 03/18/18 01:22 PT/INR, D-dimer PT 12.7 Seconds (9.4-12.1) H 03/17/18 17:46 Consult Discharge Plan - Plan Referrals: Ad Garcia MD [Primary Care Provider] - Sara Napoles CNP [Advanced Practice Nurse] - 03/29/18 4:00 pm
[2018-03-21] MEDS: Insulin DETEMIR 100 UNIT/ML X5UNITS SQ SCH (21:17)
[2018-03-22] MEDS: Ipratropium/Albuterol Neb 3 ML IH SCH ×6 (00:04→22:09)
[2018-03-22] MEDS: Piperacillin/Tazobactam 3.375 GM in 0.9 % Sodium Chloride Mini Bag 100 ML IVPB SCH ×3 (03:30→21:16)
[2018-03-22] MEDS: *HR* OxyCODONE/APAP 10/325 TABLET PO PRN ×3 (03:35→17:16)
[2018-03-22] MEDS: *HR* Heparin 5,000 UNIT/ML VIAL SQ SCH ×3 (05:24→21:13)
[2018-03-22] MEDS: MethylPREDNISolone 40 MG/ML VIAL IVP SCH (05:24)
[2018-03-22] MEDS: Insulin LISPRO 300 UNITS/3 ML VIAL SQ SCH ×4 (08:35→21:15)
[2018-03-22] MEDS: Fluticasone Propionate Nasal 50 MCG/SPRAY BOTTLE NS SCH (08:36)
[2018-03-22] MEDS: amLODIPine 5 MG TABLET PO SCH (08:36)
[2018-03-22] MEDS: Fenofibrate 54 MG TABLET PO SCH (08:36)
[2018-03-22] MEDS: Gabapentin 300 MG CAPSULE PO SCH ×3 (08:36→21:13)
[2018-03-22] MEDS: Insulin DETEMIR 100 UNIT/ML X5UNITS SQ SCH ×2 (08:40→21:14)
[2018-03-22] MEDS ORDERED: Ipratropium/Albuterol Neb 3 ML IH PRN (09:15)
--- NOTE | 2018-03-22 21:43 | Internal Med Progress Note ---
Date of Encounter: 03/23/18 Time of Encounter: 21:00 - Assessment and plan (1) Pneumonia Current Visit: Yes Status: Acute Assessment and plan: The patient initially was admitted with pneumonia/sepsis. He was admitted in ICU. He does have multiple organisms in the sputum culture from 03/17/18. Legionella antigen is positive thin urine 03/18/18. Will Get Opinion from Pulmonary Disease regarding Antibiotics at the Time of Discharge. The Patient Is Currently on IV Zosyn. We will get a chest x-ray in the morning. Qualifiers: Pneumonia type: due to unspecified organism Laterality: bilateral Lung location: unspecified part of lung Qualified Code(s): J18.9 - Pneumonia, unspecified organism (2) COPD (chronic obstructive pulmonary disease) Current Visit: Yes Status: Chronic Assessment and plan: COPD exacerbation subsided. I am switching him from IV Solu-Medrol to by mouth prednisone. We will continue nebulizer treatments with Duoneb. Qualifiers: COPD type: COPD with acute lower respiratory infection Qualified Code(s): J44.0 - Chronic obstructive pulmonary disease with acute lower respiratory infection (3) Chronic respiratory failure with hypoxia and hypercapnia Current Visit: Yes Status: Chronic Assessment and plan: The patient does have tracheostomy tube. He uses trach collar oxygen at 10 L/ m. This is his baseline. (4) Type 2 diabetes mellitus with hyperglycemia Current Visit: Yes Status: Acute Assessment and plan: His glucose levels are mildly elevated. This is due to steroids. We will continue Levemir and prn lispro. The patient's diabetic diet. We should get his glucose levels better, after switching him to lower dose of steroids. Qualifiers: Diabetes mellitus halfway insulin use: with halfway use Qualified Code( s): E11.65 - Type 2 diabetes mellitus with hyperglycemia; Z79.4 - care home ( current) use of insulin (5) HTN (hypertension) Current Visit: Yes Status: Chronic Assessment and plan: His blood pressure is under control. We will continue amlodipine. Qualifiers: Hypertension type: essential hypertension Qualified Code(s): I10 - Essential (primary) hypertension (6) Sepsis Current Visit: Yes Status: Resolved Assessment and plan: It basically resolved. I am a little concerned about his slightly increased WBC and some thrombocytosis. We will observe it closely. Qualifiers: Sepsis type: sepsis due to unspecified organism Qualified Code(s): A41.9 - Sepsis, unspecified organism - Time Spent With Patient Total time spent is greater than 50% in coordination of care (as documented) at patient's floor/unit and/or counseling patient: 25 - 35 minutes - Subjective Interval history: The patient feels pretty good today. He does have mild cough with expectoration of small amounts of the sputum. Denies wheezing. He is using supplemental oxygen at 40%; he has tracheostomy tube. Denies chest pain. Denies abdominal pain, nausea and vomiting. Please able to ambulate on his own. - Constitutional Vitals: Temp Pulse Resp BP Pulse Ox 98.4 F 97 18 149/80 91 03/22/18 18:48 03/22/18 21:26 03/22/18 18:48 03/22/18 18:48 03/22/18 18:48 General appearance: Present: A&O X 3, obese, answers questions appropriately - Respiratory Respiratory exam: Present: CTAB. Absent: rales, rhonchi, wheezes - Cardiovascular Cardiovascular exam: Present: RRR. Absent: diastolic murmur, gallop, systolic murmur - GI/Abdominal GI/Abdominal exam: Present: normal bowel sounds, soft. 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
[2018-03-23] MEDS: Ipratropium/Albuterol Neb 3 ML IH SCH ×4 (04:08→23:02)
[2018-03-23] MEDS: *HR* OxyCODONE/APAP 10/325 TABLET PO PRN ×3 (05:20→18:15)
[2018-03-23] MEDS: Piperacillin/Tazobactam 3.375 GM in 0.9 % Sodium Chloride Mini Bag 100 ML IVPB SCH ×2 (05:21→11:36)
[2018-03-23] MEDS: *HR* Heparin 5,000 UNIT/ML VIAL SQ SCH ×3 (05:21→20:15)
[2018-03-23] MEDS: Insulin LISPRO 300 UNITS/3 ML VIAL SQ SCH ×4 (08:22→20:15)
[2018-03-23] MEDS: amLODIPine 5 MG TABLET PO SCH (08:40)
[2018-03-23] MEDS: Fenofibrate 54 MG TABLET PO SCH (08:40)
[2018-03-23] MEDS: predniSONE 20 MG TABLET PO SCH (08:40)
[2018-03-23] MEDS: Gabapentin 300 MG CAPSULE PO SCH ×3 (08:40→20:14)
[2018-03-23] MEDS: Fluticasone Propionate Nasal 50 MCG/SPRAY BOTTLE NS SCH (08:41)
[2018-03-23] MEDS: Insulin DETEMIR 100 UNIT/ML X5UNITS SQ SCH ×2 (08:41→20:14)
--- NOTE | 2018-03-23 11:24 | Infectious Disease Consult ---
Date of Encounter: 03/23/18 Time of Encounter: 11:22 Assessment and Plan (1) Sepsis Status: Resolved Assessment and plan: The patient had three SIRS criteria on admission. Likely secondary to PNA. Resolved. WBC has normalized. Tachycardia and tachypnea have resolved. Blood cultures drawn 03/17/18 are negative x 2 sets. Qualifiers: Sepsis type: sepsis due to unspecified organism Qualified Code(s): A41.9 - Sepsis, unspecified organism (2) Community acquired pneumonia Status: Acute Assessment and plan: Causative organism Providencia, Pseudomonas aeruginosa, Alcaligenes faecalis, and Corynebacteria striatum. Location: Multifocal. CT of the chest completed 03/17/18 was negative for PE and showed improvement of previous FLIP and LL pneumonia, but did show tree-in-bud nodular opacities concerning for multifocal PNA. Pulmonology consulted on admission and has signed off. S. pneumo and Legionella UATs negative. Repeat CXR 03/22/18 shows a right basilar opacity. Clinically, the patient is improved. Discontinue Zosyn. Start Cipro 500mg PO BID to cover the Pseudomonas and Alcaligenes. Start Ertapenem 1 gram IV daily, which will cover the Providencia. Unfortunately , we do not have an oral option for this bacteria because of its high rate of AmpC resistance gene development during treatment, increasing risk of treatment failure. Duration of treatment depends on the clinical picture, but recommend a total of 14 days of treatment. Treat through 03/30/18. Consult VAT for Powerglide placement. registered nurse surgical services to assist with discharge planning. Will need weekly CBC, BUN/Cr every Wednesday. Will need weekly IV care per protocol. Qualifiers: Laterality: unspecified laterality Qualified Code(s): J18.9 - Pneumonia, unspecified organism (3) Acute and chronic respiratory failure ([id number]) Status: Acute Assessment and plan: Likely secondary to PNA. REsolved. Continue supportive care as outlined by the primary team. Qualifiers: Respiratory failure complication: hypoxia and hypercapnia Qualified Code(s) : J96.21 - Acute and chronic respiratory failure with hypoxia; J96.22 - Acute and chronic respiratory failure with hypercapnia (4) Acute exacerbation of chronic obstructive pulmonary disease (COPD) Status: Acute Assessment and plan: Continue steroids, bronchodilators, and supportive care as outlined by the primary team. (5) Anemia Status: Acute Assessment and plan: Hgb 10.3 on admission, dropped to 8.5. Likely hemodilutional. No evidence of acute bleeding noted on exam. Further workup and management per the primary team. Qualifiers: Anemia type: unspecified type Qualified Code(s): D64.9 - Anemia, unspecified (6) Tracheostomy dependent Status: Chronic Assessment and plan: 2014. Secondary to prolonged venilatory support without ability to wean from the vent. Uses trach mask at home. (7) DMII (diabetes mellitus, type 2) Status: Chronic Qualifiers: Diabetes mellitus senior living insulin use: with ad terminal makeup operator use Diabetes mellitus complication status: with hyperglycemia Qualified Code(s): E11.65 - Type 2 diabetes mellitus with hyperglycemia; Z79.4 - parts counterman (current) use of insulin (8) HTN (hypertension) Status: Chronic Qualifiers: Hypertension type: essential hypertension Qualified Code(s): I10 - Essential (primary) hypertension (9) Tobacco abuse Status: Chronic (10) Obesity (BMI 30-39.9) Status: Chronic Infectious Disease HPI - Data of Consult Patient: new to practice Consult date: 03/23/18 Requesting Physician: Norman Couch Primary Care Provider: Ad Garcia MD - Consult Narrative Reason for consult: Pneumonia History of present illness: Mr. Mccloud is a 57 year old male with a past medical history of type 2 diabetes, RI, asthma, CVA, COPD, chronic respiratory failure status post tracheostomy 3 years ago. The patient was admitted to the hospital March 17 for acute on chronic respiratory failure, acute exacerbation of COPD, and pneumonia. We are consulted March 23 for antibiotic recommendations for multifocal pneumonia. Briefly, the patient is a 57-year-old male with past medical history as stated above. The patient states that for for 5 days prior to admission he felt like he had a cold. He took some [id number] cold medication and was feeling better until the data he was admitted when he experienced acute weakness, malaise, and overall was not feeling well. According to the emergency department notes, the patient was hypoxic and unresponsive upon arrival. Upon arrival, the patient is afebrile, but he was tachycardic and tachypneic and hypoxic. He also had neutrophilic leukocytosis. Lactic acid and renal function were normal. Urinalysis was negative. Blood cultures were obtained 2 sets and were negative. The patient required aggressive suctioning of his tracheostomy and a sputum culture was sent that was positive for procidentia, Levaquin resistant Pseudomonas, and Alcaligenes faecalis. Chest x-ray showed cardiomegaly and mild vascular congestion with bibasilar opacities, likely edema or atelectasis. He was initially placed on CPAP via his tracheostomy, but due to progressive worsening of his respiratory status he was sedated and placed on the ventilator. He also had a left femoral CVC placed. He underwent a CTA of the chest that was negative for PE, but did show multifocal pneumonia and improvement of a previous left upper lobe and left lower lobe pneumonia. He was admitted to the intensive care unit and started on IV antibiotics. Since admission, the patient has improved clinically. He is currently on O2 via trach mask. His leukocytosis has resolved. He is no longer tachycardic. He had a repeat chest x-ray on March 22 that showed a right basilar opacity. Sputum culture obtained after admission is growing corynebacteria stratum. Urinary antigen tests were negative for Legionella or strep pneumoniae. Initially, the patient was started empirically on vancomycin, Zosyn, and Levaquin. Vancomycin and Levaquin have been discontinued. He is currently only on IV Zosyn. We have been asked to evaluate and make further recommendations. During my exam today, the patient states that overall he feels back to baseline and is 100% better. He reports subjective fevers and chills, but denies rigors prior to admission. He reports chronic neck back and hip pain that remained at baseline. He denied any congestion, earache, or sore throat. He called productive of a large amount of thick sow sputum. He denied any chest pain. He did report that he was generally weak and fatigued and having worsening shortness of breath. He denied any nausea or vomiting or diarrhea. He denies any abdominal pain, urinary complaints, or flank pain. He states that his appetite was not very good and he did not eat much the day of admission. He denies any oral thrush or any skin lesions. He states that he is overall 100% improved and ready to go home. The patient lives at home with his brother. He is disabled and unable to work outside the home. He smokes a pack of cigarettes per day. He denies any alcohol or illicit drug use. He denies any recent travel outside the [facility]. He does have 2 dogs at home. He denies any ill contacts. CC: Norman Couch Past Med Surg Social Fam HX - Past Medical History Attestation: Yes The following information was validated with the patient. Source: patient, old records reviewed, nursing notes reviewed Medical history: asthma, COPD, CVA, diabetes, myocardial infarction, TIA, other (Chronic respiratory failure with O2 via a trach mask) Psychiatric history: no psych history, anxiety, depression - Past Surgical History Surgical History: tracheostomy - Social History Smoking Status: Current every day smoker Smokeless Tobacco Status: No Alcohol use: none, occasionally Drug use: none Occupational status: disabled Current living situation: Home, With Family Activity Level: Independent ambulation Recent Out of Country Travel Within the Last 8 Weeks: No Exposure or Possible Exposure to Illness During Travel: No - Family History Mother Living Status: Hx Family Cardiac Disorders: Yes Hx Family Respiratory Disorders: Yes Hx Family Cancer: No Hx Family Endocrine Disorder: No Infectious Disease-CN:Meds Albuterol Sulfate [Ventolin Hfa] 2 puff IH Q4H PRN 03/17/18 [History] Atorvastatin [Lipitor] 40 mg PO HS 03/17/18 [History] Clopidogrel [Plavix] 75 mg PO DAILY 03/17/18 [History] Fenofibrate Nanocrystallized [Tricor] 145 mg PO DAILY 03/17/18 [History] Fluticasone Propionate Nasal [Flonase] 1 spr NS DAILY 03/17/18 [History] Gabapentin [Neurontin] 300 mg PO TID 03/17/18 [History] Insulin Glargine,Hum.rec.anlog [Lantus Solostar] 25 unit SQ HS 03/17/18 [History ] Montelukast [Singulair] 10 mg PO DAILY 03/17/18 [History] Omeprazole [PriLOSEC] 20 mg PO DAILY 03/17/18 [History] Oxycodone HCl/Acetaminophen [Percocet 10-325 mg Tablet] 1 tab PO Q4-6H PRN 03/17 [History] Sitagliptin Phos/Metformin HCl [Janumet 50-1,000 mg Tablet] 1 tab PO BID [History] diazePAM [Valium] 5 mg PO BID 03/17/18 [History] diazePAM [Valium] 10 mg PO HS 03/17/18 [History] 3 Allergy/AdvReac Type Severity Reaction Status Date / Time azithromycin Allergy See Verified 01/23/17 01:18 Comments All systems: reviewed and no additional remarkable complaints except as stated Exam - Constitutional Vitals: Temp Pulse Resp BP Pulse Ox 98.7 F 93 17 144/92 89 03/23/18 11:18 03/23/18 11:18 03/23/18 11:18 03/23/18 11:18 03/23/18 11:18 General appearance: cooperative, no acute distress, obese - Head Head exam: Present: atraumatic, normal inspection, normocephalic - Eye Eye exam: Present: EOMI, normal appearance, PERRL Pupils: Present: normal accommodation - ENT ENT exam: Present: mucous membranes moist - Neck Neck exam: Present: normal inspection Additional comments: Tracheostomy midline with O2 via trach mask. Small amount of yellow sputum noted inside the inner cannula. No drainage or erythema surrounding the tracheostomy site. - Respiratory Respiratory exam: Present: rhonchi (Throughout). Absent: rales, respiratory distress, wheezes - Cardiovascular Cardiovascular exam: Present: RRR, +S1, +S2 - GI/Abdominal GI/Abdominal exam: Present: distended (Obese), normal bowel sounds, soft. Absent: tenderness - Extremities Exam Extremities exam: Present: normal inspection. Absent: joint swelling, pedal edema, tenderness - Neurological Exam Neurological exam: Present: alert, oriented X3, no focal deficits - Psychiatric Psychiatric exam: Present: normal affect, normal mood - Skin Skin exam: Present: dry, intact, normal color, warm Infectious Disease CN: Results - Labs CBC & Chem 7: 03/21/18 04:12 03/21/18 04:12 Cultures: Cultures 03/18/18 12:03 Sputum Culture - Final Sputum Corynebacterium striatum 03/18/18 10:54 Legionella Antigen - Final Urine,Catheterized Streptococcus pneumoniae Antigen (M - Final Cultures 03/17/18 17:46 Blood Culture - Final Peripheral Venipuncture No growth. 03/17/18 17:46 Blood Culture - Final Peripheral Venipuncture No growth. 03/17/18 18:11 Sputum Culture - Final Sputum Pseudomonas aeruginosa Alcaligenes faec ssp faecalis Providencia rettgeri 03/18/18 12:03 Sputum Culture - Final Sputum Corynebacterium striatum 03/18/18 10:54 Legionella Antigen - Final Urine,Catheterized Streptococcus pneumoniae Antigen (M - Final Serology: Serology 03/17/18 Range/Units 17:51 Urine Color Yellow (Yellow) Urine Clarity Clear (Clear) Urine pH 5.0 (5.0-8.0) pH Units Ur Specific [place] 1.022 (1.010-1.025) Urine Protein 30 H (Neg-Trace) mg/dL Urine Glucose (UA) 500 H (Normal) mg/dL Urine Ketones Negative (Negative) mg/dL Urine Blood Negative (Negative) Urine Nitrite Negative (Negative) Urine Bilirubin Negative (Negative) Urine Urobilinogen Normal (Normal) mg/dL Ur Leukocyte Esterase Negative (Negative) Urine Microscopic RBC 0-3 (0-3) per hpf Urine Microscopic WBC 0-3 (0-3) per hpf Ur Squamous Epith Cells Many H (None-Few) per lpf Urine Bacteria None Seen (None-Few) per hpf Hyaline Casts None Seen (None-Few) per lpf Ur Culture Indicated? NO (NO) - VTE Deep Vein Thrombosis/Pulmonary Embolism Present on Admission: No Consult Discharge Plan - Plan Instructions: Pneumonia, Workers Compensation Claims Specialist (GEN) Referrals: Ad Garcia MD [Primary Care Provider] - Sara Napoles CNP [Advanced Practice Nurse] - 03/29/18 4:00 pm - Attending Attestation I examined this patient and my medical decision-making was reviewed with the Resident Physician. I agree with the documented findings, disposition and treatment plan as described except to the extent set forth below. This is an addendum to original report dictated by Elizabeth Machado CNP. Please refer to [facility] note for full detail. Patient is a 57-year-old gentleman with chronic respiratory failure who also has a tracheostomy came in for pneumonia. Patient had sputum cultures that were positive for Providencia rettgeri, pseudomonas aeruginosa,Alcaligenes and repeat sputum was positive for corynebacterium. Patient was started on Zosyn and he states that he is doing significantly better and back to baseline. Patient eager to go home. Assessment and plan: Sepsis Community-acquired pneumonia Acute on chronic respiratory failure Acute exacerbation of COPD Anemia Tobacco abuse Recommendations: At this point patient is clinically doing better on Zosyn so I am not sure if all these 3 pathogens are causing the pneumonia or some of them are chronic colonizers. BAL cultures done in November 09 of this year grew pseudomonas aeruginosa and Kenzie albicans. Clearly the providencia and the Alcaligenes argue pathogens and the Pseudomonas is a repeat pathogen. I am not sure the corynebacterium is causing any problems at this point. Based on the susceptibility reports I think the best way to deal with this is per the patient on ertapenem and ciprofloxacin. Patient is intermediate to levofloxacin but susceptible to Cipro which makes me think the the levofloxacin was probably 1 g dilution different than the cut off. Which makes me think that may be it was intermediate with leaning to susceptibility. Patient needs a power glide placed On discharge DC Zosyn Start ertapenem Start ciprofloxacin by mouth Duration of treatment 8 days Monitor labs and for drug toxicity
[2018-03-23] MEDS ORDERED: Sennosides 8.6 MG TABLET PO PRN (16:11)
[2018-03-23] MEDS: Ertapenem 1,000 MG in 0.9 % Sodium Chloride Mini Bag 100 ML IVPB SCH (17:12)
--- NOTE | 2018-03-23 21:01 | Discharge Summary ---
Date of Encounter: 03/24/18 - Discharge Diagnosis (1) Pneumonia Status: Acute Qualifiers: Pneumonia type: due to Pseudomonas Laterality: bilateral Lung location: unspecified part of lung Qualified Code(s): J15.1 - Pneumonia due to Pseudomonas (2) COPD (chronic obstructive pulmonary disease) Status: Chronic Qualifiers: COPD type: COPD with acute lower respiratory infection Qualified Code(s): J44.0 - Chronic obstructive pulmonary disease with acute lower respiratory infection (3) Chronic respiratory failure with hypoxia and hypercapnia Status: Chronic (4) Type 2 diabetes mellitus with hyperglycemia Status: Acute Qualifiers: Diabetes mellitus jail insulin use: with jail use Qualified Code( s): E11.65 - Type 2 diabetes mellitus with hyperglycemia; Z79.4 - halfway ( current) use of insulin (5) HTN (hypertension) Status: Chronic Qualifiers: Hypertension type: essential hypertension Qualified Code(s): I10 - Essential (primary) hypertension (6) Sepsis Status: Resolved Qualifiers: Sepsis type: sepsis due to unspecified organism Qualified Code(s): A41.9 - Sepsis, unspecified organism Hospital course: Mr. Mccloud is a 57 year old male - Time Spent with Patient Total time spent providing and/or coordinating discharge services: - Discharge Medications Home Medications: Albuterol Sulfate [Ventolin Hfa] 2 puff IH Q4H PRN 03/17/18 [History] Atorvastatin [Lipitor] 40 mg PO HS 03/17/18 [History] Clopidogrel [Plavix] 75 mg PO DAILY 03/17/18 [History] Fenofibrate Nanocrystallized [Tricor] 145 mg PO DAILY 03/17/18 [History] Fluticasone Propionate Nasal [Flonase] 1 spr NS DAILY 03/17/18 [History] Gabapentin [Neurontin] 300 mg PO TID 03/17/18 [History] Insulin Glargine,Hum.rec.anlog [Lantus Solostar] 25 unit SQ HS 03/17/18 [History ] Montelukast [Singulair] 10 mg PO DAILY 03/17/18 [History] Omeprazole [PriLOSEC] 20 mg PO DAILY 03/17/18 [History] Oxycodone HCl/Acetaminophen [Percocet 10-325 mg Tablet] 1 tab PO Q4-6H PRN 03/17 [History] Sitagliptin Phos/Metformin HCl [Janumet 50-1,000 mg Tablet] 1 tab PO BID [History] diazePAM [Valium] 5 mg PO BID 03/17/18 [History] diazePAM [Valium] 10 mg PO HS 03/17/18 [History] Allergies/Adverse Reactions: 3 Allergy/AdvReac Type Severity Reaction Status Date / Time azithromycin Allergy See Verified 01/23/17 01:18 Comments Date of admission: 03/17/18 20:05 Primary care physician: Ad Garcia MD Consults: 03/17/18 21:52 Consult to Nutrition [CONS] Routine Comment: Consulting Provider: NUTRITION Reason for Dietary Consult: MST Score 03/17/18 22:19 Consult to Critical Care [CONS] Routine Consulting Provider: [facility] [place] Reason for Consult: acute on chronic respiratory failure Call Completed: Yes 03/22/18 09:21 Consult to Case Management [CONS] Routine Comment: Considering discharge today or tomorrow 03/23/18 09:36 Consult to Infectious Diseases [CONS] Routine Consulting Provider: Infectious Disease [place] Reason for Consult: Admitted with pna/sepsis. Multiple organisms in sputum/ Legionella antigen in urine. Needs abx recommendations for discharge. Time Notified: 09:35 Call Completed: Yes Discharging clinician: Norman Couch Anticipated date of discharge: 03/24/18 - Constitutional Vitals: Temp Pulse Resp BP Pulse Ox 98.3 F 109 20 129/78 93 03/23/18 19:22 03/23/18 19:22 03/23/18 19:22 03/23/18 19:22 03/23/18 17:08 General appearance: Present: A&O X 3, obese, answers questions appropriately - Patient Status Condition: Good Functional capacity at discharge: independent ambulation Overall status at discharge: patient is back to baseline - Discharge Instructions Instructions: Pneumonia, Switch Adjuster (GEN) Follow Up With: Ad Garcia MD [Primary Care Provider] - Sara Napoles CNP [Advanced Practice Nurse] - 03/29/18 4:00 pm - VTE Deep Vein Thrombosis/Pulmonary Embolism Present on Admission: No
--- NOTE | 2018-03-23 21:20 | Internal Med Progress Note ---
Date of Encounter: 03/23/18 Time of Encounter: 18:00 - Assessment and plan (1) Pneumonia Current Visit: Yes Status: Acute Assessment and plan: The patient was seen by infectious diseases today known. They recommend to 8 more days of treatment with antibiotics. It is going to be by mouth Cipro and intravenous ertapenem. 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 He does have a few other bacteria in his sputum. Urine testing for Legionella antigen is negative (I reported this positive in yesterday note). The patient will get PowerGlide today or tomorrow. Then, we will discharge him home. Qualifiers: Pneumonia type: due to Pseudomonas Laterality: bilateral Lung location: unspecified part of lung Qualified Code(s): J15.1 - Pneumonia due to Pseudomonas (2) COPD (chronic obstructive pulmonary disease) Current Visit: Yes Status: Chronic Assessment and plan: He COPD exacerbation is gone. I will keep him on low-dose prednisone for the next 5 days. He gets a nebulizer treatments with DuoNeb. He gets antibiotics, as ordered by infectious diseases. Qualifiers: COPD type: COPD with acute lower respiratory infection Qualified Code(s): J44.0 - Chronic obstructive pulmonary disease with acute lower respiratory infection (3) Chronic respiratory failure with hypoxia and hypercapnia Current Visit: Yes Status: Chronic Assessment and plan: His chronic respiratory failure with hypoxia and mild hypercapnia is basically baseline. We will continue supplemental oxygen. (4) Type 2 diabetes mellitus with hyperglycemia Current Visit: Yes Status: Acute Assessment and plan: His fingersticks for glucose remain likely/moderately elevated. We will continue insulin Levemir and insulin Humalog. He is on diabetic diet. I expect him to have have better glucose control, after stopping his prednisone. Qualifiers: Diabetes mellitus jail insulin use: with intermediate card tender use Qualified Code( s): E11.65 - Type 2 diabetes mellitus with hyperglycemia; Z79.4 - jail ( current) use of insulin (5) HTN (hypertension) Current Visit: Yes Status: Chronic Assessment and plan: His blood pressure seems to be under control. We will continue amlodipine. Qualifiers: Hypertension type: essential hypertension Qualified Code(s): I10 - Essential (primary) hypertension (6) Sepsis Current Visit: Yes Status: Resolved Qualifiers: Sepsis type: sepsis due to unspecified organism Qualified Code(s): A41.9 - Sepsis, unspecified organism - Time Spent With Patient Total time spent is greater than 50% in coordination of care (as documented) at patient's floor/unit and/or counseling patient: 25 - 35 minutes - Subjective Interval history: The patient feels good. He does have a mild cough with expectoration of small amounts of grayish colored sputum. It is not associated with coughing or wheezing. Denies chest pain. Denies abdominal pain, nausea and vomiting. He has normal appetite. He is able to ambulate on his own. He is using supplemental oxygen at 10 L/m; trach collar. - Constitutional Vitals: Temp Pulse Resp BP Pulse Ox 98.3 F 109 20 129/78 93 03/23/18 19:22 03/23/18 19:22 03/23/18 19:22 03/23/18 19:22 03/23/18 17:08 General appearance: Present: A&O X 3, obese, answers questions appropriately - Respiratory Respiratory exam: Present: CTAB. Absent: respiratory distress, rhonchi, wheezes Additional comments: The patient does have tracheostomy tube in place. - Cardiovascular Cardiovascular exam: Present: RRR. Absent: diastolic murmur, gallop, systolic murmur - GI/Abdominal GI/Abdominal exam: Present: soft. Absent: mass, tenderness - Skin Skin exam: Present: dry, intact Internal Medicine: Result - Labs CBC & Chem 7: 03/21/18 04:12 03/21/18 04:12 - ABG Interpretation ABG results: ABG ABG pH 7.50 pH Units (7.32-7.45) H D 03/18/18 01:22 ABG pCO2 53 mmHg (35-45) H D 03/18/18 01:22 ABG pO2 80 mmHg (85-104) L D 03/18/18 01:22 ABG O2 Saturation 96 % (95-98) 03/18/18 01:22 PT/INR, D-dimer PT 12.7 Seconds (9.4-12.1) H 03/17/18 17:46 - Impressions Impressions Chest X-Ray 03/22/18 22:42 IMPRESSION: Right basilar opacity. Correlate for partial atelectasis or mild pneumonia. D/ / 03/23/2018 06:18:41 Lee Beauchamp MD / hiren Interpreting Provider: Lee Beauchamp MD - VTE Deep Vein Thrombosis/Pulmonary Embolism Present on Admission: No Consult Discharge Plan - Plan Instructions: Pneumonia, Manager Communication (GEN) Referrals: Ad Garcia MD [Primary Care Provider] - Sara Napoles CNP [Advanced Practice Nurse] - 03/29/18 4:00 pm
[2018-03-24] MEDS: *HR* OxyCODONE/APAP 10/325 TABLET PO PRN ×2 (00:26→06:28)
[2018-03-24] MEDS: Ipratropium/Albuterol Neb 3 ML IH SCH ×2 (04:16→11:01)
[2018-03-24] MEDS: *HR* Heparin 5,000 UNIT/ML VIAL SQ SCH (05:19)
[2018-03-24] MEDS: Insulin LISPRO 300 UNITS/3 ML VIAL SQ SCH ×2 (07:57→11:50)
[2018-03-24] MEDS: Ertapenem 1,000 MG in 0.9 % Sodium Chloride Mini Bag 100 ML IVPB SCH (08:02)
[2018-03-24] MEDS: predniSONE 20 MG TABLET PO SCH (08:02)
[2018-03-24] MEDS: Gabapentin 300 MG CAPSULE PO SCH (08:02)
[2018-03-24] MEDS: amLODIPine 5 MG TABLET PO SCH (08:02)
[2018-03-24] MEDS: Fenofibrate 54 MG TABLET PO SCH (08:02)
[2018-03-24] MEDS: Insulin DETEMIR 100 UNIT/ML X5UNITS SQ SCH (08:02)
[2018-03-24] MEDS: Fluticasone Propionate Nasal 50 MCG/SPRAY BOTTLE NS SCH (08:03)
--- NOTE | 2018-03-24 10:23 | Infectious Disease Progress No ---
Date of Encounter: 03/24/18 Time of Encounter: 10:21 - Assessment and Plan (1) Sepsis Status: Resolved The patient had three SIRS criteria on admission. Likely secondary to PNA. Resolved. WBC has normalized. Tachycardia and tachypnea have resolved. Blood cultures drawn 03/17/18 are negative x 2 sets. Qualifiers: Sepsis type: sepsis due to unspecified organism Qualified Code(s): A41.9 - Sepsis, unspecified organism (2) Community acquired pneumonia Status: Acute Causative organism Providencia, Pseudomonas aeruginosa, Alcaligenes faecalis, and Corynebacteria striatum. Location: Multifocal. CT of the chest completed 03/17/18 was negative for PE and showed improvement of previous FLIP and LL pneumonia, but did show tree-in-bud nodular opacities concerning for multifocal PNA. Pulmonology consulted on admission and has signed off. S. pneumo and Legionella UATs negative. Repeat CXR 03/22/18 shows a right basilar opacity. Clinically, the patient is improved. Continue Cipro 500mg PO BID to cover the Pseudomonas and Alcaligenes. Continue Ertapenem 1 gram IV daily, which will cover the Providentia. Unfortunately, we do not have an oral option for this bacteria because of its high rate of AmpC resistance gene development during treatment, increasing risk of treatment failure. Duration of treatment depends on the clinical picture, but recommend a total of 14 days of treatment. Treat through 03/30/18. environmental services aide to assist with discharge planning. Will need weekly CBC, BUN/Cr every Wednesday. Will need weekly IV care per protocol. Qualifiers: Laterality: unspecified laterality Qualified Code(s): J18.9 - Pneumonia, unspecified organism (3) Acute and chronic respiratory failure ([id number]) Status: Acute Likely secondary to PNA. REsolved. Continue supportive care as outlined by the primary team. Qualifiers: Respiratory failure complication: hypoxia and hypercapnia Qualified Code(s) : J96.21 - Acute and chronic respiratory failure with hypoxia; J96.22 - Acute and chronic respiratory failure with hypercapnia (4) Acute exacerbation of chronic obstructive pulmonary disease (COPD) Status: Acute Continue steroids, bronchodilators, and supportive care as outlined by the primary team. (5) Anemia Status: Acute Hgb 10.3 on admission, dropped to 8.5. Likely hemodilutional. No evidence of acute bleeding noted on exam. Further workup and management per the primary team. Qualifiers: Anemia type: unspecified type Qualified Code(s): D64.9 - Anemia, unspecified (6) Tracheostomy dependent Status: Chronic 2014. Secondary to prolonged venilatory support without ability to wean from the vent. Uses trach mask at home. (7) DMII (diabetes mellitus, type 2) Status: Chronic Qualifiers: Diabetes mellitus senior living insulin use: with senior living use Diabetes mellitus complication status: with hyperglycemia Qualified Code(s): E11.65 - Type 2 diabetes mellitus with hyperglycemia; Z79.4 - residential (current) use of insulin (8) HTN (hypertension) Status: Chronic Qualifiers: Hypertension type: essential hypertension Qualified Code(s): I10 - Essential (primary) hypertension (9) Tobacco abuse Status: Chronic (10) Obesity (BMI 30-39.9) Status: Chronic - Subjective Interval history: Patient seen and examined. No acute events noted overnight. Pending discharge later this morning after home health arrangements have been made. Patient states overall he feels well. Denies any fevers or chills or rigors. Denies any chest pain or shortness of breath. Reports a chronic cough productive of small amount of yellow sputum. Denies any nausea, vomiting, diarrhea, or constipation. Denies abdominal pain, urinary complaints, or appetite changes. Denies any oral thrush or skin lesions. Reports chronic neck and back pain that are at baseline. Patient states she is ready to go home. Infect Dis PN-Objective Data - Labs CBC & Chem 7: 03/21/18 04:12 03/21/18 04:12 Labs: Laboratory Results - last 24 hr 03/23/18 03/23/18 03/23/18 07:25 11:19 16:44 POC Glucose 114 H 97 228 H 03/23/18 19:46 POC Glucose 174 H Cultures: Cultures 03/18/18 12:03 Sputum Culture - Final Sputum Corynebacterium striatum 03/18/18 10:54 Legionella Antigen - Final Urine,Catheterized Streptococcus pneumoniae Antigen (M - Final - Impressions Impressions Chest X-Ray 03/22/18 22:42 IMPRESSION: Right basilar opacity. Correlate for partial atelectasis or mild pneumonia. D/ / 03/23/2018 06:18:41 Lee Beauchamp MD / hiren Interpreting Provider: Lee Beauchamp MD Exam - Constitutional Vitals: Temp Pulse Resp BP Pulse Ox 98.2 F 76 18 131/57 95 03/24/18 07:45 03/24/18 07:45 03/24/18 07:45 03/24/18 07:45 03/24/18 07:45 General appearance: cooperative, no acute distress, obese - Head Head exam: Present: atraumatic, normal inspection, normocephalic - Eye Eye exam: Present: EOMI, normal appearance, PERRL Pupils: Present: normal accommodation - ENT ENT exam: Present: mucous membranes moist - Neck Neck exam: Present: normal inspection (Tracheostomy midline with O2 via trach mask.) - Respiratory Respiratory exam: Present: rhonchi (Scattered, throughout). Absent: rales, respiratory distress, wheezes - Cardiovascular Cardiovascular exam: Present: RRR, +S1, +S2 - GI/Abdominal GI/Abdominal exam: Present: distended (Obese), normal bowel sounds, soft. Absent: tenderness - Extremities Exam Extremities exam: Present: normal inspection. Absent: joint swelling, pedal edema, tenderness - Neurological Exam Neurological exam: Present: alert, oriented X3, no focal deficits - Psychiatric Psychiatric exam: Present: normal affect, normal mood - Skin Skin exam: Present: dry, intact, normal color, warm - Additional findings Additional findings: Thyroid gland noted to the right upper extremity was transparent dressing clean , dry, and intact. - VTE Deep Vein Thrombosis/Pulmonary Embolism Present on Admission: No Consult Discharge Plan - Plan Instructions: Prednisone (By mouth), Amlodipine (By mouth), Ertapenem ( Injection), Pneumonia, Regional Ehs Manager (GEN) Additional Instructions: The patient will continue IV ertapenem for 7 days; Lortab prescription and referral to home health agency. He will use supplemental oxygen at 10 L/m, trach collar. Referrals: [facility] [Provider Group] Ad Garcia MD [Primary Care Provider] - Sara Napoles CNP [Advanced Practice Nurse] - 03/29/18 4:00 pm Prescriptions: amLODIPine [Norvasc] 5 mg PO DAILY #30 tablet Ciprofloxacin [Cipro] 500 mg PO BID 7 Days #14 tablet predniSONE [PredniSONE] 20 mg PO DAILY 5 Days #5 tablet
[2018-03-24 11:31] VITALS: BP 139/83
--- NOTE | 2018-03-24 11:58 | Discharge Summary ---
- NOTES TO OUTPATIENT PROVIDER Notes to Outpatient Provider: The patient was admitted to the hospital with pneumonia/sepsis. We found him to have Pseudomonas aeruginosa in sputum. He will continue IV ertapenem for 7 days. He will continue by mouth Cipro the next 7 days. He is trach and oxygen dependent. He refuses to quit smoking. Date of Encounter: 03/24/18 Time of Encounter: 10:00 - Discharge Diagnosis (1) Pneumonia Priority: Primary Status: Acute Qualifiers: Pneumonia type: due to Pseudomonas Laterality: bilateral Lung location: unspecified part of lung Qualified Code(s): J15.1 - Pneumonia due to Pseudomonas (2) Sepsis Priority: Primary Status: Resolved Qualifiers: Sepsis type: sepsis due to unspecified organism Qualified Code(s): A41.9 - Sepsis, unspecified organism (3) COPD (chronic obstructive pulmonary disease) Priority: Primary Status: Chronic Qualifiers: COPD type: COPD with acute lower respiratory infection Qualified Code(s): J44.0 - Chronic obstructive pulmonary disease with acute lower respiratory infection (4) Chronic respiratory failure with hypoxia and hypercapnia Priority: Primary Status: Chronic (5) Type 2 diabetes mellitus with hyperglycemia Priority: Secondary Status: Acute Qualifiers: Diabetes mellitus emt intermediate insulin use: with emt intermediate use Qualified Code( s): E11.65 - Type 2 diabetes mellitus with hyperglycemia; Z79.4 - alf ( current) use of insulin (6) HTN (hypertension) Priority: Secondary Status: Chronic Qualifiers: Hypertension type: essential hypertension Qualified Code(s): I10 - Essential (primary) hypertension Hospital course: Mr. Mccloud is a 57 year old male was admitted to the hospital with acute respiratory distress.He had some problems with his supplemental oxygen delivery system at home. He is tracheostomy independent and oxygen dependent. His oxygen is usually flowing 10 L per minute.He required 15 L per minute in the emergency room. CT angio of his chest didn't show and a pulmonary embolism. It showed diffuse pneumonia.He was put on IV vancomycin. He was put on IV Solu-Medrol. He has underlying, severe COPD. He Jonh breathing treatments. Blood cultures were negative on two occasions. Sputum Culture grew Pseudomonas aeruginosa. The patient got significantly better by the time of discharge. I consulted infectious disease. They put this patient on oral Cipro and IV ertapenem. They will be continued for a total of 14 days after the discharge. His condition at the time of discharge was stable/baseline. See discharge orders. Discharge discussed with: patient, nurse, case management - Time Spent with Patient Total time spent providing and/or coordinating discharge services: Greater than 30 minutes (40 minutes.) - Discharge Medications Prescriptions: amLODIPine [Norvasc] 5 mg PO DAILY #30 tablet Ciprofloxacin [Cipro] 500 mg PO BID 7 Days #14 tablet predniSONE [PredniSONE] 20 mg PO DAILY 5 Days #5 tablet Home Medications: Albuterol Sulfate [Ventolin Hfa] 2 puff IH Q4H PRN 03/17/18 [History] Atorvastatin [Lipitor] 40 mg PO HS 03/17/18 [History] Clopidogrel [Plavix] 75 mg PO DAILY 03/17/18 [History] Fenofibrate Nanocrystallized [Tricor] 145 mg PO DAILY 03/17/18 [History] Fluticasone Propionate Nasal [Flonase] 1 spr NS DAILY 03/17/18 [History] Gabapentin [Neurontin] 300 mg PO TID 03/17/18 [History] Insulin Glargine,Hum.rec.anlog [Lantus Solostar] 25 unit SQ HS 03/17/18 [History ] Montelukast [Singulair] 10 mg PO DAILY 03/17/18 [History] Omeprazole [PriLOSEC] 20 mg PO DAILY 03/17/18 [History] Oxycodone HCl/Acetaminophen [Percocet 10-325 mg Tablet] 1 tab PO Q4-6H PRN 03/17 [History] Sitagliptin Phos/Metformin HCl [Janumet 50-1,000 mg Tablet] 1 tab PO BID [History] diazePAM [Valium] 5 mg PO BID 03/17/18 [History] diazePAM [Valium] 10 mg PO HS 03/17/18 [History] Ciprofloxacin [Cipro] 500 mg PO BID 7 Days #14 tablet 03/24/18 [Rx] Docusate [Colace] 200 mg PO BID #0 capsule 03/24/18 [Rx] Ipratropium/Albuterol Neb [Duoneb] 3 ml IH [id number] PRN inhsol 03/24/18 [Rx] Ipratropium/Albuterol Neb [Duoneb] 3 ml IH QIDR inhsol 03/24/18 [Rx] amLODIPine [Norvasc] 5 mg PO DAILY #30 tablet 03/24/18 [Rx] predniSONE [PredniSONE] 20 mg PO DAILY 5 Days #5 tablet 03/24/18 [Rx] Allergies/Adverse Reactions: 3 Allergy/AdvReac Type Severity Reaction Status Date / Time azithromycin Allergy See Verified 01/23/17 01:18 Comments Date of admission: 03/17/18 20:05 Primary care physician: Ad Garcia MD Consults: 03/17/18 21:52 Consult to Nutrition [CONS] Routine Comment: Consulting Provider: NUTRITION Reason for Dietary Consult: MST Score 03/17/18 22:19 Consult to Critical Care [CONS] Routine Consulting Provider: [facility] Reason for Consult: acute on chronic respiratory failure Call Completed: Yes 03/22/18 09:21 Consult to Case Management [CONS] Routine Comment: Considering discharge today or tomorrow 03/23/18 09:36 Consult to Infectious Diseases [CONS] Routine Consulting Provider: [facility] Reason for Consult: Admitted with pna/sepsis. Multiple organisms in sputum/ Legionella antigen in urine. Needs abx recommendations for discharge. Time Notified: 09:35 Call Completed: Yes 03/24/18 08:54 Consult to Mounting Inspector [CONS] Routine Reason for SW Consult: Discharge planning Discharging clinician: Norman Couch Anticipated date of discharge: 03/24/18 - Constitutional Vitals: Temp Pulse Resp BP Pulse Ox 97.8 F 72 18 139/83 92 03/24/18 11:27 03/24/18 11:27 03/24/18 11:27 03/24/18 11:27 03/24/18 11:27 General appearance: Present: A&O X 3, obese, answers questions appropriately - Respiratory Respiratory exam: Present: CTAB. Absent: rhonchi, wheezes Additional comments: The patient has a tracheostomy tube placed. - Cardiovascular Cardiovascular exam: Present: RRR. Absent: diastolic murmur, gallop, systolic murmur - GI/Abdominal GI/Abdominal exam: Present: soft. Absent: mass, tenderness - Patient Status Disposition: Home, Self-Care Condition: Good - Discharge Instructions Instructions: Prednisone (By mouth), Amlodipine (By mouth), Ertapenem ( Injection), Pneumonia, Sail Cutter (GEN) Follow Up With: Ad Garcia MD [Primary Care Provider] - Sara Napoles CNP [Advanced Practice Nurse] - 03/29/18 4:00 pm [facility] [Provider Group] Additional Instructions: The patient will continue IV ertapenem for 7 days; Lortab prescription and referral to home health agency. He will use supplemental oxygen at 10 L/m, trach collar. - Diet and Activity Activity: resume usual activities as tolerated Diet: diabetic diet (1800 lexi ADA) - VTE Deep Vein Thrombosis/Pulmonary Embolism Present on Admission: No
--- NOTE | 2018-03-24 12:15 | Physician Discharge Referral ---
Home Health/Hosp Referral Info Attending Provider: Konrad Couch MD - Diagnosis (1) Pneumonia Status: Acute (2) COPD (chronic obstructive pulmonary disease) Status: Chronic (3) Chronic respiratory failure with hypoxia and hypercapnia Status: Chronic (4) Type 2 diabetes mellitus with hyperglycemia Status: Acute (5) HTN (hypertension) Status: Chronic (6) Sepsis Status: Resolved - Respiratory Orders Smoking Cessation: Smoking cessation has been advised. For more information, call the [employer] Tobacco Quit Line at 8-938-ULPX-NOW. - Diet/Nutrition Diet/Nutrition: List: Diabetes diet. - Activity Activity Orders: Up ad hossein - Services Needed Following services are medically necessary services: Home Infusion - Transfer Medications Prescriptions: amLODIPine [Norvasc] 5 mg PO DAILY #30 tablet Ciprofloxacin [Cipro] 500 mg PO BID 7 Days #14 tablet predniSONE [PredniSONE] 20 mg PO DAILY 5 Days #5 tablet Home Medications: Albuterol Sulfate [Ventolin Hfa] 2 puff IH Q4H PRN 03/17/18 [History] Atorvastatin [Lipitor] 40 mg PO HS 03/17/18 [History] Clopidogrel [Plavix] 75 mg PO DAILY 03/17/18 [History] Fenofibrate Nanocrystallized [Tricor] 145 mg PO DAILY 03/17/18 [History] Fluticasone Propionate Nasal [Flonase] 1 spr NS DAILY 03/17/18 [History] Gabapentin [Neurontin] 300 mg PO TID 03/17/18 [History] Insulin Glargine,Hum.rec.anlog [Lantus Solostar] 25 unit SQ HS 03/17/18 [History ] Montelukast [Singulair] 10 mg PO DAILY 03/17/18 [History] Omeprazole [PriLOSEC] 20 mg PO DAILY 03/17/18 [History] Oxycodone HCl/Acetaminophen [Percocet 10-325 mg Tablet] 1 tab PO Q4-6H PRN 03/17 [History] Sitagliptin Phos/Metformin HCl [Janumet 50-1,000 mg Tablet] 1 tab PO BID [History] diazePAM [Valium] 5 mg PO BID 03/17/18 [History] diazePAM [Valium] 10 mg PO HS 03/17/18 [History] Ciprofloxacin [Cipro] 500 mg PO BID 7 Days #14 tablet 03/24/18 [Rx] Docusate [Colace] 200 mg PO BID #0 capsule 03/24/18 [Rx] Ipratropium/Albuterol Neb [Duoneb] 3 ml IH [id number] PRN inhsol 03/24/18 [Rx] Ipratropium/Albuterol Neb [Duoneb] 3 ml IH QIDR inhsol 03/24/18 [Rx] amLODIPine [Norvasc] 5 mg PO DAILY #30 tablet 03/24/18 [Rx] predniSONE [PredniSONE] 20 mg PO DAILY 5 Days #5 tablet 03/24/18 [Rx] Allergies/Adverse Reactions: 3 Allergy/AdvReac Type Severity Reaction Status Date / Time azithromycin Allergy See Verified 01/23/17 01:18 Comments Certification: Further, I certify that my clinical findings support that this patient is homebound (i.e. absences from home require considerable and taxing effort and are for medical reasons or restorationism services or infrequently or short duration when for other reasons) because: Homebound Reason: Leaving home requires considerable and taxing effort due to condition Attestation: My signature below is to certify that this patient is under my care and that I, or nurse practitioner, or a physician's product safety technical assistant working with me, has a face-to -face encounter with this patient.
== END 2018-03-24 14:17 | disposition home or self-care (01) | DRG 871 ==
LOC: EMEROO 17:26 → ICNU 20:05 → SUATTDRO 20:05 → ICNU 20:56 → 2NNU 03-19 16:40
PROVIDERS: ADMIT Family Medicine; ATTEND Internal Medicine

== ENCOUNTER 2018-07-08 18:39 | Inpatient (IN) ==
[2018-07-08] MEDS ORDERED: methylPREDNISolone 125 MG/2 ML VIAL IVP ONE (19:09)
[2018-07-08] MEDS ORDERED: Ipratropium/Albuterol Neb 3 ML IH ONE (19:09)
--- NOTE | 2018-07-08 19:13 | Emergency Department Note ---
Disposition Clinical Impression: COPD exacerbation Pneumonia Qualifiers: Pneumonia type: due to unspecified organism Laterality: right Lung location: unspecified part of lung Qualified Code(s): J18.9 - Pneumonia, unspecified organism Disposition: Admitted As Inpatient Condition: Good Time of Disposition: 21:05 SOB HPI - General Chief Complaint: ED Shortness of Breath/Dyspnea Stated Complaint: KIAH Time Seen by Provider: 07/08/18 18:42 Source: patient, EMS Mode of arrival: EMS Limitations: no limitations Nursing Notes Reviewed: Yes Vital Signs Reviewed: Yes - History of Present Illness 57-year-old male chronic trach on 3 L at home with history of COPD presents emergency department for difficulty in breathing. He states this is been ongoing for the past several weeks worse today. He gets short of breath at rest sometimes as well as with exertion. He reports a cough as well as thick sputum when he sections. Denies any chest pain. States this feels similar to his prior admission. He was recently discharged over a month ago. He states he is been using his inhaler is at home with relief. No recent antibiotic or steroid use. No history of cardiac ischemic disease. No history of blood clots. No recent travel. Denies any fever doll pain nausea or vomiting. Denies urinary symptoms. Pt Subjective Complaint: shortness of breath, cough - Related Data Home Medications Medication Instructions Recorded Confirmed Albuterol Sulfate [Ventolin Hfa] 2 puff IH Q4H PRN 03/17/18 07/08/18 Atorvastatin [Lipitor] 40 mg PO HS 03/17/18 07/08/18 Clopidogrel [Plavix] 75 mg PO DAILY 03/17/18 07/08/18 Fenofibrate Nanocrystallized 145 mg PO DAILY 03/17/18 07/08/18 [Tricor] Fluticasone Propionate Nasal 1 spr NS DAILY 03/17/18 07/08/18 [Flonase] Gabapentin [Neurontin] 300 mg PO TID 03/17/18 07/08/18 Insulin Glargine,Hum.rec.anlog 25 unit SQ HS 03/17/18 07/08/18 [Lantus Solostar] Montelukast [Singulair] 10 mg PO DAILY 03/17/18 07/08/18 Omeprazole [PriLOSEC] 20 mg PO DAILY 03/17/18 07/08/18 Oxycodone HCl/Acetaminophen 1 tab PO Q4-6H PRN 03/17/18 07/08/18 [Percocet 10-325 mg Tablet] Sitagliptin Phos/Metformin HCl 1 tab PO BID 03/17/18 07/08/18 [Janumet 50-1,000 mg Tablet] diazePAM [Valium] 5 mg PO BID 03/17/18 07/08/18 diazePAM [Valium] 10 mg PO HS 03/17/18 07/08/18 Furosemide [Lasix] 20 mg PO BID PRN 05/21/18 07/08/18 Previous Rx's Medication Instructions Recorded Docusate [Colace] 200 mg PO BID #0 capsule 03/24/18 amLODIPine [Norvasc] 5 mg PO DAILY #30 tablet 03/24/18 Allergies Allergy/AdvReac Type Severity Reaction Status Date / Time azithromycin Allergy See Verified 07/08/18 19:04 Comments All systems ED: reviewed and negative except as stated. Review of Systems: As Per HPI Constitutional: Denies: fever, chills ENT ED: Reports: congestion Cardiovascular: Denies: chest pain Respiratory: Reports: cough, dyspnea, wheezes Gastrointestinal: Denies: abdominal pain, nausea, vomiting Genitourinary: Denies: dysuria Integumentary: Denies: rash, abrasion Neurological: Denies: headache, weakness, numbness Past Medical History - Past Medical History Attestation: Yes The following information was validated with the patient. Source: patient Medical history: Reports: asthma, COPD, CVA, diabetes, myocardial infarction, TIA, other Surgical history: Reports: tracheostomy Psychiatric history: Reports: no psych history, anxiety, depression - Social History Smoking Status: Current every day smoker Smokeless Tobacco Status: No Alcohol use: Reports: none, occasionally Drug use: Reports: none Physical Exam - General Limitations: no limitations General appearance: alert, in no apparent distress - Head Head exam: atraumatic, normocephalic, normal inspection - Eye Eye exam: Present: normal appearance, PERRL, EOMI - ENT ENT exam: normal exam, normal oropharynx, mucous membranes moist - Neck Neck exam: Present: full ROM, other (trach in place) - Chest Chest inspection: Present: normal inspection, symmetric chest wall rise. Absent : tenderness - Respiratory Respiratory exam: Present: wheezes (Bilaterally), prolonged expiratory phase. Absent: respiratory distress - Cardiovascular Cardiovascular exam: Present: regular rate, normal rhythm, normal heart sounds - Abdominal Exam Abdominal exam: Present: soft (Obese), Non-Tender, normal bowel sounds. Absent : tenderness, distention, guarding, rebound, rigidity - Extremities Exam Extremities exam: Present: normal inspection, full ROM, normal capillary refill. Absent: tenderness, pedal edema, calf tenderness - Back Exam Back exam: Present: normal inspection, full ROM. Absent: tenderness - Neurological Exam Neurological exam: Present: alert, oriented X3 - Psychiatric Psychiatric exam: Present: normal affect, normal mood - Skin Skin exam: Present: warm, dry, intact, normal color. Absent: rash, cyanosis, diaphoresis Course Course Narrative: Patient presents with difficulty breathing. States this is been gradually worsening over the past several weeks. He denies any fevers. He reports productive cough. He admits to using his inhaler is at home. His oxygen was increased here and had adequate saturations. On examination his lungs were tight with bilateral wheezing. Suspect likely COPD exacerbation. Given the trait as well as a productive sputum will evaluate for possible pneumonia. Patient denies any other complaints or symptoms. He is otherwise awake alert and oriented answering questions appropriately. will given a breathing treatment and steroids and reevaluate. - Reevaluation(s) Reevaluation #1: Patient continues to improve after DuoNeb treatment. His lungs have improved with that are aeration. He continues to be awake and alert. His chest x-ray shows findings consistent with pneumonia. Patient was recently discharged from the hospital within the past 2 months it will be treated for healthcare associated pneumonia with Zosyn and vancomycin. Patients in agreement with this plan for admission and further treatment. Impression is COPD exacerbation and healthcare associated pneumonia. - Consultations Consultation #1: Spoke with on-call hospitalist nathaniel Triplett to admit for HCAP and COPD exacerbation. No further orders at this time Time: 21:03 Vital Signs Temperature 98.4 F 07/08/18 19:06 Pulse Rate 87 07/08/18 19:06 Respiratory Rate 20 07/08/18 19:06 Blood Pressure 155/69 07/08/18 19:06 O2 Sat by Pulse Oximetry 98 07/08/18 19:06 Temperature 98.4 F 07/08/18 19:08 Pulse Rate 88 07/08/18 20:50 Respiratory Rate 18 07/08/18 20:50 Blood Pressure 159/79 07/08/18 20:50 O2 Sat by Pulse Oximetry 97 07/08/18 20:50 Oxygen Delivery Oxygen Delivery Trach Mask Shortness of Breath/Dyspnea - MDM Narrative Medical decision making narrative: Patient was discussed with my attending physician who agrees with ED management and final disposition. They independently evaluated the patient. Please refer to their attestation to this encounter for additional information. This note was generated by [employer] voice recognition software and as a result grammatical or spelling errors may occur using this program. - Medical Records Medical records reviewed: Yes I reviewed the patient's medical records. - Lab Data Lab results reviewed: Yes I reviewed the patient's lab results. Result diagrams: 07/08/18 19:28 07/08/18 19:28 Lab Results 07/08/18 07/08/18 Range/Units 19:28 19:28 WBC 9.9 (4.3-11.1) K/mcL RBC 3.83 L (4.19-5.50) M/mcL Hgb 11.0 L (12.9-16.9) g/dL Hct 36.0 L (37.5-50.1) % MCV 94.0 (83.0-100.0) fL MCH 28.7 (28.0-33.3) pg MCHC 30.6 L (31.6-35.5) g/dL RDW 12.7 (11.5-14.5) % Plt Count 446 H (140-400) K/mcL MPV 8.7 L (9.4-12.4) fL Immature Gran % 0.4 (0-4) % Seg Neutrophils % 79.7 % Lymphocytes % 12.3 % Monocytes % 6.2 % Eosinophils % 1.3 % Basophils % 0.1 % Neutrophils # 7.9 (1.6-8.9) K/mcL Lymphocytes # 1.2 (0.6-4.6) K/mcL Monocytes # 0.6 (0.0-1.3) K/mcL Eosinophils # 0.1 (0.0-0.6) K/mcL Basophils # 0.0 (0.0-0.2) K/mcL Sodium 143 (136-145) mEq/L Potassium 4.1 (3.5-5.1) mEq/L Chloride 94 L (98-107) mEq/L Carbon Dioxide > 45 H* (23-29) mEq/L BUN 6 (6-20) mg/dL Creatinine 0.65 L (0.70-1.30) mg/dL Est GFR ( Amer) > 60 (> 60) Est GFR (Non-Af Amer) > 60 (> 60) BUN/Creatinine Ratio 9 (6-26) Glucose 125 H (70-105) mg/dL Calculated Osmolality 295 (280-300) Calcium 9.4 (8.6-10.3) mg/dL Troponin I < 0.03 (< 0.04) ng/mL - Radiology Data Radiology results reviewed: Yes I reviewed the patient's radiology results. Chest X-Ray 07/08/18 19:09 IMPRESSION: Right basilar airspace disease suspicious for pneumonia. Asymmetric edema could have this appearance as well. D/ / Grazyna Sotelo Cha, MD / Grazyna Sotelo Cha, MD Interpreting Provider: Grazyna Sotelo Cha, MD - EKG Data EKG attestation: Yes I reviewed and interpreted this EKG. EKG results narrative: EKG performed 1915 normal sinus rhythm 86 beats per minute normal axis, good R wave progression, no ST elevation or depression, intervals within normal limits. Compared to prior EKG performed 05/21/2018 showing similar consistent findings. No acute ischemic changes.
--- NOTE | 2018-07-08 19:56 | Emergency Department Note ---
Disposition Clinical Impression: Pneumonia Qualifiers: Pneumonia type: due to unspecified organism Laterality: right Lung location: unspecified part of lung Qualified Code(s): J18.9 - Pneumonia, unspecified organism Disposition: Still a Patient Forms: ED Satisfaction Letter General Adult HPI - General Chief complaint: ED Shortness of Breath/Dyspnea Stated complaint: KIAH Time Seen by Provider: 07/08/18 18:42 Source: patient, EMS Mode of arrival: EMS Limitations: no limitations - History of Present Illness Pain Scale: 8 - Related Data Home Medications Medication Instructions Recorded Confirmed Albuterol Sulfate [Ventolin Hfa] 2 puff IH Q4H PRN 03/17/18 05/21/18 Atorvastatin [Lipitor] 40 mg PO HS 03/17/18 05/21/18 Clopidogrel [Plavix] 75 mg PO DAILY 03/17/18 05/21/18 Fenofibrate Nanocrystallized 145 mg PO DAILY 03/17/18 05/21/18 [Tricor] Fluticasone Propionate Nasal 1 spr NS DAILY 03/17/18 05/21/18 [Flonase] Gabapentin [Neurontin] 300 mg PO TID 03/17/18 05/21/18 Insulin Glargine,Hum.rec.anlog 25 unit SQ HS 03/17/18 05/21/18 [Lantus Solostar] Montelukast [Singulair] 10 mg PO DAILY 03/17/18 05/21/18 Omeprazole [PriLOSEC] 20 mg PO DAILY 03/17/18 05/21/18 Oxycodone HCl/Acetaminophen 1 tab PO Q4-6H PRN 03/17/18 05/21/18 [Percocet 10-325 mg Tablet] Sitagliptin Phos/Metformin HCl 1 tab PO BID 03/17/18 05/21/18 [Janumet 50-1,000 mg Tablet] diazePAM [Valium] 5 mg PO BID 03/17/18 05/21/18 diazePAM [Valium] 10 mg PO HS 03/17/18 05/21/18 Furosemide [Lasix] 20 mg PO BID PRN 05/21/18 05/21/18 Previous Rx's Medication Instructions Recorded Docusate [Colace] 200 mg PO BID #0 capsule 03/24/18 amLODIPine [Norvasc] 5 mg PO DAILY #30 tablet 03/24/18 Azithromycin [Zithromax] 500 mg PO DAILY #3 tablet 05/22/18 predniSONE [PredniSONE] See Taper PO TAPER #30 tablet 05/22/18 Allergies Allergy/AdvReac Type Severity Reaction Status Date / Time azithromycin Allergy See Verified 07/08/18 19:04 Comments Constitutional: Denies: fever, chills ENT ED: Reports: congestion Cardiovascular: Denies: chest pain Respiratory: Reports: cough, dyspnea, wheezes Gastrointestinal: Denies: abdominal pain, nausea, vomiting Genitourinary: Denies: dysuria Integumentary: Denies: rash, abrasion Neurological: Denies: headache, weakness, numbness Past Medical History - Past Medical History Medical history: Reports: asthma, COPD, CVA, diabetes, myocardial infarction, TIA, other Surgical history: Reports: tracheostomy Psychiatric history: Reports: no psych history, anxiety, depression - Social History Smoking Status: Current every day smoker Smokeless Tobacco Status: No Alcohol use: Reports: none, occasionally Drug use: Reports: none Physical Exam - General Limitations: no limitations General appearance: alert, in no apparent distress Course Vital Signs Temperature 98.4 F 07/08/18 19:06 Pulse Rate 87 07/08/18 19:06 Respiratory Rate 20 07/08/18 19:06 Blood Pressure 155/69 07/08/18 19:06 O2 Sat by Pulse Oximetry 98 07/08/18 19:06 Temperature 98.4 F 07/08/18 19:08 Pulse Rate 87 07/08/18 19:08 Respiratory Rate 16 07/08/18 19:31 Blood Pressure 155/69 07/08/18 19:08 O2 Sat by Pulse Oximetry 98 07/08/18 19:31 Oxygen Delivery Oxygen Delivery Trach Mask Attestation Statement - Attestation Attestation: I examined this patient and my medical decision-making was reviewed with the Resident Physician. I agree with the documented findings, disposition and treatment plan as described except to the extent set forth below. 57 year old male presents to the ED with complaints of dyspnea and has a history of COPD and currenlty has a chronic trach. PAtinet has been becoming more dyspniec and has crackles and wheezes on exam. Patient on CXR has pneumoina in the right lobe. He currenlty will recieve breathing treatments and then steroids therapy. In addition treatment with levaquin for his pnuemoina. Dana we will admit to medicine
[2018-07-08 19:57] LABS: Basophils % 0.1 %; Eosinophils # 0.1 K/mcL (0.0-0.6); Eosinophils % 1.3 %; Immature Granulocytes % 0.4 % (0-4); Lymphocytes # 1.2 K/mcL (0.6-4.6); Lymphocytes % 12.3 %; Mean Corpuscular HGB Conc 30.6 g/dL (31.6-35.5); Mean Corpuscular Hemoglobin 28.7 pg (28.0-33.3); Mean Platelet Volume 8.7 fL (9.4-12.4); Monocytes # 0.6 K/mcL (0.0-1.3); Monocytes % 6.2 %; Neutrophils # 7.9 K/mcL (1.6-8.9); Platelet Count 446 K/mcL (140-400); Red Blood Count 3.83 M/mcL (4.19-5.50); Red Cell Distribution Width 12.7 % (11.5-14.5); Segmented Neutrophils % 79.7 %
[2018-07-08] MEDS ORDERED: Piperacillin/Tazobactam 3.375 GM in Water for inj. (sterile) 20 ML 20 ML IVP ONE (20:01)
[2018-07-08 20:25] LABS: BUN/Creatinine Ratio 9 (6-26); Blood Urea Nitrogen 6 mg/dL (6-20); Calcium 9.4 mg/dL (8.6-10.3); Carbon Dioxide > 45 mEq/L (23-29); Chloride 94 mEq/L (98-107); Glucose 125 mg/dL (70-105); Osmolality,Calculated 295 (280-300); Potassium 4.1 mEq/L (3.5-5.1); Sodium 143 mEq/L (136-145); eGFR For Non-African Americans > 60 (> 60)
[2018-07-08 21:10] LABS: Troponin I < 0.03 ng/mL (< 0.04)
[2018-07-08 22:00] LABS: VBG HCO3 45 mEq/L (21-27); VBG PCO2 69 mmHg (41-51); VBG PH 7.42 pH Units (7.32-7.42); VBG PO2 209 mmHg (25-50)
--- NOTE | 2018-07-08 23:35 | Internal Med History&Physical ---
Date of Encounter: 07/09/18 Time of Encounter: 23:20 Internal Medicine - H&P: HPI Chief complaint: shortness of breath Admitted From: Home Plans for Post Hospital Care: Home History of present illness: Mr. Mccloud is a 57 year old male with chronic trachostomy history of COPD presented to ED for increased shortness of breath . He reports one week of increased mucus production and cough with only mild improvement with inhalers. He denies fever or change in discharge from trach. He denies chest pain or palpitations. He is currently smoking about one pack per day. In ED vitals remained stable mild tachypena at 22 RR with oxygen above 95% on 3- 5 L his home dose is 3 L. EKG no acute changes from old. He improved after a deuneb treatment and solumedral 125mg. Chest X-ray showed right basilar airspace disease -started on vanco and zosyn for HCAP. He was recently discharged from [facility] on 05-22 after treated for a COPD exacerbation. Limited history due to patient's refusal to respond verbally - per RN he is capable of speaking but is only whispering and miming to communicate with me - often closing his eyes and refusing to answer at all. Per chart review he has had increasing shortness of breath for weeks with thick secretions that patient attempted to suction with out success. 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 Past Med Surg Social Fam HX - Past Medical History Medical history: asthma, COPD, CVA, diabetes, myocardial infarction, TIA, other Additional medical history: chronic back pain Psychiatric history: no psych history, anxiety, depression - Past Surgical History Surgical History: tracheostomy Additional surgical history: skull fracture. trach - Social History Smoking Status: Current every day smoker Smokeless Tobacco Status: No Alcohol use: none, occasionally Drug use: none - Family History Mother Living Status: Hx Family Cardiac Disorders: Yes Hx Family Respiratory Disorders: Yes Hx Family Cancer: No Hx Family Endocrine Disorder: No Father Hx Family Cardiac Disorders: Yes (CHF, [place]) Internal Medicine - H&P: Meds Albuterol Sulfate [Ventolin Hfa] 2 puff IH Q4H PRN 03/17/18 [History] Atorvastatin [Lipitor] 40 mg PO HS 03/17/18 [History] Clopidogrel [Plavix] 75 mg PO DAILY 03/17/18 [History] Fenofibrate Nanocrystallized [Tricor] 145 mg PO DAILY 03/17/18 [History] Fluticasone Propionate Nasal [Flonase] 1 spr NS DAILY 03/17/18 [History] Gabapentin [Neurontin] 300 mg PO TID 03/17/18 [History] Insulin Glargine,Hum.rec.anlog [Lantus Solostar] 25 unit SQ HS 03/17/18 [History ] Montelukast [Singulair] 10 mg PO DAILY 03/17/18 [History] Omeprazole [PriLOSEC] 20 mg PO DAILY 03/17/18 [History] Oxycodone HCl/Acetaminophen [Percocet 10-325 mg Tablet] 1 tab PO Q4-6H PRN 03/17 [History] Sitagliptin Phos/Metformin HCl [Janumet 50-1,000 mg Tablet] 1 tab PO BID [History] diazePAM [Valium] 5 mg PO BID 03/17/18 [History] diazePAM [Valium] 10 mg PO HS 03/17/18 [History] Docusate [Colace] 200 mg PO BID #0 capsule 03/24/18 [Rx] amLODIPine [Norvasc] 5 mg PO DAILY #30 tablet 03/24/18 [Rx] Furosemide [Lasix] 20 mg PO BID PRN 05/21/18 [History] 3 Allergy/AdvReac Type Severity Reaction Status Date / Time azithromycin Allergy See Verified 07/08/18 19:04 Comments ROS unobtainable: other Review of systems: patient refusal to cooperate - Constitutional Vitals: Temp Pulse Resp BP Pulse Ox 98.3 F 98 16 120/61 95 07/08/18 22:11 07/08/18 22:11 07/08/18 22:11 07/08/18 22:11 07/08/18 22:11 General appearance: Present: morbidly obese, no acute distress. Absent: cooperative, pleasant, answers questions appropriately Exam: he answers questions by mouthing out wording or miming with hands - Head Head exam: Present: atraumatic, normocephalic Additional comments: no purulent discharge from track, area surrounding has no erythema - Respiratory Respiratory exam: Present: wheezes. Absent: accessory muscle use, respiratory distress - Cardiovascular Cardiovascular exam: Present: RRR. Absent: gallop, rubs - GI/Abdominal GI/Abdominal exam: Present: distended, normal bowel sounds. Absent: guarding, mass, tenderness - Extremities Exam Extremities exam: Present: full ROM, radial pulses palpable and symmetrical. Absent: pedal edema Additional comments: very dirty feet - Back Exam Back exam: Present: full ROM, normal inspection. Absent: tenderness - Psychiatric Psychiatric exam: Present: flat affect. Absent: anxious Internal Med - H&P Results - Labs CBC & Chem 7: 07/09/18 03:10 07/09/18 03:10 - ABG Interpretation ABG results: 07/08/18 21:57 VBG pH 7.42 VBG pCO2 69 H VBG pO2 209 H VBG HCO3 45 H - Assessment and plan (1) HCAP (healthcare-associated pneumonia) Current Visit: No Status: Acute Assessment and plan: Afebrile with WBC 9.9 but suspected based on chest x-ray findings consistent with right lower lobe disease and concern for aspiration with chronic trach Repeat hospitaliations most recent less than 2 months ago leads to diagnosis of HCAP. - continue vanc and zosyn - MRSA swab - legionella and strep pneumo antigens (2) Acute exacerbation of chronic obstructive pulmonary disease (COPD) Current Visit: No Status: Acute Assessment and plan: Clinical picture suggestive of COPD exacerbation possibly triggered by PNA. 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 Qualified Code( s): E11.65 - Type 2 diabetes mellitus with hyperglycemia; Z79.4 - retirement ( current) use of insulin (5) Anemia Current Visit: No Status: Chronic Assessment and plan: HgB 11 at baseline Qualifiers: Anemia type: unspecified type Qualified Code(s): D64.9 - Anemia, unspecified (6) Chronic, continuous use of opioids Current Visit: Yes Status: Acute Assessment and plan: continue home medications - Percocet 10 q 6hr PRN instead of q4-6 hrs (7) Chronic prescription benzodiazepine use Current Visit: Yes Status: Acute Assessment and plan: continue home dose (8) DVT prophylaxis Current Visit: No Status: Acute Assessment and plan: continue Plavix - Time Spent With Patient Total time spent is greater than 50% in coordination of care (as documented) at patient's floor/unit and/or counseling patient: 25 - 35 minutes
[2018-07-08] MEDS ORDERED: Dextrose Gel 15 GM/37.5 ML TUBE PO PRN ×2 (23:42)
[2018-07-08] MEDS ORDERED: D5% in Water 1,000 ML IVC PRN (23:42)
[2018-07-08] MEDS ORDERED: *HR* Dextrose 50 % in Water (Syg) 50 ML SYRINGE IVP PRN (23:42)
[2018-07-08] MEDS ORDERED: Naloxone 0.4 MG/ML INJ IVP PRN (23:43)
[2018-07-09] MEDS ORDERED: *HR* OxyCODONE/APAP 10/325 TABLET PO PRN (00:14)
[2018-07-09] MEDS: diazePAM 10 MG TABLET PO SCH ×2 (00:29→21:31)
[2018-07-09] MEDS: Gabapentin 300 MG CAPSULE PO SCH ×4 (00:29→21:31)
[2018-07-09] MEDS ORDERED: Ipratropium/Albuterol Neb 3 ML IH PRN (01:13)
[2018-07-09 03:30] LABS: Hematocrit 34.9 % (37.5-50.1); Hemoglobin 10.8 g/dL (12.9-16.9); Immature Granulocytes % 0.6 % (0-4); Lymphocytes # 0.5 K/mcL (0.6-4.6); Lymphocytes % 8.1 %; Mean Corpuscular HGB Conc 30.9 g/dL (31.6-35.5); Mean Corpuscular Hemoglobin 28.2 pg (28.0-33.3); Mean Corpuscular Volume 91.1 fL (83.0-100.0); Monocytes # 0.1 K/mcL (0.0-1.3); Monocytes % 0.9 %; Platelet Count 439 K/mcL (140-400); Red Blood Count 3.83 M/mcL (4.19-5.50); Red Cell Distribution Width 12.7 % (11.5-14.5); Segmented Neutrophils % 90.4 %
[2018-07-09 03:33] LABS: Neutrophils # 6.1 K/mcL (1.6-8.9)
[2018-07-09 04:00] LABS: BUN/Creatinine Ratio 14 (6-26); Blood Urea Nitrogen 10 mg/dL (6-20); Calcium 9.6 mg/dL (8.6-10.3); Carbon Dioxide 41 mEq/L (23-29); Chloride 93 mEq/L (98-107); Glucose 188 mg/dL (70-105); Osmolality,Calculated 292 (280-300); Potassium 4.6 mEq/L (3.5-5.1); Sodium 139 mEq/L (136-145); eGFR For Non-African Americans > 60 (> 60)
[2018-07-09] MEDS: Insulin LISPRO 300 UNITS/3 ML VIAL SQ SCH ×4 (04:41→16:33)
[2018-07-09 05:38] LABS: Platelet Estimate Normal (Normal)
[2018-07-09] MEDS ORDERED: Azithromycin 500 MG in D5% in Water 250 ML IVPB SCH (06:00)
[2018-07-09] MEDS ORDERED: methylPREDNISolone 125 MG/2 ML VIAL IVP SCH (08:00)
[2018-07-09] MEDS: Piperacillin/Tazobactam 3.375 GM in 0.9 % Sodium Chloride Mini Bag 100 ML IVPB SCH ×2 (08:53→16:29)
[2018-07-09] MEDS: amLODIPine 5 MG TABLET PO SCH (08:54)
[2018-07-09] MEDS: predniSONE 20 MG TABLET PO SCH (08:54)
[2018-07-09] MEDS: diazePAM 5 MG TABLET PO SCH ×2 (08:54→16:29)
[2018-07-09] MEDS: Fluticasone Propionate Nasal 50 MCG/SPRAY BOTTLE NS SCH (08:56)
[2018-07-09] MEDS: *HR* OxyCODONE/APAP 10/325 TABLET PO PRN ×2 (09:17→21:45)
[2018-07-09] MEDS: Ipratropium/Albuterol Neb 3 ML IH SCH ×3 (10:43→21:22)
--- NOTE | 2018-07-09 12:08 | Internal Med Progress Note ---
Hospitalist Progress Note - Encounter Date of Encounter: 07/09/18 Time of Encounter: 12:02 - Subjective Interval History: Patient seen and examined this morning. - Exam Vitals: Temp Pulse Resp BP Pulse Ox 99.6 F 90 20 124/60 94 07/09/18 11:52 07/09/18 11:52 07/09/18 11:52 07/09/18 11:52 07/09/18 11:52 - Time Spent with Patient Total time spent is greater than 50% in coordination of care (as documented) at patient's floor/unit and/or counseling patient: Internal Medicine: Result - Labs CBC & Chem 7: 07/09/18 03:10 07/09/18 03:10 Consult Discharge Plan - Plan Referrals: Ad Garcia MD [Primary Care Provider] -
--- NOTE | 2018-07-09 14:24 | Internal Med Progress Note ---
Hospitalist Progress Note - Encounter Date of Encounter: 07/09/18 Time of Encounter: 09:46 - Subjective Interval History: Patient seen and examined this morning. Breathing much better. Denies new complains. No fever, chills or diarrhea. - Exam Vitals: Temp Pulse Resp BP Pulse Ox 99.6 F 90 20 124/60 94 07/09/18 11:52 07/09/18 11:52 07/09/18 11:52 07/09/18 11:52 07/09/18 11:52 Exam: Head exam: atraumatic, normocephalic, no purulent discharge from tracheastomy , area surrounding has no erythema Respiratory exam: diffuse wheezes and decreased air entry b/l. No accessory muscle use, respiratory distress Cardiovascular exam: RRR. No murmur, rubs or gallop GI/Abdominal exam: Obese, non distended, normal bowel sounds. no guarding, mass , tenderness Extremities exam: full ROM, radial pulses palpable and symmetrical. no pedal edema, very dirty feet Back exam: full ROM, normal inspection. no tenderness - Summary of Assessment and Plan Summary of Assessment and Plan: HCAP - Afebrile, No leukocytosis, CXR wtih RLL infiltrated. ? aspiration, with chronic trach - most recent hospitaliations 2 months - c/w vanc and zosyn. - f/u MRSA swab, legionella and strep pneumo antigens. Blood culture NGTD COPD exacerbation - Clinical picture suggestive of COPD exacerbation possibly triggered by PNA. In regards to VBG he is likely chronically hypercapnic with compensation - duoneb q4hr PRN and q6 hr scheduled - continue montelukast - prednisone 40 daily Hypertension - continue amlodipine - hold home lasix DM Type 2 - hold Janumet - start ISS Anemia - HgB 11 at baseline Chronic, continuous use of opioids for back pain from injury - continue home medications - Percocet 10 q 6hr PRN instead of q4-6 hrs Chronic prescription benzodiazepine use - continue home dose CAD - c/w home palvix and atorvastatin DVT prophylaxis - continue Plavix - Time Spent with Patient Total time spent is greater than 50% in coordination of care (as documented) at patient's floor/unit and/or counseling patient: Internal Medicine: Result - Labs CBC & Chem 7: 07/09/18 03:10 07/09/18 03:10 Consult Discharge Plan - Plan Referrals: Ad Garcia MD [Primary Care Provider] -
[2018-07-09] MEDS: Insulin DETEMIR 100 UNIT/ML X5UNITS SQ SCH (21:30)
[2018-07-10] MEDS: Piperacillin/Tazobactam 3.375 GM in 0.9 % Sodium Chloride Mini Bag 100 ML IVPB SCH ×3 (00:09→15:53)
[2018-07-10] MEDS: Ipratropium/Albuterol Neb 3 ML IH SCH ×4 (03:39→21:58)
[2018-07-10] MEDS: *HR* OxyCODONE/APAP 10/325 TABLET PO PRN ×3 (04:28→21:48)
[2018-07-10] MEDS: diazePAM 5 MG TABLET PO SCH ×2 (08:49→15:53)
[2018-07-10] MEDS: amLODIPine 5 MG TABLET PO SCH (08:49)
[2018-07-10] MEDS: Gabapentin 300 MG CAPSULE PO SCH ×3 (08:49→21:48)
[2018-07-10] MEDS: predniSONE 20 MG TABLET PO SCH (08:50)
[2018-07-10] MEDS: Fluticasone Propionate Nasal 50 MCG/SPRAY BOTTLE NS SCH (08:58)
[2018-07-10] MEDS: Insulin LISPRO 300 UNITS/3 ML VIAL SQ SCH ×3 (08:58→16:42)
--- NOTE | 2018-07-10 10:12 | Internal Med Progress Note ---
Hospitalist Progress Note - Encounter Date of Encounter: 07/10/18 Time of Encounter: 09:59 - Subjective Interval History: Patient seen and examined this morning. Denies new complains. Breathing much better. - Exam Vitals: Temp Pulse Resp BP Pulse Ox 97.9 F 60 18 120/60 88 07/10/18 07:52 07/10/18 07:52 07/10/18 08:18 07/10/18 07:52 07/10/18 08:18 Exam: Head exam: atraumatic, normocephalic, no purulent discharge from tracheotomy , area surrounding has no erythema Respiratory exam: diffuse wheezes and decreased air entry b/l. Better air entry today. No accessory muscle use, respiratory distress Cardiovascular exam: RRR. No murmur, rubs or gallop GI/Abdominal exam: Obese, non distended, normal bowel sounds. no guarding, mass , tenderness Extremities exam: full ROM, radial pulses palpable and symmetrical. no pedal edema, very dirty feet Back exam: full ROM, normal inspection. no tenderness - Summary of Assessment and Plan Summary of Assessment and Plan: HCAP - Afebrile, No leukocytosis, CXR wtih RLL infiltrated. ? aspiration, with chronic trach - most recent hospitaliations 2 months for COPD treated with azithromycin. Had pneumonia in march with sputum growing pseudomonas, providencia and alcaligenes was treated with cipro and ertapenem. - c/w vanc and zosyn. Obtain sputum culture from tracheostomy. ID consulted. - f/u MRSA swab. Negative legionella and strep pneumo. Blood culture NGTD COPD exacerbation - Clinical picture suggestive of COPD exacerbation possibly triggered by PNA. - duoneb q4hr PRN and q6 hr scheduled - continue montelukast - prednisone 40 daily Hypertension - continue amlodipine - hold home lasix DM Type 2 - hold Janumet - start ISS Anemia - HgB 11 at baseline Chronic, continuous use of opioids for back pain from injury - continue home medications - Percocet 10 q 6hr PRN instead of q4-6 hrs Chronic prescription benzodiazepine use - continue home dose CAD - c/w home palvix and atorvastatin DVT prophylaxis - continue Plavix - Time Spent with Patient Total time spent is greater than 50% in coordination of care (as documented) at patient's floor/unit and/or counseling patient: Internal Medicine: Result - Labs CBC & Chem 7: 07/09/18 03:10 07/09/18 03:10 Consult Discharge Plan - Plan Referrals: Ad Garcia MD [Primary Care Provider] -
[2018-07-10] MEDS ORDERED: Aminoglycoside Consult 1 EACH MC ONE (17:47)
[2018-07-10] MEDS: diazePAM 10 MG TABLET PO SCH (21:47)
[2018-07-10] MEDS: Insulin DETEMIR 100 UNIT/ML X5UNITS SQ SCH (21:51)
[2018-07-11] MEDS: Piperacillin/Tazobactam 3.375 GM in 0.9 % Sodium Chloride Mini Bag 100 ML IVPB SCH ×2 (01:23→08:19)
[2018-07-11] MEDS: Ipratropium/Albuterol Neb 3 ML IH SCH ×4 (03:29→22:37)
[2018-07-11] MEDS: *HR* OxyCODONE/APAP 10/325 TABLET PO PRN ×2 (05:04→14:35)
[2018-07-11] MEDS: *HR* Enoxaparin 40 MG/0.4 ML SYRINGE SQ SCH (05:05)
[2018-07-11] MEDS: Insulin LISPRO 300 UNITS/3 ML VIAL SQ SCH ×3 (08:18→17:56)
[2018-07-11] MEDS: predniSONE 20 MG TABLET PO SCH (08:20)
[2018-07-11] MEDS: amLODIPine 5 MG TABLET PO SCH (08:20)
[2018-07-11] MEDS: diazePAM 5 MG TABLET PO SCH ×2 (08:20→14:35)
[2018-07-11] MEDS: Fluticasone Propionate Nasal 50 MCG/SPRAY BOTTLE NS SCH (08:20)
[2018-07-11] MEDS: Gabapentin 300 MG CAPSULE PO SCH ×3 (08:20→21:35)
--- NOTE | 2018-07-11 08:20 | Internal Med Progress Note ---
Hospitalist Progress Note - Encounter Date of Encounter: 07/11/18 Time of Encounter: 08:18 - Subjective Interval History: Denies new complains. Breathing much better. Wants to go home. No fever, chills or diarrhea. - Exam Vitals: Temp Pulse Resp BP Pulse Ox 98 F 94 16 130/70 92 07/11/18 07:12 07/11/18 07:12 07/11/18 07:12 07/11/18 07:12 07/11/18 07:12 Exam: Head exam: atraumatic, normocephalic, no purulent discharge from tracheotomy , area surrounding has no erythema Respiratory exam: diffuse wheezes improved from yesterday. Improved air entry b/ l. No accessory muscle use, respiratory distress Cardiovascular exam: RRR. No murmur, rubs or gallop GI/Abdominal exam: Obese, non distended, normal bowel sounds. no guarding, mass , tenderness Extremities exam: full ROM, radial pulses palpable and symmetrical. no pedal edema, very dirty feet Back exam: full ROM, normal inspection. no tenderness - Summary of Assessment and Plan Summary of Assessment and Plan: HCAP - Afebrile, No leukocytosis, CXR wtih RLL infiltrated. ? aspiration, with chronic trach - most recent hospitaliations 2 months for COPD treated with azithromycin. Had pneumonia in march with sputum growing pseudomonas, providencia and alcaligenes was treated with cipro and ertapenem. - On vanc and zosyn day 4. - nasal MRSA screen negative. Negative legionella and strep pneumo. Blood culture NGTD, sputum culture pending. Will descalate antibiotics per ID. COPD exacerbation - Clinical picture suggestive of COPD exacerbation possibly triggered by PNA. - Improved clinically - c/w duoneb q4hr PRN and q6 hr scheduled, continue montelukast - prednisone 40 daily (day 4). Will finish 7 day course Hypertension - continue amlodipine - hold home lasix DM Type 2 - hold Janumet - c/w ISS. Start levemir 5 HS. Anemia - HgB 11 at baseline Chronic, continuous use of opioids for back pain from injury - continue home medications - Percocet 10 q 6hr PRN instead of q4-6 hrs Chronic prescription benzodiazepine use - continue home dose CAD - c/w home palvix and atorvastatin DVT prophylaxis - lovenox - Time Spent with Patient Total time spent is greater than 50% in coordination of care (as documented) at patient's floor/unit and/or counseling patient: Internal Medicine: Result - Labs CBC & Chem 7: 07/09/18 03:10 07/09/18 03:10 Consult Discharge Plan - Plan Referrals: Ad Garcia MD [Primary Care Provider] -
--- NOTE | 2018-07-11 09:37 | Infectious Disease Consult ---
Date of Encounter: 07/11/18 Time of Encounter: 09:30 Assessment and Plan (1) HCAP (healthcare-associated pneumonia) Status: Acute Assessment and plan: History of recent hospitalization in May 2018 with COPD exacerbation treated with azithromycin. History of pneumonia in March 2018 treated with ciprofloxacin and ertapenem. Causative organism: unknown, but likely microorganisms found in previous sputum culture. Legionella and Strep pneumoniae antigens negative. Nasal MRSA is negative. Previous sputum culture 03/17/18 was positive for Pseudomonas, Alcaligenes faec ssp facecalis, and Providencia rettgeri. Sensitive to zosyn. Previous sputum culture 03/18/18 was positive for Corynebacterium striatum. Blood cultures drawn 07/08 x2 sets are NGTD. Obtain sputum culture. CXR showed right basilar airspace disease, pneumonia vs asymmetric edema. Stop vancomycin. Switch from zosyn to ceftazidime for ease of administration. Continue until to complete 14 day course. Powerglide placement needed prior to discharge. Monitor renal function and for drug toxicity and dose-adjust antibiotics. (2) Acute exacerbation of chronic obstructive pulmonary disease (COPD) Status: Acute Assessment and plan: Improved. Likely secondary to pneumonia. DuoNeb and steroid treatment. Antibiotic treatment as above. (3) Tracheostomy dependent Status: Chronic (4) DMII (diabetes mellitus, type 2) Status: Chronic Assessment and plan: Sliding scale insulin Qualifiers: Diabetes mellitus long-term insulin use: with long-term use Diabetes mellitus complication status: with hyperglycemia Qualified Code(s): E11.65 - Type 2 diabetes mellitus with hyperglycemia; Z79.4 - [facility] (current) use of insulin (5) HTN (hypertension) Status: Chronic Assessment and plan: On amlodipine Qualifiers: Hypertension type: essential hypertension Qualified Code(s): I10 - Essential (primary) hypertension (6) Anemia Status: Chronic Assessment and plan: Stable. Baseline Hb 11. Qualifiers: Anemia type: unspecified type Qualified Code(s): D64.9 - Anemia, unspecified Infectious Disease HPI - Data of Consult Requesting Physician: Daysi Acuña MD Primary Care Provider: Ad Garcia MD - Consult Narrative History of present illness: Mr. 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 The patient was admitted to the hospital on 07/08/18 for HCAP and COPD exacerbation. We are consulted on 07/11/18 for HCAP. On review of medical records, patient was recently discharged from hospital on for COPD exacerbation treated with azithromycin. Patient also had pneumonia in March 2018. ID was consulted and the patient was treated with ciprofloxacin and ertapenem. Briefly, the patient is a 57 year old male with past medical history as stated above. Patient presented to the ED on 07/08 complaining of difficulty breathing with productive cough for several weeks. On presentation to the ED, patient was afebrile, tachycardic at 95, without tachypnea. Labs showed normal WBC count. CXR showed right basilar airspace disease, pneumonia vs asymmetric edema. Blood cultures were obtained. Patient was treated for HCAP and COPD exacerbation zosyn , vancomycin, breathing treatments, and steroids. Patient was admitted for further evaluation and management. MRSA swab was obtained. Legionella and Strep pneumoniae antigens were negative. Since admission, patients breathing has improved. He has had intermittent tachycardia above 90 bpm. Other vital signs have remained stable. During my exam today, the patient endorses the history as stated above. No acute events overnight. He is resting comfortably in bed. Patient states he feels better and he wants to go home. Patient states he feels back to his baseline. Reports shortness of breath and cough have returned to his normal. Denies fever, chills, weight loss. Denies abdominal pain, nausea/vomiting, constipation/diarrhea. Denies pain. Denies chest pain, swelling. Denies numbness , tingling. Denies urinary changes. Denies visual or auditory changes. CC: Daysi Acuña MD Past Med Surg Social Fam HX - Past Medical History Medical history: asthma, COPD, CVA, diabetes, myocardial infarction, TIA, other Additional medical history: chronic back pain Psychiatric history: no psych history, anxiety, depression - Past Surgical History Surgical History: tracheostomy Additional surgical history: skull fracture. trach - Social History Smoking Status: Current every day smoker Packs per day: 1/2 Smokeless Tobacco Status: No Alcohol use: none, occasionally Drug use: none - Family History Mother History Unknown: Yes Living Status: Hx Family Cardiac Disorders: Yes Hx Family Respiratory Disorders: Yes Hx Family Cancer: No Hx Family Endocrine Disorder: No Father History Unknown: Yes Hx Family Cardiac Disorders: Yes (CHF, CA) Infectious Disease-CN:Meds Albuterol Sulfate [Ventolin Hfa] 2 puff IH Q4H PRN 03/17/18 [History] Atorvastatin [Lipitor] 40 mg PO HS 03/17/18 [History] Clopidogrel [Plavix] 75 mg PO DAILY 03/17/18 [History] Fenofibrate Nanocrystallized [Tricor] 145 mg PO DAILY 03/17/18 [History] Fluticasone Propionate Nasal [Flonase] 1 spr NS DAILY 03/17/18 [History] Gabapentin [Neurontin] 300 mg PO TID 03/17/18 [History] Insulin Glargine,Hum.rec.anlog [Lantus Solostar] 25 unit SQ HS 03/17/18 [History ] Montelukast [Singulair] 10 mg PO DAILY 03/17/18 [History] Omeprazole [PriLOSEC] 20 mg PO DAILY 03/17/18 [History] Oxycodone HCl/Acetaminophen [Percocet 10-325 mg Tablet] 1 tab PO Q4-6H PRN 03/17 [History] Sitagliptin Phos/Metformin HCl [Janumet 50-1,000 mg Tablet] 1 tab PO BID [History] diazePAM [Valium] 5 mg PO BID 03/17/18 [History] diazePAM [Valium] 10 mg PO HS 03/17/18 [History] Docusate [Colace] 200 mg PO BID #0 capsule 03/24/18 [Rx] amLODIPine [Norvasc] 5 mg PO DAILY #30 tablet 03/24/18 [Rx] Furosemide [Lasix] 20 mg PO BID PRN 05/21/18 [History] cefTAZidime [Ceftazidime] 2 gm IJ BID 11 Days #21 vial 07/12/18 [Rx] predniSONE [PredniSONE] 40 mg PO DAILY 2 Days #2 tablet 07/12/18 [Rx] 3 Allergy/AdvReac Type Severity Reaction Status Date / Time azithromycin Allergy See Verified 07/08/18 19:04 Comments Exam - Constitutional Vitals: Temp Pulse Resp BP Pulse Ox 98 F 94 16 130/70 92 07/11/18 07:12 09/10/18 07:12 07/11/18 07:12 07/11/18 07:12 07/11/18 07:12 General appearance: cooperative, no acute distress, obese, no febrile - Head Head exam: Present: atraumatic, normal inspection, normocephalic - Eye Eye exam: Present: EOMI, normal appearance, PERRL - ENT ENT exam: Present: mucous membranes moist, normal oropharynx - Neck Neck exam: Absent: normal inspection (Chronic tracheostomy) - Respiratory Respiratory exam: Present: rhonchi. Absent: accessory muscle use, rales, respiratory distress, stridor, wheezes, tachypnea (Diffuse inspiratory and expiratory rhonchi ) - Cardiovascular Cardiovascular exam: Present: RRR, +S1, +S2 (Faint heart sounds ) - GI/Abdominal GI/Abdominal exam: Present: distended (obese ), normal bowel sounds, soft. Absent: tenderness - Extremities Exam Extremities exam: Present: normal inspection. Absent: joint swelling, pedal edema, tenderness - Neurological Exam Neurological exam: Present: alert, oriented X3, no focal deficits - Psychiatric Psychiatric exam: Present: normal affect, normal mood - Skin Skin exam: Present: dry, normal color, warm Infectious Disease CN: Results - Labs CBC & Chem 7: 07/09/18 03:10 07/09/18 03:10 Cultures: Cultures 07/09/18 12:10 Streptococcus pneumoniae Antigen (M - Final Urine,Clean Catch 07/09/18 12:10 Legionella Antigen - Final Urine,Clean Catch Serology: Serology 07/09/18 Range/Units 12:10 Nasal Screen MRSA (PCR) Negative (Negative) Consult Discharge Plan - Plan Instructions: Prednisone (By mouth), Ceftazidime (Injection), Chronic Obstructive Pulmonary Disease (DC), Pneumonia (DC) Referrals: Ad Garcia MD [Primary Care Provider] - 07/18/18 11:30 am (Please follow up as schedule...) Prescriptions: cefTAZidime [Ceftazidime] 2 gm IJ BID 11 Days #21 vial predniSONE [PredniSONE] 40 mg PO DAILY 2 Days #2 tablet - Attending Attestation I examined this patient and my medical decision-making was reviewed with the Resident Physician. I agree with the documented findings, disposition and treatment plan as described except to the extent set forth below. This is an addendum to original report dictated by resident physician. Please refer to residents note for full details. Patient is a 57-year-old gentleman who presented to [facility] on 07/09/2018 with shortness of breath, we are consulted today for pneumonia and COPD exacerbation. Patient with past medical history mentioned below including chronic tracheostomy for COPD presented with shortness of breath. Apparently he has had about 1 week of increased cough and mucus production. There was no fevers no chills. Patient continues to smoke about 1 pack per day. Since arrival patient was noted to be afebrile, tachypneic, tachycardic. Presenting labs revealed a WBC of 9.9 thousand with 80% neutrophils. Rest of his chemistry revealed a carbon dioxide level of 45 on the BMP. Patient had an MRSA screen that came back negative. Blood cultures obtained on 07/08/18 are no growth to date. Urine legionella and pneumococcal antigen were checked and came back negative. A chest x-ray revealed right basilar airspace disease suspicious for pneumonia. Asymmetric edema could have this appearance as well. Patient was started on vancomycin and Zosyn and we were asked to evaluate the patient think further recommendations. Previous sputum cultures and the patient grew Pseudomonas aeruginosa that was pansensitive, Providencia rettgeri R:ampicillin/ sulbactam, cefazolin, Cipro, gentamicin, Bactrim and Levaquin; S:cefepime, ceftriaxone, ertapenem, zosyn, emipenem and tobramycin and alcaligenes faec species S: unasyin, ceftazidime, ceftriaxone, ertapenem, zosyn and tobramycin back on March 17 and on March 18 a grew Corynebacterium. Patient was treated by us at that time with ertapenem and ciprofloxacin for 14 days total. At this time for the pneumonia that is healthcare associated, patient MRSA screen was negative and renal previous sputum cultures grew. I did speak with the hospitalist over the weekend and recommended that he repeat sputum culture just in case there is any organism. Patient is on Zosyn which I think should cover all the previous organisms seen in the past including the Pseudomonas, alcalligenes and providenica . I think its okay to d/c the vancomycin Duration of treatment 14 days Monitor labs and for drug toxicity CrCl WNL, no need to dose adjust
[2018-07-11] MEDS: cefTAZidime 2,000 MG in Water for inj. (sterile) 20 ML 20 ML IVP SCH (19:25)
[2018-07-11] MEDS ORDERED: Insulin DETEMIR 100 UNIT/ML X5UNITS SQ SCH (21:00)
[2018-07-11] MEDS: diazePAM 10 MG TABLET PO SCH (21:35)
[2018-07-11] MEDS: Insulin DETEMIR 100 UNIT/ML X5UNITS SQ SCH (21:35)
[2018-07-12] MEDS: *HR* OxyCODONE/APAP 10/325 TABLET PO PRN ×3 (02:19→14:27)
[2018-07-12] MEDS: Ipratropium/Albuterol Neb 3 ML IH SCH ×3 (03:55→16:06)
[2018-07-12] MEDS: *HR* Enoxaparin 40 MG/0.4 ML SYRINGE SQ SCH (06:07)
[2018-07-12] MEDS: cefTAZidime 2,000 MG in Water for inj. (sterile) 20 ML 20 ML IVP SCH ×2 (06:08→17:06)
[2018-07-12] MEDS: Gabapentin 300 MG CAPSULE PO SCH ×2 (08:34→17:06)
[2018-07-12] MEDS: diazePAM 5 MG TABLET PO SCH ×2 (08:34→17:06)
[2018-07-12] MEDS: predniSONE 20 MG TABLET PO SCH (08:34)
[2018-07-12] MEDS: Insulin LISPRO 300 UNITS/3 ML VIAL SQ SCH ×3 (08:34→17:07)
[2018-07-12] MEDS: amLODIPine 5 MG TABLET PO SCH (08:35)
[2018-07-12] MEDS: Fluticasone Propionate Nasal 50 MCG/SPRAY BOTTLE NS SCH (08:36)
--- NOTE | 2018-07-12 08:51 | Discharge Summary ---
- NOTES TO OUTPATIENT PROVIDER Notes to Outpatient Provider: Will need IV antibiotics through 07/22/2018; set up through home health care Orders not resulted at time of discharge: Pending orders 07/10/18 10:08 Sputum Culture [Culture,Sputum with Gram Stain] [] Stat Date of Encounter: 07/12/18 Time of Encounter: 08:49 - Discharge Diagnosis (1) Acute on chronic respiratory failure with hypoxia and hypercapnia Priority: Primary Status: Acute (2) Pneumonia Priority: Secondary Status: Acute Qualifiers: Pneumonia type: due to unspecified organism Laterality: right Lung location: unspecified part of lung Qualified Code(s): J18.9 - Pneumonia, unspecified organism (3) COPD exacerbation Priority: Secondary Status: Acute (4) HTN (hypertension) Priority: Secondary Status: Chronic Qualifiers: Hypertension type: essential hypertension Qualified Code(s): I10 - Essential (primary) hypertension Hospital course: Mr. Mccloud is a 57 year old male who presented to the emergency department with chief complaint of shortness of breath. Pt noted to have hypercapnea on VBG and pulse ox documented in 80s. The patient had recently been admitted for COPD exacerbation in May. Patient was noted to have pneumonia with risk factors of healthcare associated pneumonia. Infectious disease was consult at and IV vancomycin and Zosyn was changed to IV ceftazidime based on prior sensitivities. The patient's shortness of breath improved with IV antibiotics as well as by mouth prednisone. Infectious disease recommended continuing IV antibiotics through 07/22/2018. The patient underwent power guide placement prior to discharge. Patient's IV antibiotics will be administered through home health care that the patient already has set up for his tracheostomy care. Patient will also be discharged on 2 additional days of by mouth prednisone. Patient is in stable condition and eager to go home. Patient agreeable to discharge and all questions answered prior to discharge. Discharge discussed with: patient, nurse - Time Spent with Patient Total time spent providing and/or coordinating discharge services: Greater than 30 minutes - Discharge Medications Prescriptions: cefTAZidime [Ceftazidime] 2 gm IJ BID 11 Days #21 vial predniSONE [PredniSONE] 40 mg PO DAILY 2 Days #2 tablet Home Medications: Albuterol Sulfate [Ventolin Hfa] 2 puff IH Q4H PRN 03/17/18 [History] Atorvastatin [Lipitor] 40 mg PO HS 03/17/18 [History] Clopidogrel [Plavix] 75 mg PO DAILY 03/17/18 [History] Fenofibrate Nanocrystallized [Tricor] 145 mg PO DAILY 03/17/18 [History] Fluticasone Propionate Nasal [Flonase] 1 spr NS DAILY 03/17/18 [History] Gabapentin [Neurontin] 300 mg PO TID 03/17/18 [History] Insulin Glargine,Hum.rec.anlog [Lantus Solostar] 25 unit SQ HS 03/17/18 [History ] Montelukast [Singulair] 10 mg PO DAILY 03/17/18 [History] Omeprazole [PriLOSEC] 20 mg PO DAILY 03/17/18 [History] Oxycodone HCl/Acetaminophen [Percocet 10-325 mg Tablet] 1 tab PO Q4-6H PRN 03/17 [History] Sitagliptin Phos/Metformin HCl [Janumet 50-1,000 mg Tablet] 1 tab PO BID [History] diazePAM [Valium] 5 mg PO BID 03/17/18 [History] diazePAM [Valium] 10 mg PO HS 03/17/18 [History] Docusate [Colace] 200 mg PO BID #0 capsule 03/24/18 [Rx] amLODIPine [Norvasc] 5 mg PO DAILY #30 tablet 03/24/18 [Rx] Furosemide [Lasix] 20 mg PO BID PRN 05/21/18 [History] cefTAZidime [Ceftazidime] 2 gm IJ BID 11 Days #21 vial 07/12/18 [Rx] predniSONE [PredniSONE] 40 mg PO DAILY 2 Days #2 tablet 07/12/18 [Rx] Allergies/Adverse Reactions: 3 Allergy/AdvReac Type Severity Reaction Status Date / Time azithromycin Allergy See Verified 07/08/18 19:04 Comments Date of admission: 07/09/18 04:59 Primary care physician: Ad Garcia MD Consults: 07/09/18 05:59 Consult to Nurse Navigator [CONS] Routine Comment: 07/11/18 12:51 Consult to Invasive Line Access Team [CONS] Routine Reason for Consult: home atb Line Type: EPIV 07/11/18 14:37 Consult to Case Management [CONS] Routine Comment: Will need set up for HH to admin IV ATB - Constitutional Vitals: Temp Pulse Resp BP Pulse Ox 98.8 F 79 16 134/69 90 07/12/18 07:09 07/12/18 07:09 07/12/18 07:09 07/12/18 07:09 07/12/18 07:09 General appearance: Present: morbidly obese, no acute distress. Absent: cooperative, pleasant, answers questions appropriately Exam: Constitutional: No acute distress, Alert Psych: AAO x 3 Neck: supple, no JVD, trach in place Cardio: regular rate and rhythm, +s1s2, no murmurs/rubs/gallops, no JVD Resp: coarse breath sounds, no wheezing, no respiratory distress Abd: soft, non tender/non distended, positive bowel sounds, no gaurding/reboud/ ridgitity Extremities: no clubbing/cyanosis/edema appreciated Neuro: no focal deficits appreciated - Patient Status Disposition: Home Health Service Condition: Good Functional capacity at discharge: uses cane/walker Overall status at discharge: patient is progressing back to baseline - Discharge Instructions Follow Up With: Ad Garcia MD [Primary Care Provider] - - Diet and Activity Activity: increase activity as tolerated Diet: advance to your usual diet
--- NOTE | 2018-07-12 09:18 | Infectious Disease Progress No ---
Date of Encounter: 07/12/18 Time of Encounter: 08:50 - Assessment and Plan (1) HCAP (healthcare-associated pneumonia) Status: Acute History of recent hospitalization in May 2018 with COPD exacerbation treated with azithromycin. History of pneumonia in March 2018 treated with ciprofloxacin and ertapenem. Causative organism: unknown, but likely microorganisms found in previous sputum culture. Legionella and Strep pneumoniae antigens negative. Nasal MRSA is negative. Previous sputum culture 03/17/18 was positive for Pseudomonas, Alcaligenes faec ssp facecalis, and Providencia rettgeri. Sensitive to zosyn. Previous sputum culture 03/18/18 was positive for Corynebacterium striatum. Blood cultures drawn 07/08 x2 sets are NGTD. CXR showed right basilar airspace disease, pneumonia vs asymmetric edema. Stop vancomycin. Switch from zosyn to ceftazidime for ease of administration. Continue through to complete 14 day course. Powerglide placed yesterday for IV antibiotic administration after discharge. Monitor renal function and for drug toxicity and dose-adjust antibiotics. (2) Acute exacerbation of chronic obstructive pulmonary disease (COPD) Status: Acute Improved. Likely secondary to pneumonia. DuoNeb and steroid treatment. Antibiotic treatment as above. 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 Baseline Hb 11. Qualifiers: Anemia type: unspecified type Qualified Code(s): D64.9 - Anemia, unspecified - Subjective Interval history: Patient seen and examined. No acute events overnight. He is sitting comfortably in bed. Patient states he feels fine and he wants to go home. Patient states he feels back to his baseline. Reports shortness of breath and cough have returned to his normal. Denies fever, chills, weight loss. Denies abdominal pain , nausea/vomiting, constipation/diarrhea. Denies pain. Denies chest pain, swelling. Denies numbness, tingling. Denies urinary changes. Denies visual or auditory changes. Infect Dis PN-Objective Data - Labs CBC & Chem 7: 07/09/18 03:10 07/09/18 03:10 Labs: Laboratory Results - last 24 hr 07/11/18 07/11/18 07/11/18 07:17 10:55 15:39 POC Glucose 123 H 122 H 388 H 07/11/18 07/11/18 19:43 19:45 POC Glucose 409 H* 398 H Cultures: Cultures 07/09/18 12:10 Streptococcus pneumoniae Antigen (M - Final Urine,Clean Catch 07/09/18 12:10 Legionella Antigen - Final Urine,Clean Catch Serology 07/09/18 Range/Units 12:10 Nasal Screen MRSA (PCR) Negative (Negative) Exam - Constitutional Vitals: Temp Pulse Resp BP Pulse Ox 98.8 F 79 16 134/69 90 07/12/18 07:09 07/12/18 07:09 07/12/18 07:09 07/12/18 07:09 07/12/18 07:09 General appearance: cooperative, no acute distress, obese, no febrile - Head Head exam: Present: atraumatic, normal inspection, normocephalic - Eye Eye exam: Present: EOMI, normal appearance, PERRL - ENT ENT exam: Present: mucous membranes moist, normal oropharynx - Neck Neck exam: Present: normal inspection - Respiratory Respiratory exam: Present: CTAB, rhonchi, wheezes (Mild diffuse rhonchi and wheezing, much improved from yesterday). Absent: accessory muscle use, rales, respiratory distress, tachypnea - Cardiovascular Cardiovascular exam: Present: RRR, +S1, +S2 - GI/Abdominal GI/Abdominal exam: Present: distended (obese), normal bowel sounds, soft. Absent: tenderness - Extremities Exam Extremities exam: Present: normal inspection. Absent: joint swelling, pedal edema, tenderness - Neurological Exam Neurological exam: Present: alert, oriented X3, no focal deficits - Psychiatric Psychiatric exam: Present: normal affect, normal mood - Skin Skin exam: Present: dry, intact, normal color, warm Consult Discharge Plan - Plan Instructions: Prednisone (By mouth), Ceftazidime (Injection), Chronic Obstructive Pulmonary Disease (DC), Pneumonia (DC) Referrals: Ad Garcia MD [Primary Care Provider] - 07/18/18 11:30 am (Please follow up as schedule...) Prescriptions: cefTAZidime [Ceftazidime] 2 gm IJ BID 11 Days #21 vial predniSONE [PredniSONE] 40 mg PO DAILY 2 Days #2 tablet - Attending Attestation I examined this patient and my medical decision-making was reviewed with the Resident Physician. I agree with the documented findings, disposition and treatment plan as described except to the extent set forth below.
--- NOTE | 2018-07-12 10:51 | Physician Discharge Referral ---
Home Health/Hosp Referral Info Transfer to: Home Health Provider in Charge Post Discharge: PCP (nursing for iv antibiotics) - Diagnosis (1) Acute on chronic respiratory failure with hypoxia and hypercapnia Status: Acute (2) Pneumonia Status: Acute (3) COPD exacerbation Status: Acute (4) HTN (hypertension) Status: Chronic - Respiratory Orders Smoking Cessation: Smoking cessation has been advised. For more information, call the [employer] ([email or web address]) Quit Line at 0-880-JFCU-NOW. - Transfer Medications Prescriptions: cefTAZidime [Ceftazidime] 2 gm IJ BID 11 Days #21 vial predniSONE [PredniSONE] 40 mg PO DAILY 2 Days #2 tablet Home Medications: Albuterol Sulfate [Ventolin Hfa] 2 puff IH Q4H PRN 03/17/18 [History] Atorvastatin [Lipitor] 40 mg PO HS 03/17/18 [History] Clopidogrel [Plavix] 75 mg PO DAILY 03/17/18 [History] Fenofibrate Nanocrystallized [Tricor] 145 mg PO DAILY 03/17/18 [History] Fluticasone Propionate Nasal [Flonase] 1 spr NS DAILY 03/17/18 [History] Gabapentin [Neurontin] 300 mg PO TID 03/17/18 [History] Insulin Glargine,Hum.rec.anlog [Lantus Solostar] 25 unit SQ HS 03/17/18 [History ] Montelukast [Singulair] 10 mg PO DAILY 03/17/18 [History] Omeprazole [PriLOSEC] 20 mg PO DAILY 03/17/18 [History] Oxycodone HCl/Acetaminophen [Percocet 10-325 mg Tablet] 1 tab PO Q4-6H PRN 03/17 [History] Sitagliptin Phos/Metformin HCl [Janumet 50-1,000 mg Tablet] 1 tab PO BID [History] diazePAM [Valium] 5 mg PO BID 03/17/18 [History] diazePAM [Valium] 10 mg PO HS 03/17/18 [History] Docusate [Colace] 200 mg PO BID #0 capsule 03/24/18 [Rx] amLODIPine [Norvasc] 5 mg PO DAILY #30 tablet 03/24/18 [Rx] Furosemide [Lasix] 20 mg PO BID PRN 05/21/18 [History] cefTAZidime [Ceftazidime] 2 gm IJ BID 11 Days #21 vial 07/12/18 [Rx] predniSONE [PredniSONE] 40 mg PO DAILY 2 Days #2 tablet 07/12/18 [Rx] Allergies/Adverse Reactions: 3 Allergy/AdvReac Type Severity Reaction Status Date / Time azithromycin Allergy See Verified 07/08/18 19:04 Comments Certification: Further, I certify that my clinical findings support that this patient is homebound (i.e. absences from home require considerable and taxing effort and are for medical reasons or synagogue services or infrequently or short duration when for other reasons) because: Homebound Reason: Patient requires assistance of a person or device to safely leave home Attestation: My signature below is to certify that this patient is under my care and that I, or nurse practitioner, or a physician's assistant director of admissions working with me, has a face-to -face encounter with this patient.
[2018-07-12 15:47] VITALS: BP 131/72
[2018-07-12] MEDS ORDERED: Insulin DETEMIR 100 UNIT/ML X5UNITS SQ SCH (21:00)
--- NOTE | 2018-07-13 16:15 | Electrocardiograph Report ---
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
== END 2018-07-12 17:48 | disposition home health service (06) | DRG 193 ==
LOC: EMEROOARM 18:39 → 2ANU 18:39 → SUATTDRO 07-09 04:59
PROVIDERS: ADMIT Family Medicine; ATTEND Internal Medicine

== ENCOUNTER 2018-08-16 07:03 | Inpatient (IN) ==
--- NOTE | 2018-08-16 07:08 | Emergency Department Note ---
Disposition Clinical Impression: HCAP (healthcare-associated pneumonia), Elevated liver function tests Disposition: Admitted As Inpatient Condition: Fair Time of Disposition: 12:07 General Adult HPI - General Stated complaint: SOB Time Seen by Provider: 08/16/18 07:07 Source: patient Limitations: no limitations Nursing Notes Reviewed: Yes Vital Signs Reviewed: Yes - History of Present Illness HPI Narrative: 57-year-old male presents from EMS with concern for shortness of breath. Patient has not been suctioned recently. Has increased secretions in his trach. Also having reported redness and swelling of the right lower aspect of his neck. Reported that he had oxygen saturation in the 70s per EMS. Brought in with concern for EMS for increased tracheal secretions as he had not been suctioned recently. Also concerned about some redness and swelling of the area where his neck meets his chest. Reported that the care that he is getting a home is not adequate per EMS. Patient nonverbal. - Related Data Home Medications Medication Instructions Recorded Confirmed Albuterol Sulfate [Ventolin Hfa] 2 puff IH Q4H PRN 03/17/18 08/16/18 Atorvastatin [Lipitor] 40 mg PO HS 03/17/18 08/16/18 Clopidogrel [Plavix] 75 mg PO DAILY 03/17/18 08/16/18 Fenofibrate Nanocrystallized 145 mg PO DAILY 03/17/18 08/16/18 [Tricor] Fluticasone Propionate Nasal 1 spr NS DAILY 03/17/18 08/16/18 [Flonase] Gabapentin [Neurontin] 300 mg PO TID 03/17/18 08/16/18 Insulin Glargine,Hum.rec.anlog 25 unit SQ 03/17/18 08/16/18 [Lantus Solostar] Montelukast [Singulair] 10 mg PO DAILY 03/17/18 08/16/18 Omeprazole [PriLOSEC] 20 mg PO DAILY 03/17/18 08/16/18 Oxycodone HCl/Acetaminophen 1 tab PO Q4-6H PRN 03/17/18 08/16/18 [Percocet 10-325 mg Tablet] Sitagliptin Phos/Metformin HCl 1 tab PO BID 03/17/18 08/16/18 [Janumet 50-1,000 mg Tablet] diazePAM [Valium] 5 mg PO BID 03/17/18 08/16/18 diazePAM [Valium] 10 mg PO HS 03/17/18 08/16/18 Furosemide [Lasix] 20 mg PO BID PRN 05/21/18 08/16/18 Metoprolol [Lopressor] 25 mg PO BID 08/16/18 08/16/18 Previous Rx's Medication Instructions Recorded Docusate [Colace] 200 mg PO BID #0 capsule 03/24/18 amLODIPine [Norvasc] 5 mg PO DAILY #30 tablet 03/24/18 Allergies Allergy/AdvReac Type Severity Reaction Status Date / Time azithromycin Allergy See Verified 07/16/18 14:08 Comments All systems ED: reviewed and negative except as stated. Review of Systems: As Per HPI Limitations: ROS unobtainable due to patients medical condition (Patient on trach, and respiratory distress, nonverbal.) Respiratory: Reports: dyspnea Past Medical History - Past Medical History Medical history: Reports: asthma, COPD, CVA, diabetes, myocardial infarction, TIA, other Surgical history: Reports: tracheostomy Psychiatric history: Reports: no psych history, anxiety, depression - Social History Smoking Status: Current every day smoker Smokeless Tobacco Status: No Alcohol use: Reports: none, occasionally Drug use: Reports: none Physical Exam - General Limitations: no limitations, other (Patient covered in feces) General appearance: anxious, other (Patient appears dyspneic) - Head Head exam: normocephalic - Eye Eye exam: Present: EOMI - ENT ENT exam: mucous membranes moist - Neck Neck exam: Present: trachea midline - Chest Chest inspection: Present: symmetric chest wall rise, other (There is some area of erythema along the anterior aspect of the chest near with her clavicle is. Nothing to suggest abscess.) - Respiratory Respiratory exam: Present: respiratory distress, other (Rhonchi throughout) - Cardiovascular Cardiovascular exam: Present: normal rhythm, tachycardia, normal heart sounds - Abdominal Exam Abdominal exam: Present: soft, Non-Tender. Absent: distention, guarding, rebound, rigidity - Extremities Exam Extremities exam: Present: normal capillary refill - Neurological Exam Neurological exam: Present: alert - Psychiatric Psychiatric exam: Present: anxious - Skin Skin exam: Present: other (Area of erythema of the skin on the anterior aspect of the chest near the neck. No fluctuance or induration. No. No drainage.) Course Vital Signs Temperature 99.1 F 08/16/18 07:11 Pulse Rate 96 08/16/18 07:11 Respiratory Rate 32 08/16/18 07:11 Blood Pressure 146/110 08/16/18 07:11 O2 Sat by Pulse Oximetry 98 08/16/18 07:11 Temperature 98.6 F 08/17/18 11:11 Pulse Rate 84 08/17/18 11:11 Respiratory Rate 16 08/17/18 11:22 Blood Pressure 154/84 08/17/18 11:11 O2 Sat by Pulse Oximetry 91 08/17/18 12:54 Oxygen Delivery Oxygen Delivery Trach Mask Medical Decision Making - MDM Narrative Medical decision making narrative: 57-year-old male presents emergency department with concern for shortness distress. Chest x-ray reveals right lower lobe airspace disease or pneumonia per radiology. We obtained a CTA as patient was hypoxic and was concern for the possibility of pulmonary embolus. It revealed right middle and right lower lobe pneumonia. Also concern for possibility of underlying mass. This is per radiology. Patient had white count of 15.1. We gave patient vancomycin, Zosyn, Levaquin. Patient was given 1 L fluid here in the emergency department. He was only mildly tachycardic. Concern for sepsis. However, this been reported history of congestive heart failure and patient is mildly elevated BNP. We will be cautious on fluid administration at this time. Lactic acid and blood cultures have been obtained. Troponin here is 0.99. No ischemic ST changes. Unable to obtain history of chest pain of the patient as he is nonverbal. Spoke with cardiology in person who agreed to be a consult on the patient. Spoke with the hospitalist in person as well who agreed to accept the admission of the patient. Patient hemodynamically stable and improved respiratory status after suctioning of the trach. After following the labs, it appears that the hepatic transaminases are elevated. AST is 2270. ALT is currently greater than 500. I have obtained a hepatitis panel. This is to be followed up as the patient is now admitted. Chest X-Ray 08/16/18 07:08 IMPRESSION: Right lower lobe airspace disease/pneumonia. D/ / 08/16/2018 08:50:20 Mika Sewell MD / hiren Interpreting Provider: Mika Sewell MD Chest CTA 08/16/18 08:58 IMPRESSION: No evidence for pulmonary emboli. Mediastinal and hilar adenopathy increased from the prior examination. Worsening infiltrate seen involving the right lung with consolidation seen within the right middle lobe and right lower lobe likely secondary to pneumonia however cannot exclude the possibility of underlying mass. Recommend follow-up to resolution. D/ / 08/16/2018 10:51:03 Garrick Meredith MD / [email or web address] Interpreting Provider: Garrick Meredith MD Vital Signs Temperature 99.1 F 08/16/18 07:11 Pulse Rate 96 08/16/18 07:11 Respiratory Rate 32 08/16/18 07:11 Blood Pressure 146/110 08/16/18 07:11 O2 Sat by Pulse Oximetry 98 08/16/18 07:11 Temperature 99.1 F 08/16/18 07:11 Pulse Rate 93 08/16/18 10:53 Respiratory Rate 28 08/16/18 10:53 Blood Pressure 153/76 08/16/18 10:53 O2 Sat by Pulse Oximetry 99 08/16/18 10:53 Oxygen Delivery Oxygen Delivery Trach Mask - Lab Data Result diagrams: 08/17/18 04:17 08/17/18 04:17 Lab Results 08/16/18 08/16/18 08/16/18 Range/Units 08:18 08:18 08:18 WBC 15.1 H (4.3-11.1) K/mcL RBC 4.02 L (4.19-5.50) M/mcL Hgb 11.2 L (12.9-16.9) g/dL Hct 36.8 L (37.5-50.1) % MCV 91.5 (83.0-100.0) fL MCH 27.9 L (28.0-33.3) pg MCHC 30.4 L (31.6-35.5) g/dL RDW 12.8 (11.5-14.5) % Plt Count 283 (140-400) K/mcL MPV 9.3 L (9.4-12.4) fL Seg Neutrophils % 76.0 % Band Neutrophils % 14.0 H (0-4) % Lymphocytes % 10.0 % Neutrophils # 13.6 H (1.6-8.9) K/mcL Lymphocytes # 1.5 (0.6-4.6) K/mcL Platelet Estimate Normal (Normal) Sodium 142 (136-145) mEq/L Potassium 4.2 (3.5-5.1) mEq/L Chloride 91 L (98-107) mEq/L Carbon Dioxide > 45 H* (23-29) mEq/L BUN 34 H (6-20) mg/dL Creatinine 1.41 H (0.70-1.30) mg/dL Est GFR ( Amer) > 60 (> 60) Est GFR (Non-Af Amer) 52 L (> 60) BUN/Creatinine Ratio 24 (6-26) Glucose 121 H (70-105) mg/dL Calculated Osmolality 303 H (280-300) Lactic Acid (0.5-2.2) mmol/L Calcium 9.4 (8.6-10.3) mg/dL Total Bilirubin 0.5 (0.3-1.0) mg/dL Direct Bilirubin 0.2 (0.0-0.2) mg/dL Indirect Bilirubin 0.3 (0.0-1.2) mg/dL AST 2270 H (13-39) Units/L ALT > 500 H (7-52) Units/L Alkaline Phosphatase 48 (34-104) Units/L Troponin I (< 0.04) ng/mL B-Natriuretic Peptide 219 H (Less than 100) pg/mL Serum Total Protein 6.6 (6.4-8.9) g/dL Albumin 3.8 (3.5-5.7) g/dL Globulin 2.8 (2.4-3.5) g/dL Albumin/Globulin Ratio 1.4 (1.1-2.2) Urine Color (Yellow) Urine Clarity (Clear) Urine pH (5.0-8.0) pH Units Ur Specific [place] (1.010-1.025) Urine Protein (Neg-Trace) mg/dL Urine Glucose (UA) (Normal) mg/dL Urine Ketones (Negative) mg/dL Urine Blood (Negative) Urine Nitrite (Negative) Urine Bilirubin (Negative) Urine Urobilinogen (Normal) mg/dL Ur Leukocyte Esterase (Negative) Urine Microscopic RBC (0-3) per hpf Urine Microscopic WBC (0-3) per hpf Ur Squamous Epith Cells (None-Few) per lpf Urine Bacteria (None-Few) per hpf Hyaline Casts (None-Few) per lpf Ur Culture Indicated? (NO) Hepatitis A IgM Ab (Nonreactive) Hep Bs Antigen (Nonreactive) Hep B Core IgM Ab (Nonreactive) Hepatitis C Ab Screen (Nonreactive) 08/16/18 08/16/18 08/16/18 Range/Units 08:18 08:18 08:18 WBC (4.3-11.1) K/mcL RBC (4.19-5.50) M/mcL Hgb (12.9-16.9) g/dL Hct (37.5-50.1) % MCV (83.0-100.0) fL MCH (28.0-33.3) pg MCHC (31.6-35.5) g/dL RDW (11.5-14.5) % Plt Count (140-400) K/mcL MPV (9.4-12.4) fL Seg Neutrophils % % Band Neutrophils % (0-4) % Lymphocytes % % Neutrophils # (1.6-8.9) K/mcL Lymphocytes # (0.6-4.6) K/mcL Platelet Estimate (Normal) Sodium (136-145) mEq/L Potassium (3.5-5.1) mEq/L Chloride (98-107) mEq/L Carbon Dioxide (23-29) mEq/L BUN (6-20) mg/dL Creatinine (0.70-1.30) mg/dL Est GFR ( Amer) (> 60) Est GFR (Non-Af Amer) (> 60) BUN/Creatinine Ratio (6-26) Glucose (70-105) mg/dL Calculated Osmolality (280-300) Lactic Acid 2.0 (0.5-2.2) mmol/L Calcium (8.6-10.3) mg/dL Total Bilirubin (0.3-1.0) mg/dL Direct Bilirubin (0.0-0.2) mg/dL Indirect Bilirubin (0.0-1.2) mg/dL AST (13-39) Units/L ALT (7-52) Units/L Alkaline Phosphatase (34-104) Units/L Troponin I 0.99 H* (< 0.04) ng/mL B-Natriuretic Peptide (Less than 100) pg/mL Serum Total Protein (6.4-8.9) g/dL Albumin (3.5-5.7) g/dL Globulin (2.4-3.5) g/dL Albumin/Globulin Ratio (1.1-2.2) Urine Color (Yellow) Urine Clarity (Clear) Urine pH (5.0-8.0) pH Units Ur Specific [place] (1.010-1.025) Urine Protein (Neg-Trace) mg/dL Urine Glucose (UA) (Normal) mg/dL Urine Ketones (Negative) mg/dL Urine Blood (Negative) Urine Nitrite (Negative) Urine Bilirubin (Negative) Urine Urobilinogen (Normal) mg/dL Ur Leukocyte Esterase (Negative) Urine Microscopic RBC (0-3) per hpf Urine Microscopic WBC (0-3) per hpf Ur Squamous Epith Cells (None-Few) per lpf Urine Bacteria (None-Few) per hpf Hyaline Casts (None-Few) per lpf Ur Culture Indicated? (NO) Hepatitis A IgM Ab Nonreactive (Nonreactive) Hep Bs Antigen Nonreactive (Nonreactive) Hep B Core IgM Ab Nonreactive (Nonreactive) Hepatitis C Ab Screen Reactive H (Nonreactive) 08/16/18 Range/Units 09:20 WBC (4.3-11.1) K/mcL RBC (4.19-5.50) M/mcL Hgb (12.9-16.9) g/dL Hct (37.5-50.1) % MCV (83.0-100.0) fL MCH (28.0-33.3) pg MCHC (31.6-35.5) g/dL RDW (11.5-14.5) % Plt Count (140-400) K/mcL MPV (9.4-12.4) fL Seg Neutrophils % % Band Neutrophils % (0-4) % Lymphocytes % % Neutrophils # (1.6-8.9) K/mcL Lymphocytes # (0.6-4.6) K/mcL Platelet Estimate (Normal) Sodium (136-145) mEq/L Potassium (3.5-5.1) mEq/L Chloride (98-107) mEq/L Carbon Dioxide (23-29) mEq/L BUN (6-20) mg/dL Creatinine (0.70-1.30) mg/dL Est GFR ( Amer) (> 60) Est GFR (Non-Af Amer) (> 60) BUN/Creatinine Ratio (6-26) Glucose (70-105) mg/dL Calculated Osmolality (280-300) Lactic Acid (0.5-2.2) mmol/L Calcium (8.6-10.3) mg/dL Total Bilirubin (0.3-1.0) mg/dL Direct Bilirubin (0.0-0.2) mg/dL Indirect Bilirubin (0.0-1.2) mg/dL AST (13-39) Units/L ALT (7-52) Units/L Alkaline Phosphatase (34-104) Units/L Troponin I (< 0.04) ng/mL B-Natriuretic Peptide (Less than 100) pg/mL Serum Total Protein (6.4-8.9) g/dL Albumin (3.5-5.7) g/dL Globulin (2.4-3.5) g/dL Albumin/Globulin Ratio (1.1-2.2) Urine Color Yellow (Yellow) Urine Clarity Clear (Clear) Urine pH 6.5 (5.0-8.0) pH Units Ur Specific [place] 1.013 (1.010-1.025) Urine Protein Trace (Neg-Trace) mg/dL Urine Glucose (UA) 100 H (Normal) mg/dL Urine Ketones Negative (Negative) mg/dL Urine Blood Moderate H (Negative) Urine Nitrite Negative (Negative) Urine Bilirubin Negative (Negative) Urine Urobilinogen Normal (Normal) mg/dL Ur Leukocyte Esterase Negative (Negative) Urine Microscopic RBC 0-3 (0-3) per hpf Urine Microscopic WBC 3-5 H (0-3) per hpf Ur Squamous Epith Cells Many H (None-Few) per lpf Urine Bacteria None Seen (None-Few) per hpf Hyaline Casts Few (None-Few) per lpf Ur Culture Indicated? NO (NO) Hepatitis A IgM Ab (Nonreactive) Hep Bs Antigen (Nonreactive) Hep B Core IgM Ab (Nonreactive) Hepatitis C Ab Screen (Nonreactive) - EKG Data EKG #1 EKG attestation: Yes I reviewed and interpreted this EKG. EKG results narrative: 7:47 Heart rate 91 bpm, WA interval 118 ms, QRS duration 97 ms, QT 339 ms, normal axis. Sinus rhythm with a ventricular rate of 91 beats for minute. Premature atrial complexes. No ischemic ST changes noted. Attestation Statement - Attestation Attestation: I, Ibrahima Foster, examined this patient and my medical decision-making was reviewed with the CARD CHECKER/PA/Advanced Practice Nurse/Resident Physician. I agree with the documented findings, disposition and treatment plan as described except to the extent set forth below. 57-year-old male presents emergency Department for evaluation of hypoxia and altered mental status. Patient has a chronic trach, his usual caregiver had left for vacation and arrange a substitute caregiver. Upon returning from vacation he found the patient to be covered in feces and having difficulty breathing. Patient is unable to give a history regarding his case presentation. He had yellow brown sputum protruding from the trach, he had erythematous skin surrounding the area of the trach and of his neck. Chest x- ray showed likely pneumonia. He was started on broad-spectrum antibiotics in the emergency department. He had elevation of his LFTs and troponin and creatinine which is likely related to septic shock however he has not hypotensive at this time. EKG did not show evidence of acute STEMI. Patient was given IV fluids in the emergency department however he has a history of congestive heart failure. He will be admitted to the hospital for further care and evaluation.
[2018-08-16 08:28] LABS: Hematocrit 36.8 % (37.5-50.1); Hemoglobin 11.2 g/dL (12.9-16.9); Mean Corpuscular HGB Conc 30.4 g/dL (31.6-35.5); Mean Corpuscular Hemoglobin 27.9 pg (28.0-33.3); Mean Corpuscular Volume 91.5 fL (83.0-100.0); Mean Platelet Volume 9.3 fL (9.4-12.4); Platelet Count 283 K/mcL (140-400); Red Blood Count 4.02 M/mcL (4.19-5.50); Red Cell Distribution Width 12.8 % (11.5-14.5)
[2018-08-16] MEDS ORDERED: Piperacillin/Tazobactam 3.375 GM in 0.9 % Sodium Chloride Mini Bag 100 ML IVPB ONE (08:41)
[2018-08-16] MEDS ORDERED: Levofloxacin 750 MG/150 ML 750 MG/150 ML BAG IVPB ONE (08:41)
[2018-08-16] MEDS ORDERED: 0.9 % Sodium Chloride 1,000 ML IVC ONE (08:44)
[2018-08-16 08:50] LABS: BUN/Creatinine Ratio 24 (6-26); Blood Urea Nitrogen 34 mg/dL (6-20); Calcium 9.4 mg/dL (8.6-10.3); Carbon Dioxide > 45 mEq/L (23-29); Chloride 91 mEq/L (98-107); Glucose 121 mg/dL (70-105); Osmolality,Calculated 303 (280-300); Potassium 4.2 mEq/L (3.5-5.1); Sodium 142 mEq/L (136-145); eGFR For Non-African Americans 52 (> 60)
[2018-08-16] MEDS ORDERED: Isovue-370 500 ML INFUS..BTL IV ONE (08:58)
[2018-08-16 09:19] LABS: Lymphocytes # 1.5 K/mcL (0.6-4.6); Neutrophils # 13.6 K/mcL (1.6-8.9); Platelet Estimate Normal (Normal)
[2018-08-16 09:34] LABS: Bilirubin,Urine Negative (Negative); Blood,Urine Moderate (Negative); Clarity,Urine Clear (Clear); Color,Urine Yellow (Yellow); Glucose,Urine (UA) 100 mg/dL (Normal); Ketones,Urine Negative (Negative); Leukocyte Esterase,Urine Negative (Negative); Nitrite,Urine Negative (Negative); PH,Urine 6.5 pH Units (5.0-8.0); Protein,Urine Trace mg/dL (Neg-Trace); Specific Gravity,Urine 1.013 (1.010-1.025); Urobilinogen,Urine Normal (Normal)
[2018-08-16 09:38] LABS: Bacteria,Urine None Seen per hpf (None-Few); Hyaline Casts,Urine Few per lpf (None-Few); RBC,Urine 0-3 per hpf (0-3); Squamous Epithelial Cell,Urine Many per lpf (None-Few)
[2018-08-16] MEDS ORDERED: Naloxone 0.4 MG/ML INJ IVP PRN (10:47)
[2018-08-16 10:48] LABS: Alanine Aminotransferase > 500 Units/L (7-52); Albumin 3.8 g/dL (3.5-5.7); Albumin/Globulin Ratio 1.4 (1.1-2.2); Alkaline Phosphatase 48 Units/L (34-104); Bilirubin,Direct 0.2 mg/dL (0.0-0.2); Bilirubin,Indirect 0.3 mg/dL (0.0-1.2); Bilirubin,Total 0.5 mg/dL (0.3-1.0); Globulin 2.8 g/dL (2.4-3.5); Total Protein 6.6 g/dL (6.4-8.9)
[2018-08-16] MEDS ORDERED: *HR* Heparin 5,000 UNIT/ML VIAL IVP ONE ×2 (10:49→12:06)
[2018-08-16] MEDS ORDERED: *HR* Heparin 5,000 UNIT/ML VIAL IVP PRN ×3 (10:49→12:06)
[2018-08-16] MEDS ORDERED: Dextrose Gel 15 GM/37.5 ML TUBE PO PRN ×2 (10:55)
[2018-08-16] MEDS ORDERED: *HR* Dextrose 50 % in Water (Syg) 50 ML SYRINGE IVP PRN (10:55)
[2018-08-16] MEDS ORDERED: D5% in Water 1,000 ML IVC PRN (10:55)
[2018-08-16] MEDS ORDERED: D5% in 0.45% NACL 1,000 ML IVC SCH (11:00)
[2018-08-16 11:01] LABS: Aspartate Amino Transferase 2270 Units/L (13-39)
--- NOTE | 2018-08-16 11:18 | Internal Med History&Physical ---
Date of Encounter: 08/16/18 Time of Encounter: 11:09 Internal Medicine - H&P: HPI Chief complaint: Increase mucus production Admitted From: Home Plans for Post Hospital Care: Home History of present illness: Mr. Mccloud is a 57 year old male PMH of chronic respiratory failure s/p trach dependent, COPD, CVA, DM, CAD. Patient was brought to the ED from home due to increase mucus production as per ED and EMS report. Patient reported that the suctioning of the trach is done by his brother but that it has not been done for a couple of days. Limited information obtain from the patient. Called patient brother at and he corroborates with he information above. No more information was provided. Past Med Surg Social Fam HX - Past Medical History Medical history: asthma, COPD, CVA, diabetes, myocardial infarction, TIA, other Additional medical history: chronic back pain Psychiatric history: no psych history, anxiety, depression - Past Surgical History Surgical History: tracheostomy Additional surgical history: skull fracture. trach - Social History Smoking Status: Current every day smoker Smokeless Tobacco Status: No Alcohol use: none, occasionally Drug use: none - Family History Mother Living Status: Hx Family Cardiac Disorders: Yes Hx Family Respiratory Disorders: Yes Hx Family Cancer: No Hx Family Endocrine Disorder: No Father Hx Family Cardiac Disorders: Yes (CHF, [place]) Internal Medicine - H&P: Meds Albuterol Sulfate [Ventolin Hfa] 2 puff IH Q4H PRN 03/17/18 [History] Atorvastatin [Lipitor] 40 mg PO HS 03/17/18 [History] Clopidogrel [Plavix] 75 mg PO DAILY 03/17/18 [History] Fenofibrate Nanocrystallized [Tricor] 145 mg PO DAILY 03/17/18 [History] Fluticasone Propionate Nasal [Flonase] 1 spr NS DAILY 03/17/18 [History] Gabapentin [Neurontin] 300 mg PO TID 03/17/18 [History] Insulin Glargine,Hum.rec.anlog [Lantus Solostar] 25 unit SQ HS 03/17/18 [History ] Montelukast [Singulair] 10 mg PO DAILY 03/17/18 [History] Omeprazole [PriLOSEC] 20 mg PO DAILY 03/17/18 [History] Oxycodone HCl/Acetaminophen [Percocet 10-325 mg Tablet] 1 tab PO Q4-6H PRN 03/17 [History] Sitagliptin Phos/Metformin HCl [Janumet 50-1,000 mg Tablet] 1 tab PO BID [History] diazePAM [Valium] 5 mg PO BID 03/17/18 [History] diazePAM [Valium] 10 mg PO HS 03/17/18 [History] Docusate [Colace] 200 mg PO BID #0 capsule 03/24/18 [Rx] amLODIPine [Norvasc] 5 mg PO DAILY #30 tablet 03/24/18 [Rx] Furosemide [Lasix] 20 mg PO BID PRN 05/21/18 [History] Metoprolol [Lopressor] 25 mg PO BID 08/16/18 [History] 3 Allergy/AdvReac Type Severity Reaction Status Date / Time azithromycin Allergy See Verified 07/16/18 14:08 Comments All Systems PM: A 10-system review of systems was performed and is negative for pertinent findings except as documented above in the HPI. Review of systems: Unable to obtain proper review of system as patient cannot talk. - Constitutional Vitals: Temp Pulse Resp BP Pulse Ox 99.1 F 93 28 153/76 99 08/16/18 07:11 08/16/18 10:53 08/16/18 10:53 08/16/18 10:53 08/16/18 10:53 Exam: General: Patient is awake, alert and oriented to person and place, in Mild distress due to respiratory distress. Head: atraumatic, normocephalic, ENT: mucous membranes moist, normal external ear exam Neck: tach in placed. Respiratory: Scattered expiratory wheezing bilaterally, rales right lower lobe. No crackles. Cardiovascular: RRR, normal s1,s2, no murmur, rubs or gallops. Abdomen: Bowel sounds present normoactive x-4 quadrants. Abdomen is soft, nondistended. No guarding or rebound. No organomegaly noted, obese Musculoskeletal: 2+ edema in the lower extr, strength is 5/5 in the upper extr b /l, 2/5 strength in the lower ext b/l. Neuro: Unable to perform neuro exam as patient is not following commands. Psych: Patient's affect is normal Internal Med - H&P Results - Labs CBC & Chem 7: 10/16/18 11:30 08/16/18 08:18 Labs: Short CBC 08/16/18 Range/Units 08:18 WBC 15.1 H (4.3-11.1) K/mcL Hgb 11.2 L (12.9-16.9) g/dL Hct 36.8 L (37.5-50.1) % Plt Count 283 (140-400) K/mcL Neutrophils # 13.6 H (1.6-8.9) K/mcL BMP 08/16/18 08:18 Sodium 142 Potassium 4.2 Chloride 91 L Carbon Dioxide > 45 H* BUN 34 H Creatinine 1.41 H Glucose 121 H Calcium 9.4 Cardiac Enzymes 08/16/18 Range/Units 08:18 Troponin I 0.99 H* (< 0.04) ng/mL Liver Function 08/16/18 Range/Units 08:18 Total Bilirubin 0.5 (0.3-1.0) mg/dL Direct Bilirubin 0.2 (0.0-0.2) mg/dL AST 2270 H (13-39) Units/L ALT > 500 H (7-52) Units/L Alkaline Phosphatase 48 (34-104) Units/L Albumin 3.8 (3.5-5.7) g/dL Urine 08/16/18 Range/Units 09:20 Urine Color Yellow (Yellow) Urine Clarity Clear (Clear) Urine pH 6.5 (5.0-8.0) pH Units Ur Specific [place] 1.013 (1.010-1.025) Urine Protein Trace (Neg-Trace) mg/dL Urine Glucose (UA) 100 H (Normal) mg/dL - Impressions ITS Impressions Chest X-Ray 08/16/18 07:08 IMPRESSION: Right lower lobe airspace disease/pneumonia. D/ / 08/16/2018 08:50:20 Mika Sewell MD / [email or web address] Interpreting Provider: Mika Sewell MD Chest CTA 08/16/18 08:58 IMPRESSION: No evidence for pulmonary emboli. Mediastinal and hilar adenopathy increased from the prior examination. Worsening infiltrate seen involving the right lung with consolidation seen within the right middle lobe and right lower lobe likely secondary to pneumonia however cannot exclude the possibility of underlying mass. Recommend follow-up to resolution. D/ / 08/16/2018 10:51:03 Garrick Meredith MD / [email or web address] Interpreting Provider: Garrick Meredith MD - Assessment and plan (1) HCAP (healthcare-associated pneumonia) Current Visit: No Status: Acute Assessment and plan: CT/CT angio chest IMPRESSION: No evidence for pulmonary emboli. Mediastinal and hilar adenopathy increased from the prior examination. Worsening infiltrate seen involving the right lung with consolidation seen within the right middle lobe and right lower lobe likely secondary to pneumonia however cannot exclude the possibility of underlying mass. Recommend follow-up to resolution. Plan: Started on broad antibiotics coverage with dual anti-pseudomonal coverage Consider ID consult Blood cultures Sputum culture and Gram stain Urine for a typical of any self (2) Acute and chronic respiratory failure ([id number]) Current Visit: No Status: Acute Assessment and plan: s/p trach as per patient had not been suction for a couple of days. due to pneumonia Plan Chest PT Duo-Nebs Q4HR scheduled Suctioning as per resp protocol Consider Pulm consult started on Solu-Medrol 40mg/IV Q12HR CTA of the chest done in the ED to r/o PE will resume patient's dose of Diazepam to avoid withdrawals. Qualifiers: Respiratory failure complication: hypoxia and hypercapnia Qualified Code(s) : J96.21 - Acute and chronic respiratory failure with hypoxia; J96.22 - Acute and chronic respiratory failure with hypercapnia (3) COPD exacerbation Current Visit: No Status: Acute Assessment and plan: Plan of care as above. (4) DVT prophylaxis Current Visit: No Status: Acute Assessment and plan: On a heparin drip due to elevated trops possible NTEMI. (5) DMII (diabetes mellitus, type 2) Current Visit: No Status: Chronic Assessment and plan: Carb controlled diet. Started on levemir and lispro sliding scale. Bedside swallow eval before starting diet. Qualifiers: Diabetes mellitus buttermaker insulin use: with correction use Diabetes mellitus complication status: with hyperglycemia Qualified Code(s): E11.65 - Type 2 diabetes mellitus with hyperglycemia; Z79.4 - care home (current) use of insulin (6) HTN (hypertension) Current Visit: No Status: Chronic Assessment and plan: We will resume patient's home antihypertensive medication. Qualifiers: Hypertension type: essential hypertension Qualified Code(s): I10 - Essential (primary) hypertension (7) Tracheostomy dependent Current Visit: No Status: Chronic (8) VINI (acute kidney injury) Current Visit: Yes Status: Acute Assessment and plan: Possible due to low preload in the settings of HCAP. Patient started on low dose IV hydration. Urine electrolytes if not improvement with IV fluids consider evaluating for obstructive uropathy. Hold furosemide avoid nephrotoxic medications (9) Elevated troponin Current Visit: Yes Status: Acute Assessment and plan: Possible NSTEMI vs VINI vs demand in the setting of pneumonia. Plan Cardiology consulted started on a Heparin drip On dual antiplatelets with aspirin and plavix serial trops consider TTE Lipid panel (10) Elevated liver enzymes Current Visit: Yes Status: Acute Assessment and plan: Possible due to sepsis. Abdominal dupplex US GI consult serial LFts Hold statins hepatitis panel - Time Spent With Patient Total time spent is greater than 50% in coordination of care (as documented) at patient's floor/unit and/or counseling patient: Greater than 35 minutes
[2018-08-16 11:43] LABS: Hematocrit 36.2 % (37.5-50.1); Hemoglobin 11.1 g/dL (12.9-16.9); Mean Corpuscular HGB Conc 30.7 g/dL (31.6-35.5); Mean Corpuscular Hemoglobin 27.8 pg (28.0-33.3); Mean Corpuscular Volume 90.7 fL (83.0-100.0); Mean Platelet Volume 9.4 fL (9.4-12.4); Platelet Count 259 K/mcL (140-400); Red Blood Count 3.99 M/mcL (4.19-5.50); Red Cell Distribution Width 13.1 % (11.5-14.5)
[2018-08-16 11:47] LABS: Heparin anti-factor XA UFH 0.01 IU/mL (0.30-0.70)
[2018-08-16 11:48] LABS: INR 1.7; Prothrombin Time 19.5 Seconds (9.4-12.1)
[2018-08-16 12:08] LABS: Acetaminophen < 10 mcg/mL (10-20)
[2018-08-16] MEDS: Heparin 25,000 UNIT/500 ML D5W 25,000 UNIT/500 ML BAG IVC SCH (13:04)
[2018-08-16] MEDS: Insulin LISPRO 300 UNITS/3 ML VIAL SQ SCH ×2 (13:06→16:49)
--- NOTE | 2018-08-16 13:10 | Gastroenterology Consult Note ---
<Terese Medina - Last Filed: 08/16/18 13:06> Date of Encounter: 08/16/18 Time of Encounter: 12:30 - Assessment and plan (1) Elevated liver enzymes Current Visit: Yes Status: Acute Assessment and plan: Monitor LFTs, us liver and hepatitis panel are pending, further workup is dependent on these results. He denies acute abdominal symptoms. (2) Acute and chronic respiratory failure (zvckn-zi-[id number]) Current Visit: No Status: Acute Qualifiers: Respiratory failure complication: hypoxia and hypercapnia Qualified Code(s) : J96.21 - Acute and chronic respiratory failure with hypoxia; J96.22 - Acute and chronic respiratory failure with hypercapnia - Time Spent With Patient Total time spent is greater than 50% in coordination of care (as documented) at patient's floor/unit and/or counseling patient: GI History of Present Illness - Data of Consult Patient: new to practice Consult date: 08/16/18 Requesting Physician: Mark Zavala MD - Consult Narrative Reason for consult: elevated LFTs History of present illness: Mr. Mccloud is a 57 year old male PMH of chronic respiratory failure s/p trach dependent, COPD, CVA, DM, CAD. He was brought to the ED from home due to increase mucus production as per ED and EMS report. Patient reported that the suctioning of the trach is done by his brother but that it has not been done for a couple of days. The pt is trach dependent and short of breath at this time , he is only able to answer yes or no questions. AST was greater than 2200 ALT greater than 500 therefore, GI was consult for elevated LFTs. He denies any previous history of liver disease. He denies any abdominal pain nausea vomiting or diarrhea. He does admit to heavy alcohol use in the pastwith records back in 2013 indicating that he drank 2-3 times a week. He denied any current alcohol use. His records indicate frequent admissions in the past year for copd exacerbation and respiratory distress. Past Med Surg Social Fam HX - Past Medical History Medical history: asthma, COPD, CVA, diabetes, myocardial infarction, TIA, other Additional medical history: chronic back pain Psychiatric history: no psych history, anxiety, depression - Past Surgical History Surgical History: tracheostomy Additional surgical history: skull fracture. trach - Social History Smoking Status: Current every day smoker Smokeless Tobacco Status: No Alcohol use: none, occasionally Drug use: none - Family History Mother Living Status: Hx Family Cardiac Disorders: Yes Hx Family Respiratory Disorders: Yes Hx Family Cancer: No Hx Family Endocrine Disorder: No Father Hx Family Cardiac Disorders: Yes (CHF, [place]) Review of Systems: GI: as per [employer] [facility]: denies fever or chills EYES: denies yellow discoloration ENT: denies pain with swallowing or difficulty swallowing CARDIO: denies chest pain, palpitations RESP: see hpi : denies change in color of urine NEURO: weakness HEME: Denies any bruising MS: chronic back pain. DERM: denies rash or itching PSYCH: history of anxiety and depression - Constitutional Vitals: Temp Pulse Resp BP Pulse Ox 100.6 F H 100 20 136/87 90 08/16/18 12:41 08/16/18 12:41 08/16/18 12:41 08/16/18 12:41 08/16/18 12:41 Exam: CONSTITUTIONAL:~alert, mild respiratory distress.~HEAD:~normocephalic.~EYES:~no jaundice.~NECK:~no obvious swelling, tracheostomy noted with brown drainage noted.~HEART:~regular rate and rhythm, no murmurs.~LUNGS:~bilateral poor air entry, with coarse breath sounds.~ABDOMEN:~non distended, soft, non tender, no masses palpable, no organomegaly.~RECTAL EXAM:~Deferred.~EXTREMITIES:~no clubbing, cyanosis or edema.~SKIN:~pallor noted, no stigmata of chronic liver disease.~NEUROLOGIC:~no obvious focal defect.~~~~ Results - Labs CBC & Chem 7: 08/16/18 11:30 08/16/18 08:18 Labs: Last Result Calcium 9.4 mg/dL (8.6-10.3) 08/16/18 08:18 Troponin I 0.80 ng/mL (< 0.04) H* 08/16/18 11:30 Entire Visit Hgb 11.1 g/dL (12.9-16.9) L 08/16/18 11:30 Hct 36.2 % (37.5-50.1) L 08/16/18 11:30 PT 19.5 Seconds (9.4-12.1) H 08/16/18 11:30 Total Bilirubin 0.5 mg/dL (0.3-1.0) 08/16/18 08:18 AST 2270 Units/L (13-39) H 08/16/18 08:18 ALT > 500 Units/L (7-52) H 08/16/18 08:18 Acetaminophen < 10 mcg/mL (10-20) L 08/16/18 11:30 - ABG ABG results: PT/INR, D-dimer PT 19.5 Seconds (9.4-12.1) H 08/16/18 11:30 Consult Discharge Plan - Plan Referrals: Ad Garcia MD [Primary Care Provider] - 08/24/18 1:20 pm <Jose Kitchen - Last Filed: 08/16/18 15:01> Date of Encounter: 08/16/18 Time of Encounter: 14:50 - Time Spent With Patient Total time spent is greater than 50% in coordination of care (as documented) at patient's floor/unit and/or counseling patient: GI History of Present Illness - Data of Consult Requesting Physician: Mark Zavala MD - Consult Narrative History of present illness: Mr. Mccloud is a 57 year old male - Constitutional Vitals: Temp Pulse Resp BP Pulse Ox 100.6 F H 100 20 136/87 90 08/16/18 12:41 08/16/18 12:41 08/16/18 12:41 08/16/18 12:41 08/16/18 12:41 Results - Labs CBC & Chem 7: 08/16/18 11:30 08/16/18 08:18 Labs: Last Result Calcium 9.4 mg/dL (8.6-10.3) 08/16/18 08:18 Troponin I 0.80 ng/mL (< 0.04) H* 08/16/18 11:30 Entire Visit Hgb 11.1 g/dL (12.9-16.9) L 08/16/18 11:30 Hct 36.2 % (37.5-50.1) L 08/16/18 11:30 PT 19.5 Seconds (9.4-12.1) H 08/16/18 11:30 Total Bilirubin 0.5 mg/dL (0.3-1.0) 08/16/18 08:18 AST 2270 Units/L (13-39) H 08/16/18 08:18 ALT > 500 Units/L (7-52) H 08/16/18 08:18 Acetaminophen < 10 mcg/mL (10-20) L 08/16/18 11:30 - ABG ABG results: PT/INR, D-dimer PT 19.5 Seconds (9.4-12.1) H 08/16/18 11:30 - Attending Attestation I have personally performed a face to face evaluation on this patient. I have reviewed and agree with the care plan. History and Exam by me shows: Patient seen. Patient with chronic respiratory failure with a trach on examination right upper quadrant no tenderness. Assessment: Acute hepatitis rule out infectious versus medication induced versus other etiology. Recommendation: Upper quadrant ultrasound hepatitis profile if those negative then we will look for other causes
[2018-08-16 13:39] LABS: Hepatitis B Surface Antigen Nonreactive (Nonreactive)
--- NOTE | 2018-08-16 14:07 | Cardiology Consult Note ---
<Cachorro Logan - Last Filed: 08/16/18 14:03> Date of Encounter: 08/16/18 Time of Encounter: 14:03 Assessment and Plan (1) Elevated troponin Current Visit: Yes Status: Acute Elevated troponin at 0.99, 0.80. Likely demand ischemia in the setting of acute on chronic hypercapnic and hypoxic respiratory failure from HCAP and COPD exacerbation (possible lung mass). H/o remote FL with no intervention per prior medical records. Echo 01/2015 -LVEF 65%. Normal left ventricular structure and function. Mild left ventricular diastolic dysfunction. Normal right ventricular structure and function. No significant valvular dysfunction. Unable to estimate RVSP due to lack of TR jet. No evidence of a PFO with agitated saline contrast. Check re-peat TTE. Continue heparin gtt. Further recommendations to follow. (2) CAD (coronary artery disease) Current Visit: No Status: Chronic Patient follows with Dr. Leigh, reports reviewed. H/o remote FL with no intervention. On plavix presumably for h/o CVA. Continue bb, asa. No statin due to elevated liver enzymes. Qualifiers: Coronary Disease-Associated Artery/Lesion type: [place] artery [place] vs. transplanted heart: [place] heart Associated angina: without angina Qualified Code(s): I25.10 - Atherosclerotic heart disease of [place] coronary artery without angina pectoris (3) Acute and chronic respiratory failure (oyzxx-fc-prrjlaj) Current Visit: No Status: Acute Acite on chronic respiratory failure with known severe COPD with exacerbation and HCAP. TTE pending. Qualifiers: Respiratory failure complication: hypoxia and hypercapnia Qualified Code(s) : J96.21 - Acute and chronic respiratory failure with hypoxia; J96.22 - Acute and chronic respiratory failure with hypercapnia (4) HCAP (healthcare-associated pneumonia) Current Visit: No Status: Acute Hospitalist following. No evidence for pulmonary emboli. CTA shows- Mediastinal and hilar adenopathy increased from the prior examination. Worsening infiltrate seen involving the right lung with consolidation seen within the right middle lobe and right lower lobe likely secondary to pneumonia however cannot exclude the possibility of underlying mass. Recommend follow-up to resolution. (5) Elevated liver function tests Current Visit: Yes Status: Acute Discussion w patient/family: The assessment and plan as outlined above was discussed with the patient and/or family members who expressed understanding and agreement. All questions were answered. Thank you for involving us in the care of your patient. Please call with any questions. History of Present Illness Consult date: 08/16/18 Requesting physician: Mark Zavala Consult reason: elevated troponin Chief complaint: SOB History of present illness: Mr. Mccloud is a 57 year old male with past medical history significant for tach and oxygen dependence, COPD, CAD, CVA, DM, HTN, and HLD. Cardiology consulted for elevated troponin. On my exam patient has difficulty breathing and unable to answer all questions. Some information obtained from previous records and staff. He denies chest pain. He agrees he is SOB and has BLE edema. C/o increased sputum production. He is diagnosed with acute on chronic respiratory failure in the setting of HCAP and COPD exacerbation. He is also found to have VINI and elevated liver enzymes. Troponin elevated up to 0.99. He denies history of CAD or heart cath to me. H/o CAD documented in prior notes. Past Med Surg Social Fam HX - Past Medical History Medical history: asthma, COPD, CVA, diabetes, myocardial infarction (?), TIA, other Additional medical history: chronic back pain Psychiatric history: no psych history, anxiety, depression - Past Surgical History Surgical History: tracheostomy Additional surgical history: skull fracture. trach - Social History Smoking Status: Current every day smoker Smokeless Tobacco Status: No Alcohol use: none, occasionally Drug use: none - Family History Mother Living Status: Hx Family Cardiac Disorders: Yes Hx Family Respiratory Disorders: Yes Hx Family Cancer: No Hx Family Endocrine Disorder: No Father Hx Family Cardiac Disorders: Yes (CHF, [place]) Medications and Allergies Albuterol Sulfate [Ventolin Hfa] 2 puff IH Q4H PRN 03/17/18 [History] Atorvastatin [Lipitor] 40 mg PO HS 03/17/18 [History] Clopidogrel [Plavix] 75 mg PO DAILY 03/17/18 [History] Fenofibrate Nanocrystallized [Tricor] 145 mg PO DAILY 03/17/18 [History] Fluticasone Propionate Nasal [Flonase] 1 spr NS DAILY 03/17/18 [History] Gabapentin [Neurontin] 300 mg PO TID 03/17/18 [History] Insulin Glargine,Hum.rec.anlog [Lantus Solostar] 25 unit SQ HS 03/17/18 [History ] Montelukast [Singulair] 10 mg PO DAILY 03/17/18 [History] Omeprazole [PriLOSEC] 20 mg PO DAILY 03/17/18 [History] Oxycodone HCl/Acetaminophen [Percocet 10-325 mg Tablet] 1 tab PO Q4-6H PRN 03/17 [History] Sitagliptin Phos/Metformin HCl [Janumet 50-1,000 mg Tablet] 1 tab PO BID [History] diazePAM [Valium] 5 mg PO BID 03/17/18 [History] diazePAM [Valium] 10 mg PO HS 03/17/18 [History] Docusate [Colace] 200 mg PO BID #0 capsule 03/24/18 [Rx] amLODIPine [Norvasc] 5 mg PO DAILY #30 tablet 03/24/18 [Rx] Furosemide [Lasix] 20 mg PO BID PRN 05/21/18 [History] Metoprolol [Lopressor] 25 mg PO BID 08/16/18 [History] 3 Allergy/AdvReac Type Severity Reaction Status Date / Time azithromycin Allergy See Verified 07/16/18 14:08 Comments All Systems Review: The remainder of the systems were reviewed and are negative Physical Examination Vital Signs, Last 4 Hours Temp Pulse Resp BP Pulse Ox 08/16/18 12:41 100.6 F H 100 20 136/87 90 08/16/18 12:40 89 General: Other (Labored respirations and unable to have conversation. ) HEENT: Atraumatic, Normocephaly, Mucus Membranes Moist, Other (Tracheostomy in place. ) Neck: No JVD, Normal carotid pulses Cardiac: Reg Rate and Rhythm, Normal S1 and S2, No Murmur Lungs: Normal Breath Sounds, No Wheeze, Rales, Rhonchi, Other (diminished breath sounds. ) Neuro: Alert and responsive, No focal deficits noted Abdomen: Soft, Non-Tender Skin: No rashes noted on visualized skin Musculoskeletal: No Chest Wall Tenderness Extremities: Other (BLE very pale and 2+ edema noted. ) Results 08/16/18 11:30 08/16/18 08:18 Lab Results 08/16/18 08/16/18 08/16/18 11:30 11:30 11:30 WBC 12.9 H Hgb 11.1 L Hct 36.2 L Plt Count 259 INR 1.7 Troponin I 0.80 H* - EKG Interpretation EKG results cardiology: personally reviewed Consult Discharge Plan - Plan Referrals: Ad Garcia MD [Primary Care Provider] - 08/24/18 1:20 pm <Patti Gonzalez - Last Filed: 08/16/18 18:22> Date of Encounter: 08/16/18 - Attending Attestation Patient was seen and evaluated independently by me. Findings, assessment and plan were discussed at length with patient, questions answered. Agree with nurse practitioner's documentation. Addition as follows, 57 yoCM ho COPD, chronic resp failure with trach O2 dependent at baseline, CAD, CVA, HTN, DM. P/w increased mucus production. Imp PNA, significantly elevated AST/ALT w/ nl lactate, VINI on CKD. Consulted for troponin 1-0.8. Pt has no cp, palpitations. VSS, B/L crackles, RR, NT, B/L 2+ edema to mid shins. ECG SR, low PACs. Legionella antigen result pending A: NSTEMI, type II likley Mild fluid overload CAD Marked elevated transaminitis, no HD compromise clinically, pending TTE r/o ischemic and congestive hepatopathy suspected PNA, legionella antigen test pending P: TTE if EF nl without RMWA, will d/c heparin pending further recommendation if concern for ischemic or congestive hepatopathy on TTE Patti Gonzalez MD, PhD Assessment and Plan Discussion w patient/family: The assessment and plan as outlined above was discussed with the patient and/or family members who expressed understanding and agreement. All questions were answered. Thank you for involving us in the care of your patient. Please call with any questions. History of Present Illness History of present illness: Mr. Mccloud is a 57 year old male All Systems Review: The remainder of the systems were reviewed and are negative Physical Examination Vital Signs, Last 4 Hours Temp Pulse Resp BP Pulse Ox 08/16/18 16:45 100.3 F H 98 18 176/87 90 Results 08/16/18 11:30 08/16/18 08:18 Lab Results 08/16/18 08/16/18 08/16/18 11:30 11:30 11:30 WBC 12.9 H Hgb 11.1 L Hct 36.2 L Plt Count 259 INR 1.7 Troponin I 0.80 H*
[2018-08-16] MEDS: Ipratropium/Albuterol Neb 3 ML IH SCH ×3 (14:28→20:07)
[2018-08-16] MEDS: Piperacillin/Tazobactam 3.375 GM in 0.9 % Sodium Chloride Mini Bag 100 ML IVPB SCH (14:49)
[2018-08-16] MEDS: MethylPREDNISolone 40 MG/ML VIAL IVP SCH (16:18)
[2018-08-16] MEDS: diazePAM 5 MG TABLET PO SCH (20:51)
[2018-08-16] MEDS: Insulin DETEMIR 100 UNIT/ML X5UNITS SQ SCH (20:52)
[2018-08-17] MEDS: Ipratropium/Albuterol Neb 3 ML IH SCH ×7 (00:13→23:57)
[2018-08-17] MEDS: Piperacillin/Tazobactam 3.375 GM in 0.9 % Sodium Chloride Mini Bag 100 ML IVPB SCH ×4 (00:22→23:52)
[2018-08-17] MEDS: *HR* Heparin 5,000 UNIT/ML VIAL IVP PRN ×3 (01:32→22:41)
[2018-08-17 02:41] LABS: Hepatitis A Antibody IgM Nonreactive (Nonreactive); Hepatitis B Core IgM Nonreactive (Nonreactive)
[2018-08-17 02:46] LABS: Hepatitis C Virus Antibody Reactive (Nonreactive)
[2018-08-17 04:24] LABS: Basophils % 0.1 %; Hematocrit 32.2 % (37.5-50.1); Hemoglobin 9.9 g/dL (12.9-16.9); Immature Granulocytes % 0.6 % (0-4); Lymphocytes % 7.9 %; Mean Corpuscular HGB Conc 30.7 g/dL (31.6-35.5); Mean Corpuscular Hemoglobin 27.7 pg (28.0-33.3); Mean Corpuscular Volume 89.9 fL (83.0-100.0); Mean Platelet Volume 9.9 fL (9.4-12.4); Monocytes # 0.4 K/mcL (0.0-1.3); Neutrophils # 10.6 K/mcL (1.6-8.9); Platelet Count 244 K/mcL (140-400); Red Blood Count 3.58 M/mcL (4.19-5.50); Red Cell Distribution Width 12.7 % (11.5-14.5); Segmented Neutrophils % 88.4 %
[2018-08-17 04:46] LABS: BUN/Creatinine Ratio 25 (6-26); Blood Urea Nitrogen 25 mg/dL (6-20); Calcium 8.6 mg/dL (8.6-10.3); Carbon Dioxide 41 mEq/L (23-29); Chloride 95 mEq/L (98-107); Glucose 151 mg/dL (70-105); Magnesium 1.8 mg/dL (1.6-2.6); Osmolality,Calculated 299 (280-300); Phosphorous 2.2 mg/dL (2.7-4.5); Potassium 4.1 mEq/L (3.5-5.1); Sodium 141 mEq/L (136-145); eGFR For Non-African Americans > 60 (> 60)
[2018-08-17] MEDS: MethylPREDNISolone 40 MG/ML VIAL IVP SCH ×2 (05:51→16:56)
[2018-08-17] MEDS ORDERED: *HR* Metoprolol 5 MG/5 ML VIAL IVP ONE (06:30)
[2018-08-17] MEDS: Insulin LISPRO 300 UNITS/3 ML VIAL SQ SCH ×4 (07:29→17:19)
--- NOTE | 2018-08-17 07:34 | Electrocardiograph Report ---
[facility] Test Date: 2018-08-16 Pat Name: Lobo Mccloud Department: [id number] Room: 2N14 Gender: M Director It Project: : 1960 Requested By: Raffaele Russell Order Number: [id number] Reading MD: Kan Stone Measurements Intervals [place] Rate: 91 P: 64 GA: 118 QRS: 87 QRSD: 97 T: 52 QT: 339 QTc: 417 Interpretive Statements Sinus rhythm Atrial premature complexes Electronically Signed On 08-17-2018 7:32:22 EDT by Kan Stone
[2018-08-17] MEDS: Heparin 25,000 UNIT/500 ML D5W 25,000 UNIT/500 ML BAG IVC SCH ×2 (07:47→22:38)
[2018-08-17] MEDS: Levofloxacin 750 MG/150 ML 750 MG/150 ML BAG IVPB SCH (07:57)
[2018-08-17] MEDS: Aspirin Enteric Coated 81 MG Tablet PO SCH (07:57)
[2018-08-17] MEDS: diazePAM 5 MG TABLET PO SCH ×3 (07:57→16:56)
[2018-08-17 09:49] LABS: Alanine Aminotransferase > 500 Units/L (7-52); Albumin 3.2 g/dL (3.5-5.7); Albumin/Globulin Ratio 1.2 (1.1-2.2); Alkaline Phosphatase 55 Units/L (34-104); Aspartate Amino Transferase 690 Units/L (13-39); Bilirubin,Direct 0.2 mg/dL (0.0-0.2); Bilirubin,Indirect 0.3 mg/dL (0.0-1.2); Bilirubin,Total 0.5 mg/dL (0.3-1.0); Globulin 2.7 g/dL (2.4-3.5); Total Protein 5.9 g/dL (6.4-8.9)
[2018-08-17 09:58] LABS: Bilirubin,Urine Negative (Negative); Blood,Urine Small (Negative); Clarity,Urine Clear (Clear); Color,Urine Yellow (Yellow); Glucose,Urine (UA) Normal (Normal); Ketones,Urine Negative (Negative); Leukocyte Esterase,Urine Negative (Negative); Nitrite,Urine Negative (Negative); Protein,Urine Trace mg/dL (Neg-Trace); Specific Gravity,Urine 1.009 (1.010-1.025); Urobilinogen,Urine Normal (Normal)
[2018-08-17 10:01] LABS: Bacteria,Urine None Seen per hpf (None-Few); Hyaline Casts,Urine None Seen per lpf (None-Few); RBC,Urine 0-3 per hpf (0-3); Squamous Epithelial Cell,Urine Few per lpf (None-Few); WBC,Urine 0-3 per hpf (0-3)
--- NOTE | 2018-08-17 10:30 | Internal Med Progress Note ---
Hospitalist Progress Note - Encounter Date of Encounter: 08/17/18 Time of Encounter: 08:45 - Subjective Interval History: Seen and evaluated at the bedside 57-year-old male with chronic respiratory failure on trach, COPD, history of CVA but no residual deficits, diabetes mellitus and coronary artery disease. The patient is awake and follows simple commands but is unable to verbalize He denies any new complaints he is admitted and being managed for severe sepsis secondary to pneumonia, acute on chronic respiratory failure secondary to pneumonia rule out aspiration, VINI, elevated liver enzymes, atrial fibrillation with rapid ventricular response and elevated troponins. He is now afebrile, and responding to treatment. - Exam Vitals: Temp Pulse Resp BP Pulse Ox 98.6 F 133 16 116/97 93 08/17/18 07:00 08/17/18 07:00 08/17/18 07:53 08/17/18 07:00 08/17/18 07:53 Exam: General: Patient is awake, alert and oriented to person and place, not in any form of distress, able to lay flat. Head: atraumatic, normocephalic, ENT: mucous membranes moist, normal external ear exam Neck: Trached, with mucopurulent discharge. Respiratory: Chest is clear in the left lung zone, right middle and lower lobe with rhonchi. Cardiovascular: RRR, normal s1,s2, no murmur, rubs or gallops. Abdomen: Bowel sounds present normoactive x-4 quadrants. Abdomen is soft, nondistended. No guarding or rebound. No organomegaly noted, obese Musculoskeletal: bilateral pitting pedal edema 2+ edema in the lower extr, strength is 5/5 in the upper extr b/l, 2/5 strength in the lower ext b/l. Neuro: Moves all extremities spontaneously, speech not assessed, no facial paralysis. Psych: Patient's affect is normal - Assessment and Plan (1) Severe sepsis Current Visit: Yes Status: Acute Assessment and Plan: He met criteria for severe sepsis with a MAXIMUM TEMPERATURE of 100.6, leukocytosis, tachycardia, tachypnea with Vini and transaminitis He is afebrile at this time Sputum, urine and blood cultures are pending Suspected source of sepsis currently right middle and lower lobe pneumonia Leukocytosis is stable A KI is improving Blood pressure is preserved Lactate was normal on presentation Continue to monitor Continue vancomycin, Zosyn and Levaquin-day 2. (2) Acute and chronic respiratory failure ([id number]) Current Visit: Yes Status: Acute Assessment and Plan: s/p trach as per patient had not been suction for a couple of days. CT angiogram done ruled out pulmonary embolism but showed right middle and right lower lobe pneumonia Continue duo nebs every 4 Continue antibiotics Send tracheal aspirate for culture Follow blood culture Urinary streptococcal antigen negative Continue oxygen via trach collar. Wean as tolerated. Patient reports he is on 10 L/m oxygen at home. (3) HCAP (healthcare-associated pneumonia) Current Visit: Yes Status: Acute Assessment and Plan: Patient with chronic respiratory failure on trach dependence presented with increasing secretions, and cough, chest CT shows right middle and lower lobe pneumonia. Send sputum and tricuspid for culture Blood culture. Continue vancomycin and Zosyn and Levaquin De-escalate with culture reports (4) DMII (diabetes mellitus, type 2) Current Visit: Yes Status: Chronic Assessment and Plan: Carb controlled diet. Started on levemir and lispro sliding scale. Patient passed bedside swallow eval, modified barium recommended by speech therapist, will follow Nothing by mouth except medications (5) HTN (hypertension) Current Visit: Yes Status: Chronic Assessment and Plan: Continue home medications (6) DVT prophylaxis Current Visit: Yes Status: Acute Assessment and Plan: On a heparin drip due to elevated trops possible NTEMI. (7) COPD exacerbation Current Visit: Yes Status: Acute Assessment and Plan: Management as an acute on chronic respiratory failure and pneumonia (8) Tracheostomy dependent Current Visit: Yes Status: Chronic Assessment and Plan: Continue tracheostomy care per nursing staff (9) VINI (acute kidney injury) Current Visit: Yes Status: Acute Assessment and Plan: Improving Possible due to low preload in the settings of HCAP. Continue gentle hydration, EF is preserved by echo. (10) Elevated troponin Current Visit: Yes Status: Acute Assessment and Plan: Likely demand in the setting of severe sepsis, tachycardia, VINI Trops 0.99-0.80-0.57-0.29 ECHO on Friday 08/17 noted. Preserved ejection fraction and no wall motion abnormalities Patient is on heparin drip and awaiting cardiology recommendations Continue the same Resume home medications which include aspirin and Plavix. (11) Elevated liver enzymes Current Visit: Yes Status: Acute Assessment and Plan: Likely due to severe sepsis Improving Abdomen ultrasound shows no biliary ductal dilatation and no pathology with the gallbladder Continue to monitor GI evaluation noted - Time Spent with Patient Total time spent is greater than 50% in coordination of care (as documented) at patient's floor/unit and/or counseling patient: Internal Medicine: Result - Labs CBC & Chem 7: 08/17/18 04:17 08/17/18 04:17 Labs: Short CBC 08/16/18 08/17/18 Range/Units 11:30 04:17 WBC 12.9 H 12.0 H (4.3-11.1) K/mcL Hgb 11.1 L 9.9 L (12.9-16.9) g/dL Hct 36.2 L 32.2 L (37.5-50.1) % Plt Count 259 244 (140-400) K/mcL Neutrophils # 10.6 H (1.6-8.9) K/mcL BMP 08/17/18 04:17 Sodium 141 Potassium 4.1 Chloride 95 L Carbon Dioxide 41 H* BUN 25 H Creatinine 1.00 Glucose 151 H Calcium 8.6 Cardiac Enzymes 08/16/18 08/16/18 08/17/18 Range/Units 11:30 17:00 00:22 Troponin I 0.80 H* 0.57 H* 0.29 H* (< 0.04) ng/mL Liver Function 08/17/18 Range/Units 09:00 Total Bilirubin 0.5 (0.3-1.0) mg/dL Direct Bilirubin 0.2 (0.0-0.2) mg/dL AST 690 H (13-39) Units/L ALT > 500 H (7-52) Units/L Alkaline Phosphatase 55 (34-104) Units/L Albumin 3.2 L (3.5-5.7) g/dL Urine 08/17/18 Range/Units 09:00 Urine Color Yellow (Yellow) Urine Clarity Clear (Clear) Urine pH 8.0 (5.0-8.0) pH Units Ur Specific [place] 1.009 L (1.010-1.025) Urine Protein Trace (Neg-Trace) mg/dL Urine Glucose (UA) Normal (Normal) mg/dL - ABG Interpretation ABG results: PT/INR, D-dimer PT 19.5 Seconds (9.4-12.1) H 08/16/18 11:30 Consult Discharge Plan - Plan Referrals: Ad Garcia MD [Primary Care Provider] - 08/24/18 1:20 pm (2) Acute and chronic respiratory failure ([id number]) Qualifiers: Respiratory failure complication: hypoxia and hypercapnia Qualified Code(s): J96.21 - Acute and chronic respiratory failure with hypoxia; J96.22 - Acute and chronic respiratory failure with hypercapnia (4) DMII (diabetes mellitus, type 2) Qualifiers: Diabetes mellitus nursing home insulin use: with engine head repairer use Diabetes mellitus complication status: with hyperglycemia Qualified Code(s): E11.65 - Type 2 diabetes mellitus with hyperglycemia; Z79.4 - assisted (current) use of insulin (5) HTN (hypertension) Qualifiers: Hypertension type: essential hypertension Qualified Code(s): I10 - Essential (primary) hypertension
[2018-08-17] MEDS: Fenofibrate 54 MG TABLET PO SCH (10:31)
[2018-08-17] MEDS: Gabapentin 300 MG CAPSULE PO SCH ×3 (10:32→20:59)
[2018-08-17] MEDS: amLODIPine 5 MG TABLET PO SCH (10:32)
[2018-08-17] MEDS ORDERED: *HR* Metoprolol 5 MG/5 ML VIAL IVP SCH (12:00)
[2018-08-17] MEDS ORDERED: *HR* Metoprolol 5 MG/5 ML VIAL IVP PRN (12:43)
--- NOTE | 2018-08-17 13:17 | Cardiology Progress Note ---
Date of Encounter: 08/17/18 Time of Encounter: 12:10 Assessment and Plan (1) Elevated troponin Current Visit: Yes Status: Acute Elevated troponin at 0.99, 0.80. Likely demand ischemia in the setting of acute on chronic hypercapnic and hypoxic respiratory failure from HCAP and COPD exacerbation, and sepsis . H/o remote [place] with no intervention per prior medical records. EKG shows SR with PAC, no acute ST changes. Noted to have sinus tachycardia with frequent PAC overnight. HR improved. Denies chest pain. TTE completed LVEF 55-60%. Normal LV chamber size and function. Mild concentric left ventricular hypertrophy. No obvious segmental wall motion abnormalities. Normal right ventricular structure and function. Mild left ventricular diastolic dysfunction. Unable to estimate RVSP due to lack of TR jet. Ok to d/c heparin gtt from cardiology standpoint. No further cardiac testing recommended at this time. Cardiology will sign off. Call with questions. (2) CAD (coronary artery disease) Current Visit: No Status: Chronic Patient follows with Dr. Leigh, reports reviewed. H/o remote [place] with no intervention. On plavix presumably for h/o CVA. Continue bb, asa. No statin due to elevated liver enzymes. Qualifiers: Coronary Disease-Associated Artery/Lesion type: [place] artery [place] vs. transplanted heart: [place] heart Associated angina: without angina Qualified Code(s): I25.10 - Atherosclerotic heart disease of [place] coronary artery without angina pectoris (3) Acute and chronic respiratory failure ([id number]) Current Visit: Yes Status: Acute Acite on chronic respiratory failure with known severe COPD with exacerbation and HCAP. TTE shows preserved EF. Qualifiers: Respiratory failure complication: hypoxia and hypercapnia Qualified Code(s) : J96.21 - Acute and chronic respiratory failure with hypoxia; J96.22 - Acute and chronic respiratory failure with hypercapnia (4) HCAP (healthcare-associated pneumonia) Current Visit: Yes Status: Acute Hospitalist following. No evidence for pulmonary emboli. CTA shows- Mediastinal and hilar adenopathy increased from the prior examination. Worsening infiltrate seen involving the right lung with consolidation seen within the right middle lobe and right lower lobe likely secondary to pneumonia however cannot exclude the possibility of underlying mass. (5) Elevated liver function tests Current Visit: Yes Status: Acute Discussion w patient/family: The assessment and plan as outlined above was discussed with the patient and/or family members who expressed understanding and agreement. All questions were answered. Thank you for involving us in the care of your patient. Please call with any questions. Subjective Principal diagnosis: chest pain Interval history: Mr. Mccloud is resting quietly, appears to be breathing better. Objective Vital Signs, Last 4 Hours Temp Pulse Resp BP Pulse Ox 08/17/18 12:54 91 08/17/18 11:22 16 96 08/17/18 11:11 98.6 F 84 18 154/84 97 General: No Apparent Distress, Other (Wearing trach mask at 9L) HEENT: Atraumatic, Normocephaly, Mucus Membranes Moist Neck: No JVD, Normal carotid pulses Cardiac: Reg Rate and Rhythm, Normal S1 and S2, No Murmur Lungs: Other (Respirations easy) Neuro: No focal deficits noted, Other (Sleeping, arousable) Abdomen: Soft, Non-Tender Skin: No rashes noted on visualized skin Musculoskeletal: No Chest Wall Tenderness Extremities: No Clubbing, No Cyanosis, Normal Pulses, Other (Non-pitting edema) Results 08/17/18 04:17 08/17/18 04:17 Lab Results 08/16/18 08/17/18 08/17/18 17:00 00:22 04:17 WBC 12.0 H Hgb 9.9 L Hct 32.2 L Plt Count 244 Sodium Potassium Chloride Carbon Dioxide BUN Creatinine Glucose Calcium Magnesium Total Bilirubin AST ALT Alkaline Phosphatase Troponin I 0.57 H* 0.29 H* 08/17/18 08/17/18 04:17 09:00 WBC Hgb Hct Plt Count Sodium 141 Potassium 4.1 Chloride 95 L Carbon Dioxide 41 H* BUN 25 H Creatinine 1.00 Glucose 151 H Calcium 8.6 Magnesium 1.8 Total Bilirubin 0.5 AST 690 H ALT > 500 H Alkaline Phosphatase 55 Troponin I - Imaging and Cardiology Echo: report reviewed - EKG Interpretation EKG results cardiology: personally reviewed Consult Discharge Plan - Plan Referrals: Ad Garcia MD [Primary Care Provider] - 08/24/18 1:20 pm
[2018-08-17] MEDS: diazePAM 10 MG TABLET PO SCH (20:59)
[2018-08-17] MEDS: Insulin DETEMIR 100 UNIT/ML X5UNITS SQ SCH (20:59)
[2018-08-18 11:07] LABS: Basophils % 0.1 %; Hematocrit 32.6 % (37.5-50.1); Hemoglobin 9.9 g/dL (12.9-16.9); Immature Granulocytes % 1.4 % (0-4); Immature Platelets 4.9 % (1.1-6.1); Lymphocytes # 1.1 K/mcL (0.6-4.6); Lymphocytes % 10.9 %; Mean Corpuscular HGB Conc 30.4 g/dL (31.6-35.5); Mean Corpuscular Hemoglobin 27.5 pg (28.0-33.3); Mean Corpuscular Volume 90.6 fL (83.0-100.0); Mean Platelet Volume 10.3 fL (9.4-12.4); Monocytes # 0.6 K/mcL (0.0-1.3); Neutrophils # 7.9 K/mcL (1.6-8.9); Nucleated Red Blood Cells 0.6 /100 WBC (0); Platelet Count 267 K/mcL (140-400); Segmented Neutrophils % 81.6 %
[2018-08-18] MEDS: Ipratropium/Albuterol Neb 3 ML IH SCH ×6 (11:08→23:31)
[2018-08-18] MEDS: Insulin LISPRO 300 UNITS/3 ML VIAL SQ SCH ×3 (11:54→17:37)
[2018-08-18] MEDS: *HR* OxyCODONE/APAP 10/325 TABLET PO PRN ×2 (12:00→20:14)
[2018-08-18] MEDS: MethylPREDNISolone 40 MG/ML VIAL IVP SCH (12:29)
[2018-08-18] MEDS: Aspirin Enteric Coated 81 MG Tablet PO SCH (12:31)
[2018-08-18] MEDS: Piperacillin/Tazobactam 3.375 GM in 0.9 % Sodium Chloride Mini Bag 100 ML IVPB SCH ×2 (12:31→17:36)
[2018-08-18] MEDS: Fenofibrate 54 MG TABLET PO SCH (12:32)
[2018-08-18] MEDS: diazePAM 5 MG TABLET PO SCH ×2 (12:32→14:41)
[2018-08-18] MEDS: Gabapentin 300 MG CAPSULE PO SCH ×3 (12:32→20:15)
[2018-08-18] MEDS: amLODIPine 5 MG TABLET PO SCH (12:32)
[2018-08-18] MEDS: Levofloxacin 750 MG/150 ML 750 MG/150 ML BAG IVPB SCH (12:33)
--- NOTE | 2018-08-18 13:02 | Internal Med Progress Note ---
Hospitalist Progress Note - Encounter Date of Encounter: 08/18/18 Time of Encounter: 08:55 - Subjective Interval History: Seen and evaluated at the bedside 57-year-old male with chronic respiratory failure on trach, COPD, history of CVA but no residual deficits, diabetes mellitus and coronary artery disease. The patient is awake , speaks full sentences without distress, not in distress Reports significant improvement - Exam Vitals: Temp Pulse Resp BP Pulse Ox 98.2 F 61 18 122/74 96 08/17/18 23:21 08/17/18 23:21 08/17/18 23:58 08/17/18 23:21 08/17/18 23:58 Exam: General: Patient is awake, alert and oriented to person and place, not in any form of distress, able to lay flat. Head: atraumatic, normocephalic, ENT: mucous membranes moist, normal external ear exam Neck: Trached, with mucopurulent discharge. Respiratory: Chest is clear in the left lung zone, right middle and lower lobe with rhonchi. Cardiovascular: RRR, normal s1,s2, no murmur, rubs or gallops. Abdomen: Bowel sounds present normoactive x-4 quadrants. Abdomen is soft, nondistended. No guarding or rebound. No organomegaly noted, obese Musculoskeletal: bilateral pitting pedal edema 2+ edema in the lower extr, strength is 5/5 in the upper extr b/l, 2/5 strength in the lower ext b/l. Neuro: Moves all extremities spontaneously, speech is normal, no facial paralysis. Psych: Patient's affect is normal - Assessment and Plan (1) Severe sepsis Current Visit: Yes Status: Acute Assessment and Plan: He met criteria for severe sepsis with a MAXIMUM TEMPERATURE of 100.6, leuko cytosis, tachycardia, tachypnea with Vini and transaminitis He is afebrile at this time Sputum with GPR urine and blood cultures are pending Suspected source of sepsis currently right middle and lower lobe pneumonia Leukocytosis is resolved VINI is improving Blood pressure is preserved Lactate was normal on presentation Continue to monitor Continue vancomycin, Zosyn and Levaquin-day 3. (2) Acute and chronic respiratory failure ([id number]) Current Visit: Yes Status: Acute Assessment and Plan: s/p trach as per patient had not been suction for a couple of days. CT angiogram done ruled out pulmonary embolism but showed right middle and right lower lobe pneumonia Continue duo nebs every 4 Continue antibiotics Follow trach aspirate Follow blood culture, prelim negative Urinary streptococcal antigen negative Continue oxygen via trach collar. Wean as tolerated. Patient reports he is on 10 L/m oxygen at home. (3) HCAP (healthcare-associated pneumonia) Current Visit: Yes Status: Acute Assessment and Plan: Patient with chronic respiratory failure on trach dependence presented with increasing secretions, and cough, chest CT shows right middle and lower lobe pneumonia. Follow sputum and trach aspirate cultures Blood culture. Continue vancomycin and Zosyn and Levaquin De-escalate with culture reports (4) DMII (diabetes mellitus, type 2) Current Visit: Yes Status: Chronic Assessment and Plan: Carb controlled diet. Started on levemir and lispro sliding scale. Patient passed bedside swallow eval, modified barium recommended by speech therapist, will follow FS ACHS Continue insulin (5) HTN (hypertension) Current Visit: Yes Status: Chronic Assessment and Plan: Continue home medications (6) DVT prophylaxis Current Visit: Yes Status: Acute Assessment and Plan: D.C heparin drip Ct lovenox SQ a.m (7) COPD exacerbation Current Visit: Yes Status: Acute Assessment and Plan: Management as an acute on chronic respiratory failure and pneumonia Change steroids to po (8) Tracheostomy dependent Current Visit: Yes Status: Chronic Assessment and Plan: Continue tracheostomy care per nursing staff (9) VINI (acute kidney injury) Current Visit: Yes Status: Acute Assessment and Plan: Improving D/C IVF Today's chem pending due to down time (10) Elevated troponin Current Visit: Yes Status: Acute Assessment and Plan: Likely demand in the setting of severe sepsis, tachycardia, VINI Trops 0.99-0.80-0.57-0.29 ECHO on Friday 08/17 noted. Preserved ejection fraction and no wall motion abnormalities Continue monitoring (11) Elevated liver enzymes Current Visit: Yes Status: Acute Assessment and Plan: Likely due to severe sepsis Improving Abdomen ultrasound shows no biliary ductal dilatation and no pathology with the gallbladder Continue to monitor GI evaluation noted - Time Spent with Patient Total time spent is greater than 50% in coordination of care (as documented) at patient's floor/unit and/or counseling patient: Plan of Care Discussed with: patient Internal Medicine: Result - Labs CBC & Chem 7: 08/18/18 04:10 08/17/18 04:17 Labs: Short CBC 08/18/18 Range/Units 04:10 WBC 9.7 (4.3-11.1) K/mcL Hgb 9.9 L (12.9-16.9) g/dL Hct 32.6 L (37.5-50.1) % Plt Count 267 (140-400) K/mcL Neutrophils # 7.9 (1.6-8.9) K/mcL - ABG Interpretation ABG results: PT/INR, D-dimer PT 19.5 Seconds (9.4-12.1) H 08/16/18 11:30 - Impressions Impressions Videofluoroscopic Swallow 08/17/18 15:00 IMPRESSION: Swallowing mechanism grossly within normal limits without evidence of aspiration. Please see separate speech pathology report for full discussion of findings and recommendations. D/ / Dat Robb MD / Dat Robb MD Interpreting Provider: Dat Robb MD Consult Discharge Plan - Plan Referrals: Ad Garcia MD [Primary Care Provider] - 08/24/18 1:20 pm (2) Acute and chronic respiratory failure ([id number]) Qualifiers: Respiratory failure complication: hypoxia and hypercapnia Qualified Code(s): J96.21 - Acute and chronic respiratory failure with hypoxia; J96.22 - Acute and chronic respiratory failure with hypercapnia (4) DMII (diabetes mellitus, type 2) Qualifiers: Diabetes mellitus retirement insulin use: with intermediate manager use Diabetes mellitus complication status: with hyperglycemia Qualified Code(s): E11.65 - Type 2 diabetes mellitus with hyperglycemia; Z79.4 - halfway (current) use of insulin (5) HTN (hypertension) Qualifiers: Hypertension type: essential hypertension Qualified Code(s): I10 - Essential (primary) hypertension
--- NOTE | 2018-08-18 13:50 | Electrocardiograph Report ---
[address] [place], [place] [address] Test Date: 2018-08-17 Pat Name: Lobo Mccloud Department: 109 Room: 2N14 Gender: M Director Of Blood: [id number] : 1960 Requested By: Flaco Viera Order Number: [id number] Reading MD: Tori Leigh Measurements Intervals [place] Rate: 143 P: DE: 0 QRS: 41 QRSD: 88 T: 38 QT: 291 QTc: 374 Interpretive Statements ATRIAL FIBRILLATION WITH RAPID VENTRICULAR RESPONSE LOW QRS VOLTAGE IN EXTREMITY LEADS ABNORMAL RHYTHM ECG Electronically Signed On 08-18-2018 13:48:40 EDT by Tori Leigh
[2018-08-18] MEDS ORDERED: Ipratropium/Albuterol Neb 3 ML IH ONE ×3 (15:03)
[2018-08-18] MEDS ORDERED: MethylPREDNISolone 40 MG/ML VIAL IVP ONE (15:03)
[2018-08-18] MEDS ORDERED: Aspirin Enteric Coated 81 MG Tablet PO ONE (15:03)
[2018-08-18] MEDS ORDERED: Piperacillin/Tazobactam 3.375 GM VIAL IVPB ONE (15:03)
[2018-08-18] MEDS ORDERED: *HR* OxyCODONE/APAP 10/325 TABLET PO ONE (15:03)
[2018-08-18] MEDS ORDERED: diazePAM 5 MG TABLET PO ONE (15:03)
[2018-08-18] MEDS ORDERED: amLODIPine 5 MG TABLET PO ONE (15:03)
[2018-08-18] MEDS ORDERED: Fenofibrate 54 MG TABLET PO ONE (15:03)
[2018-08-18] MEDS ORDERED: 0.9 % Sodium Chloride (Mini-Bag +) 100 ML IVBAG IVC ONE (15:03)
[2018-08-18] MEDS ORDERED: Gabapentin 300 MG CAPSULE PO ONE (15:03)
[2018-08-18] MEDS ORDERED: SODIUM CHLORIDE IVC ONE (15:03)
[2018-08-18] MEDS: diazePAM 10 MG TABLET PO SCH (20:14)
[2018-08-18] MEDS: Insulin DETEMIR 100 UNIT/ML X5UNITS SQ SCH (20:15)
[2018-08-19] MEDS: Piperacillin/Tazobactam 3.375 GM in 0.9 % Sodium Chloride Mini Bag 100 ML IVPB SCH ×2 (00:16→08:25)
[2018-08-19] MEDS: *HR* OxyCODONE/APAP 10/325 TABLET PO PRN ×3 (00:21→08:29)
[2018-08-19] MEDS: Ipratropium/Albuterol Neb 3 ML IH SCH ×3 (02:58→11:21)
[2018-08-19 04:55] LABS: Hematocrit 35.7 % (37.5-50.1); Hemoglobin 10.8 g/dL (12.9-16.9); Mean Corpuscular HGB Conc 30.3 g/dL (31.6-35.5); Mean Corpuscular Hemoglobin 27.6 pg (28.0-33.3); Mean Corpuscular Volume 91.1 fL (83.0-100.0); Mean Platelet Volume 9.5 fL (9.4-12.4); Platelet Count 295 K/mcL (140-400); Red Blood Count 3.92 M/mcL (4.19-5.50); Red Cell Distribution Width 13.2 % (11.5-14.5)
[2018-08-19 05:19] LABS: Alanine Aminotransferase > 500 Units/L (7-52); Albumin 3.2 g/dL (3.5-5.7); Albumin/Globulin Ratio 1.3 (1.1-2.2); Alkaline Phosphatase 76 Units/L (34-104); Aspartate Amino Transferase 107 Units/L (13-39); BUN/Creatinine Ratio 21 (6-26); Bilirubin,Total 0.4 mg/dL (0.3-1.0); Blood Urea Nitrogen 18 mg/dL (6-20); Carbon Dioxide 39 mEq/L (23-29); Chloride 99 mEq/L (98-107); Globulin 2.4 g/dL (2.4-3.5); Glucose 155 mg/dL (70-105); Osmolality,Calculated 299 (280-300); Potassium 3.4 mEq/L (3.5-5.1); Sodium 142 mEq/L (136-145); Total Protein 5.6 g/dL (6.4-8.9); eGFR For Non-African Americans > 60 (> 60)
[2018-08-19] MEDS ORDERED: *HR* Enoxaparin 40 MG/0.4 ML SYRINGE SQ SCH (06:00)
[2018-08-19 06:21] LABS: Lymphocytes # 3.2 K/mcL (0.6-4.6); Neutrophils # 8.1 K/mcL (1.6-8.9); Platelet Estimate Normal (Normal)
[2018-08-19 06:22] LABS: Polychromasia 1+ (Not Present)
[2018-08-19] MEDS: Insulin LISPRO 300 UNITS/3 ML VIAL SQ SCH ×2 (08:22→12:41)
[2018-08-19] MEDS: diazePAM 5 MG TABLET PO SCH (08:24)
[2018-08-19] MEDS: Fenofibrate 54 MG TABLET PO SCH (08:24)
[2018-08-19] MEDS: amLODIPine 5 MG TABLET PO SCH (08:24)
[2018-08-19] MEDS: Gabapentin 300 MG CAPSULE PO SCH (08:25)
[2018-08-19] MEDS: Aspirin Enteric Coated 81 MG Tablet PO SCH (08:25)
[2018-08-19] MEDS ORDERED: predniSONE 20 MG TABLET PO SCH (09:00)
[2018-08-19] MEDS: Levofloxacin 750 MG/150 ML 750 MG/150 ML BAG IVPB SCH (10:20)
--- NOTE | 2018-08-19 11:01 | Discharge Summary ---
- NOTES TO OUTPATIENT PROVIDER Notes to Outpatient Provider: Patient was admitted for Severe sepsis secondary to Pneumonia. He also had VINI and Transamniitis due to sepsis. His symptoms have resolved. Sputum culture gre GNR X2, patient received 4 days of Vanco, Levaquin and Zosyn. He is discharged home on Levaquin and Augmentin, other home meds resumed, he also is encouraged to obtain home health as he wishes to pursue this out-patient. Follow up with PCP. We will call patient for change in antibiotics if final cultures and sensitivity dictates so, plan of care discussed, verbalized understanding Orders not resulted at time of discharge: Pending orders 08/16/18 08:18 Culture,Blood [BC] Stat 08/16/18 10:51 Sputum Culture [Culture,Sputum with Gram Stain] [RM] Stat 08/16/18 11:30 Legionella Type 1 Antibody,IgM Routine 08/17/18 09:00 Hepatitis C Qnt Reflx Genotype Routine 08/17/18 11:25 Sputum Culture [Culture,Sputum with Gram Stain] [RM] Stat 08/18/18 04:00 Chem 7 [Basic Metabolic Panel] AM 0400 08/18/18 04:10 Heparin anti-factor XA UFH [COAG] Routine 08/19/18 10:37 Respiratory Infection Panel [MOLMIC] Stat 08/20/18 04:00 Basic Metabolic Panel AM 0400 Complete Blood Count [HEME] AM 0400 LFTs [Hepatic Panel] AM 0400 Date of Encounter: 08/19/18 Time of Encounter: 11:01 - Discharge Diagnosis (1) Severe sepsis Priority: Primary Status: Resolved Assessment and Plan: Resolved at discharge He met criteria for severe sepsis on admission with a MAXIMUM TEMPERATURE of 100.6, leukocytosis, tachycardia, tachypnea with Vini and transaminitis He is afebrile at this time Sputum with GNR urine and blood cultures are pending Suspected source of sepsis currently right middle and lower lobe pneumonia Leukocytosis is resolved VINI resolved Blood pressure is preserved Lactate was normal on presentation Receievd 4 days of vancomycin, Zosyn and Levaquin Discharged home on Levaquin and Augmentin. (2) Acute and chronic respiratory failure ([id number]) Priority: Primary Status: Resolved Assessment and Plan: continue home dose of 10L O2 by tach collar Qualifiers: Respiratory failure complication: hypoxia and hypercapnia Qualified Code(s): J96.21 - Acute and chronic respiratory failure with hypoxia; J96.22 - Acute and chronic respiratory failure with hypercapnia (3) HCAP (healthcare-associated pneumonia) Priority: Primary Status: Acute Assessment and Plan: Patient with chronic respiratory failure on trach dependence presented with increasing secretions, and cough, chest CT shows right middle and lower lobe pneumonia. Received 4 days of levaquin, zosyn and vanco Sputum culture with GNR X2 Discharged patient on Augmentin and Levaquin, full doses for 4 more days Will recall if cultures and sensitivities dictate necessity (4) DMII (diabetes mellitus, type 2) Priority: Secondary Status: Chronic Assessment and Plan: continue home meds Qualifiers: Diabetes mellitus beater dumper insulin use: with beater dumper use Diabetes mellitus complication status: with hyperglycemia Qualified Code(s): E11.65 - Type 2 diabetes mellitus with hyperglycemia; Z79.4 - FPC (current) use of insulin (5) HTN (hypertension) Priority: Secondary Status: Chronic Assessment and Plan: Continue home medications Qualifiers: Hypertension type: essential hypertension Qualified Code(s): I10 - Essential (primary) hypertension (6) DVT prophylaxis Priority: Primary Status: Resolved (7) COPD exacerbation Priority: Primary Status: Acute Assessment and Plan: Management as an acute on chronic respiratory failure and pneumonia Steroids discontinued on discharge (8) Tracheostomy dependent Priority: Secondary Status: Chronic Assessment and Plan: Continue tracheostomy care, per patient, he can do his own care at home, offere [employer] and Nursing, states he will defer to his PCP (9) VINI (acute kidney injury) Priority: Primary Status: Resolved Assessment and Plan: Resolved Chem WNL today 08/19 (10) Elevated troponin Priority: Primary Status: Resolved Assessment and Plan: Likely demand in the setting of severe sepsis, tachycardia, VINI Trops 0.99-0.80-0.57-0.29 ECHO on Friday 08/17 noted. Preserved ejection fraction and no wall motion abnormalities Cardiology recommended no intervention (11) Elevated liver enzymes Priority: Primary Status: Acute Assessment and Plan: Likely due to severe sepsis Improved Abdomen ultrasound shows no biliary ductal dilatation and no pathology with the gallbladder GI evaluation noted Hospital course: Mr. Mccloud is a 57 year old male with chronic respiratory failure on trach, COPD, history of CVA but no residual deficits, diabetes mellitus and coronary artery disease. Patient was admitted for Severe sepsis secondary to Pneumonia. He also had VINI and Transamniitis due to sepsis. His symptoms have resolved. Sputum culture gre GNR X2, patient received 4 days of Vanco, Levaquin and Zosyn. He is discharged home on Levaquin and Augmentin, other home meds resumed, he also is encouraged to obtain home health as he wishes to pursue this out-patient. Follow up with PCP We will call patient for change in antibiotics if final cultures and sensitivity dictates so, plan of care discussed, verbalized understanding Tobacco cessation counselling encouraged See more details in each diagnosis Discharge discussed with: patient, nurse, case management Time spent discussing smoking cessation with patient: 3 to 10 minutes - Time Spent with Patient Total time spent providing and/or coordinating discharge services: Greater than 30 minutes (45 mins) - Discharge Medications Prescriptions: Amoxicillin/Clavulanate [Augmentin] 875 mg PO BIDWM #6 tablet levoFLOXacin [Levaquin] 750 mg PO DAILY #4 tablet Home Medications: Albuterol Sulfate [Ventolin Hfa] 2 puff IH Q4H PRN 03/17/18 [History] Atorvastatin [Lipitor] 40 mg PO HS 03/17/18 [History] Clopidogrel [Plavix] 75 mg PO DAILY 03/17/18 [History] Fenofibrate Nanocrystallized [Tricor] 145 mg PO DAILY 03/17/18 [History] Fluticasone Propionate Nasal [Flonase] 1 spr NS DAILY 03/17/18 [History] Gabapentin [Neurontin] 300 mg PO TID 03/17/18 [History] Insulin Glargine,Hum.rec.anlog [Lantus Solostar] 25 unit SQ HS 03/17/18 [History] Montelukast [Singulair] 10 mg PO DAILY 03/17/18 [History] Omeprazole [PriLOSEC] 20 mg PO DAILY 03/17/18 [History] Oxycodone HCl/Acetaminophen [Percocet 10-325 mg Tablet] 1 tab PO Q4-6H PRN 03/17/18 [History] Sitagliptin Phos/Metformin HCl [Janumet 50-1,000 mg Tablet] 1 tab PO BID 03/17/18 [History] diazePAM [Valium] 5 mg PO BID 03/17/18 [History] diazePAM [Valium] 10 mg PO HS 03/17/18 [History] Docusate [Colace] 200 mg PO BID #0 capsule 03/24/18 [Rx] amLODIPine [Norvasc] 5 mg PO DAILY #30 tablet 03/24/18 [Rx] Furosemide [Lasix] 20 mg PO BID PRN 05/21/18 [History] Metoprolol [Lopressor] 25 mg PO BID 08/16/18 [History] Amoxicillin/Clavulanate [Augmentin] 875 mg PO BIDWM #6 tablet 08/19/18 [Rx] levoFLOXacin [Levaquin] 750 mg PO DAILY #4 tablet 08/19/18 [Rx] Allergies/Adverse Reactions: Allergy/AdvReac Type Severity Reaction Status Date / Time azithromycin Allergy See Verified 07/16/18 14:08 Comments Date of admission: 08/16/18 11:24 Primary care physician: Ad Garcia MD Consults: 08/16/18 07:50 Consult to Invasive Line Access Team [CONS] Stat Reason for Consult: need vascular access Line Type: PICC 08/16/18 09:28 Consult to Invasive Line Access Team [CONS] Routine Reason for Consult: limited vascular access Line Type: EPIV 08/16/18 10:01 Consult to Cardiology [CONS] Stat Comment: Consulting Provider: Cardiology Daniela Reason for Consult: elevated trop Time Notified: 10:01 Call Completed: Yes 08/16/18 12:00 Consult to Criminalist Technician [CONS] Routine Reason for SW Consult: pt came from home and may need follow up help with discharged 08/16/18 13:22 Consult to Criminalist Technician [CONS] Routine Reason for SW Consult: possible follow up after discharge 08/16/18 13:23 Consult to Gastroenterology [CONS] Routine Consulting Provider: Gastroenterology Daniela Reason for Consult: elevated liver enzymes Call Completed: Yes 08/16/18 13:26 Consult to Invasive Line Access Team [CONS] Routine Reason for Consult: need another line difficult stick already has one midline, mutiple meds need to run. Line Type: Midline Discharging clinician: Chadwick Barroso Anticipated date of discharge: 08/19/18 - Constitutional Vitals: Temp Pulse Resp BP Pulse Ox 98.9 F 73 18 133/87 92 08/19/18 07:51 08/19/18 07:51 08/19/18 07:51 08/19/18 07:51 08/19/18 07:51 Exam: General: Patient is awake, alert and oriented to person and place, not in any form of distress, able to lay flat. Head: atraumatic, normocephalic, ENT: mucous membranes moist, normal external ear exam Neck: Trached, with mucopurulent discharge. Respiratory: Chest is clear in the left lung zone, right middle and lower lobe with rhonchi. Cardiovascular: RRR, normal s1,s2, no murmur, rubs or gallops. Abdomen: Bowel sounds present normoactive x-4 quadrants. Abdomen is soft, nondistended. No guarding or rebound. No organomegaly noted, obese Musculoskeletal: no pedal edema, strength is 5/5 in the upper extr b/l, 2/5 strength in the lower ext b/l. Neuro: Moves all extremities spontaneously, speech is normal, no facial paraly sis. Psych: Patient's affect is normal - Patient Status Disposition: Home, Self-Care Condition: Good Functional capacity at discharge: independent ambulation Overall status at discharge: patient is progressing back to baseline - Discharge Instructions Instructions: Tracheostomy Care (DC), Pneumonia (DC) Follow Up With: Ad Garcia MD [Primary Care Provider] - 08/24/18 1:20 pm Forms: ED Satisfaction Letter - Diet and Activity Activity: resume usual activities as tolerated, wear oxygen at all times Diet: diabetic diet, low fat, low cholesterol, low salt diet
[2018-08-19 11:37] LABS: Adenovirus Not Detected (Not Detect); Bordetella Pertussis Not Detected (Not Detect); Chlamydophila pneumoniae Not Detected (Not Detect); Coronavirus 229E Not Detected (Not Detect); Coronavirus HKU1 Not Detected (Not Detect); Coronavirus NL63 Not Detected (Not Detect); Coronavirus OC43 Not Detected (Not Detect); Human Metapneumovirus Not Detected (Not Detect); Human Rhinovirus/Enterovirus Not Detected (Not Detect); Influenza A Subtype 2009 H1 Not Detected (Not Detect); Influenza A Untypeable Not Detected (Not Detect); Influenza B Not Detected (Not Detect); Mycoplasma pneumoniae Not Detected (Not Detect); Parainfluenza Virus 1 Not Detected (Not Detect); Parainfluenza Virus 2 Not Detected (Not Detect); Parainfluenza Virus 3 Not Detected (Not Detect); Parainfluenza Virus 4 Not Detected (Not Detect); Respiratory Syncytial Virus Not Detected (Not Detect)
[2018-08-19 11:43] VITALS: BP 118/72
[2018-08-19] MEDS ORDERED: Aminoglycoside Consult 1 EACH MC ONE (15:03)
[2018-08-21 09:56] LABS: HCV Quant Interpretation NOT DETECTED (Not Detected); HCV Quant Log NOT DETECTED log IU/mL
== END 2018-08-19 15:04 | disposition home or self-care (01) | DRG 871 ==
LOC: EMEROOARM 07:03 → SUATTDRO 11:24 → 2NNU 11:24
PROVIDERS: ADMIT Internal Medicine; ATTEND Internal Medicine

== ENCOUNTER 2018-11-28 18:14 | Inpatient (IN) ==
[2018-11-28] MEDS ORDERED: Ipratropium/Albuterol Neb 3 ML IH ONE ×2 (18:36→19:54)
[2018-11-28] MEDS ORDERED: methylPREDNISolone 125 MG/2 ML VIAL IVP ONE (18:37)
--- NOTE | 2018-11-28 18:48 | Emergency Department Note ---
Disposition Clinical Impression: Hypercapnia, COPD exacerbation, Acute on chronic respiratory failure with hypoxia and hypercapnia COPD (chronic obstructive pulmonary disease) Qualifiers: COPD type: COPD with acute exacerbation Qualified Code(s): J44.1 - Chronic obstructive pulmonary disease with (acute) exacerbation Clinical Impression: (Ruled Out): COPD (chronic obstructive pulmonary disease) with emphysema Disposition: Admitted As Inpatient Condition: Fair Referrals: Ad Garcia MD [Primary Care Provider] - Forms: ED Satisfaction Letter General Adult HPI - General Chief complaint: ED Chest Pain Stated complaint: KIAH Time Seen by Provider: 11/28/18 18:31 Source: patient Limitations: no limitations - History of Present Illness HPI Narrative: 57 y/o M hx COPD and CVA s/p chronic trach presents by EMS acute onset of chest pain and shortness of breath one hours ago. Describes crushing chest pain with out radiation or diaphoresis resolved with in minutes but dyspnea persists. Associated increased productive cough progressively worse 3-4 weeks. He used 4 L oxygen at home. Recent admission [facility] for COPD exacerbation and HCAP discharged on 10-30 with alfonzo. He reports moderate improvement in breathing after discharge that began worsening after flu shot. He denies choking or history of aspiration. He has been admitted at least 6 times for PNA & COPD ex in past year. He follows with cardiology Dr Bill for CAD with history of distant [place] with out intervention and recent Echo EF 50-55% unchanged in . Pt Subjective Complaint: chest pain & KIAH Onset (ago): hour(s) Pain Scale: 7 - Related Data Home Medications Medication Instructions Recorded Confirmed Albuterol Sulfate [Ventolin Hfa] 2 puff IH Q4H PRN 03/17/18 10/27/18 Atorvastatin [Lipitor] 40 mg PO HS 03/17/18 10/27/18 Clopidogrel [Plavix] 75 mg PO DAILY 03/17/18 10/27/18 Fenofibrate Nanocrystallized 145 mg PO DAILY 03/17/18 10/27/18 [Tricor] Gabapentin [Neurontin] 300 mg PO TID 03/17/18 10/27/18 Insulin Glargine,Hum.rec.anlog 25 unit SQ HS 03/17/18 08/16/18 [Lantus Solostar] Montelukast [Singulair] 10 mg PO DAILY 03/17/18 10/27/18 Omeprazole [PriLOSEC] 20 mg PO DAILY 03/17/18 10/27/18 Oxycodone HCl/Acetaminophen 1 tab PO Q4-6H PRN 03/17/18 10/27/18 [Percocet 10-325 mg Tablet] Sitagliptin Phos/Metformin HCl 1 tab PO BID 03/17/18 10/27/18 [Janumet 50-1,000 mg Tablet] diazePAM [Valium] 5 mg PO BID 03/17/18 10/27/18 diazePAM [Valium] 10 mg PO HS 03/17/18 10/27/18 Furosemide [Lasix] 20 mg PO BID PRN 05/21/18 10/27/18 Metoprolol [Lopressor] 25 mg PO BID 08/16/18 10/27/18 Oxycodone HCl 15 mg PO Q6H 10/27/18 10/27/18 metOLazone [Zaroxolyn] 2.5 mg PO DAILY 10/27/18 10/27/18 Previous Rx's Medication Instructions Recorded Docusate [Colace] 200 mg PO BID #0 capsule 03/24/18 amLODIPine [Norvasc] 5 mg PO DAILY #30 tablet 03/24/18 levoFLOXacin [Levaquin] 750 mg PO DAILY #5 tablet 10/30/18 Allergies Allergy/AdvReac Type Severity Reaction Status Date / Time azithromycin Allergy See Verified 07/16/18 14:08 Comments All systems ED: reviewed and negative except as stated. Constitutional: Denies: fever, chills Cardiovascular: Reports: chest pain Respiratory: Reports: cough, dyspnea, wheezes, sputum production Gastrointestinal: Reports: diarrhea. Denies: abdominal pain, nausea, vomiting Musculoskeletal: Reports: back pain (chronic) Endocrine: Reports: fatigue Past Medical History - Past Medical History Medical history: Reports: asthma, COPD, CVA, diabetes, myocardial infarction, TIA, other Surgical history: Reports: tracheostomy Psychiatric history: Reports: no psych history, anxiety, depression - Social History Smoking Status: Unknown if ever smoked Smokeless Tobacco Status: No Alcohol use: Reports: none, occasionally Drug use: Reports: none Physical Exam - General Limitations: no limitations General appearance: alert, in no apparent distress - Head Head exam: atraumatic, normocephalic, normal inspection - Eye Eye exam: Present: normal appearance, EOMI - Neck Neck exam: Present: full ROM - Expanded Neck Exam Neck exam focused ED: Present: other (tach in place) - Chest Chest inspection: Present: normal inspection, symmetric chest wall rise - Respiratory Respiratory exam: Present: wheezes. Absent: respiratory distress, accessory muscle use - Cardiovascular Cardiovascular exam: Present: regular rate, normal rhythm, normal heart sounds - Abdominal Exam Abdominal exam: Present: soft, Non-Tender, distention, normal bowel sounds - Extremities Exam Extremities exam: Present: normal inspection, pedal edema (trace bilat). Absent : tenderness - Neurological Exam Neurological exam: Present: alert - Psychiatric Psychiatric exam: Present: normal affect, normal mood - Skin Skin exam: Present: warm, dry, intact Course Course Narrative: 57 y/o M hx COPD and chronic trach presents with shortness of breath and increased secretions. He described acute onset of crushing chest pain without radiation or diaphoresis that resolved on own with unchanged EKG and negative trop. - Reevaluation(s) Reevaluation #1: Patient was complain of back pain as he missed dose of his perc 10 for chronic back pain and was given Fentanyl 50. Patient underwent suctioning of trach and douneb breathing treatment with moderate improvement in wheezing CBC with Hgb 9 at baseline anemia. Trop negative with EKG with acute changes. Received critical alert of CO2 >45 - suspect chronic retention worse with COPD exacerbation . Time: 19:54 Reevaluation #2: Case discussed with hospitalist Dr Lund and accepted for admission. Ordered requested blood and trach cultures then start vanc and zosyn to cover for HCAP. Time: 20:14 Vital Signs Temperature 98.2 F 11/28/18 18:22 Pulse Rate 97 11/28/18 18:22 Respiratory Rate 18 11/28/18 18:22 Blood Pressure 116/73 11/28/18 18:22 O2 Sat by Pulse Oximetry 90 11/28/18 18:22 Temperature 98.2 F 11/28/18 18:25 Pulse Rate 83 11/28/18 20:11 Respiratory Rate 24 11/28/18 20:11 Blood Pressure 119/71 11/28/18 20:11 O2 Sat by Pulse Oximetry 99 11/28/18 20:11 Oxygen Delivery Oxygen Delivery Trach Mask Medical Decision Making - Medical Records Medical records reviewed: Yes I reviewed the patient's medical records. - Lab Data Lab results reviewed: Yes I reviewed the patient's lab results. Result diagrams: 11/28/18 18:47 11/28/18 18:47 Lab Results 11/28/18 11/28/18 Range/Units 18:47 18:47 WBC 10.3 (4.3-11.1) K/mcL RBC 3.57 L (4.19-5.50) M/mcL Hgb 9.7 L (12.9-16.9) g/dL Hct 32.1 L (37.5-50.1) % MCV 89.9 (83.0-100.0) fL MCH 27.2 L (28.0-33.3) pg MCHC 30.2 L (31.6-35.5) g/dL RDW 13.3 (11.5-14.5) % Plt Count 569 H (140-400) K/mcL MPV 8.4 L (9.4-12.4) fL Immature Gran % 0.7 (0-4) % Seg Neutrophils % 65.5 % Lymphocytes % 22.1 % Monocytes % 7.2 % Eosinophils % 4.1 % Basophils % 0.4 % Neutrophils # 6.7 (1.6-8.9) K/mcL Lymphocytes # 2.3 (0.6-4.6) K/mcL Monocytes # 0.7 (0.0-1.3) K/mcL Eosinophils # 0.4 (0.0-0.6) K/mcL Basophils # 0.0 (0.0-0.2) K/mcL Sodium 137 (136-145) mEq/L Potassium 3.2 L (3.5-5.1) mEq/L Chloride 83 L (98-107) mEq/L Carbon Dioxide > 45 H* (23-29) mEq/L BUN 9 (6-20) mg/dL Creatinine 0.74 (0.70-1.30) mg/dL Est GFR ( Amer) > 60 (> 60) Est GFR (Non-Af Amer) > 60 (> 60) BUN/Creatinine Ratio 12 (6-26) Glucose 126 H (70-105) mg/dL Calculated Osmolality 284 (280-300) Calcium 9.2 (8.6-10.3) mg/dL Troponin I < 0.03 (< 0.04) ng/mL - Radiology Data Radiology results reviewed: Yes I reviewed the patient's radiology results. Chest X-Ray 11/28/18 18:36 IMPRESSION: Mild pulmonary vascular congestion. D/ / Bart Reid / Bart Reid Interpreting Provider: Bart Reid - EKG Data EKG #1 EKG shows normal: sinus rhythm, axis, QRS complexes, ST-T waves Rhythm: NSR Interpretation: no acute changes, unchanged when compared to prior tracing (date) (10-27-18)
[2018-11-28 19:12] LABS: Basophils % 0.4 %; Eosinophils # 0.4 K/mcL (0.0-0.6); Eosinophils % 4.1 %; Hematocrit 32.1 % (37.5-50.1); Hemoglobin 9.7 g/dL (12.9-16.9); Immature Granulocytes % 0.7 % (0-4); Lymphocytes # 2.3 K/mcL (0.6-4.6); Lymphocytes % 22.1 %; Mean Corpuscular HGB Conc 30.2 g/dL (31.6-35.5); Mean Corpuscular Hemoglobin 27.2 pg (28.0-33.3); Mean Corpuscular Volume 89.9 fL (83.0-100.0); Mean Platelet Volume 8.4 fL (9.4-12.4); Monocytes # 0.7 K/mcL (0.0-1.3); Monocytes % 7.2 %; Neutrophils # 6.7 K/mcL (1.6-8.9); Platelet Count 569 K/mcL (140-400); Red Blood Count 3.57 M/mcL (4.19-5.50); Red Cell Distribution Width 13.3 % (11.5-14.5); Segmented Neutrophils % 65.5 %
[2018-11-28] MEDS ORDERED: *HR* FentaNYL (PF) 100 MCG/2 ML VIAL EP ONE (19:17)
[2018-11-28 19:42] LABS: Troponin I < 0.03 ng/mL (< 0.04)
[2018-11-28 19:49] LABS: BUN/Creatinine Ratio 12 (6-26); Blood Urea Nitrogen 9 mg/dL (6-20); Calcium 9.2 mg/dL (8.6-10.3); Carbon Dioxide > 45 mEq/L (23-29); Chloride 83 mEq/L (98-107); Glucose 126 mg/dL (70-105); Osmolality,Calculated 284 (280-300); Potassium 3.2 mEq/L (3.5-5.1); Sodium 137 mEq/L (136-145); eGFR For Non-African Americans > 60 (> 60)
--- NOTE | 2018-11-28 20:00 | Emergency Department Note ---
Disposition Clinical Impression: Hypercapnia Disposition: Admitted As Inpatient Forms: ED Satisfaction Letter General Adult HPI - General Chief complaint: ED Chest Pain Stated complaint: KIAH Time Seen by Provider: 11/28/18 18:31 Source: patient Limitations: no limitations - History of Present Illness Pain Scale: 7 - Related Data Home Medications Medication Instructions Recorded Confirmed Albuterol Sulfate [Ventolin Hfa] 2 puff IH Q4H PRN 03/17/18 10/27/18 Atorvastatin [Lipitor] 40 mg PO HS 03/17/18 10/27/18 Clopidogrel [Plavix] 75 mg PO DAILY 03/17/18 10/27/18 Fenofibrate Nanocrystallized 145 mg PO DAILY 03/17/18 10/27/18 [Tricor] Gabapentin [Neurontin] 300 mg PO TID 03/17/18 10/27/18 Insulin Glargine,Hum.rec.anlog 25 unit SQ HS 03/17/18 08/16/18 [Lantus Solostar] Montelukast [Singulair] 10 mg PO DAILY 03/17/18 10/27/18 Omeprazole [PriLOSEC] 20 mg PO DAILY 03/17/18 10/27/18 Oxycodone HCl/Acetaminophen 1 tab PO Q4-6H PRN 03/17/18 10/27/18 [Percocet 10-325 mg Tablet] Sitagliptin Phos/Metformin HCl 1 tab PO BID 03/17/18 10/27/18 [Janumet 50-1,000 mg Tablet] diazePAM [Valium] 5 mg PO BID 03/17/18 10/27/18 diazePAM [Valium] 10 mg PO HS 03/17/18 10/27/18 Furosemide [Lasix] 20 mg PO BID PRN 05/21/18 10/27/18 Metoprolol [Lopressor] 25 mg PO BID 08/16/18 10/27/18 Oxycodone HCl 15 mg PO Q6H 10/27/18 10/27/18 metOLazone [Zaroxolyn] 2.5 mg PO DAILY 10/27/18 10/27/18 Previous Rx's Medication Instructions Recorded Docusate [Colace] 200 mg PO BID #0 capsule 03/24/18 amLODIPine [Norvasc] 5 mg PO DAILY #30 tablet 03/24/18 levoFLOXacin [Levaquin] 750 mg PO DAILY #5 tablet 10/30/18 Allergies Allergy/AdvReac Type Severity Reaction Status Date / Time azithromycin Allergy See Verified 07/16/18 14:08 Comments Constitutional: Denies: fever, chills Cardiovascular: Reports: chest pain Respiratory: Reports: cough, dyspnea, wheezes, sputum production Gastrointestinal: Reports: diarrhea. Denies: abdominal pain, nausea, vomiting Musculoskeletal: Reports: back pain (chronic) Endocrine: Reports: fatigue Past Medical History - Past Medical History Medical history: Reports: asthma, COPD, CVA, diabetes, myocardial infarction, TIA, other Surgical history: Reports: tracheostomy Psychiatric history: Reports: no psych history, anxiety, depression - Social History Smoking Status: Unknown if ever smoked Smokeless Tobacco Status: No Alcohol use: Reports: none, occasionally Drug use: Reports: none Physical Exam - General Limitations: no limitations General appearance: alert, in no apparent distress Course Vital Signs Temperature 98.2 F 11/28/18 18:22 Pulse Rate 97 11/28/18 18:22 Respiratory Rate 18 11/28/18 18:22 Blood Pressure 116/73 11/28/18 18:22 O2 Sat by Pulse Oximetry 90 11/28/18 18:22 Temperature 98.2 F 11/28/18 18:25 Pulse Rate 100 11/28/18 18:25 Respiratory Rate 16 11/28/18 19:03 Blood Pressure 116/78 11/28/18 18:25 O2 Sat by Pulse Oximetry 94 11/28/18 19:03 Oxygen Delivery Oxygen Delivery Trach Mask Medical Decision Making - Lab Data Result diagrams: 11/28/18 18:47 11/28/18 18:47 Lab Results 11/28/18 11/28/18 Range/Units 18:47 18:47 WBC 10.3 (4.3-11.1) K/mcL RBC 3.57 L (4.19-5.50) M/mcL Hgb 9.7 L (12.9-16.9) g/dL Hct 32.1 L (37.5-50.1) % MCV 89.9 (83.0-100.0) fL MCH 27.2 L (28.0-33.3) pg MCHC 30.2 L (31.6-35.5) g/dL RDW 13.3 (11.5-14.5) % Plt Count 569 H (140-400) K/mcL MPV 8.4 L (9.4-12.4) fL Immature Gran % 0.7 (0-4) % Seg Neutrophils % 65.5 % Lymphocytes % 22.1 % Monocytes % 7.2 % Eosinophils % 4.1 % Basophils % 0.4 % Neutrophils # 6.7 (1.6-8.9) K/mcL Lymphocytes # 2.3 (0.6-4.6) K/mcL Monocytes # 0.7 (0.0-1.3) K/mcL Eosinophils # 0.4 (0.0-0.6) K/mcL Basophils # 0.0 (0.0-0.2) K/mcL Sodium 137 (136-145) mEq/L Potassium 3.2 L (3.5-5.1) mEq/L Chloride 83 L (98-107) mEq/L Carbon Dioxide > 45 H* (23-29) mEq/L BUN 9 (6-20) mg/dL Creatinine 0.74 (0.70-1.30) mg/dL Est GFR ( Amer) > 60 (> 60) Est GFR (Non-Af Amer) > 60 (> 60) BUN/Creatinine Ratio 12 (6-26) Glucose 126 H (70-105) mg/dL Calculated Osmolality 284 (280-300) Calcium 9.2 (8.6-10.3) mg/dL Troponin I < 0.03 (< 0.04) ng/mL Attestation Statement - Attestation Attestation: I examined this patient and my medical decision-making was reviewed with the Resident Physician. I agree with the documented findings, disposition and treatment plan as described except to the extent set forth below. 57 year old male with chronic trach is complaining of COPD and dyspnea with increased needs of oxygen over the past 24 hours. Yessy is well known to our deparmtent for simliar problems in the past. Yessy is retaining some CO2 now at 46 althogh he is mentating well and able to answer yes and no questions. We will continue therapy for breathing treatments and then admit to medicine
[2018-11-28] MEDS ORDERED: Piperacillin/Tazobactam 3.375 GM in 0.9 % Sodium Chloride Mini Bag 100 ML IVPB ONE (21:00)
[2018-11-29] MEDS ORDERED: Naloxone 0.4 MG/ML INJ IVP PRN (03:07)
--- NOTE | 2018-11-29 03:16 | Internal Med History&Physical ---
Date of Encounter: 11/29/18 Time of Encounter: 03:33 Internal Medicine - H&P: HPI Chief complaint: COPD exacerbation Admitted From: Emergency Dept Plans for Post Hospital Care: Home History of present illness: Mr. Mccloud is a 57 year old male Patient presented to the emergency room with acute onset of chest pain and bart rtness of breath that began about one hour prior to his arrival. He describes the pain as crushing in nature without radiation or diaphoresis. The pain resolved after a few minutes, but his shortness of breath continued. He is also noticed increase in his cough for the last 3-4 weeks. He is chronically on oxygen at 4 L, and has a trach dependent patient. Treated for healthcare associated pneumonia and acute hypoxic respiratory failure recently. Overall patient has been admitted multiple times within the last year for pneumonia and COPD. The emergency room patient's CBC showed a hemoglobin of 9.7 which appears to be around patient's baseline patient's platelets are elevated at 569 which is decreased from his previous admission. He has a history of thrombocythemia. Patient's sodium was 137, potassium 3.2 and bicarbonate was greater than 45. Renal function was within normal limits. Patient's initial troponin was less than 0.03. Chest x-ray showed mild pulmonary vascular congestion. Blood cultures were drawn as well as sputum cultures. Patient was started on vancomycin and Zosyn. EKG showed sinus rhythm unchanged from previous EKG. He was also given breathing treatments and IV steroids. He is sent to the medical floor for further management. Upon my evaluation, patient is undergoing a breathing treatment. He denies chest pain, nausea, vomiting, abdominal pain, diarrhea and constipation. He only occasionally he acknowledged my presence, as he was trying to get some sleep. He was cooperative with exam and answered yes or no questions. Upon arrival to the floor patient was noted to have decreased urine output, bladder scan revealed greater than 800 mL of urine in the bladder. A Her catheter was then ordered and placed. Past Med Surg Social Fam HX - Past Medical History Medical history: asthma, COPD, CVA, diabetes, myocardial infarction, TIA, other Additional medical history: chronic back pain Psychiatric history: no psych history, anxiety, depression - Past Surgical History Surgical History: tracheostomy Additional surgical history: skull fracture. trach - Social History Smoking Status: Unknown if ever smoked Smokeless Tobacco Status: No Alcohol use: none, occasionally Drug use: none - Family History Mother Living Status: Hx Family Cardiac Disorders: Yes Hx Family Respiratory Disorders: Yes Hx Family Cancer: No Hx Family Endocrine Disorder: No Father Hx Family Cardiac Disorders: Yes (CHF, [place]) Internal Medicine - H&P: Meds Albuterol Sulfate [Ventolin Hfa] 2 puff IH Q4H PRN 03/17/18 [History] Atorvastatin [Lipitor] 40 mg PO HS 03/17/18 [History] Clopidogrel [Plavix] 75 mg PO DAILY 03/17/18 [History] Fenofibrate Nanocrystallized [Tricor] 145 mg PO DAILY 03/17/18 [History] Gabapentin [Neurontin] 300 mg PO TID 03/17/18 [History] Insulin Glargine,Hum.rec.anlog [Lantus Solostar] 25 unit SQ HS 03/17/18 [Hist ory] Montelukast [Singulair] 10 mg PO DAILY 03/17/18 [History] Omeprazole [PriLOSEC] 20 mg PO DAILY 03/17/18 [History] Oxycodone HCl/Acetaminophen [Percocet 10-325 mg Tablet] 1 tab PO Q4-6H PRN 03/17/18 [History] Sitagliptin Phos/Metformin HCl [Janumet 50-1,000 mg Tablet] 1 tab PO BID 03/17/18 [History] diazePAM [Valium] 5 mg PO BID 03/17/18 [History] diazePAM [Valium] 10 mg PO HS 03/17/18 [History] Docusate [Colace] 200 mg PO BID #0 capsule 03/24/18 [Rx] amLODIPine [Norvasc] 5 mg PO DAILY #30 tablet 03/24/18 [Rx] Furosemide [Lasix] 20 mg PO BID PRN 05/21/18 [History] Metoprolol [Lopressor] 25 mg PO BID 08/16/18 [History] Oxycodone HCl 15 mg PO Q6H 10/27/18 [History] metOLazone [Zaroxolyn] 2.5 mg PO DAILY 10/27/18 [History] levoFLOXacin [Levaquin] 750 mg PO DAILY #5 tablet 10/30/18 [Rx] Allergy/AdvReac Type Severity Reaction Status Date / Time azithromycin Allergy See Verified 07/16/18 14:08 Comments All Systems PM: A 10-system review of systems was performed and is negative for pertinent findings except as documented above in the HPI. - Constitutional Vitals: Temp Pulse Resp BP Pulse Ox 98.5 F 101 15 139/73 92 11/29/18 00:00 11/29/18 00:00 11/29/18 00:00 11/29/18 00:00 11/29/18 00:00 General appearance: Present: cooperative, A&O X 3, no acute distress, answers questions appropriately Exam: Upon arrival, nursing noted patient was very filthy. He underwent extensive cleaning, and nursing noted smell of gasoline among other aromas. Ration also smells of smoke at time of exam - Head Head exam: Present: normal inspection - Eye Eye exam: Present: EOMI, normal appearance - Respiratory Respiratory exam: Present: rales, wheezes. Absent: CTAB, respiratory distress, rhonchi - Cardiovascular Cardiovascular exam: Present: RRR, tachycardia. Absent: diastolic murmur, systolic murmur - GI/Abdominal GI/Abdominal exam: Present: normal bowel sounds, soft. Absent: tenderness - Extremities Exam Extremities exam: Present: warm, radial pulses palpable and symmetrical. Absent: pedal edema, tenderness - Neurological Exam Neurological exam: Present: no focal deficits, strengths equal and symetr throughout. Absent: motor sensory deficit, facial droop, speech deficit Additional comments: Patient is unable to speak secondary to chronic trach - Skin Skin exam: Present: dry, normal color, warm Internal Med - H&P Results - Labs CBC & Chem 7: 11/29/18 03:31 11/29/18 03:31 Labs: Short CBC 11/28/18 Range/Units 18:47 WBC 10.3 (4.3-11.1) K/mcL Hgb 9.7 L (12.9-16.9) g/dL Hct 32.1 L (37.5-50.1) % Plt Count 569 H (140-400) K/mcL Neutrophils # 6.7 (1.6-8.9) K/mcL BMP 11/28/18 18:47 Sodium 137 Potassium 3.2 L Chloride 83 L Carbon Dioxide > 45 H* BUN 9 Creatinine 0.74 Glucose 126 H Calcium 9.2 Cardiac Enzymes 11/28/18 Range/Units 18:47 Troponin I < 0.03 (< 0.04) ng/mL - Impressions ITS Impressions Chest X-Ray 11/28/18 18:36 IMPRESSION: Mild pulmonary vascular congestion. D/ / Bart Reid / Bart Reid Interpreting Provider: Bart Reid - Assessment and plan (1) Acute on chronic respiratory failure with hypoxia and hypercapnia Current Visit: Yes Status: Acute Assessment and plan: Patient's chest x-ray showed pulmonary vascular congestion. Patient was suctioned in the emergency room, had increased oxygenation after mucus was removed. Patient's symptoms also improving with breathing treatments. Blood cultures were drawn, and he was started on vancomycin and Zosyn in the emergency room, because of patient's history of trach. Follow-up blood cultures Continue oxygen supplementation Continue breathing treatments Continue antibiotics Continue respiratory therapy evaluations and suction as needed (2) Chest pain Current Visit: Yes Status: Acute Assessment and plan: Now resolved. 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 Continue breathing treatments Oxygen supplementation as needed As steroids 40 mg daily Treating with antibiotics as well as above Oxygen monitor bedside (4) HCAP (healthcare-associated pneumonia) Current Visit: No Status: Acute Assessment and plan: Prophylactic coverage due to patient's trach, patient's chest x-ray showed vasc ular congestion but no consolidation. 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 He does have a history of urinary retention and prostate problems. Her catheter Continue to monitor urine output Urology consult Obtain urinalysis, culture if indicated (8) DVT prophylaxis Current Visit: No Status: Acute Assessment and plan: Heparin subcutaneous - Time Spent With Patient Total time spent is greater than 50% in coordination of care (as documented) at patient's floor/unit and/or counseling patient: Greater than 35 minutes
[2018-11-29 03:45] LABS: Hematocrit 32.3 % (37.5-50.1); Hemoglobin 10.1 g/dL (12.9-16.9); Mean Corpuscular HGB Conc 31.3 g/dL (31.6-35.5); Mean Corpuscular Hemoglobin 27.5 pg (28.0-33.3); Mean Platelet Volume 8.4 fL (9.4-12.4); Platelet Count 556 K/mcL (140-400); Red Blood Count 3.67 M/mcL (4.19-5.50); Red Cell Distribution Width 13.3 % (11.5-14.5)
[2018-11-29 04:09] LABS: BUN/Creatinine Ratio 15 (6-26); Blood Urea Nitrogen 11 mg/dL (6-20); Calcium 9.2 mg/dL (8.6-10.3); Carbon Dioxide > 45 mEq/L (23-29); Chloride 84 mEq/L (98-107); Glucose 217 mg/dL (70-105); Osmolality,Calculated 288 (280-300); Sodium 136 mEq/L (136-145); eGFR For Non-African Americans > 60 (> 60)
[2018-11-29] MEDS ORDERED: D5% in Water 1,000 ML IVC PRN (04:54)
[2018-11-29] MEDS ORDERED: Dextrose Gel 15 GM/37.5 ML TUBE PO PRN ×2 (04:54)
[2018-11-29] MEDS ORDERED: *HR* Dextrose 50 % in Water (Syg) 50 ML SYRINGE IVP PRN (04:54)
[2018-11-29] MEDS ORDERED: Albuterol 2.5 MG/3 ML NEBULIZER IH PRN (05:40)
[2018-11-29] MEDS: *HR* Heparin 5,000 UNIT/ML VIAL SQ SCH ×2 (06:06→18:22)
[2018-11-29] MEDS: Insulin LISPRO 300 UNITS/3 ML VIAL SQ SCH ×3 (06:08→18:23)
[2018-11-29] MEDS: Ipratropium/Albuterol Neb 3 ML IH SCH ×4 (06:37→22:08)
[2018-11-29 06:48] LABS: Bilirubin,Urine Negative (Negative); Blood,Urine Negative (Negative); Clarity,Urine Clear (Clear); Color,Urine Yellow (Yellow); Glucose,Urine (UA) 100 mg/dL (Normal); Ketones,Urine Negative (Negative); Leukocyte Esterase,Urine Negative (Negative); Nitrite,Urine Negative (Negative); Protein,Urine Negative (Neg-Trace); Specific Gravity,Urine 1.007 (1.010-1.025); Urobilinogen,Urine Normal (Normal)
[2018-11-29] MEDS: Piperacillin/Tazobactam 3.375 GM in 0.9 % Sodium Chloride Mini Bag 100 ML IVPB SCH ×3 (08:34→23:53)
[2018-11-29] MEDS: MethylPREDNISolone 40 MG/ML VIAL IVP SCH ×2 (08:35→18:21)
[2018-11-29] MEDS ORDERED: predniSONE 20 MG TABLET PO SCH (09:00)
--- NOTE | 2018-11-29 11:13 | Urology - Consult Note ---
<Nelly Moffett N - Last Filed: 11/29/18 11:07> Date of Encounter: 11/29/18 Time of Encounter: 11:07 - Assessment and Plan (1) Acute urinary retention Current Visit: Yes Status: Acute Assessment and plan: Patient is a 57-year-old male who presents with acute urinary retention. Her catheter is properly placed and sufficiently draining clear urine into bedside bag. Serum creatinine is normal and reassuring. Patient denies ever taking Flomax in the past. I explained Dr. Parks may consider initiating Flomax daily, and we will plan to proceed with an outpatient voiding trial within 1 week of discharge. We may also proceed with a more in-depth workup for his retention as an outpatient if Mr. Ferrer desires. Urology CN:HPI Consult date: 11/29/18 History of present illness: Patient is a 57-year-old male who presents with a history of acute urinary retention. Patient has multiple chronic comorbidities, including tracheostomy which makes it difficult for him to speak. Patient was able to answer yes or no pointed questions regarding his past medical history. Patient initially presented to the emergency department with complaints of chest pain and dyspnea. Patient reportedly has been hospitalized multiple times for pneumonia. Patient was admitted, and nursing staff observed decrease in urine output. PVR revealed 800 mL, and a Her catheter was placed by nursing staff without difficulty. Patient reports a prior history of urinary retention associated with past hospital admissions. Patient states he has no trouble voiding on a daily basis. Patient denies any known past urologic history including BPH or prostate cance r. Patient does not follow with a urologist. Patient denies any known family history of prostate cancer or other malignancy. Patient denies urinary hesitancy, frequency, urgency, hematuria, dysuria, or incontinence. Currently, patient is resting comfortably in bed, and Her catheter is indwelling draining clear urine into bedside bag. Past Med Surg Social Fam HX - Past Medical History Medical history: asthma, COPD, CVA, diabetes, myocardial infarction, TIA, other Additional medical history: chronic back pain Psychiatric history: no psych history, anxiety, depression - Past Surgical History Surgical History: tracheostomy Additional surgical history: skull fracture. trach - Social History Smoking Status: Unknown if ever smoked Smokeless Tobacco Status: No Alcohol use: none, occasionally Drug use: none - Family History Father Hx Family Cardiac Disorders: Yes (CHF, [place]) Mother Living Status: Hx Family Cardiac Disorders: Yes Hx Family Respiratory Disorders: Yes Hx Family Cancer: No Hx Family Endocrine Disorder: No Medications and Allergies RX: Albuterol Sulfate [Ventolin Hfa] 2 puff IH Q4H PRN 03/17/18 [History] RX: Atorvastatin [Lipitor] 40 mg PO HS 03/17/18 [History] RX: Clopidogrel [Plavix] 75 mg PO DAILY 03/17/18 [History] RX: Fenofibrate Nanocrystallized [Tricor] 145 mg PO DAILY 03/17/18 [History] RX: Gabapentin [Neurontin] 300 mg PO TID 03/17/18 [History] RX: Insulin Glargine,Hum.rec.anlog [Lantus Solostar] 25 unit SQ HS 03/17/18 [History] RX: Montelukast [Singulair] 10 mg PO DAILY 03/17/18 [History] RX: Omeprazole [PriLOSEC] 20 mg PO DAILY 03/17/18 [History] RX: Oxycodone HCl/Acetaminophen [Percocet 10-325 mg Tablet] 1 tab PO Q4-6H PRN 03/17/18 [History] RX: Sitagliptin Phos/Metformin HCl [Janumet 50-1,000 mg Tablet] 1 tab PO BIDWM 03/17/18 [History] RX: diazePAM [Valium] 5 mg PO 0800,1700 03/17/18 [History] RX: diazePAM [Valium] 10 mg PO HS 03/17/18 [History] RX: Docusate [Colace] 200 mg PO BID #0 capsule 03/24/18 [Rx] RX: amLODIPine [Norvasc] 5 mg PO DAILY #30 tablet 03/24/18 [Rx] RX: Furosemide [Lasix] 20 mg PO BID 05/21/18 [History] RX: Metoprolol [Lopressor] 25 mg PO BID 08/16/18 [History] RX: Oxycodone HCl 15 mg PO Q6H 10/27/18 [History] RX: metOLazone [Zaroxolyn] 2.5 mg PO DAILY 10/27/18 [History] Albuterol Neb [Proventil Neb] 2.5 mg IH QID 11/29/18 [History] RX: Fluticasone Propionate Nasal [Flonase] 1 spray NS DAILY 11/29/18 [History] Allergy/AdvReac Type Severity Reaction Status Date / Time azithromycin AdvReac See Verified 11/29/18 14:17 Comments Review of Systems - Constitutional no chills, no fatigue, no fever(s) - EENT Nose, mouth and throat: no dizziness, no headache(s) - Cardiovascular as per HPI, chest pain, dyspnea - Respiratory as per HPI, dyspnea - Gastrointestinal no abdominal pain, no nausea, no vomiting - Genitourinary change in urinary stream, difficulty urinating, no dysuria, no flank pain, no hematuria, no urinary frequency, no urinary hesitancy, no urinary incontinence, no urinary urgency - Musculoskeletal no back pain, no muscle weakness - Integumentary no erythema, no rash - Neurological no confusion, no syncope - Psychiatric no anxiety, no confusion - Hematologic/Lymphatic no easy bleeding, no easy bruising - Allergic/Immunologic wheezing, no throat swelling Exam Initial Vital Signs Temp Pulse Resp BP Pulse Ox 98.2 F 97 18 116/73 90 11/28/18 18:22 11/28/18 18:22 11/28/18 18:22 11/28/18 18:22 11/28/18 18:22 - General physical appearance Present: no distress, no pain - Eyes Present: PERRL, normal ocular movement - ENT Present: normal nares, no hearing loss - Neck Present: trachea midline - Respiratory Present: normal respiratory effort - Genitourinary other (Her catheter is indwelling and draining clear urine into bedside bag) - Integumentary Present: no rash, no abnormal pigmentation - Neurologic Present: normal coordination Urology Results - Labs 11/29/18 03:31 11/29/18 03:31 Abnormal lab results RBC 3.67 M/mcL (4.19-5.50) L 11/29/18 03:31 Hgb 10.1 g/dL (12.9-16.9) L 11/29/18 03:31 Hct 32.3 % (37.5-50.1) L 11/29/18 03:31 MCH 27.5 pg (28.0-33.3) L 11/29/18 03:31 MCHC 31.3 g/dL (31.6-35.5) L 11/29/18 03:31 Plt Count 556 K/mcL (140-400) H 11/29/18 03:31 MPV 8.4 fL (9.4-12.4) L 11/29/18 03:31 Chloride 84 mEq/L (98-107) L 11/29/18 03:31 Carbon Dioxide > 45 mEq/L (23-29) H* 11/29/18 03:31 Glucose 217 mg/dL (70-105) H 11/29/18 03:31 POC Glucose 216 mg/dL (70-99) H 11/29/18 04:43 Ur Specific [place] 1.007 (1.010-1.025) L 11/29/18 06:33 Urine Glucose (UA) 100 mg/dL (Normal) H 11/29/18 06:33 Diabetes panel 11/28/18 11/29/18 Range/Units 18:47 03:31 Sodium 137 136 (136-145) mEq/L Potassium 3.2 L 4.0 (3.5-5.1) mEq/L Chloride 83 L 84 L (98-107) mEq/L Carbon Dioxide > 45 H* > 45 H* (23-29) mEq/L BUN 9 11 (6-20) mg/dL Creatinine 0.74 0.71 (0.70-1.30) mg/dL Glucose 126 H 217 H (70-105) mg/dL Calcium 9.2 9.2 (8.6-10.3) mg/dL Calcium panel 11/28/18 11/29/18 Range/Units 18:47 03:31 Calcium 9.2 9.2 (8.6-10.3) mg/dL Pituitary panel 11/28/18 11/29/18 Range/Units 18:47 03:31 Sodium 137 136 (136-145) mEq/L Potassium 3.2 L 4.0 (3.5-5.1) mEq/L Chloride 83 L 84 L (98-107) mEq/L Carbon Dioxide > 45 H* > 45 H* (23-29) mEq/L BUN 9 11 (6-20) mg/dL Creatinine 0.74 0.71 (0.70-1.30) mg/dL Glucose 126 H 217 H (70-105) mg/dL Calcium 9.2 9.2 (8.6-10.3) mg/dL Adrenal panel 11/28/18 11/29/18 Range/Units 18:47 03:31 Sodium 137 136 (136-145) mEq/L Potassium 3.2 L 4.0 (3.5-5.1) mEq/L Chloride 83 L 84 L (98-107) mEq/L Carbon Dioxide > 45 H* > 45 H* (23-29) mEq/L BUN 9 11 (6-20) mg/dL Creatinine 0.74 0.71 (0.70-1.30) mg/dL Glucose 126 H 217 H (70-105) mg/dL Calcium 9.2 9.2 (8.6-10.3) mg/dL All other labs normal. Consult Discharge Plan - Plan Referrals: Ad Garcia MD [Primary Care Provider] - <Jhonatan Parks - Last Filed: 11/29/18 15:31> Date of Encounter: 11/29/18 Urology CN:HPI History of present illness: patient was seen and examined indepently. I agree with plan as written by Nelly Moffett. will start flomax. keep cath in place. f/u will be made in 5-7 days for voiding trial. call with any questions. Exam Initial Vital Signs Temp Pulse Resp BP Pulse Ox 98.2 F 97 18 116/73 90 11/28/18 18:22 11/28/18 18:22 11/28/18 18:22 11/28/18 18:22 11/28/18 18:22 Urology Results - Labs 11/29/18 03:31 11/29/18 03:31 Abnormal lab results RBC 3.67 M/mcL (4.19-5.50) L 11/29/18 03:31 Hgb 10.1 g/dL (12.9-16.9) L 11/29/18 03:31 Hct 32.3 % (37.5-50.1) L 11/29/18 03:31 MCH 27.5 pg (28.0-33.3) L 11/29/18 03:31 MCHC 31.3 g/dL (31.6-35.5) L 11/29/18 03:31 Plt Count 556 K/mcL (140-400) H 11/29/18 03:31 MPV 8.4 fL (9.4-12.4) L 11/29/18 03:31 Chloride 84 mEq/L (98-107) L 11/29/18 03:31 Carbon Dioxide > 45 mEq/L (23-29) H* 11/29/18 03:31 Glucose 217 mg/dL (70-105) H 11/29/18 03:31 POC Glucose 216 mg/dL (70-99) H 11/29/18 04:43 Ur Specific [place] 1.007 (1.010-1.025) L 11/29/18 06:33 Urine Glucose (UA) 100 mg/dL (Normal) H 11/29/18 06:33 Diabetes panel 11/28/18 11/29/18 Range/Units 18:47 03:31 Sodium 137 136 (136-145) mEq/L Potassium 3.2 L 4.0 (3.5-5.1) mEq/L Chloride 83 L 84 L (98-107) mEq/L Carbon Dioxide > 45 H* > 45 H* (23-29) mEq/L BUN 9 11 (6-20) mg/dL Creatinine 0.74 0.71 (0.70-1.30) mg/dL Glucose 126 H 217 H (70-105) mg/dL Calcium 9.2 9.2 (8.6-10.3) mg/dL Calcium panel 11/28/18 11/29/18 Range/Units 18:47 03:31 Calcium 9.2 9.2 (8.6-10.3) mg/dL Pituitary panel 11/28/18 11/29/18 Range/Units 18:47 03:31 Sodium 137 136 (136-145) mEq/L Potassium 3.2 L 4.0 (3.5-5.1) mEq/L Chloride 83 L 84 L (98-107) mEq/L Carbon Dioxide > 45 H* > 45 H* (23-29) mEq/L BUN 9 11 (6-20) mg/dL Creatinine 0.74 0.71 (0.70-1.30) mg/dL Glucose 126 H 217 H (70-105) mg/dL Calcium 9.2 9.2 (8.6-10.3) mg/dL Adrenal panel 11/28/18 11/29/18 Range/Units 18:47 03:31 Sodium 137 136 (136-145) mEq/L Potassium 3.2 L 4.0 (3.5-5.1) mEq/L Chloride 83 L 84 L (98-107) mEq/L Carbon Dioxide > 45 H* > 45 H* (23-29) mEq/L BUN 9 11 (6-20) mg/dL Creatinine 0.74 0.71 (0.70-1.30) mg/dL Glucose 126 H 217 H (70-105) mg/dL Calcium 9.2 9.2 (8.6-10.3) mg/dL All other labs normal.
--- NOTE | 2018-11-29 11:30 | Event Note ---
Date of Encounter: 11/29/18 Time of Encounter: 11:30 Pt admitted for acute on chronic hypoxic and hypercarbic respiratory failure, CXR w/ PVC. Pt also w/ urinary retention. - Pt recently treated for HCAP last month, low susp for recurrence, likely tracheitis given mucus in trach tube - f/u MRSA swab if neg d/c Vanco - c/w Zosyn pending tracheal cultures - CXR w/ PVC, pt w/ chest pain ? CHF, f/u BNP will check echo if not recently done. Trop neg x 3 - c/w steroids for now - c/w trach collar - urinary retention c/w beltran, appreciate urology consult, c/w flomax TOV in 1 wk
--- NOTE | 2018-11-29 18:54 | Electrocardiograph Report ---
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
[2018-11-29] MEDS ORDERED: Aminoglycoside Consult 1 EACH MC ONE (22:26)
[2018-11-30] MEDS: Insulin LISPRO 300 UNITS/3 ML VIAL SQ SCH ×5 (02:51→23:39)
[2018-11-30] MEDS: Ipratropium/Albuterol Neb 3 ML IH SCH ×5 (04:25→23:21)
[2018-11-30] MEDS: MethylPREDNISolone 40 MG/ML VIAL IVP SCH ×3 (05:44→20:04)
[2018-11-30] MEDS: *HR* Heparin 5,000 UNIT/ML VIAL SQ SCH ×2 (05:44→17:09)
[2018-11-30 08:45] LABS: Basophils % 0.1 %; Hematocrit 31.7 % (37.5-50.1); Hemoglobin 10.1 g/dL (12.9-16.9); Immature Granulocytes % 0.6 % (0-4); Lymphocytes # 1.5 K/mcL (0.6-4.6); Lymphocytes % 11.6 %; Mean Corpuscular HGB Conc 31.9 g/dL (31.6-35.5); Mean Corpuscular Hemoglobin 27.2 pg (28.0-33.3); Mean Corpuscular Volume 85.4 fL (83.0-100.0); Mean Platelet Volume 8.5 fL (9.4-12.4); Monocytes # 0.4 K/mcL (0.0-1.3); Monocytes % 3.5 %; Neutrophils # 10.5 K/mcL (1.6-8.9); Platelet Count 667 K/mcL (140-400); Red Blood Count 3.71 M/mcL (4.19-5.50); Red Cell Distribution Width 13.4 % (11.5-14.5); Segmented Neutrophils % 84.2 %
[2018-11-30 09:05] LABS: BUN/Creatinine Ratio 19 (6-26); Blood Urea Nitrogen 18 mg/dL (6-20); Calcium 9.7 mg/dL (8.6-10.3); Carbon Dioxide 36 mEq/L (23-29); Chloride 89 mEq/L (98-107); Glucose 263 mg/dL (70-105); Magnesium 1.9 mg/dL (1.6-2.6); Osmolality,Calculated 287 (280-300); Phosphorous 2.3 mg/dL (2.7-4.5); Sodium 133 mEq/L (136-145); eGFR For Non-African Americans > 60 (> 60)
[2018-11-30] MEDS: Piperacillin/Tazobactam 3.375 GM in 0.9 % Sodium Chloride Mini Bag 100 ML IVPB SCH ×3 (09:10→23:39)
[2018-11-30] MEDS: metOLazone 2.5 MG TABLET PO SCH (09:11)
[2018-11-30] MEDS: amLODIPine 5 MG TABLET PO SCH (09:11)
[2018-11-30] MEDS: Gabapentin 300 MG CAPSULE PO SCH ×3 (09:11→20:03)
[2018-11-30] MEDS: *HR* OxyCODONE/APAP 10/325 TABLET PO PRN ×3 (09:15→23:52)
[2018-11-30] MEDS: diazePAM 5 MG TABLET PO SCH ×2 (09:15→17:05)
--- NOTE | 2018-11-30 11:40 | Internal Med Progress Note ---
Hospitalist Progress Note - Encounter Date of Encounter: 11/30/18 Time of Encounter: 09:15 - Subjective Interval History: H&P reviewed. Patient with history of COPD, chronic respiratory failure on tracheostomy, 4L dependent, is admitted for acute on chronic hypoxic respiratory failure likely secondary to tracheitis. States that he is breathing a little better and O2 requirement has come down from 10 to 8L today. Requiring frequent suction per nursing staff. No fever/chills - Exam Vitals: Temp Pulse Resp BP Pulse Ox 98.0 F 115 16 145/70 94 11/30/18 07:49 11/30/18 07:49 11/30/18 11:00 11/30/18 07:49 11/30/18 11:00 Exam: General: Alert and oriented, not in acute distress. On trach collar Cardiovascular:Normal S1 & S2, No JVD. Pulse regular but tachycardic Lungs: diminished breath sounds bilaterally with scattered expiratory wheezes Abdomen:Soft, non-tender, no rigidity. Extremities:No deformity or swelling Neurological:Normal cognition and motor skills. Non-focal - Assessment and Plan (1) Acute and chronic respiratory failure with hypoxia Current Visit: Yes Status: Acute Assessment and Plan: likely secondary to COPD exacerbation secondary to tracheobronchitis tracheal aspirate culture growing GNR, MRSA swab -ve continue zosyn D2, d/c vanc steroid, bronchodilators suction frequently wean down O2 (2) COPD exacerbation Current Visit: Yes Status: Acute Assessment and Plan: as above Check respiratory viral panel BiPaP qualification prior to discharge (3) Acute urinary retention Current Visit: Yes Status: Acute Assessment and Plan: on beltran, outpatient voiding trial within 1 week of discharge Started on Flomax appreciate urology input (4) DMII (diabetes mellitus, type 2) Current Visit: No Status: Chronic Assessment and Plan: well controlled on low-dose sliding scale ADA diet (5) HTN (hypertension) Current Visit: No Status: Chronic Assessment and Plan: Resume home meds (6) DVT prophylaxis Current Visit: No Status: Acute Assessment and Plan: Heparin subcutaneous - Time Spent with Patient Total time spent is greater than 50% in coordination of care (as documented) at patient's floor/unit and/or counseling patient: Plan of Care Discussed with: patient Internal Medicine: Result - Labs CBC & Chem 7: 11/30/18 08:25 11/30/18 08:25 Labs: Short CBC 11/30/18 Range/Units 08:25 WBC 12.5 H (4.3-11.1) K/mcL Hgb 10.1 L (12.9-16.9) g/dL Hct 31.7 L (37.5-50.1) % Plt Count 667 H (140-400) K/mcL Neutrophils # 10.5 H (1.6-8.9) K/mcL BMP 11/30/18 08:25 Sodium 133 L Potassium 4.0 Chloride 89 L Carbon Dioxide 36 H BUN 18 Creatinine 0.96 Glucose 263 H Calcium 9.7 Consult Discharge Plan - Plan Referrals: Ad Garcia MD [Primary Care Provider] - (4) DMII (diabetes mellitus, type 2) Qualifiers: Diabetes mellitus 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
[2018-11-30] MEDS: diazePAM 10 MG TABLET PO SCH (20:03)
[2018-12-01] MEDS: *HR* OxyCODONE/APAP 10/325 TABLET PO PRN ×5 (04:02→21:59)
[2018-12-01] MEDS: MethylPREDNISolone 40 MG/ML VIAL IVP SCH ×3 (04:02→16:56)
[2018-12-01] MEDS: Ipratropium/Albuterol Neb 3 ML IH SCH ×6 (04:27→23:21)
[2018-12-01 05:17] LABS: Basophils % 0.3 %; Eosinophils % 0.2 %; Hemoglobin 10.3 g/dL (12.9-16.9); Immature Granulocytes % 4.6 % (0-4); Lymphocytes # 2.1 K/mcL (0.6-4.6); Lymphocytes % 16.1 %; Mean Corpuscular HGB Conc 33.2 g/dL (31.6-35.5); Mean Corpuscular Hemoglobin 28.2 pg (28.0-33.3); Mean Corpuscular Volume 84.9 fL (83.0-100.0); Mean Platelet Volume 9.2 fL (9.4-12.4); Monocytes # 0.6 K/mcL (0.0-1.3); Monocytes % 4.6 %; Neutrophils # 9.7 K/mcL (1.6-8.9); Nucleated Red Blood Cells 0.4 /100 WBC (0); Platelet Count 562 K/mcL (140-400); Red Blood Count 3.65 M/mcL (4.19-5.50); Red Cell Distribution Width 13.2 % (11.5-14.5); Segmented Neutrophils % 74.2 %
[2018-12-01] MEDS: *HR* Heparin 5,000 UNIT/ML VIAL SQ SCH ×2 (06:20→16:57)
[2018-12-01 07:19] LABS: BUN/Creatinine Ratio 21 (6-26); Blood Urea Nitrogen 23 mg/dL (6-20); Calcium 9.6 mg/dL (8.6-10.3); Carbon Dioxide 35 mEq/L (23-29); Chloride 89 mEq/L (98-107); Glucose 413 mg/dL (70-105); Magnesium 1.8 mg/dL (1.6-2.6); Osmolality,Calculated 291 (280-300); Sodium 130 mEq/L (136-145); eGFR For Non-African Americans > 60 (> 60)
[2018-12-01] MEDS: Piperacillin/Tazobactam 3.375 GM in 0.9 % Sodium Chloride Mini Bag 100 ML IVPB SCH ×2 (08:17→16:55)
[2018-12-01] MEDS: Gabapentin 300 MG CAPSULE PO SCH ×3 (08:24→21:59)
[2018-12-01] MEDS: amLODIPine 5 MG TABLET PO SCH (08:25)
[2018-12-01] MEDS: metOLazone 2.5 MG TABLET PO SCH (08:25)
[2018-12-01] MEDS: diazePAM 5 MG TABLET PO SCH ×2 (08:25→16:54)
[2018-12-01] MEDS: Insulin LISPRO 300 UNITS/3 ML VIAL SQ SCH ×4 (08:26→22:00)
[2018-12-01] MEDS ORDERED: Insulin DETEMIR 100 UNIT/ML X5UNITS SQ SCH ×2 (09:00→21:00)
[2018-12-01 11:08] LABS: Adenovirus Not Detected (Not Detect); Bordetella Pertussis Not Detected (Not Detect); Chlamydophila pneumoniae Not Detected (Not Detect); Coronavirus 229E Not Detected (Not Detect); Coronavirus HKU1 Not Detected (Not Detect); Coronavirus NL63 Not Detected (Not Detect); Coronavirus OC43 Not Detected (Not Detect); Human Metapneumovirus Not Detected (Not Detect); Human Rhinovirus/Enterovirus Not Detected (Not Detect); Influenza A Subtype 2009 H1 Not Detected (Not Detect); Influenza A Untypeable Not Detected (Not Detect); Influenza B Not Detected (Not Detect); Mycoplasma pneumoniae Not Detected (Not Detect); Parainfluenza Virus 1 Not Detected (Not Detect); Parainfluenza Virus 2 Not Detected (Not Detect); Parainfluenza Virus 3 Not Detected (Not Detect); Parainfluenza Virus 4 Not Detected (Not Detect); Respiratory Syncytial Virus Not Detected (Not Detect)
[2018-12-01] MEDS: Furosemide 20 MG TABLET PO SCH ×2 (11:27→16:54)
--- NOTE | 2018-12-01 11:47 | Internal Med Progress Note ---
Hospitalist Progress Note - Encounter Date of Encounter: 12/01/18 Time of Encounter: 09:30 - Subjective Interval History: States that his breathing has improved with decreasing secretions. Required suction x 3 yesterday. No fever/chills or chest pain. - Exam Vitals: Temp Pulse Resp BP Pulse Ox 98.1 F 82 18 149/50 97 12/01/18 05:28 12/01/18 07:48 12/01/18 11:07 12/01/18 07:48 12/01/18 11:07 Exam: General: Alert and oriented, not in acute distress. On trach collar Cardiovascular:Normal S1 & S2, No JVD. Normal rate and rhythm Lungs: diminished breath sounds bilaterally with scattered expiratory wheezes Abdomen:Soft, non-tender, no rigidity. Extremities:No deformity or swelling Neurological:Normal cognition and motor skills. Non-focal - Assessment and Plan (1) Acute and chronic respiratory failure with hypoxia Current Visit: Yes Status: Acute Assessment and Plan: likely secondary to COPD exacerbation secondary to tracheobronchitis tracheal aspirate culture growing GNR and S. pneumoniae, MRSA swab -ve continue zosyn D3, vanc d/cee yesterday steroid, bronchodilators suction frequently wean down O2, on 4L at baseline (2) COPD exacerbation Current Visit: Yes Status: Acute Assessment and Plan: as above RIP -ve will attempt BiPaP qualification prior to discharge (3) Acute urinary retention Current Visit: Yes Status: Acute Assessment and Plan: on beltran, outpatient voiding trial within 1 week of discharge Started on Flomax appreciate urology input (4) DMII (diabetes mellitus, type 2) Current Visit: No Status: Chronic Assessment and Plan: uncontrolled due to steroid add levemir, continue sliding scale ADA diet (5) HTN (hypertension) Current Visit: No Status: Chronic Assessment and Plan: Resume home meds (6) DVT prophylaxis Current Visit: No Status: Acute Assessment and Plan: Heparin subcutaneous - Time Spent with Patient Total time spent is greater than 50% in coordination of care (as documented) at patient's floor/unit and/or counseling patient: Plan of Care Discussed with: patient (discussed with transition social worker) Internal Medicine: Result - Labs CBC & Chem 7: 12/01/18 05:06 12/01/18 06:33 Labs: Short CBC 12/01/18 Range/Units 05:06 WBC 13.1 H (4.3-11.1) K/mcL Hgb 10.3 L (12.9-16.9) g/dL Hct 31.0 L (37.5-50.1) % Plt Count 562 H (140-400) K/mcL Neutrophils # 9.7 H (1.6-8.9) K/mcL BMP 12/01/18 06:33 Sodium 130 L Potassium 5.0 Chloride 89 L Carbon Dioxide 35 H BUN 23 H Creatinine 1.09 Glucose 413 H Calcium 9.6 Consult Discharge Plan - Plan Referrals: Ad Garcia MD [Primary Care Provider] - (4) DMII (diabetes mellitus, type 2) Qualifiers: Diabetes mellitus intermediate insulin use: with intermediate use Diabetes mellitus complication status: with hyperglycemia Qualified Code(s): E11.65 - Type 2 diabetes mellitus with hyperglycemia; Z79.4 - care home (current) use of insulin (5) HTN (hypertension) Qualifiers: Hypertension type: essential hypertension Qualified Code(s): I10 - Essential (primary) hypertension
[2018-12-01] MEDS: diazePAM 10 MG TABLET PO SCH (21:59)
[2018-12-02] MEDS: Piperacillin/Tazobactam 3.375 GM in 0.9 % Sodium Chloride Mini Bag 100 ML IVPB SCH ×2 (00:46→07:53)
[2018-12-02] MEDS: *HR* OxyCODONE/APAP 10/325 TABLET PO PRN ×2 (03:21→07:52)
[2018-12-02] MEDS: Ipratropium/Albuterol Neb 3 ML IH SCH ×3 (03:48→12:00)
[2018-12-02 06:06] LABS: Basophils % 0.1 %; Eosinophils % 0.1 %; Hematocrit 30.6 % (37.5-50.1); Hemoglobin 9.8 g/dL (12.9-16.9); Immature Granulocytes % 1.4 % (0-4); Lymphocytes # 2.5 K/mcL (0.6-4.6); Lymphocytes % 16.6 %; Mean Corpuscular Hemoglobin 27.4 pg (28.0-33.3); Mean Corpuscular Volume 85.5 fL (83.0-100.0); Mean Platelet Volume 8.8 fL (9.4-12.4); Monocytes # 0.9 K/mcL (0.0-1.3); Monocytes % 5.7 %; Neutrophils # 11.5 K/mcL (1.6-8.9); Platelet Count 629 K/mcL (140-400); Red Blood Count 3.58 M/mcL (4.19-5.50); Red Cell Distribution Width 13.5 % (11.5-14.5); Segmented Neutrophils % 76.1 %
[2018-12-02] MEDS: MethylPREDNISolone 40 MG/ML VIAL IVP SCH (06:10)
[2018-12-02] MEDS: *HR* Heparin 5,000 UNIT/ML VIAL SQ SCH (06:10)
[2018-12-02 06:19] LABS: BUN/Creatinine Ratio 26 (6-26); Blood Urea Nitrogen 31 mg/dL (6-20); Calcium 9.8 mg/dL (8.6-10.3); Carbon Dioxide 37 mEq/L (23-29); Chloride 90 mEq/L (98-107); Glucose 393 mg/dL (70-105); Magnesium 1.7 mg/dL (1.6-2.6); Osmolality,Calculated 299 (280-300); Potassium 4.4 mEq/L (3.5-5.1); Sodium 133 mEq/L (136-145); eGFR For Non-African Americans > 60 (> 60)
[2018-12-02 07:32] VITALS: BP 118/76
[2018-12-02] MEDS: metOLazone 2.5 MG TABLET PO SCH (07:53)
[2018-12-02] MEDS: amLODIPine 5 MG TABLET PO SCH (07:53)
[2018-12-02] MEDS: Gabapentin 300 MG CAPSULE PO SCH (07:53)
[2018-12-02] MEDS: Furosemide 20 MG TABLET PO SCH (07:53)
[2018-12-02] MEDS: Insulin LISPRO 300 UNITS/3 ML VIAL SQ SCH ×2 (08:05→12:06)
[2018-12-02] MEDS: diazePAM 5 MG TABLET PO SCH (08:13)
--- NOTE | 2018-12-02 10:08 | Discharge Summary ---
- NOTES TO OUTPATIENT PROVIDER Notes to Outpatient Provider: Patient with history of COPD, on trach collar with 4L of O2, was admitted for acute on chronic hypoxic respiratory failure secondary to tracheobronchitis. Sputum aspirate grew stenotrophomonas and Streptococcus pneumoniae. He clinically improved with IV zosyn, steroid, and bronchodilators, and will be discharged home on PO levaquin. O2 was titrated down to 6L and was advised to be monitored for a day or two to see if it can come down to his baseline but he requested to be discharged as he feels much better and can titrate O2 at home himself Of note, he also had urinary retention during his hospital stay for which he had beltran catheter inserted. He was recommended to keep beltran until outpatient follow up for voiding trial but declined and adamantly requested the beltran to be removed. Offered him to teach him how to straight cath in case he retains urine again but refused. 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 Mccloud is a 58 year old male with history of COPD, on trach collar with 4L of O2, was admitted for acute on chronic hypoxic respiratory failure secondary to tracheobronchitis. Sputum aspirate grew stenotrophomonas and Streptococcus pneumoniae. He clinically improved with IV zosyn, steroid, and bronchodilators, and will be discharged home on PO levaquin. O2 was titrated down to 6L and was advised to be monitored for a day or two to see if it can come down to his baseline but he requested to be discharged as he feels much better and can titrate O2 at home himself Of note, he also had urinary retention during his hospital stay for which he had beltran catheter inserted. He was recommended to keep beltran until outpatient follow up for voiding trial but declined and adamantly requested the beltran to be removed. Offered him to teach him how to straight cath in case he retains urine again but refused. Discharge discussed with: patient, nurse - Time Spent with Patient Total time spent providing and/or coordinating discharge services: 33 mins - Discharge Medications Prescriptions: levoFLOXacin [Levaquin] 750 mg PO DAILY #7 tablet predniSONE [PredniSONE] 40 mg PO DAILY #11 tablet Tamsulosin [Flomax] 0.4 mg PO DAILY #30 capsule Home Medications: Albuterol Sulfate [Ventolin Hfa] 2 puff IH Q4H PRN 03/17/18 [History] Atorvastatin [Lipitor] 40 mg PO HS 03/17/18 [History] Clopidogrel [Plavix] 75 mg PO DAILY 03/17/18 [History] Fenofibrate Nanocrystallized [Tricor] 145 mg PO DAILY 03/17/18 [History] Gabapentin [Neurontin] 300 mg PO TID 03/17/18 [History] Insulin Glargine,Hum.rec.anlog [Lantus Solostar] 25 unit SQ HS 03/17/18 [History] Montelukast [Singulair] 10 mg PO DAILY 03/17/18 [History] Omeprazole [PriLOSEC] 20 mg PO DAILY 03/17/18 [History] Oxycodone HCl/Acetaminophen [Percocet 10-325 mg Tablet] 1 tab PO Q4-6H PRN 03/17/18 [History] Sitagliptin Phos/Metformin HCl [Janumet 50-1,000 mg Tablet] 1 tab PO BIDWM 03/17/18 [History] diazePAM [Valium] 5 mg PO 0800,1700 03/17/18 [History] diazePAM [Valium] 10 mg PO HS 03/17/18 [History] Docusate [Colace] 200 mg PO BID #0 capsule 03/24/18 [Rx] amLODIPine [Norvasc] 5 mg PO DAILY #30 tablet 03/24/18 [Rx] Furosemide [Lasix] 20 mg PO BID 05/21/18 [History] Metoprolol [Lopressor] 25 mg PO BID 08/16/18 [History] Oxycodone HCl 15 mg PO Q6H 10/27/18 [History] metOLazone [Zaroxolyn] 2.5 mg PO DAILY 10/27/18 [History] Albuterol Neb [Proventil Neb] 2.5 mg IH QID 11/29/18 [History] Fluticasone Propionate Nasal [Flonase] 1 spray NS DAILY 11/29/18 [History] Tamsulosin [Flomax] 0.4 mg PO DAILY #30 capsule 12/02/18 [Rx] levoFLOXacin [Levaquin] 750 mg PO DAILY #7 tablet 12/02/18 [Rx] predniSONE [PredniSONE] 40 mg PO DAILY #11 tablet 12/02/18 [Rx] Allergies/Adverse Reactions: Allergy/AdvReac Type Severity Reaction Status Date / Time azithromycin AdvReac See Verified 11/29/18 14:17 Comments Date of admission: 12/01/18 16:59 Primary care physician: Ad Garcia MD Consults: 11/29/18 05:40 Consult to Nurse Navigator [CONS] Routine Comment: 11/29/18 06:28 Consult to Urology [CONS] Routine Consulting Provider: Urology Daniela Reason for Consult: Acute urinary retention Call Completed: No 11/29/18 06:34 Consult to Mdm Sr [CONS] Routine Reason for SW Consult: Patient filthy on arrival, unsure if homeless or not. - Constitutional Vitals: Temp Pulse Resp BP Pulse Ox 98.0 F 89 15 118/76 95 12/02/18 07:29 12/02/18 07:29 12/02/18 07:29 12/02/18 07:12/02/18 07:29 General appearance: Present: cooperative, A&O X 3, no acute distress, answers questions appropriately Exam: General: Alert and oriented, not in acute distress. On trach collar Cardiovascular:Normal S1 & S2, No JVD. Normal rate and rhythm Lungs: diminished breath sounds bilaterally with scattered expiratory wheezes Abdomen:Soft, non-tender, no rigidity. Extremities:No deformity or swelling Neurological:Normal cognition and motor skills. Non-focal - Patient Status Disposition: Home, Self-Care Condition: Fair Functional capacity at discharge: independent ambulation Overall status at discharge: patient is progressing back to baseline - Discharge Instructions Instructions: Acute Respiratory Distress Syndrome (DC), Chronic Obstructive Pulmonary Disease (DC) Follow Up With: Ad Garcia MD [Primary Care Provider] - Additional Instructions: Complete a course of PO Levaquin for tracheobronchitis Complete tapering dose of steroid wean down O2 as needed Started on flomax for urinary retention, declined to be discharged on beltran with outpatient voiding trial. - Diet and Activity Activity: as per physical therapy, wear oxygen at all times Diet: diabetic diet
--- NOTE | 2018-12-02 13:23 | Physician Discharge Referral ---
Home Health/Hosp Referral Info Transfer to: Home Health Provider in Charge Post Discharge: PCP - Diagnosis (1) Acute and chronic respiratory failure with hypoxia Priority: Primary Status: Acute (2) COPD exacerbation Priority: Secondary Status: Acute (3) Acute urinary retention Priority: Secondary Status: Acute (4) DMII (diabetes mellitus, type 2) Priority: Secondary Status: Chronic (5) HTN (hypertension) Priority: Secondary Status: Chronic (6) DVT prophylaxis Priority: Secondary Status: Acute (7) Tracheobronchitis Priority: Secondary Status: Acute - Respiratory Orders Oxygen / L per min (5-6L currently, wean down to his baseline as possible) Smoking Cessation: Smoking cessation has been advised. For more information, call the [facility] Quit Line at [phone]. - Services Needed Following services are medically necessary services: Nursing - Transfer Medications Prescriptions: levoFLOXacin [Levaquin] 750 mg PO DAILY #7 tablet predniSONE [PredniSONE] 40 mg PO DAILY #11 tablet Tamsulosin [Flomax] 0.4 mg PO DAILY #30 capsule Home Medications: Albuterol Sulfate [Ventolin Hfa] 2 puff IH Q4H PRN 03/17/18 [History] Atorvastatin [Lipitor] 40 mg PO HS 03/17/18 [History] Clopidogrel [Plavix] 75 mg PO DAILY 03/17/18 [History] Fenofibrate Nanocrystallized [Tricor] 145 mg PO DAILY 03/17/18 [History] Gabapentin [Neurontin] 300 mg PO TID 03/17/18 [History] Insulin Glargine,Hum.rec.anlog [Lantus Solostar] 25 unit SQ HS 03/17/18 [History] Montelukast [Singulair] 10 mg PO DAILY 03/17/18 [History] Omeprazole [PriLOSEC] 20 mg PO DAILY 03/17/18 [History] Oxycodone HCl/Acetaminophen [Percocet 10-325 mg Tablet] 1 tab PO Q4-6H PRN 03/17/18 [History] Sitagliptin Phos/Metformin HCl [Janumet 50-1,000 mg Tablet] 1 tab PO BIDWM 03/17/18 [History] diazePAM [Valium] 5 mg PO 0800,1700 03/17/18 [History] diazePAM [Valium] 10 mg PO HS 03/17/18 [History] Docusate [Colace] 200 mg PO BID #0 capsule 03/24/18 [Rx] amLODIPine [Norvasc] 5 mg PO DAILY #30 tablet 03/24/18 [Rx] Furosemide [Lasix] 20 mg PO BID 05/21/18 [History] Metoprolol [Lopressor] 25 mg PO BID 08/16/18 [History] Oxycodone HCl 15 mg PO Q6H 10/27/18 [History] metOLazone [Zaroxolyn] 2.5 mg PO DAILY 10/27/18 [History] Albuterol Neb [Proventil Neb] 2.5 mg IH QID 11/29/18 [History] Fluticasone Propionate Nasal [Flonase] 1 spray NS DAILY 11/29/18 [History] Tamsulosin [Flomax] 0.4 mg PO DAILY #30 capsule 12/02/18 [Rx] levoFLOXacin [Levaquin] 750 mg PO DAILY #7 tablet 12/02/18 [Rx] predniSONE [PredniSONE] 40 mg PO DAILY #11 tablet 12/02/18 [Rx] Allergies/Adverse Reactions: Allergy/AdvReac Type Severity Reaction Status Date / Time azithromycin AdvReac See Verified 11/29/18 14:17 Comments Certification: Further, I certify that my clinical findings support that this patient is homebound (i.e. absences from home require considerable and taxing effort and are for medical reasons or christian services or infrequently or short duration when for other reasons) because: Homebound Reason: Patient requires assistance of a person or device to safely leave home Attestation: My signature below is to certify that this patient is under my care and that I, or nurse practitioner, or a physician's resident assistant cna working with me, has a [id number] encounter with this patient.
== END 2018-12-02 13:34 | disposition home health service (06) | DRG 190 ==
LOC: 2NENU 18:14 → EMEROOARM 18:14 → SUATTDRO 22:25 → 2NENU 23:20
PROVIDERS: ADMIT Pediatrics; ATTEND Internal Medicine